=== PATIENT | female | born 1995 | race Caucasian/White ===

== ENCOUNTER 2023-04-16 09:54 | Outpatient (OUT) | payer BC, SELFPAY | END 2023-04-16 09:55 | disposition home or self-care (01) | LOC: VC 09:54 | PROVIDERS: PCP Radiology Diagnostic Radiology; Visit Provider Radiology Diagnostic Radiology | DX: I83.813 Varicose veins of bilateral lower extremities with pain (principal) ==

== ENCOUNTER 2024-01-30 09:45 | Outpatient (OUT) | payer BC, SELFPAY ==
--- NOTE | 2024-01-29 11:11 | VEINCLINIC_ITS ---
Vital Signs 01/30/24 09:56 Height 5 ft 1 in Weight 63.503 kg BMI 26.5 BP 110/62 BP Location Right Brachial BP Position Sitting BP Cuff Size Adult BP Source Manual Cuff Respiration 16 Pulse 64 Pulse Source Monitor Pulse Oximetry (%) 99 Oxygen Delivery Method Room Air Varicose Veins Patient is a 28 year old female in this day with c/o bulging, dilated veins along with pain, achiness and edema right leg greater than left. Symptoms include achi, burning, heaviness, itching, dull pain rated at a 6 on a scale of 1-10. Onset is gradual over 5 years and worsening with standing. Symptoms are decreased by rest and elevation, exercise, and compression stockings. Patient has worn bilateral leg knee high compression stockings for 2 years. Patient has family history of varicose vein disease including maternal grandmother. Patient has no history of DVT nor trama to lower legs. Nixon Greenwood MD personally performed the services described in this documentation, as scribed by Justo Stallworth RN in my presence and it is both accurate and complete. Justo Greenwood RN, am scribing for, and in the presence of, Dr. Nixon Lazo and in the presence of the patient. . thigh: bilateral (symptoms right > left), knee: bilateral, calf: bilateral, ankle: bilateral and estrada: bilateral aching, cramping, dull and tender 6 5 years Worsened in recent months: Yes standing elevating extremities, compression stockings and exercise Reports muscle spasms of leg, heaviness, limb pain, edema and leg edema History of lower extremity trauma: No Superficial thrombophlebitis: No Family history of varicose veins: yes Has patient had previous lower extremity venous surgery: No Patient has previously received the following treatment(s) for lower extremity varicose veins: Reports none Does patient have a history of : yes Does patient intend to have future pregnancies: yes Has patient had lower extremity venous scan with relux testing: No Support hose used: Yes Problems walking or doing physical activity: No How does it affect you: often has to stop and rest and elevate legs Do you walk much: Yes Do you stand much: Yes Review of Systems ROS Narrative Nixon Greenwood MD personally performed the services described in this d ocumentation, as scribed by Justo Stallworth RN in my presence and it is both accurate and complete. I, Justo Basim RN, am scribing for, and in the presence of, Dr. Nixon Lazo and in the presence of the patient. Status of ROS 10 or more systems reviewed and unremark able except as noted in history and below Cardiovascular Reports: edema Integumentary/Breast Reports: itching, skin swelling and changes in skin color [facility] Medical History (Updated 01/30/24 @ 11:47 by Justo Stallworth) Superficial thrombophlebitis ?I80.9 - Phlebitis and thrombophlebitis of unspecified site (ICD-10) delivery delivered ?O82 - Encounter for delivery without indication (ICD-10) Varicose veins of bilateral lower extremities with pain ?I83.813 - Varicose veins of bilateral lower extremities with pain (ICD-10) Pain due to varicose veins of both lower extremities ?I83.813 - Varicose veins of bilateral lower extremities with pain (ICD-10) Surgical History (Updated 01/30/24 @ 10:08 by Justo Stallworth) H/O breast augmentation ?Z98.82 - Breast implant status (ICD-10) History of appendectomy ?Z90.49 - Acquired absence of other specified parts of digestive tract (ICD- 10) H/O hemorrhoidectomy ?Z98.890 - Other specified postprocedural states (ICD-10) Family History (Updated 01/29/24 @ 11:16 by Justo Stallworth) Other Family history of diabetes mellitus Heart disease Varicose veins of bilateral lower extremities with pain Social History (Updated 01/29/24 @ 11:17 by Justo Stallworth) Within the past year, how often did you have a drink containing alcohol: 2-4 times a month Smoking status: Never smoker Non-prescribed substance use: denies use Meds Home Medications and Allergies Home Medications ?Medication ?Instructions ?Recorded ?Confirmed ?Type drospirenone-ethinyl estradiol .ROUTE 01/29/24 History spironolactone .ROUTE 01/29/24 History magnesium 200 mg tablet 200 mg PO DAILY 01/30/24 01/30/24 History Allergies Allergy/AdvReac Type Severity Reaction Status Date / Time No Known Drug Allergies Allergy Verified 01/29/24 11:14 Exam Narrative Exam Narrative: INixon MD personally performed the services described in this documentation, as scribed by Justo Stallworth RN in my presence and it is both accurate and complete. Justo Greenwood RN, am scribing for, and in the presence of, Dr. Nixon Lazo and in the presence of the patient. Constitutional Documenting provider has reviewed patient's vital signs: yes Common normals: oriented x3 Cardio Peripheral pulses: dorsalis pedis pulses present Extremity Common normals: normal capillary refill General: edema Right lower extremity: lower leg Right lower leg: inspection and palpation Left lower extremity: lower leg Left lower leg: inspection and palpation Neuro Common normals: oriented x3 Results Additional Findings Additional findings: Bilateral leg reflux u/s reveals moderate to severe right and moderate left great saphenous venous insuffiicency with associated dilatation, moderate venous insufficiency left anterior accessory saphenous vein, and bilateral leg branch saphenous truncal tributary veins. Nixon Greenwood MD personally performed the services described in this documentation, as scribed by Justo Stallworth RN in my presence and it is both accurate and complete. Justo Greenwood RN, am scribing for, and in the presence of, Dr. Nixon Lazo and in the presence of the patient. Assessment and Plan Assessment and Plan (1) Pain due to varicose veins of both lower extremities: Plan Plan is for patient to continue use of bilateral leg knee high compression stockings, rest, and elevation. Patient to return for patient to return for EVLT of right GSV and left AASV followed by microfoam chemical ablation bilateral leg branch saphenous tributary veins Patient referred to hematology Dr. Kingston at [facility] for clotting issue secondary to chronic thrombus noted in multiple superficial vessels Nixon Greenwood MD personally performed the services described in this documentation, as scribed by Justo Stallworth RN in my presence and it is both accurate and complete. Justo Greenwood RN, am scribing for, and in the presence of, Dr. Nixon Lazo and in the presence of the patient. Procedures Procedure Instructions Procedures Dr. Lazo examines patient and reviews results of bilateral leg reflux u/s. Patient and Dr. Lazo create plan of care. Nixon Greenwood MD personally performed the services described in this documentat ion, as scribed by Justo Stallworth RN in my presence and it is both accurate and complete. Justo Greenwood RN, am scribing for, and in the presence of, Dr. Nixon Lazo and in the presence of the patient.
--- NOTE | 2024-01-29 11:18 | P.DS_ITS ---
Discharge Plan Discharge Disposition: Home, Self-Care Outpatient Diagnostics: VC Endovenous Ablation 1VeinRT (Routine) Timeframe: 2 Months Facility: [facility] [place] - Location: [facility] Ordered By: Nixon Lazo Follow Up Appointments: patient to return once insurance preapproval obtained Plan of Treatment: Patient to return for EVLT of right GSV left AASV and micorofoam chemical ablation bilateral leg branch saphenous tributary varicosities Patient Instructions: Endovenous Ablation (GEN) Print Language: Romanian Discharge Date/Time: 01/30/24 11:49
--- NOTE | 2024-01-30 09:48 | VEIN_ITS ---
Patient Name: JAY TORRES MR#: [id number] : 1995 Exam Date: 01/30/2024 Ordering Doctor: DR NIXON LAZO M.D. RADIOLOGY REPORT PROCEDURE: [facility] - OFFICE VISIT INITIAL COMPARISON: None. PROGRESS NOTES: 28-year-old female who presents with a 5 year history of lower extremity pain swelling and varicose veins. The patient describes the pain as aching burning and heaviness rating the pain as a 6 on a scale of 1-10. The patient's symptoms are progressed by prolonged sitting and standing and are partially relieved by rest, leg elevation, exercise which she does daily and compression stockings which she has worn for approximately 2 years. The patient denies any signs and symptoms to suggest arterial ischemia. The patient describes a family history is significant for varicose veins, diabetes and heart disease. Surgical history of breast augmentation appendectomy and hemorrhoidectomy. The patient drinks 2-4 times per month. The patient has never smoked. No illicit drug use. No history of deep venous thrombus or pulmonary embolus. See separate history and physical for medication list. No prior treatment for varicose or spider veins. Nursing notes were reviewed. After history and physical exam I discussed at length the pathophysiology of venous hypertension and possible treatments, therapies and strategies available. We discussed at length the importance of elevating the lower extremities above the level of the heart, increased physical activity and compression stocking use. We discussed conservative therapy with compression stocking use. We discussed surgical interventions including and stripping and phlebectomy. We discussed intravenous laser ablation, foam ablation injection sclerotherapy length. The risks benefits alternatives were discussed. The patient's questions were answered. Ultrasound venous reflux study performed the same day was discussed at length with the patient. The report demonstrates moderate to severe right and moderate left great saphenous vein venous insufficiency with dilatation and saphenofemoral junction reflux. Moderate left anterior accessory saphenous vein venous insufficiency. Bilateral incompetent varicose veins. Bilateral chronic small saphenous vein thrombus. PHYSICAL EXAM: The right leg demonstrates moderate scattered varicose and reticular veins. No spider veins. No subcutaneous edema active ulceration or skin discoloration The left leg demonstrates moderate scattered varicose and reticular veins. No spider veins. No subcutaneous edema active ulceration or skin discoloration Both thighs, legs and feet were symmetrically warm to the touch. Good posterior tibial and dorsalis pedis pulses were present bilaterally. VEIN/VC Facility EST Comprehensive IMPRESSION: 1. Bilateral great saphenous and left anterior accessory saphenous vein venous insufficiency with dilatation and saphenofemoral junction reflux 2. Bilateral incompetent lower extremity varicose veins 3. No definite lower extremity subcutaneous edema 4. 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 CEAP: C2, Ep, As, Pr PLAN: 1. Endovenous laser ablation right great saphenous vein followed by left anterior accessory saphenous vein with possible treatment of the left great saphenous vein 2. Micro foam chemical ablation bilateral incompetent varicose veins 3. Referral to hematology for unprovoked bilateral occlusive small saphenous vein superficial thrombus 4. Long-term use of bilateral 20-30 mm compression stockings for moderate deep vein reflux 5. Leg elevation and continued physical activity for symptomatic relief Nurse notes, history and physical were reviewed and confirmed, see attached forms. The nurse was present throughout the physical exam and consultation Dictated by: Nixon Lazo MD on 01/30/2024 at 13:20 Approved by: Nixon Lazo MD on 01/30/2024 at 13:25
--- NOTE | 2024-01-30 09:48 | VEIN_ITS ---
Patient Name: JAY TORRES MR#: [id number] : 1995 Exam Date: 01/30/2024 Ordering Doctor: DR NIXON LAZO M.D. RADIOLOGY REPORT PROCEDURE: VC EXT VENOUS REFLUX OLEG LMTD COMPARISON: None. INDICATIONS: I83.813 Bilateral painful varicose veins TECHNIQUE: Duplex imaging of the lower extremity to assess the deep and superficial venous system for the presence of deep or superficial venous incompetence and to document the location and severity of disease. The study includes evaluation of the great saphenous vein (GSV), anterior accessory saphenous vein (AASV) and small saphenous vein (SSV). Patient scanned in reverse Trendelenburg and standing. FINDINGS: RIGHT LOWER EXTREMITY: Saphenofemoral Junction Reflux: Yes 6.8mm 3.4 sec GSV: Diam (mm) Reflux/ Time (sec) Proximal Thigh 6.4 Yes 5.0 Mid Thigh 7.6 Yes 3.9 Distal Thigh 4.2 Yes 4.8 Prox Calf 5.3 Yes 4.2 Mid Calf 1.4 Yes 0.5 Saphenopopliteal Junction Reflux: 6.5mm Yes 0.9 SSV: Proximal Calf 2.0 Occluded Mid Calf 2.0 Occluded AASV: Not present Thrombi: Chronic thrombus noted in SSV 2.2 cm from SPJ and distal GSV. Compressibility: Non-compressible SSV and distal GSV. Flow: Moderate deep venous reflux. Preforator: Proximal lateral lower leg connects to varicose vein measures 1.1 mm with 0.7s reflux. Tech Note: Incompetent varicose vein proximal medial lower leg off of GSV measures 4.9 mm with 4.4s reflux. LEFT LOWER EXTREMITY: Saphenofemoral Junction Reflux: Yes 7.8 mm 4.5 sec GSV: Diam (mm) Reflux/Time (sec) Proximal Thigh 4.2 Yes 3.3 Mid Thigh 2.6 Yes 0.9 Distal Thigh 2.6 No Prox Calf 1.9 N/A Mid Calf 2.0 N/A Saphenopopliteal Junction Relux: 5.6 mm Yes 0.5 SSV: Proximal Calf 2.0 Occluded Mid Calf 2.5 Occluded AASV: Proximal Thigh 5.8 Yes 4.2 Mid Thigh 6.0 Yes 2.8 Distal Thigh Thrombi: Chronic thrombus noted in SSV and GSV from knee to distal lower leg. Compressibility: Non-compressible lower leg GSV and SSV. Flow: Mild-moderate deep venous reflux. Customer Facilities Supervisor: Proximal posterior calf measures 2.7 mm with 0.9s reflux. Tech Note: Hyperechoic area lateral popliteal fossa measures 6.5 x 5.2 x 4.1 mm. Incompetent varicose vein mid medial thigh off of AASV measures 4.0 mm with 0.6s reflux. CONCLUSION: 1. Moderate to severe right and moderate left great saphenous vein venous insufficiency with dilatation and saphenofemoral junction reflux 2. Moderate venous insufficiency left anterior accessory saphenous vein with dilatation 3. Bilateral incompetent varicose veins Dictated by: Nixon Lazo MD on 01/30/2024 at 10:57 Approved by: Nixon Lazo MD on 01/30/2024 at 11:01
[2024-01-30 09:56] VITALS: BP 110/62; PULSE 64; O2SAT 99; BMI 26.5
--- OUTSIDE RECORDS SUMMARY | 2024-01-30 10:01 | XMS_ITS | CCD ---
Author Organization [facility] Care Team Providers Care Story Reader Name Role Phone Bao Rosado Unavailable Unavailable Bao Rosado Unavailable Unavailable America Ely Unavailable America Ely Primary Care Provider America Ely Primary Care Provider [phone] America Ely CNP Primary Care Provider Tan SHAIKH, Desiree Arredondo Primary Care Provider Tan SHAIKH, Desiree Arredondo Primary Care Provider Yohan Reyna MD Unavailable DESIREE MADDOX Primary Care Unavailab le YOHAN REYNA Referring Unavailable SUBIT, YOHAN LAKE Admitting Unavailable Yohan Reyna MD Unavailable Carlos Narayan MD, Gay Arzola Primary Care Pro vider Yohan Reyna MD Unavailable Carlos Narayan MD, Gay Arzola Primary Care Pro vider Daiana VENDING TECHNICIAN, Francisco Trinh Primary Care Provider Daiana VENDING TECHNICIAN, Francisco Trinh Primary Care Provider [phone] Daiana SRAVANTHI, Francisco Trinh Unavailable RAUDEL JORDAN Consulting Unavailable RAUDEL JORDAN Attending Unavailable ELLA CANTU Referring Unavailable FRANCISCO AHMADI Primary Care Unavailable RAUDEL JORDAN Admitting Unavailable FRANCISCO AHMADI Primary Care Unavailable ELLA CANTU Attending Unavailable RAUDEL JORDAN Attending Unavailable FRANCISCO AHMADI Primary Care Unavailable DAIANAFRANCISCO Lubin Primary Care Unavailable DAIANAFRANCISCO Lubin Attending GAY Uribe Primary Care GAY Cruz Attending Antoinette mckinney Allergies Allergy Classification Reported Allergen(s) Allergy Type Date of Onset Reaction(s) Facility (17 sources) Other; Translations: [OTHER] Propensity to adverse reactions 9 Other (See Comments) [facility] Medications Current Medications Medication Drug Class(es) Dates Sig (Normalized) Sig (Original) acetaminophen 325 mg oral tablet (4 sources) Start: 08-21-2023 End: 08-31-2023 take 2 tablets by mouth every four hours as needed acetaminophen (TYLENOL) 325 MG tablet Take 2 (two) tablets (650 mg total) by mouth every 4 (four) hours as needed . 30 tablet 0 08/21/2023 08/31/2023 Active Start: 08-20-2023 End: 08-21-2023 take 1 tablet by mouth every four hours as needed for pain and headache acetaminophen (TYLENOL) tablet 650 mg Start: 06-29-2021 End: 07-01-2021 take 1 tablet by mouth every four hours as needed for pain 650 mg, Oral, Every 4 hours PRN, mild pain, Starting on Sun06/29/21 at 1335, acetaminophen 325 mg / HYDROcodone bitartrate 5 mg oral tablet (3 sources) Opioid Agonist Start: 06-30-2021 End: 07-04-2021 HYDROcodone-acetaminophen (NORCO) 5-325 mg per tablet Indications: Post-operative pain Take 1 (one) tablet by mouth every 6 (six) hours as needed for pain (Days supply per fill: 3) . 12 tablet 0 06/30/2021 07/04/2021 Active Start: 06-29-2021 End: 07-01-2021 take 1-2 tablets by mouth every four hours as needed 1-2 tablet, Oral, Every 4 hours PRN, moderate to severe pain, Starting on Sun06/29/21 at 1335, [] Initiate with 1 tablet oral every 4 hours prn moderate to severe pain. [] For unrelieved pain, may repeat one tablet oral dose within 60 minutes of initial dose. [] If pain is RELIEVED after repeat dose, change to two tablets of 5/325 mg oral every 4 hours prn moderate to severe pain. [] If pain is UNrelieved after repeat dose, or patient requires dose reduction, call physician. amitriptyline hydrochloride 50 mg oral tablet (1 source) Tricyclic Antidepressant Start: 05-24-2018 take 1 tablet by mouth at bedtime amitriptyline 50 MG Tab Take 1 tablet by mouth at bedtime. 30 tablet 2 05/24/2018 Active Start: 05-24-2018 take 1 tablet by kadie th at bedtime amitriptyline 50 MG Tab Take 1 tablet by mouth at bedtime. 30 tablet 2 05/24/2018 Active cephalexin 500 mg oral capsule (1 source) Cephalosporin Antibacterial Start: 05-17-2018 End: 05-24-2018 take 1 capsule by mouth every twelve hours cephALEXin 500 MG Cap capsule Indications: Urinary tract infection with hematuria, site unspecified Take 1 capsule by mouth every 12 hours for 7 days. 14 capsule 0 05/17/2018 05/24/2018 Active CRANBERRY CONCENTRATE PO (4 sources) take 4 capsules by mouth once daily CRANBERRY CONCENTRATE PO Take 4 capsules by mouth daily. Active docusate sodium 50 mg / sennosides, intermediate 8.6 mg oral tablet (4 sources) Start: 06-29-2021 End: 07-31-2021 take 1 tablet by mouth once daily senna-docusate (SENNA-S) 8.6-50 mg Take 1 (one) tablet by mouth daily . 30 tablet 0 06/30/2021 07/31/2021 Active Start: 06-29-2021 End: 07-01-2021 senna-docusate (SENNA-S) 8.6 -50 mg per tablet 1 tablet drospirenone / Ethinyl Estradiol (1 source) Progestin, Estrogen Start: 03-06-2023 take 1 tablet by mouth once daily, then take 3 tablets by mouth once drospirenone-ethinyl estradioL (WILMAN) 3-0.02 mg per tablet Take 1 (one) tablet by mouth daily . 0 03/06/2023 Active ibuprofen 600 mg oral tablet (5 sources) Nonsteroidal Anti-inflammatory Drug Start: 08-21-2023 End: 08-26-2023 take 1 tablet by mouth every eight hours as needed for pain ibuprofen (ADVIL,MOTRIN) 600 MG tablet Take 1 (one) tablet (600 mg total) by mouth every 8 (eight) hours as needed for pain . 15 tablet 0 08/21/2023 08/26/2023 Active Start: 06-30-2021 End: 11-21-2021 take 1 tablet by mouth every eight hours as needed for pain ibuprofen (ADVIL,MOTRIN) 800 MG tablet Take 1 (one) tablet (800 mg total) by mouth every 8 (eight) hours as needed for pain . 30 tablet 0 06/30/2021 11/21/2021 Discontinued (Patient's Request) Lactobacillus acidophilus (8 sources) Lactobacillus ac idophilus (PROBIOTIC ORAL) Take by mouth . 0 Active Lactobacillus ac idophilus (PROBIOTIC ORAL) Take by mouth . 0 End: 11-22-2020 Lactobacillus acidophilus (P ROBIOTIC ORAL) Take by mouth daily . 0 11/22/2020 Discontinued (Therapy completed) Lactobacillus ac idophilus (PROBIOTIC ORAL) Take by mouth daily . 0 Active linaclotide 0.145 mg oral capsule (4 sources) Guanylate Cyclase-C Agonist Start: 04-26-2018 take 1 capsule by mouth once daily Linaclotide (LINZESS) 145 MCG Cap capsule Indications: Constipation, unspecified constipation type Take 1 capsule by mouth daily. 30 capsule 0 04/26/2018 Active omega-3 acid ethyl esters (intermediate) 1000 mg oral capsule (4 sources) take 1 capsule by mouth once daily Aurora-3 Fatty Acids (FISH OIL) 1000 MG Cap Take 1,000 mg by mouth daily. Active ondansetron 4 mg disintegrating oral tablet (1 source) Serotonin-3 Receptor Antagonist Start: 09-24-2021 End: 11-21-2021 take 1 tablet by mouth every four hours as needed for nausea ondansetron (ZOFRAN-ODT) 4 MG disintegrating tablet Dissolve 1 (one) tablet (4 mg total) on top of tongue every 4 to 6 hours as needed for nausea . 10 tablet 0 09/24/2021 11/21/2021 Discontinued (Patient's Request) 25/iron fum/folic/dha (-1 ORAL) (7 sources) End: 11-21-2021 take 1 tablet by mouth once daily 25/iron fum/folic/dha (-1 ORAL) Take 1 tablet by mouth daily . 0 11/21/2021 Discontinued (Patient's Request) take 1 tablet by mouth once valerie y 25/iron fum/folic/dha (-1 ORAL) Take 1 tablet by mouth daily . 0 take 1 tablet by mouth once valerie y 25/iron fum/folic/dha (-1 ORAL) Take 1 tablet by mouth daily . 0 Active spironolactone 50 mg oral tablet (3 sources) Aldosterone Antagonist take 2 tablets by mouth once daily spironolactone (ALDACTONE) 50 MG tablet Take 2 (two) tablets (100 mg total) by mouth daily . 0 Active take 1 tablet by mouth once valerie y spironolactone (ALDACTONE) 50 MG tablet Take 50 mg by mouth daily . 0 Active Thera Po Tabs (3 sources) take 1 tablet by kadie th once daily Multiple Vitamin (MULTIVITAMIN) Tab Take 1 tablet by mouth daily. Active Completed/Discontinued Medications Medication Drug Class(es) Dates Sig (Normalized) Sig (Original) aluminum hydroxide 40 mg/ml / magnesium hydroxide 40 mg/ml / simethicone 4 mg/ml oral suspension (1 source) Start: 06-29-2021 End: 07-01-2021 take 30 mL by mouth every four hours as needed 30 mL, Oral, Every 4 hours PRN, indigestion, Starting on Sun06/29/21 at 1335, bisacodyl 10 mg rectal suppository (1 source) Stimulant Laxative Start: 06-29-2021 End: 07-01-2021 10 mg, Rectal, Daily PRN, constipation, Starting on Sun06/29/21 at 1335, Use oral medication first for constipation. Use rectal suppository, if ordered, for constipation if oral route not tolerated. calcium chloride 0.0014 meq/ml / potassium chloride 0.004 meq/ml / sodium chloride 0.103 meq/ml / sodium lactate 0.028 meq/ml injectable solution (3 sources) Start: 08-20-2023 End: 08-21-2023 take 100 mL intravenously every hour 100 mL/hr, Intravenous, Continuous, Starting on Sun08/20/23 at 2045, PACU (only) Start: 06-29-2021 End: 07-01-2021 take 125 mL intravenously every hour 125 mL/hr, Intravenous, Continuous, Starting on Sun06/29/21 at 1430, L&D Post-Delivery Start when oxyTOCIN (PITOCIN) drip is discontinued. Discontinue after 24 hours if patient is afebrile and tolerating orals. Start: 06-29-2021 End: 06-29-2021 take 2000 mL intravenously every twenty-four hours as needed lactated ringers bolus 2,000 mL diphenhydrAMINE (BENADRYL) oral solid 25 mg (1 source) Start: 06-29-2021 End: 07-01-2021 take 25 mg by mouth every six hours as needed diphenhydrAMINE (BENADRYL) oral solid 25 mg docosahexanoic acid/epa (FISH OIL ORAL) (5 sources) End: 11-22-2020 take 1000 mg by mouth once daily docosahexanoic acid/epa (FISH OIL ORAL) Take 1,000 mg by mouth daily . 0 11/22/2020 Discontinued (Therapy completed) take 1000 mg by mouth once daily docosahexanoic acid/epa (FISH OIL ORAL) Take 1,000 mg by mouth daily . 0 Active docusate sodium 100 mg oral capsule (1 source) Start: 06-29-2021 End: 07-01-2021 100 mg, Oral, 2 times daily PRN, constipation, Starting on Sun06/29/21 at 1335, Use oral medication first for constipation. Use rectal suppository, if ordered, for constipation if oral route not tolerated. DO NOT CRUSH OR CHEW. doxycycline hyclate 100 mg oral tablet (5 sources) Tetracycline- class Drug End: 11-22-2020 take 100 mg by mouth twice daily DOXYCYCLINE HYCLATE ORAL Take 100 mg by mouth 2 (two) times a day . 0 11/22/2020 Discontinued (Therapy completed) escitalopram 10 mg oral tablet (1 source) Serotonin Reuptake Inhibitor Start: 01-08-2023 End: 03-12-2023 take 1 tablet by mouth once daily escitalopram oxalate (LEXAPRO) 10 MG tablet Take 1 (one) tablet (10 mg total) by mouth daily . 0 01/08/2023 03/12/2023 Discontinued (Prescriber Discontinued) ferrous sulfate 325 mg oral tablet (1 source) Start: 06-30-2021 End: 07-01-2021 take 325 mg by mouth once daily at breakfast 325 mg, Oral, Daily with breakfast, First dose on [place] 06/30/21 at 0800, flu vacc [id number] 6mos up(PF) (FLUZONE QUAD/FLULAVAL QUAD/FLUARIX QUAD) syringe 0.5 mL (1 source) Start: 06-30-2021 End: 07-01-2021 inject 0.5 mL by intramuscular injection every twenty-four hours as needed flu vacc [id number] 6mos up(PF) (FLUZONE QUAD/FLULAVAL QUAD/FLUARIX QUAD) syringe 0.5 mL fluconazole 100 mg oral tablet (2 sources) Azole Antifungal Start: 06-29-2021 End: 07-01-2021 fluconazole (DIFLUCAN) table t 150 mg Start: 05-17-2018 fluconazole (D IFLUCAN) 150 MG Tab tablet Indications: Yeast infection Take one tablet by mouth then repeat in 72 hours. 2 tablet 0 05/17/2018 Active fluticasone propionate 0.05 mg/actuat metered dose nasal spray (5 sources) Corticosteroid Start: 10-29-2015 End: 03-12-2023 take 2 spray(s) nasal route once daily fluticasone propionate (FLONASE) 50 mcg/actuation nasal spray Instill 2 (two) sprays into each nostril daily . 0 10/29/2015 03/12/2023 Discontinued (Prescriber Discontinued) fluticasone 50 M CG/ACT Suspension 2 sprays by Nasal route daily.. Active 0.5 ml HYDROmorphone hydrochloride 1 mg/ml prefilled syringe (1 source) Opioid Agonist Start: 08-20-2023 End: 08-21-2023 take 0.5 mg intravenously every three hours as needed HYDROmorphone (DILAUDID) injection 0.5 mg multivitamin (THERAGRAN) per tablet (5 sources) End: 11-22-2020 take 1 tablet by mouth once daily multivitamin (THERAGRAN) per tablet Take 1 tablet by mouth daily . 0 11/22/2020 Discontinued (Therapy completed) take 1 tablet by mouth once valerie y multivitamin (THERAGRAN) per tablet Take 1 tablet by mouth daily . 0 Active naloxone (NARCAN) injection 0.1 mg (2 sources) Start: 08-20-2023 End: 08-21-2023 naloxone (NARCAN) injection 0.1 mg Start: 06-29-2021 End: 07-01-2021 naloxone (NARCAN) injection 0.1 mg naproxen sodium 550 mg oral tablet (2 sources) Nonsteroidal Anti-inflammatory Drug Start: 03-06-2022 End: 03-12-2023 take 1 tablet by mouth twice daily as needed for pain naproxen sodium (ANAPROX) 550 MG tablet Take 1 (one) tablet (550 mg total) by mouth 2 (two) times a day as needed (pain) . 14 tablet 0 03/06/2022 03/12/2023 Discontinued (Prescriber Discontinued) ondansetron (ZOFRAN-ODT) disintegrating tablet 4 mg (2 sources) Start: 08-20-2023 End: 08-21-2023 take 1 tablet by mouth every four hours as needed for nausea and vomiting ondansetron (ZOFRAN-ODT) disintegrating tablet 4 mg Start: 06-29-2021 End: 07-01-2021 take 1 tablet by mouth every six hours as needed for nausea and vomiting ondansetron (ZOFRAN-ODT) disintegrating tablet 4 mg oxytocin (PITOCIN) bolus from bag 10,000 guillermo-units (1 source) Start: 06-29-2021 End: 06-29-2021 oxytocin (PITOCIN) bolus from bag 10,000 guillermo-units oxytocin in lactated ringers (PITOCIN) 20 unit/1,000 mL infusion (1 source) Start: 06-29-2021 End: 06-29-2021 oxytocin in lactated ringers (PITOCIN) 20 unit/1,000 mL infusion rho(d) immune globulin (RHOPHYLAC) injection 300 mcg (1 source) Start: 06-29-2021 End: 07-01-2021 inject 300 ug by intramuscular injection every twenty-four hours as needed rho(d) immune globulin (RHOPHYLAC) injection 300 mcg simethicone 80 mg chewable tablet (1 source) Start: 06-29-2021 End: 07-01-2021 take 80 mg by mouth after mealtime as needed 80 mg, Oral, After meals as needed, flatulence, Starting on Sun06/29/21 at 1335, Problems Active Problems Problem Classification Problem Date Documented Da te Episodic/Chronic Abdominal pain (1 source) Suprapubic pain Episodic Administrative/social admission (1 source) Patient encounter status; Translations: [Persons encountering health services in other specified circumstances] 03-12-2023 Episodic Allergic reactions (4 sources) Allergic disposition; Translations: [History of seasonal allergies] 12-15-2016 Episodic Appendicitis and other appendiceal conditions (8 sources) Acute appendicitis; Translations: [Unspecified acute appendicitis] Onset: 08-20-2023 08-20-2023 Episodic Cardiac dysrhythmias (3 sources) Palpitations; Translations: [Palpitations] Episodic Genitourinary symptoms and ill-defined conditions (4 sources) Dysuria; Translations: [Blood in urine] Episodic Other aftercare (1 source) Surgical follow-up; Translations: [Encounter for follow-up examination after completed treatment for conditions other than malignant neoplasm] 09-07-2023 Episodic Other gastrointestinal disorders (4 sources) Constipation; Translations: [Constipation] Onset: 04-26-2018 04-26-2018 Episodic Other nervous system disorders (1 source) Postoperative pain ; Translations: [Other acute postprocedural pain] Episodic Other upper respiratory disease (13 sources) Seasonal allergy; Translations: [Other seasonal allergic rhinitis] Chronic Other upper respiratory disease (2 sources) Other seasonal allergic rhinitis; Translations: [Other seasonal allergic rhinitis] Onset: 11-22-2020 Chronic Residual codes; unclassified (3 sources) FH: Cardiomyopathy; Translations: [Family history of ischemic heart disease and other diseases of the circulatory system] Episodic Unclassified (4 sources) H/O: Disorder; Translations: [History of hemorrhoids] 12-15-2016 Episodic Unclassified (2 sources) Post-op Onset: 09-07-2023 Urinary tract infections (1 source) Chronic interstitial cystitis Chronic Urinary tract infections (5 sources) Acute cystitis; Translations: [Recurrent urinary tract infection] Onset: 10-26-2017 10-26-2017 Episodic Varicose veins of lower extremity (4 sources) Pain co-occurrent and due to varicose veins of left leg; Translations: [Varicose veins of left lower extremity with pain] Onset: 01-20-2019 01-20-2019 Past or Other Problems Problem Classification Problem Date Documented Da te Episodic/Chronic Other upper respiratory infections (5 sources) Acute upper respiratory infection; Translations: [Acute upper respiratory infection, unspecified] Onset: 09-24-2021 Resolved: 11-21-2021 11-21-2021 Episodic Residual codes; unclassified (7 sources) Gestation period, 39 weeks; Translations: [39 weeks gestation of ] Onset: 06-29-2021 Resolved: 11-21-2021 Episodic Varicose veins of lower extremity (14 sources) Pain co-occurrent and due to varicose veins of left leg; Translations: [Varicose veins of left lower extremity with pain] Onset: 01-20-2019 01-20-2019 Episodic Results Test Name Value Interpretation Reference Range Facility Basic metabolic 2000 panelon 08-21-2023 Anion gap [Moles/Vol] 9 mmol/L Low 10 - 2 0 mmol/L [facility] Calcium [Mass/Vol] 8.8 mg/dL 8.4 - 10. 2 mg/dL [facility] Chloride [Moles/Vol] 110 mmol/L High 98 - 10 8 mmol/L [facility] Creatinine [Mass/Vol] 0.53 mg/dL 0.40 - 1.10 mg/dL [facility] GFR/1.73 sq M.predicted CKD-EPI (S/P/Bld) [Vol rate/Area] 128 - PINF [facility] Comment on above: Estimated GFR was ca lculated using the 2020 CKD-EPI creatinine equation. Glucose [Mass/Vol] 110 mg/dL High 65 - 99 mg/dL [facility] HCO3 [Moles/Vol] 24 mmol/L 21 - 32 mmol/L [facility] Interpretation and review of laboratory results Abnormal [facility] Potassium [Moles/Vol] 4.3 mmol/L 3.5 - 5.1 mmol/L [facility] Sodium [Moles/Vol] 139 mmol/L 135 - 145 mmol/L [facility] Urea nitrogen [Mass/Vol] 11 mg/dL 8 - 25 mg/dL [facility] Urea nitrogen/Creatinine [Mass ratio] 20.8 mg/mg High 10.0 - 20.0 [facility] has implemented the eGFR calculation approach that does not have a coefficient for race that conforms to the NKF-ASN Task Force Recommendations. [facility] CBC panel Auto (Bld)on 08-20 Erythrocyte distribution width (RBC) [Entitic vol] 13.5 % 11.6 - 14.8 % [facility] Hematocrit (Bld) [Volume fraction] 36.6 % 36.0 - 46.0 % [facility] Hemoglobin (Bld) [Mass/Vol] 12.0 g/dL 12.0 - 16.0 g/dL [facility] Interpretation and review of laboratory results Abnormal [facility] MCH (RBC) [Entitic mass] 29.9 pg 26.0 - 34.0 pg [facility] MCHC (RBC) [Mass/Vol] 32.8 g/dL 31.0 - 37.0 g/dL [facility] MCV (RBC) [Entitic vol] 91.3 fL 80.0 - 100.0 fL [facility] Nucleated RBC (Bld) [#/Vol] 0.00 10*3/uL [facility] Nucleated RBC/100 WBC (Bld) [Ratio] 0.0 % [facility] Platelet mean volume (Bld) [Entitic vol] 9.8 fL 9.4 - 12.4 fL [facility] Platelets (Bld) [#/Vol] 208 10*3/uL [facility] RBC (Bld) [#/Vol] 4.01 10*6/uL [facility] WBC (Bld) [#/Vol] 11.08 10*3/uL [facility] CT ABDOMEN PELVIS WITH IV CO NTRAST ONLYon 08-20-2023 CT ABDOMEN PELVIS WITH IV CONTRAST ONLY EXAMINATION: CT ABDOMEN PELVIS WITH IV CONTRAST ONLY HISTORY: ORDERING SYSTEM PROVIDED HISTORY: RLQ abdominal pain, TECHNOLOGIST PROVIDED HISTORY: Illness/Other Reason for exam: Pt reports symptoms began around 1900 last night. C/o mid abdominal pain and nausea. Pt reports today her pain is better but her abdomen still feels tender and she still is nauseous. Encounter Type: Initial Additional signs and symptoms: n ORDERING SYSTEM PROVIDED DIAGNOSIS CODES: COMPARISON: None TECHNIQUE: CT examination of the abdomen and pelvis following the administration of intravenous contrast. Coronal and sagittal reformations were performed. Dose reduction techniques were achieved by using automated exposure control and/or adjustment of mA and/or kV according to patient size and/or use of iterative reconstruction technique. CONTRAST: IOPAMIDOL 370 MG IODINE/ML (76 %) INTRAVENOUS SOLUTION - 75 mL, FINDINGS: LOWER CHEST: Lung bases are clear. Partial visualization of bilateral breast implants. ABDOMEN: Liver: Normal. Bile ducts: Normal caliber. Gallbladder: No calcified gallstones. Normal caliber wall. Pancreas: Normal. Spleen: Normal. Adrenals: Normal. Kidneys: Symmetric enhancement without hydronephrosis. PELVIS: Reproductive organs: Partially collapsed, peripherally enhancing low-density lesion of the right ovary measures 1.7 x 1.4 cm. Suggestive of involuting follicle. Ureters: Normal. Bladder: Normal. OTHER ABDOMEN AND PELVIS: Bowel: No bowel obstruction. Mildly prominent retrocecal appendix with mild thickening and enhancement measures up to 8 mm. Peritoneum: Small amount of low-density free fluid in the pelvis. Vessels: Normal. Lymph nodes: No enlarged lymph nodes. Abdominal wall: Normal. Osseous structures: No destructive lesions. IMPRESSION: Mildly prominent retrocecal appendix with mild thickening enhancement. Measures up to 8 mm in caliber (series 2, images [id number]; series 601, image 44). Findings are suspicious for early acute appendicitis. No pneumoperitoneum. No organized fluid collection. Recommend surgical consultation. Probable involuting right ovarian follicle measuring up to 1.7 cm. Small amount of free fluid in the pelvis. No pneumoperitoneum. Critical results were called by Dr. Quan Xiong to Dr. Ella Cantu on 08/20/2023 at 1416 hours. /[employer] Workstation ID: [id number] Dictated by: QUAN XIONG on SunAug 20, 2023 2:17:38 PM EST Transcribed by: HANS CALDERON on SunAug 20, 2023 2:21:16 PM EST Finalized by: QUAN XIONG on SunAug 20, 2023 6:07:32 PM EST Normal [facility] Comment on above: Order Comment: Injur y/Trauma or Illness?:Illness/Other How long have you had these symptoms (acute/chronic)?:Acute Reason for exam?:Pt reports symptoms began around 1900 last night. C/o mid abdominal pain and nausea. Pt reports today her pain is better but her abdomen still feels tender and she still is nauseous. Type of Exam?:Initial Additional signs and symptoms?:n CBC panel Auto (Bld)on 06-30 Erythrocyte distribution width (RBC) [Entitic vol] 13.6 % 11.6 - 14.8 % [facility] Hematocrit (Bld) [Volume fraction] 32.9 % Low 36.0 - 46.0 % [facility] Hemoglobin (Bld) [Mass/Vol] 11.0 g/dL Low 12.0 - 16.0 g/dL [facility] Interpretation and review of laboratory results Abnormal [facility] MCH (RBC) [Entitic mass] 30.1 pg 26.0 - 34.0 pg [facility] MCHC (RBC) [Mass/Vol] 33.4 g/dL 31.0 - 37.0 g/dL [facility] MCV (RBC) [Entitic vol] 90.1 fL 80.0 - 100.0 fL [facility] Nucleated RBC (Bld) [#/Vol] 0.00 10*3/uL [facility] Nucleated RBC/100 WBC (Bld) [Ratio] 0.0 % [facility] Platelet mean volume (Bld) [Entitic vol] 11.4 fL 9.4 - 12.4 fL [facility] Platelets (Bld) [#/Vol] 162 10*3/uL [facility] RBC (Bld) [#/Vol] 3.65 10*6/uL Low [facility] ealt WBC (Bld) [#/Vol] 18.84 10*3/uL [facility] ABORH Verificationon 022 ABO and Rh group Nom (Bld) Blood group O Rh(D) positive [facility] ABO and Rh group Nom (Bld) ABO/Rh Verification [facility] Comment on above: Patient's ABO/Rh is verified. [facility] Blood type and Indirect anti body screen panel (Bld)on 06-29-2021 ABO and Rh group Nom (Bld) Blood group O Rh(D) positive [facility] Blood group antibody screen Ql Negative [facility] Specimen Expires 07/02/2021 23:59 EST [facility] CBC panel Auto (Bld)on 06-29 Erythrocyte distribution width (RBC) [Entitic vol] 13.7 % 11.6 - 14.8 % [facility] Hematocrit (Bld) [Volume fraction] 37.8 % 36.0 - 46.0 % [facility] Hemoglobin (Bld) [Mass/Vol] 12.8 g/dL 12.0 - 16.0 g/dL [facility] Interpretation and review of laboratory results Abnormal [facility] MCH (RBC) [Entitic mass] 30.0 pg 26.0 - 34.0 pg [facility] MCHC (RBC) [Mass/Vol] 33.9 g/dL 31.0 - 37.0 g/dL [facility] MCV (RBC) [Entitic vol] 88.5 fL 80.0 - 100.0 fL [facility] Nucleated RBC (Bld) [#/Vol] 0.00 10*3/uL [facility] Nucleated RBC/100 WBC (Bld) [Ratio] 0.0 % [facility] Platelet mean volume (Bld) [Entitic vol] 11.4 fL 9.4 - 12.4 fL [facility] Platelets (Bld) [#/Vol] 170 10*3/uL [facility] RBC (Bld) [#/Vol] 4.27 10*6/uL [facility] WBC (Bld) [#/Vol] 12.72 10*3/uL [facility] SCAN OTHER ORDERSon 06-29-19 Ordered by an unspecified provider. [facility] COVID-19, MOLECULARon 2021 SARS-CoV-2 (COVID-19) RNA ADRIANA+probe Ql (Unsp spec) Not detected Normal Not Detected [facility] Comment on above: Result Comment: This test was performed under the FDA's Emergency Use Authorization (EUA). Testing was performed using the Georgina SARS-CoV-2 RT-PCR assay on the [employer] Georgina 6800 System. This test has not been approved for use in asymptomatic patients and its performance in this patient population has not been evaluated. Negative results do not rule out the presence of SARS-CoV-2/COVID-19. Fact sheets for this EUA can be found at the following links: For Healthcare Providers: https://www.fda.gov/media/104448/download For Patients: https://www.fda.gov/media/165727/download Performed By: #### L [id number] #### [facility] [address] [place] [address] Anderson Cano M.D. [id number] Chlamydia/Gonorrhoeae Amplif ied RNAon 06-14-2021 C. trachomatis rRNA ADRIANA+probe Ql (Unsp spec) Negative Negative [facility] N. gonorrhoeae rRNA ADRIANA+probe Ql (Unsp spec) Negative Negative [facility] No Panel Informationon 06-14 [facility] RPRon 06-14-2021 Reagin Ab RPR Ql (S) Non-Reactive Non-Reactive [facility] S. agalactiae DNA ADRIANA+probe Ql (Unsp spec)on 06-14-2021 S. agalactiae Ag Ql (Unsp spec) Negative Negative [facility] NOVEL CORONAVIRUSon 01-29-20 21 PERFORMED BY [facility] Normal [facility] Comment on above: Performed By: #### C COVID #### [place] [address] SARS-CoV-2 (COVID-19) RNA ADRIANA+probe Ql (Unsp spec) Detected Abnormal NOT DETECTED [facility] Comment on above: Result Comment: CALL ED TO AND READ BACK BY Sarah AMATO @1245 BY KLE ENHANCED CONTACT, AND DROPLET ISOLATION IS REQUIRED FOR INPATIENTS WITH SARS-CoV-2. Performed By: #### C COVID #### [place] [address] NARRATIVE This test was performed using isothermal ADRIANA and has been approved as Emergency Use Authorization (EUA) for the qualitative detection isOWNS-SfX-7 nucleic acid. [facility] Comment on above: Performed By: #### C COVID #### [place] [address] Gestational Diabetes Screen (50G)on 01-17-2021 Glucose 1 Hr post 50 g glucose PO [Mass/Vol] 79 mg/dL 65 - 135 mg/dL [facility] Glucose 1 Hr post 50 g gluco se PO [Mass/Vol]on 01-17-2021 [facility] ECHOCARDIOGRAM COMPLETEOrder ed By: Desiree Maddox on 12-29-2020 Aortic valve area 2.84393 cm [facility] AV mean gradient 2.35553 mmHg [facility] AV peak gradient 4.68977 mmHg [facility] EF 65.2664 % [facility] Patient Info Name: JAY ANTONIO Age: 25 years : 1995 Gender: Female Ht: 160 cm Wt: 64 kg BSA: 1.70 m2 HR: 75 bpm BP: 106 / 69 mmHg Heart Rhythm: Sinus Rhythm Technical Quality: Good Exam Date: 12/29/2020 9:19 AM Patient Status: [facility] Consultant: Addie Luna, KATHLEEN, RVT Exam Type: ECHOCARDIOGRAM COMPLETE Study Info Indications R00.2 - Palpitations Referring Physician: DESIREE MADDOX ; [id number] BMI: 25.15 kg/m2 Summary 1. Normal transthoracic echocardiogram. 2. Left ventricular systolic function is normal with an ejection fraction by Biplane Method of Discs of 65 %. 3. The left ventricular diastolic function is normal. History/Risk Factors Tobacco Use: Never History/Risk Factors palpitations, family H/O HOCM, 13 weeks . Procedure(s): Complete two-dimensional, color flow and Doppler transthoracic echocardiogram is performed. Left Ventricle Left ventricular chamber dimension is normal. Left ventricular systolic function is normal with an ejection fraction by Biplane Method of Discs of 65 %. Normal left ventricular mass. Left ventricular segmental wall motion is normal. The left ventricular diastolic function is normal. Right Ventricle Right ventricular chamber dimension is normal. Right ventricular systolic function is normal. Left Atria Left atrial chamber is normal with a left atrial volume index of 19 ml/m2 by BP MOD. Right Atria Right atrial chamber dimension is normal. Aortic Valve The aortic valve is trileaflet. There is no aortic valve sclerosis. There is no aortic valve stenosis with a peak velocity of 1.1 m/s, mean gradient of 3 mmHg, and aortic valve area of 2.8 cm2. There is no aortic valve regurgitation. Pulmonic Valve The pulmonic valve is normal. There is no pulmonic valve stenosis. There is trace pulmonic regurgitation. Mitral Valve The mitral valve has normal leaflets. There is no mitral valve stenosis. There is no mitral valve regurgitation. Tricuspid Valve The tricuspid valve leaflets are normal. There is no significant tricuspid valve stenosis. There is trace tricuspid valve regurgitation. There is no pulmonary hypertension, estimated right ventricle systolic pressure is 18 mmHg. Pericardium/Pleural The pericardium appears normal. There is no pericardial effusion. Inferior Vena Cava Normal inferior vena cava with >50% collapse upon inspiration consistent with normal right atrial pressure. Aorta The aortic measurements are indexed to age and body surface area. The aortic root is normal measuring 2.8 cm with an index of 1.7 cm/m2. The proximal ascending aorta is normal measuring 2.9 cm with an index of 1.7 cm/m2. Left Ventricular Outflow Tract Name Value Normal LVOT 2D LVOT Diameter 2.1 cm LVOT Doppler LVOT Peak Velocity 1.0 m/s LVOT Peak Gradient 4 mmHg LVOT Mean Gradient 2 mmHg LVOT VTI 22 cm LVOT VTI/AV VTI Ratio 0.8 LVOT Stroke Volume 72 ml LVOT Stroke Index 42.28 ml/m2 Pulmonic Valve Name Value Normal PV Doppler PV Peak Velocity 0.88 m/s PV Peak Gradient 3 mmHg PV Mean Gradient 2 mmHg PV VTI 20 cm Mitral Valve Name Value Normal MV Doppler MV Peak Velocity 1.14 m/s MV Peak Gradient 5 mmHg MV Mean Gradient 1 mmHg MV VTI 27 cm MV Decel Gibson 838 cm/s2 MV PHT 33 ms MV Area (PHT) 6.7 cm2 4.0-5.0 MV Area (Cont Eq VTI) 2.7 cm2 MV Area Index (Cont Eq VTI) 1.57 cm2/m2 MV Diastolic Function - (more content not included)... [facility] Interface, Rad [facility] - 12/29/2020 10:35 AM EDT Patient Info Name: JAY ANTONIO Age: 25 years : 1995 Gender: Female Ht: 160 cm Wt: 64 kg BSA: 1.70 m2 HR: 75 bpm BP: 106 / 69 mmHg Heart Rhythm: Sinus Rhythm Technical Quality: Good Exam Date: 12/29/2020 9:19 AM Patient Status: [facility] Consultant: Addei Luna, KATHLEEN, RVT Exam Type: ECHOCARDIOGRAM COMPLETE Study Info Indications R00.2 - Palpitations Referring Physician: DESIREE MADDOX ; [id number] BMI: 25.15 kg/m2 Summary 1. Normal transthoracic echocardiogram. 2. Left ventricular systolic function is normal with an ejection fraction by Biplane Method of Discs of 65 %. 3. The left ventricular diastolic function is normal. History/Risk Factors Tobacco Use: Never History/Risk Factors palpitations, family H/O HOCM, 13 weeks . Procedure(s): Complete two-dimensional, color flow and Doppler transthoracic echocardiogram is performed. Left Ventricle Left ventricular chamber dimension is normal. Left ventricular systolic function is normal with an ejection fraction by Biplane Method of Discs of 65 %. Normal left ventricular mass. Left ventricular segmental wall motion is normal. The left ventricular diastolic function is normal. Right Ventricle Right ventricular chamber dimension is normal. Right ventricular systolic function is normal. Left Atria Left atrial chamber is normal with a left atrial volume index of 19 ml/m2 by BP MOD. Right Atria Right atrial chamber dimension is normal. Aortic Valve The aortic valve is trileaflet. There is no aortic valve sclerosis. There is no aortic valve stenosis with a peak velocity of 1.1 m/s, mean gradient of 3 mmHg, and aortic valve area of 2.8 cm2. There is no aortic valve regurgitation. Pulmonic Valve The pulmonic valve is normal. There is no pulmonic valve stenosis. There is trace pulmonic regurgitation. Mitral Valve The mitral valve has normal leaflets. There is no mitral valve stenosis. There is no mitral valve regurgitation. Tricuspid Valve The tricuspid valve leaflets are normal. There is no significant tricuspid valve stenosis. There is trace tricuspid valve regurgitation. There is no pulmonary hypertension, estimated right ventricle systolic pressure is 18 mmHg. Pericardium/Pleural The pericardium appears normal. There is no pericardial effusion. Inferior Vena Cava Normal inferior vena cava with >50% collapse upon inspiration consistent with normal right atrial pressure. Aorta The aortic measurements are indexed to age and body surface area. The aortic root is normal measuring 2.8 cm with an index of 1.7 cm/m2. The proximal ascending aorta is normal measuring 2.9 cm with an index of 1.7 cm/m2. Left Ventricular Outflow Tract Name Value Normal LVOT 2D LVOT Diameter 2.1 cm LVOT Doppler LVOT Peak Velocity 1.0 m/s LVOT Peak Gradient 4 mmHg LVOT Mean Gradient 2 mmHg LVOT VTI 22 cm LVOT VTI/AV VTI Ratio 0.8 LVOT Stroke Volume 72 ml LVOT Stroke Index 42.28 ml/m2 Pulmonic Valve Name Value Normal PV Doppler PV Peak Velocity 0.88 m/s PV Peak Gradient 3 mmHg PV Mean Gradient 2 mmHg PV VTI 20 cm Mitral Valve Name Value Normal MV Doppler MV Peak Velocity 1.14 m/s MV Peak Gradient 5 mmHg MV Mean Gradient 1 mmHg MV VTI 27 cm MV Decel Gibson 838 cm/s2 MV PHT 33 ms MV Area (PHT) 6.7 cm2 4.0-5.0 MV Area (Cont Eq VTI) 2.7 cm2 MV Area Index (Cont Eq VTI) 1.57 cm2/m2 MV Diastolic Function MV E Peak Velocity 1 m/s MV A Peak Velocity 1 m/s MV E/A 1.6 MV Decel Time 113 ms MV Annular TDI MV Septal e' Velocity 14.8 cm/s >=8.0 MV E/e' (Septal) 6.4 <=8.0 MV Lateral e' Velocity 20.0 cm/s >=10.0 MV E/e' (Lateral) 4.7 <=8.0 MV e' Average 17.39 MV E/e' (Average) 5.6 Tricuspid Valve Name Va (more content not included)... [facility] ABO/RH(D)on 12-15-2020 ABO/RH(D) ABO/RH(D) O POSITIVE Testing performed at [address] Comment on above: Performed By: #### A BRH #### [place] [address] ANTIBODY SCREENon 12-15-2020 Antibody screen ANTIBODY SCREEN NEGATIVE WORKUP EXPIRES 12/18/2020,2359 Testing performed at [address] Comment on above: Performed By: #### R ESCRN #### [place] [address] Blood type and Indirect anti body screen panel (Bld)Ordered By: Katlin Prieto on 12-15-2020 ABO and Rh group Nom (Bld) O [facility] Rh Type + [facility] FAX REQUESTon 12-15-2020 FAX TO [phone] AND [phone] Normal [facility] Comment on above: Result Comment: Test ing performed at [place] [address] Performed By: #### F X #### [place] [address] FAX TO [phone] AND [phone] Normal [facility] Comment on above: Result Comment: Test ing performed at [place] [address] Performed By: #### F X #### [place] [address] HIV 1/2 Screen (4th Generati on)on 12-15-2020 HIV 1+2 Ab+HIV1 p24 Ag IA Ql Negative Negative [facility] Hepatitis B Surface Antigeno n 12-15-2020 HBV surface Ag Ql (S) Negative Negative [facility] Hepatitis C Antibodyon 12-15 HCV Ab Ql (S) Negative Negative [facility] No Panel InformationOrdered By: Katlin Prieto on 12-15-2020 [facility] Rubella Antibody, IgGon 11-18 Rubella virus IgG Ql (S) Immune [facility] T. pallidum IgG Ql (S)on T. pallidum Ab Ql (S) Negative Negative [facility] ECG 12-LEADOrdered By: Desiree Maddox on 11-22-2020 Atrial Rate [facility] P [place] [facility] P-R Interval [facility] Q-T Interval [facility] Q-T Interval (corrected) [facility] QRS Duration [facility] QTC Calculation (Bezet) [facility] R [place] [facility] T [place] [facility] Ventricular Rate [facility] SARS-COV-2,NAAon 07-23-2020 SARS-CoV-2 (COVID-19) RNA ADRIANA+probe Ql (Unsp spec) Not detected Normal [facility] Comment on above: Result Comment: Refe rence range: Not Detected (NOTE) This nucleic acid amplification test was developed and its performance characteristics determined by [employer]. Nucleic acid amplification tests include RT-PCR and TMA. This test has not been FDA cleared or approved. This test has been authorized by FDA under an Emergency Use Authorization (EUA). This test is only authorized for the duration of time the declaration that circumstances exist justifying the authorization of the emergency use of in vitro diagnostic tests for detection of SARS-CoV-2 virus and/or diagnosis of COVID-19 infection under section 564(b)(1) of the Act, 21 U.S.C. 360bbb-3(b) (1), unless the authorization is terminated or revoked sooner. When diagnostic testing is negative, the possibility of a false negative result should be considered in the context of a patient's recent exposures and the presence of clinical signs and symptoms consistent with COVID-19. An individual without symptoms of COVID- 19 and who is not shedding SARS-CoV-2 virus would expect to have a negative (not detected) result in this assay. Ultrasound venous insufficie ncy left legon 02-11-2019 Non-Invasive Vascular Patient: [facility] Rec#: [id number] (Age): 1995(23y) Study Date: 02/11/2019 Room#: Type: Sex: F Reading: JOSE Reading: Hannah Sandoval DO, RPVI Referring: ATUL NEVES Design [facility] Consultant: Caryn Winkler Procedure Info: [id number] Study Quality: Lower Venous Reflux: Adequate Diagnosis: I83.812 Varicose veins of left lower extremities with pain Lower Venous Duplex Lower Venous Reflux Conclusions No evidence of deep or superficial venous thrombosis or obstruction noted in left lower extremity. No evidence of deep or superficial venous reflux noted in left lower extremity. Anterior accessory vein noted measuring 2.3mm proximal, 1.7mm mid, and 3.2mm distal. Anterior Accessory vein extends from zone 3.5 out of fascia extending to lateral side of the knee with no reflux found. Exam was done in steep reverse Trendelenburg. The procedure was explained to the patient. The patient voiced understanding. Finding Grids Left Duplex Exam Spont Phasic External Iliac _ _ Common Femoral Y Y Proximal Femoral Y Y Mid Femoral Y Y Distal Femoral Y Y Popliteal Y Y Great Saphenous Y Y Small Saphenous Y Y Augment Color Filling Compressibility External Iliac _ _ Y Common Femoral Y Y Y Proximal Femoral Y Y Y Mid Femoral Y Y Y Distal Femoral Y Y Y Popliteal Y Y Y Great Saphenous Y Y Y Small Saphenous Y Y Y Cueva --------- Y = Yes Measurements Left Vein Diameters Name Value Units GSV at SFJ 6.2 mm GSV Thigh - prox 1.6 mm GSV Thigh - mid 3.6 mm GSV Thigh - dist 3.8 mm GSV at Knee 3.9 mm GSV Calf - prox 2.2 mm GSV Calf - mid 1.7 mm SSV Calf - prox 2.3 mm SSV Calf - mid 2.3 mm Left Vein Reflux Times Name Value Units GSV at SFJ -Time 0 sec GSV Thigh - prox - Time 0 sec GSV Thigh - mid -Time 0 sec GSV Thigh - dist - Time 0 sec GSV at Knee - Time 0 sec GSV Calf - prox - Time 0 sec GSV Calf - mid - Time 0 sec SSV Calf - prox - Time 0 sec SSV Calf - mid - Time 0 sec History Varicose Veins. Electronically signed at 02/11/2019 16:38:58 by: Hannah Sandoval DO, RPVI [facility] In [facility] - 02/11/2019 5:21 PM EDT Non-Invasive Vascular Patient: PACO THOMPSON [facility] Rec#: [id number] (Age): 1995(23y) Study Date: 02/11/2019 Room#: Type: Sex: F Reading: JOSE Reading: Hannah Sandoval DO, RPVI Referring: ATUL NEVES Design Center Consultant: Caryn Winkler Procedure Info: [id number] Study Quality: Lower Venous Reflux: Adequate Diagnosis: I83.812 Varicose veins of left lower extremities with pain Lower Venous Duplex Lower Venous Reflux Conclusions No evidence of deep or superficial venous thrombosis or obstruction noted in left lower extremity. No evidence of deep or superficial venous reflux noted in left lower extremity. Anterior accessory vein noted measuring 2.3mm proximal, 1.7mm mid, and 3.2mm distal. Anterior Accessory vein extends from zone 3.5 out of fascia extending to lateral side of the knee with no reflux found. Exam was done in steep reverse Trendelenburg. The procedure was explained to the patient. The patient voiced understanding. Finding Grids Left Duplex Exam Spont Phasic External Iliac _ _ Common Femoral Y Y Proximal Femoral Y Y Mid Femoral Y Y Distal Femoral Y Y Popliteal Y Y Great Saphenous Y Y Small Saphenous Y Y Augment Color Filling Compressibility External Iliac _ _ Y Common Femoral Y Y Y Proximal Femoral Y Y Y Mid Femoral Y Y Y Distal Femoral Y Y Y Popliteal Y Y Y Great Saphenous Y Y Y Small Saphenous Y Y Y Cueva --------- Y = Yes Measurements Left Vein Diameters Name Value Units GSV at SFJ 6.2 mm GSV Thigh - prox 1.6 mm GSV Thigh - mid 3.6 mm GSV Thigh - dist 3.8 mm GSV at Knee 3.9 mm GSV Calf - prox 2.2 mm GSV Calf - mid 1.7 mm SSV Calf - prox 2.3 mm SSV Calf - mid 2.3 mm Left Vein Reflux Times Name Value Units GSV at SFJ -Time 0 sec GSV Thigh - prox - Time 0 sec GSV Thigh - mid -Time 0 sec GSV Thigh - dist - Time 0 sec GSV at Knee - Time 0 sec GSV Calf - prox - Time 0 sec GSV Calf - mid - Time 0 sec SSV Calf - prox - Time 0 sec SSV Calf - mid - Time 0 sec History Varicose Veins. Electronically signed at 02/11/2019 16:38:58 by: Hannah Sandoval, DO, RPVI [facility] POCT URINALYSIS DIPSTICK NON AUTOMATEDon 05-24-2018 Amorphous sediment LM Ql (Urine sed) Invalid Interpretation Code [facility] Work Phone: Appearance Nom (Body fld) clear Invalid Interpretation Code [facility] Work Phone: Bacteria LM Ql (Urine sed) Invalid Interpretation Code [facility] Work Phone: Bilirubin Ql (U) Negative Invalid Interpretation Code [facility] Work Phone: Casts LM.LPF #/area (Urine sed) Invalid Interpretation Code [facility] Work Phone: Color Nom (U) yellow Invalid Interpretation Code [facility] Work Phone: Crystals LM Nom (Urine sed) Invalid Interpretation Code [facility] Work Phone: Epithelial cells.squamous LM.HPF #/area (Urine sed) Invalid Interpretation Code [facility] Work Phone: Flow cytometry specialist review Interp Alfonzo (Unsp spec) Invalid Interpretation Code [facility] Work Phone: Interpretation and review of laboratory results Abnormal Invalid Interpretation Code [facility] Work Phone: Ketones mass conc Negative Invalid Interpretation Code mg/dL [facility] Work Phone: Leukocyte esterase Qn (U) Invalid Interpretation Code [facility] Work Phone: Leukocyte esterase Test strip Ql (U) Negative Invalid Interpretation Code [facility] Work Phone: Nitrite Ql (U) Negative Invalid Interpretation Code [facility] Work Phone: pH (U) 7.5 Abnormal [facility] Work Phone: POCT GLUCOSE, URINE Negative Invalid Interpretation Code mg/dL [facility] Work Phone: Protein Ql (U) Negative Invalid Interpretation Code mg/dL [facility] Work Phone: RBC LM.HPF #/area (Urine sed) Invalid Interpretation Code [facility] Work Phone: RBC Ql (U) Negative Invalid Interpretation Code [facility] Work Phone: Specific gravity Relative Density (U) 1.010 Invalid Interpretation Code [facility] Work Phone: Transitional cells LM Ql (Urine sed) Invalid Interpretation Code [facility] Work Phone: Urobilinogen mass conc (U) Negative Invalid Interpretation Code [facility] Work Phone: WBC LM.HPF #/area (Urine sed) Invalid Interpretation Code [facility] Work Phone: POCT URINALYSIS DIPSTICK NON AUTOMATEDon 05-10-2018 Amorphous sediment LM Ql (Urine sed) Invalid Interpretation Code [facility] Work Phone: Appearance Nom (Body fld) clear Invalid Interpretation Code [facility] Work Phone: Bacteria LM Ql (Urine sed) Invalid Interpretation Code [facility] Work Phone: Bilirubin Ql (U) Negative Invalid Interpretation Code [facility] Work Phone: Casts LM.LPF #/area (Urine sed) Invalid Interpretation Code [facility] Work Phone: Color Nom (U) yellow Invalid Interpretation Code [facility] Work Phone: Crystals LM Nom (Urine sed) Invalid Interpretation Code [facility] Work Phone: Epithelial cells.squamous LM.HPF #/area (Urine sed) Invalid Interpretation Code [facility] Work Phone: Flow cytometry specialist review Interp Alfonzo (Unsp spec) Invalid Interpretation Code [facility] Work Phone: Ketones mass conc Negative Invalid Interpretation Code mg/dL [facility] Work Phone: Leukocyte esterase Qn (U) Invalid Interpretation Code [facility] Work Phone: Leukocyte esterase Test strip Ql (U) Negative Invalid Interpretation Code [facility] Work Phone: Nitrite Ql (U) Negative Invalid Interpretation Code [facility] Work Phone: pH (U) 6.5 Invalid Interpretation Code [facility] Work Phone: POCT GLUCOSE, URINE Negative Invalid Interpretation Code mg/dL [facility] Work Phone: Protein Ql (U) Negative Invalid Interpretation Code mg/dL [facility] Work Phone: RBC LM.HPF #/area (Urine sed) Invalid Interpretation Code [facility] Work Phone: RBC Ql (U) trace Invalid Interpretation Code [facility] Work Phone: Specific gravity Relative Density (U) 1.010 Invalid Interpretation Code [facility] Work Phone: Transitional cells LM Ql (Urine sed) Invalid Interpretation Code [facility] Work Phone: Urobilinogen mass conc (U) 0.2 Invalid Interpretation Code [facility] Work Phone: WBC LM.HPF #/area (Urine sed) Invalid Interpretation Code [facility] Work Phone: Vital Signs Date Time Vital Sign Value Performing Clinician Facility 09-07-2023 09:10-0400 Body height 157.5 cm Raudel Jordan MD Work Phone: [facility] 09-07-2023 09:10-0400 Body mass index (BMI) [Ratio] 24.75 kg/m2 Raudel Jordan MD Work Phone: [facility] 09-07-2023 09:10-0400 Body weight 61.37 kg Raudel Jordan MD Work Phone: [facility] 09-07-2023 09:10-0400 Diastolic blood pressure 83 mm[Hg] Raudel Jordan MD Work Phone: [facility] 09-07-2023 09:10-0400 Heart rate 65 /min Raudel Jordan MD Work Phone: [facility] 09-07-2023 09:10-0400 SaO2% (BldA) [Mass fraction] 99 % Raudel Jordan MD Work Phone: [facility] 09-07-2023 09:10-0400 Systolic blood pressure 116 mm[Hg] Raudel Jordan MD Work Phone: [facility] 08-21-2023 08:05-0500 Respiratory rate 16 /min Raudel Jordan MD Work Phone: [facility] 08-21-2023 08:04-0500 Body temperature 97.3 [degF] Raudel Jordan MD Work Phone: [facility] 08-21-2023 08:04-0500 Diastolic blood pressure 67 mm[Hg] Raudel Jordan MD Work [facility]: [facility] [facility] 08-21-2023 08:04-0500 Heart rate 55 /min Raudel Jordan MD Work Phone: [facility] 08-21-2023 08:04-0500 SaO2% (BldA) [Mass fraction] 100 % Raudel Jordan MD Work Phone: [facility] 08-21-2023 08:04-0500 Systolic blood pressure 92 mm[Hg] Raudel Jordan MD Work Phone: [facility] 08-20-2023 21:25-0500 Body height 157.5 cm Raudel Jordan MD Work Phone: [facility] 08-20-2023 21:25-0500 Body mass index (BMI) [Ratio] 25.61 kg/m2 Raudel Jordan MD Work Phone: [facility] 08-20-2023 21:25-0500 Body weight 63.5 kg Raudel Jordan MD Work Phone: [facility] 03-12-2023 08:48-0400 Body height 157.5 cm Michelle Daiana VENDING TECHNICIAN Work Phone: [facility] 03-12-2023 08:48-0400 Body mass index (BMI) [Ratio] 25.04 kg/m2 Michelle Daiana VENDING TECHNICIAN Work Phone: [facility] 03-12-2023 08:48-0400 Body weight 62.1 kg Michelle Daiana VENDING TECHNICIAN Work Phone: [facility] 03-12-2023 08:48-0400 Diastolic blood pressure 80 mm[Hg] Michelle Daiana VENDING TECHNICIAN Work Phone: [facility] 03-12-2023 08:48-0400 Systolic blood pressure 115 mm[Hg] Michelle Daiana VENDING TECHNICIAN Work Phone: [facility] 11-22-2022 15:26-0400 Body height 157.5 cm Gay Narayan MD Work Phone: [facility] 11-22-2022 15:26-0400 Body mass index (BMI) [Ratio] 25.61 kg/m2 Gay Narayan MD Work Phone: [facility] 11-22-2022 15:26-0400 Body temperature 99.7 [degF] Gay Narayan MD Work Phone: [facility] 11-22-2022 15:26-0400 Body weight 63.5 kg Gay Narayan MD Work Phone: [facility] 11-22-2022 15:26-0400 Diastolic blood pressure 70 mm[Hg] Gay Narayan MD Work Phone: [facility] 11-22-2022 15:26-0400 Heart rate 72 /min Gay Narayan MD Work Phone: [facility] 11-22-2022 15:26-0400 SaO2% (BldA) [Mass fraction] 97 % Gay Narayan MD Work Phone: [facility] 11-22-2022 15:26-0400 Systolic blood pressure 111 mm[Hg] Gay Narayan MD Work Phone: [facility] 11-21-2021 08:40-0400 Body height 157.5 cm Gay Narayan MD Work Phone: [facility] 11-21-2021 08:40-0400 Body mass index (BMI) [Ratio] 26.7 kg/m2 Gay Narayan MD Work Phone: [facility] 11-21-2021 08:40-0400 Body temperature 98.2 [degF] Gay Narayan MD Work Phone: [facility] 11-21-2021 08:40-0400 Body weight 66.22 kg Gay Narayan MD Work Phone: [facility] 11-21-2021 08:40-0400 Diastolic blood pressure 72 mm[Hg] Gay Narayan MD Work Phone: [facility] 11-21-2021 08:40-0400 Heart rate 72 /min Gay Narayan MD Work Phone: [facility] 11-21-2021 08:40-0400 Respiratory rate 16 /min Gay Narayan MD Work Phone: [facility] 11-21-2021 08:40-0400 SaO2% (BldA) [Mass fraction] 98 % Gay Narayan MD Work Phone: [facility] 11-21-2021 08:40-0400 Systolic blood pressure 106 mm[Hg] Gay Narayan MD Work Phone: [facility] 07-01-2021 07:50-0500 Body temperature 98.2 [degF] Yohan Reyna MD Work Phone: [facility] 07-01-2021 07:50-0500 Diastolic blood pressure 68 mm[Hg] Yohan Reyna MD Work Phone: [facility] 07-01-2021 07:50-0500 Heart rate 70 /min Yohan Reyna MD Work Phone: [facility] 07-01-2021 07:50-0500 Respiratory rate 14 /min Yohan Reyna MD Work Phone: [facility] 07-01-2021 07:50-0500 SaO2% (BldA) [Mass fraction] 98 % Yohan Reyna MD Work Phone: [facility] 07-01-2021 07:50-0500 Systolic blood pressure 101 mm[Hg] Yohan Reyna MD Work Phone: [facility] 06-29-2021 07:31-0500 Body height 157.5 cm Yohan Reyna MD Work Phone: [facility] 06-29-2021 07:31-0500 Body mass index (BMI) [Ratio] 30.18 kg/m2 Yohan Reyna MD Work Phone: [facility] 06-29-2021 07:31-0500 Body weight 74.84 kg Yohan Reyna MD Work Phone: [facility] 11-22-2020 13:04-0400 Body height 160 cm Desiree Maddox MD Work Phone: [facility] 11-22-2020 13:04-0400 Body mass index (BMI) [Ratio] 25.28 kg/m2 Desiree Maddox MD Work Phone: [facility] 11-22-2020 13:04-0400 Body temperature 98.8 [degF] Desiree Maddox MD Work Phone: [facility] 11-22-2020 13:04-0400 Body weight 64.73 kg Desiree Maddox MD Work Phone: [facility] 11-22-2020 13:04-0400 Diastolic blood pressure 69 mm[Hg] Desiree Maddox MD Work Phone: [facility] 11-22-2020 13:04-0400 Heart rate 93 /min Desiree Maddox MD Work Phone: [facility] 11-22-2020 13:04-0400 Respiratory rate 16 /min Desiree Maddox MD Work Phone: [facility] 11-22-2020 13:04-0400 SaO2% (BldA) [Mass fraction] 99 % Desiree Maddox MD Work Phone: [facility] 11-22-2020 13:04-0400 Systolic blood pressure 106 mm[Hg] Desiree Maddox MD Work Phone: [facility] 01-20-2019 14:39-0400 BP Diastolic 74 mm[Hg] [facility] 01-20-2019 14:39-0400 BP Systolic 109 mm[Hg] [facility] 01-20-2019 14:38-0400 BMI (Body Mass Index) 24.37 kg/m2 [facility] 01-20-2019 14:38-0400 Body weight 58.51 kg [facility] 01-20-2019 14:38-0400 Height 154.9 cm [facility] 01-20-2019 14:38-0400 Pulse (Heart Rate) 67 /min [facility] 05-24-2018 10:27-0500 BMI (Body Mass Index) 24.83 kg/m2 [facility] Work Phone: 05-24-2018 10:27-0500 BP Diastolic 64 mm[Hg] [facility] Work Phone: 05-24-2018 10:27-0500 BP Systolic 110 mm[Hg] [facility] Work Phone: 05-24-2018 10:27-0500 Height 154.9 cm [facility] Work Phone: 05-24-2018 10:27-0500 Pulse (Heart Rate) 62 /min [facility] Work Phone: 05-24-2018 10:27-0500 Pulse Oximetry 99 % [facility] Work Phone: 05-24-2018 10:27-0500 Weight 59.6 kg [facility] Work Phone: 05-10-2018 09:33-0500 BMI (Body Mass Index) 25.51 kg/m2 [facility] Work Phone: 05-10-2018 09:33-0500 BP Diastolic 82 mm[Hg] [facility] Work Phone: 05-10-2018 09:33-0500 BP Systolic 123 mm[Hg] [facility] Work Phone: 05-10-2018 09:33-0500 Height 154.9 cm [facility] Work Phone: 05-10-2018 09:33-0500 Pulse (Heart Rate) 61 /min [facility] Work Phone: 05-10-2018 09:33-0500 Weight 61.24 kg [facility] Work Phone: Encounters Encounter Date Encounter Type Care Provider Facility Start: 09-07-2023 End: 09-07-2023 ambulatory RAUDEL JORDAN [facility] Start: 09-07-2023 End: 09-07-2023 Postop follow up visit related to original px Raudel Jordan MD Work Phone: [facility] Comment on above: Postoperative follow -up (Primary Dx) Start: 08-20-2023 End: 08-21-2023 ambulatory RAUDEL JORDAN [facility] Start: 08-20-2023 End: 08-21-2023 Emergency department patient visit Raudel Jordan MD Work Phone: [facility] Start: 08-20-2023 End: 08-20-2023 Emergency department patient visit FRANCISCO AHMADI [facility] Start: 03-12-2023 End: 03-12-2023 ambulatory FRANCISCO BROWN DAIANA [facility] Start: 03-12-2023 End: 03-12-2023 Office outpatient visit 25 minutes 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 [facility] Work Phone: [facility] Comment on above: Encounter to [facility] (Primary Dx); Varicose veins of left lower extremity with pain; Seasonal allergies Start: 11-22-2022 End: 11-22-2022 ambulatory GAY FELDERJAS [facility] Start: 11-22-2022 End: 11-22-2022 Encounter for general adult medical examination without abnormal findings GAY NARAYAN [facility] Start: 11-22-2022 End: 11-22-2022 Initial preventive medicine new pt age 18-39yrs Gay Narayan MD Work Phone: [facility] Comment on above: Annual physical exam (Primary Dx) Start: 11-22-2022 End: 11-22-2022 Patient encounter procedure Gay Narayan MD Work Phone: [facility] Work Phone: Start: 11-21-2021 Encounter for genera l adult medical examination without abnormal findings GAY NARAYAN [facility] Start: 11-21-2021 End: 11-21-2021 Initial preventive medicine new pt age 18-39yrs Gay Narayan MD Work Phone: [facility] Physician [facility] Comment on above: Annual physical exam Start: 11-21-2021 End: 11-21-2021 Patient encounter procedure Gay Narayan MD Work Phone: [facility] Start: 06-29-2021 End: 07-01-2021 Evaluation and management of inpatient Yohan Reyna MD Work Phone: [facility] Ob[facility]etric[facility] Start: 06-25-2021 End: 06-25-2021 ambulatory DESIREE MADDOX [facility] Start: 05-18-2021 Patient encounter status Edward lubin LPN [facility] Start: 05-18-2021 Transcribe Orders Edward Becerril LPN [facility] Clinical Contact Center Comment on above: Encounter for prepro cedure screening laboratory testing for COVID-19 (Primary Dx) Start: 12-29-2020 End: 12-29-2020 Subsequent hospital visit by physician Desiree Maddox MD Work Phone: [facility] Comment on above: Arrived Start: 11-22-2020 End: 11-22-2020 Initial preventive medicine new pt age 18-39yrs Desiree Maddox MD Work Phone: [facility] Phys[facility] Comment on above: Annual physical exam (Primary Dx); Seasonal allergies; Family history of hypertrophic cardiomyopathy; Heart palpitations Start: 11-22-2020 End: 11-22-2020 Patient encounter procedure Desiree Maddox MD Work Phone: [facility] Start: 11-19-2020 End: 11-19-2020 Chart abstracting Veena Weber MA [facility] Start: 02-11-2019 End: 02-11-2019 Subsequent hospital visit by physician Hannah Sandoval Work Phone: [facility] Comment on above: Varicose veins of le ft lower extremity with pain Start: 01-20-2019 End: 01-20-2019 Office outpatient new 30 minutes America Ely Work Phone: [facility] Comment on above: Varicose veins of le ft lower extremity with pain Start: 05-24-2018 End: 05-24-2018 Office outpatient new 30 minutes Marcela Borja Work Phone: [facility] Urology Comment on above: Recurrent UTI (Prima ry Dx); Urinary frequency; Suprapubic pain; Interstitial cystitis Start: 05-13-2018 End: 05-13-2018 Patient encounter procedure Lisha Duenas Work Phone: [facility] RETAIL AREA MANAGER Comment on above: Appointment Start: 05-10-2018 End: 05-10-2018 Office outpatient visit 15 minutes Lisha Duenas Work Phone: [facility] RETAIL AREA MANAGER Comment on above: Dysuria (Primary Dx) ; Hematuria, unspecified type; Frequency of micturition Start: 05-03-2018 End: 05-03-2018 Patient encounter America Ely Work Phone: [facility] Medicine Comment on above: Results Start: 02-18-2017 End: 02-18-2017 Emergency department patient visit Bao Noblemaylin Facility:[facility] Procedures Date Procedure Procedure Detail Performing Clinician Start: 08-21-2023 Basic metabolic pane l calcium total Jim Yohan Malone CNP Work Phone: Start: 08-20-2023 End: 08-20-2023 APPENDECTOMY LAPAROSCOPIC [place] Ray Edyta solorio MD Work Phone: Start: 11-22-2022 Adult depression scr eening assessment Gay Narayan MD Work Phone: Start: 11-21-2021 Adult depression scr eening assessment Gay Narayan MD Work Phone: Start: 06-30-2021 Blood count complete automated Yohan Reyna MD Work Phone: Start: 06-29-2021 End: 06-29-2021 section Yohan Reyna MD Work Phone: Start: 06-29-2021 SCAN OTHER ORDERS Provi yon Not In System Start: 06-29-2021 Blood group typing Aiden ael Peter Reyna MD Work Phone: Start: 06-29-2021 Blood count complete automated Yohan Reyna MD Work Phone: Start: 06-29-2021 Blood typing serologic abo Yohan Reyna MD Work Phone: Start: 06-14-2021 Iadna streptococcus group b amplified probe tq Historical Provider Start: 06-14-2021 Syphilis test non-treponemal antibody qual Historical Provider Start: 01-17-2021 Glucose post glucose dose Historical Provider Start: 12-29-2020 Echo tthrc r-t 2d w/wom-mode compl spec&colr d Desiree Maddox MD Work Phone: Start: 12-15-2020 Blood typing serologic abo Historical Provider Start: 12-15-2020 Iaad ia hepatitis b surface antigen Historical Provider Start: 11-22-2020 Ecg routine ecg w/le ast 12 lds w/i&r Desiree Maddox MD Work Phone: Start: 11-22-2020 Adult depression scr eening assessment Desiree Maddox MD Work Phone: Start: 02-11-2019 Dup-scan xtr veins unilateral/limited study WTico Sandoval Work Phone: Start: 05-24-2018 End: 05-24-2018 Urnls dip stick/tablet rgnt non-auto w/o micrscp Marcela Bojra Work Phone: Start: 05-10-2018 End: 05-10-2018 Urnls dip stick/tablet rgnt non-auto w/o micrscp Lisha Duenas Work Phone: Start: 05-10-2018 End: 05-10-2018 Culture bacterial quanttative colony count urine Lisha Duenas Work Phone: Start: 06-21-2017 Microscopic observat ion [Identifier] in Cervix by Cyto stain Desiree Maddox MD Work Phone: Plan of Treatment Date Care Activity Detail Author Start: 04-14-2031 Tetanus vaccination Tetanus: Every 10yrs [facility] Start: 01-09-2024 History and physical examination, annual for health maintenance Wellness Visit [facility] Start: 11-26-2023 End: 11-26-2023 Patient encounter procedure 11/26/2023 9:00 AM EDT Office Visit [facility] [address] [place] [address] 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, VENDING TECHNICIAN [address] [place] [address] [facility] Start: 11-23-2023 Depression screening using PHQ-9 (Patient Health Questionnaire 9) score Depression Screening (PHQ-2/9) [facility] Start: 11-23-2023 History and physical examination, annual for health maintenance Wellness Visit [facility] Start: 02-16-2023 COVID-19 Vaccine () COVID-19 Vaccine () [facility] Start: 02-16-2023 Influenza vaccination [facility] Start: 2023 Screening for malignant neoplasm of cervix [facility] Start: 11-22-2022 End: 11-22-2022 Patient encounter procedure 11/22/2022 Office Visit Primary Care Gay Davies MD [facility] [address] [place] [id number] [facility] Start: 11-21-2022 Depression screening using PHQ-9 (Patient Health Questionnaire 9) score Depression Screening (PHQ-2/9) [facility] Start: 11-21-2022 History and physical examination, annual for health maintenance Wellness Visit [facility] Start: 03-19-2022 COVID-19 Vaccine (3 - Booster for Moderna series) COVID-19 Vaccine (3 - Booster for Moderna series) [facility] Start: 02-16-2022 Influenza vaccination Sequential Influenza Vaccine (Season Ended) [facility] Start: 12-12-2021 COVID-19 Vaccine (3 - Booster for Moderna series) COVID-19 Vaccine (3 - Booster for Moderna series) [facility] Start: 12-12-2021 COVID-19 Vaccine (3 - Moderna series) COVID-19 Vaccine (3 - Moderna series) [facility] Start: 11-22-2021 Depression screening using PHQ-9 (Patient Health Questionnaire 9) score [facility] Start: 11-22-2021 History and physical examination, annual for health maintenance Wellness Visit [facility] Start: 02-16-2021 Influenza vaccination [facility] Start: 11-22-2020 End: 11-22-2021 Complete blood count with white cell differential, manual CBC and Differential Lab Routine Heart palpitations Expected: 11/22/2020, Expires: 11/22/2021 [facility] Comment on above: Expected: 11/22/2020, Expires: Start: 11-22-2020 End: 11-22-2021 Thyrotropin [Units/volume] in Serum or Plasma TSH with Reflex Free T4 Lab Routine Heart palpitations Expected: 11/22/2020 (Approximate), Expires: 11/22/2021 [facility] Comment on above: Expected: 11/22/2020 (Approximate), Expi res: 11/22/2021 Start: 11-22-2020 End: 11-22-2020 Patient encounter procedure 11/22/2020 Office Visit Primary Care Desiree Maddox MD [address] [place] [address] [phone] [facility] Start: 06-21-2020 Screening for malignant neoplasm of cervix Pap Smear [facility] Start: 04-24-2019 End: 04-24-2019 Office Visit 04/24/2019 Office Visit Cardiology Hannah Sandoval III, DO [address] [place] [address] [phone] [facility] Start: 02-16-2019 Influenza vaccination given SEQUENTIAL INFLUENZA VACCINE (#1) [facility] Start: 02-11-2019 End: 02-11-2019 Appointment 02/11/2019 Appointment Cardiology Hannah Sandoval III, DO [address] [place] [address] [phone] [facility] Start: 08-22-2018 End: 08-22-2018 Ambulatory 08/22/2018 Office Visit Urology Marcela Borja Andrés, VENDING TECHNICIAN [address] [place] [address] [phone] [facility] Start: 06-06-2018 End: 06-06-2018 Ambulatory 06/06/2018 Office Visit RETAIL AREA MANAGER Lisha Duenas, DO [address] [place] [address] [phone] [facility] RETAIL AREA MANAGER Start: 06-03-2018 End: 06-03-2018 Ambulatory 06/03/2018 Office Visit Gastroenterology Rain Denney MD [address] [facility] [address] [place] [address] Division of Gastroenterology and Hepatology [place] Start: 05-24-2018 End: 05-24-2019 Diagnostic radiography of abdomen XR ABDOMEN 1 VIEW Routine Suprapubic pain Expected: 05/24/2018, Expires: 05/24/2019 [facility] Work Phone: Comment on above: Expected: 05/24/2018, Expires: 9 Start: 05-24-2018 End: 05-24-[address] [facility] RETAIL AREA MANAGER Comment on above: Arrived Start: 05-13-2018 End: 05-13-2018 Ambulatory 05/13/2018 Office Visit RETAIL AREA MANAGER Lisha Duenas, DO [address] [place] [address] [phone] [facility] RETAIL AREA MANAGER Start: 02-16-2018 Influenza vaccination INFLUENZA VACCINE (#1) [facility] Work Phone: Start: 2014 Screening for malignant neoplasm of cervix PAP SMEAR DISCUSSION [facility] Work Phone: Start: 02-15-2012 Third diphtheria, tetanus and acellular pertussis (DTaP) vaccination TDAP (ADULT) [facility] Work Phone: Start: 2011 GONORRHEA SCREEN GONORRHEA SCREEN [facility] Work Phone: Start: 2011 Hepatitis C screening Hepatitis C Screening [facility] Start: 2011 Tetanus vaccination TETANUS [facility] Work Phone: Start: 2009 Screening for Chlamydia trachomatis CHLAMYDIA SCREEN [facility] Work Phone: Start: 02-15-2008 HIV screening HIV Screening [facility] Start: 02-15-2008 Vaccination for human papillomavirus HPV VACCINES (1 - Female 3-dose series) [facility] Start: 2006 HIV screening HIV SCREENING DISCUSSION [facility] Work Phone: Start: 2005 COVID-19 Vaccine (1) COVID-19 Vaccine (1) [facility] Start: 2005 Depression screening using PHQ-9 (Patient Health Questionnaire 9) score Depression Screening (PHQ9) [facility] Start: 02-15-2004 Vaccination for human papillomavirus HPV VACCINE ADOL (1 - Female 3-dose series) [facility] Work Phone: Start: 1998 COVID-19 Vaccine (1) COVID-19 Vaccine (1) [facility] Start: 02-15-1996 History and physical examination, annual for health maintenance Wellness Visit [facility] Start: 1993 Screening for malignant neoplasm of cervix PAP SMEAR [facility] Start: 1993 Tetanus vaccination [facility] Bacteria identified Cx Nom (U) URINE CULTURE Routine Hematuria, unspecified type 05/10/2018 10:12 AM EST [facility] Work Phone: Complete blood count with white cell differential, manual CBC and Differential Lab Routine Heart palpitations 11/22/2020 2:43 PM EDT [facility] End: 11-23-2023 Complete blood count with white cell differential, manual CBC and Differential Lab Routine Annual physical exam 1 Occurrences starting 11/22/2022 until 11/23/2023 [facility] Work Phone: Comment on above: 1 Occurrences starting 11/22/2022 until 11/23/2023 End: 11-22-2021 Comprehensive metabolic 2000 panel - Serum or Plasma Comprehensive Metabolic Panel Lab Routine Heart palpitations 1 Occurrences starting 11/22/2020 until 11/22/2021 [facility] Comment on above: 1 Occurrences starting 11/22/2020 until 11/22/2021 Comprehensive metabo lic 2000 panel - Serum or Plasma Comprehensive Metabolic Panel Lab Routine Heart palpitations 11/22/2020 2:43 PM EDT [facility] End: 11-23-2023 Comprehensive metabolic 2000 panel - Serum or Plasma Comprehensive Metabolic Panel Lab Routine Annual physical exam 1 Occurrences starting 11/22/2022 until 11/23/2023 [facility] Comment on above: 1 Occurrences starting 11/22/2022 until 11/23/2023 Diagnostic radiograp hy of abdomen XR ABDOMEN 1 VIEW Routine Suprapubic pain 05/24/2018 11:27 AM EST [facility] Work Phone: End: 01-22-2022 Echocardiography Echocardiogram complete Echocardiography Routine Family history of hypertrophic cardiomyopathy Heart palpitations 1 Occurrences starting 11/22/2020 until 01/22/2022 [facility] Comment on above: 1 Occurrences starting 11/22/2020 until 01/22/2022 End: 11-23-2023 Hemoglobin A1c/Hemoglobin.total in Blood Hemoglobin A1c Lab Routine Annual physical exam 1 Occurrences starting 11/22/2022 until 11/23/2023 [facility] Comment on above: 1 Occurrences starting 11/22/2022 until 11/23/2023 End: 11-23-2023 Lipid 1996 panel - Serum or Plasma Lipid Panel Lab Routine Annual physical exam 1 Occurrences starting 11/22/2022 until 11/23/2023 [facility] Comment on above: 1 Occurrences starting 11/22/2022 until 11/23/2023 Procedure on tissue specimen [facility] Work Phone: Comment on above: Release Upon Ordering for 1 Occurrences starting 08/20/2023, 1 completed End: 05-18-2022 SARS-CoV-2 (COVID-19) RdRp gene [Presence] in Respiratory specimen by ADRIANA with probe detection COVID-19, Molecular Microbiology Routine Encounter for preprocedure screening laboratory testing for COVID-19 1 Occurrences starting 05/18/2021 until 05/18/2022 [facility] Work Phone: Comment on above: 1 Occurrences starting 05/18/2021 until 05/18/2022 Thyrotropin [Units/volume] in Serum or Plasma TSH with Reflex Free T4 Lab Routine Heart palpitations 11/22/2020 2:43 PM EDT [facility] End: 03-22-2020 Ultrasound venous insufficiency left leg Ultrasound venous insufficiency left leg Vascular Ultrasound Routine Varicose veins of left lower extremity with pain 1 Occurrences starting 01/20/2019 until 03/22/2020 [facility] Comment on above: 1 Occurrences starting 01/20/2019 until 03/22/2020 Immunizations Immunization Date Immunization Notes Care Provider Fa cility 10-17-2021 Moderna SARS-CoV-2 Vaccination Gay Narayan MD Work Phone: [facility] 08-24-2021 Moderna SARS-CoV-2 Vaccination Gay Narayan MD Work Phone: [facility] 07-27-2021 influenza, injectabl e, quadrivalent, preservative free Gay Narayan MD Work Phone: [facility] 06-29-2021 varicella zoster imm une globulin Yohan Reyna MD Work Phone: [facility] 06-29-2021 diphtheria, tetanus toxoids and acellular pertussis vaccine, unspecified formulation Yohan Reyna MD Work Phone: [facility] 06-29-2021 measles, mumps and r ubella virus vaccine Yohan Reyna MD Work Phone: [facility] 04-14-2021 tetanus toxoid, redu anni diphtheria toxoid, and acellular pertussis vaccine, adsorbed Gay Narayan MD Work Phone: [facility] 02-01-2006 tetanus toxoid, redu anni diphtheria toxoid, and acellular pertussis vaccine, adsorbed Gay Narayan MD Work Phone: [facility] 02-01-2006 varicella virus vaccine Josee Narayan MD Work Phone: [facility] 12-17-1997 diphtheria, tetanus toxoids and acellular pertussis vaccine, unspecified formulation Gay Narayan MD Work Phone: [facility] 12-17-1997 measles, mumps and r ubella virus vaccine Gay Narayan MD Work Phone: [facility] 12-17-1997 trivalent poliovirus vaccine, live, oral Gay Narayan MD Work Phone: [facility] 05-09-1994 diphtheria, tetanus toxoids and acellular pertussis vaccine, unspecified formulation Gay Narayan MD Work Phone: [facility] 05-09-1994 haemophilus influenz ae type b vaccine, conjugate unspecified formulation Gay Narayan MD Work Phone: [facility] 05-09-1994 measles, mumps and r ubella virus vaccine Gay Narayan MD Work Phone: [facility] 1993 diphtheria, tetanus toxoids and pertussis vaccine Gay Narayan MD Work Phone: [facility] 1993 haemophilus influenz ae type b vaccine, conjugate unspecified formulation Gay Narayan MD Work Phone: [facility] 1993 hepatitis B vaccine, pediatric or pediatric/adolescent dosage Gay Narayan MD Work Phone: [facility] 1993 trivalent poliovirus vaccine, live, oral Gay Narayan MD Work Phone: [facility] 1993 diphtheria, tetanus toxoids and pertussis vaccine Gay Narayan MD Work Phone: [facility] 1993 haemophilus influenz ae type b vaccine, conjugate unspecified formulation Gay Narayan MD Work Phone: [facility] 1993 trivalent poliovirus vaccine, live, oral Gay Narayan MD Work Phone: [facility] 1993 diphtheria, tetanus toxoids and pertussis vaccine Gay Narayan MD Work Phone: [facility] 1993 haemophilus influenz ae type b vaccine, conjugate unspecified formulation Gay Narayan MD Work Phone: [facility] 1993 hepatitis B vaccine, pediatric or pediatric/adolescent dosage Gay Narayan MD Work Phone: [facility] 1993 trivalent poliovirus vaccine, live, oral Gay Narayan MD Work Phone: [facility] 1993 hepatitis B vaccine, pediatric or pediatric/adolescent dosage Gay Narayan MD Work Phone: [facility] Payers Date Payer Category Payer Unknown [id number] 2020 Private Health Insurance [id number] 2020 Private Health Insurance [employer] Parag MAJANO [employer] [id number] 2020-Present [address] [place] [address] [id number] 2020 Unknown [id number] 2020 Unknown [id number] 2017 Unknown [employer] [facility] xxxxxxxxx 2017-Present xxxxxxxxx [id number] 1993 Unknown [id number] 1993 Unknown [id number] 1993 Unknown [id number] 1993 Unknown [id number] 1993 Unknown [id number] 1993 Unknown [id number] Social History Date Type Detail Facility Start: 04-26-2018 End: 11-21-2021 Tobacco smoking status NHIS Never smoker [facility] Work Phone: Start: 1995 Sex Assigned At Not on file [facility] Work Phone: Start: 01-20-2019 Alcohol Comment occ [facility] Start: 01-20-2019 End: 11-19-2020 Alcohol intake Current drinker of alcohol (finding) [facility] Start: 11-19-2020 End: 11-21-2021 Tobacco use and exposure Never used [facility] Start: 11-22-2020 End: 09-07-2023 Alcohol intake Ex-drinker (finding) [facility] Start: 11-22-2020 Alcohol Comment [facility] Start: 11-11-2021 End: 11-21-2021 Exposure to SARS-CoV-2 (event) Not sure [facility] Start: 10-11-2020 [facility] Start: 11-21-2021 End: 08-20-2023 Cigarette pack-years [facility] Start: 11-21-2021 History SDOH Social Connections Get Together 3 [facility] Start: 11-21-2021 History SDOH [facility] Start: 11-21-2021 History SDOH Food Worry 1 [facility] Start: 11-21-2021 History SDOH Transport Med 2 [facility] Start: 03-06-2022 End: 08-20-2023 Humiliation, Afraid, Rape, and Kick questionnaire [HARK] [facility] Within the last year , have you been afraid of your partner or ex-partner? No [facility] Are you now , , , , never or living with a partner? [facility] How often to you hav e a drink containing alcohol? 2-4 times a month [facility] How many standard dr inks containing alcohol do you have on a typical day? 3 or 4 [facility] How often do you hav e 6 or more drinks on 1 occasion? Never [facility] How hard is it for y ou to pay for the very basics like food, housing, medical care, and heating Not very hard [facility] Adult Depression Screening Assessment 0 [facility] Do you feel stress - tense, restless, nervous, or anxious, or unable to sleep at night because your mind is troubled all the time - these days [OSQ] Not at all [facility] (I/We) worried wheth er (my/our) food would run out before (I/we) got money to buy more. Never true [facility] Start: 11-19-2020 Gender identity Identifies as female gender (finding) [facility] Start: 11-19-2020 Sexual orientation Heterosexual (finding) [facility] Clinical Notes 11-22-2020 to 09-07-2023 Raudel Jordan MD - 09/07/2023 9:41 AM EDTQucharbel Note - Maribell Muniz RN - 08/21/2023 9:40 AM ESTQuenitn Note - Maribell Muniz RN - 08/21/2023 9:40 AM ESTDischarge Instructions Note Date & Type Note Facility 09-07-2023 History of Present illness Narrative [facility] PATIENT: Jay Antonio DATE / TIME: 09/07/23 9:41 AM POS: Office AGE: 28 y.o. : 1995 RACE: [1] SEX: female PCP: 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, VENDING TECHNICIAN REFERRAL: No ref. provider found TOS: SUBJECTIVE: The patient returns for follow-up after undergoing a laparoscopic appendectomy. Overall she is doing very well. She is tolerating her diet. Her bowel function is returned to normal. Her energy level is also returned to normal. Her incisions are healing with no signs of infection. Pathology was reviewed with the patient. OBJECTIVE: BP 116/83 Pulse 65 Ht 5' 2 Wt 61.4 kg (135 lb 4.8 oz) LMP 07/23/2023 (Approximate) SpO2 99% BMI 24.75 kg/m Abdomen: Soft, nondistended, nontender Incisions healing ASSESSMENT: Postop follow-up PLAN: 1. Diet and activity as tolerated 2. Follow-up as needed documented in this encounter [facility] 08-21-2023 Note Formatting of this n ote might be different from the original. Seen by [facility] to home. present. Reviewed discharge medications and follow up appointments as well as lifting restrictions. Patient received community resources. Transported to vehicle via wheelchair for discharge to home. [facility] 08-21-2023 Miscellaneous Notes Seen by Goessel to home. present. Reviewed discharge medications and follow up appointments as well as lifting restrictions. Patient received community resources. Transported to vehicle via wheelchair for discharge to home. Problem: Actual or potential alteration in health Goal: Absence of healthcare acquired conditions Outcome: Partially Met Goal: Knowledge of Interdisciplinary Plan of Care Outcome: Partially Met Goal: Knowledge of Enviroment Outcome: Partially Met Problem: Pain Goal: Manage acute pain Outcome: Partially Met Goal: Manage chronic pain Outcome: Partially Met Goal: Reduced pain sensation Outcome: Partially Met Goal: Achievement of comfort function goal Outcome: Partially Met Problem: Actual or potential alteration in health Goal: Knowledge of Interdisciplinary Plan of Care Outcome: Partially Met Plan of care to be reviewed with pt by R.N. on a daily basis. Problem: Pain Goal: Manage acute pain Outcome: Partially Met Pt has prn pain medication. Pt arrived to the floor accompanied by PACU staff. Pt was oriented to room and call light. Post op vital signs started. Pre-operative Diagnosis: * Acute appendicitis with localized peritonitis Post-operative Diagnosis: * Acute appendicitis with localized peritonitis Surgeon: Raudel Jordan MD Cook Soup: Noemi Voss who was present for the entire case and provided critical assistance with the technical aspects of the operation. Procedure and Anesthesia: Procedure(s) and Anesthesia Type: * APPENDECTOMY LAPAROSCOPIC - General CPT Code: 36570 EBL 2 ml Complications:None Drains: None Dispo: PACU Indication: This is a 28-year-old female with the above-stated preoperative diagnoses. A full preoperative diagnostic evaluation was performed. The patient would like to proceed with surgical treatment. Risks, benefits, and alternatives were discussed with the patient in detail prior to obtaining consent. Procedure: The patient was brought to the operating room and placed in the supine position. Appropriate time out was performed. General anesthesia was administered and endotracheal intubation accomplished without difficulty. The abdomen was prepped and draped in the usual sterile fashion. A second timeout was performed and was physician lead. Half-percent Marcaine was injected to above the umbilicus. An 8 mm incision was made and a 8 mm trocar was placed using Cartwright technique. The abdomen was then insufflated to 15 mmHg using CO2. Two 8 mm ports were then placed under direct visualization. The first port was placed in the left lower lateral abdomen. And the second port was placed in the suprapubic region. The patient was placed in steep Trendelenburg with the left side down. The right lower quadrant was explored. The cecum was identified. The tenia of the cecum were followed to the base of the appendix. The appendix and cecum were mobilized using blunt dissection and the [place] LigaSure. The mesoappendix was divided using the [place] LigaSure. The base of the appendix was then divided using a 45 mm linear stapler. The appendix was then placed in an Endobag and removed through the supraumbilical port. The abdomen and pelvis were then irrigated with warm sterile water. The staple line was then inspected. There was excellent hemostasis and no evidence of leak. All solid organs and hollow viscus were inspected. No injuries were seen. Again, there was excellent hemostasis. All ports were then removed and the abdomen was desufflated. The supra umbilical fascial defect was closed with 0 Vicryl suture. The skin incisions were closed with 4-0 Monocryl and glue. Dressings were applied. The needle, sponge, and instrument count were all correct. The patient tolerated the procedure and was returned to the recovery room in stable condition. ED Attestation ED Attestation: I have reviewed the Advanced Practice Provider's (WEST's) documentation. In addition, I have personally introduced myself to the patient (face to face), and have taken her history and performed an examination. I agree with the physical findings, management, clinical impression and disposition. I did perform the substantive portion of this patient's encounter, including all aspects of the MDM. documented in this encounter [facility] 08-21-2023 Hospital course Narrative DISCHARGE SUMMARY Patient: Jay Antonio Date of : 1995 Site: [facility] Family Provider: 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 CNP Admit Date: 08/20/2023 Discharge Date/Time: 08/21/23 Disposition: Home Clinical Summary Hospital Course: Jay Antonio is a 28 y.o. female patient of 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 CNP with no significant past medical history who presented to the ED on 08/20/2023 with abdominal pain and found to have an acute appendicitis. She underwent at laparoscopic appendectomy on 08/20/2023. Her pain was controlled, tolerating diet and is stable for discharge home today. Discharge Diagnoses: Acute Appendicitis: Tolerating diet. Pain controlled. Dc home today. F/u with Dr. Jordan in the office. Surgeries: 08/20/23 APPENDECTOMY LAPAROSCOPIC Consults: Procedures Consult Surgery Allergies: Other Discharge Diet: Resume home diet Condition: Good Discharge Medications: Discharge Medications New Medications Details acetaminophen 325 MG tablet Commonly known as: TYLENOL Take 2 (two) tablets (650 mg total) by mouth every 4 (four) hours as needed . Quantity: 30 tablet ibuprofen 600 MG tablet Commonly known as: ADVIL,MOTRIN Take 1 (one) tablet (600 mg total) by mouth every 8 (eight) hours as needed for pain . Quantity: 15 tablet Medications To Continue Details PROBIOTIC ORAL Take by mouth . Physician(s) Family Provider: 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 CNP, Address: [facility] [address] [facility] [address] Follow Up: 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 CNP [facility] [id number] Raudel Jordan MD [address] [facility] [place] [id number] Follow up in 1 week(s) Additional Information: GENERAL: Appears age appropriate. NEUROLOGICAL: Alert and oriented X 3. Follows commands with extremities x4 CARDIOVASCULAR: Regular rate and rhythm. No peripheral edema noted. 2+ pulses radial/DP/PT bilaterally. RESPIRATORY: Lungs, clear to auscultation bilaterally. No rhonchi, wheezes or crackles. Respiratory effort unlabored without use of accessory muscles. ABDOMINAL: Soft, flat, minimally TTP. Lap sites well approximated with dermabond. GENITOURINARY: Normal genitalia for age without lesion or trauma. MUSCULOSKELETAL: Extremities atraumatic without gross deformity x4. SKIN: Skin warm and dry. Patient instructions, including activity, were given to the patient/family at discharge. Please see the After Visit Summary in the electronic medical record for details. Time spent on discharge: < 30 minutes Completed by: Lauren Duong CNP on 08/21/23, 8:12 AM documented in this encounter [facility] 08-21-2023 Hospital Discharge instructions Lauren Duong CNP - 08/21/2023 8:12 AM EST ABDOMINAL SURGERY You have had surgery to your abdomen. To heal properly: Do not do any rough or demanding activity until follow up with the Outpatient Trauma office. We suggest you: Do not lift anything over 5 pounds (the weight of a gallon of milk) Do not participate in any sports Protect yourself from getting hit in the abdomen Do not drive or return to work At your Outpatient Trauma office appointment, you will get specific instructions on when you may resume these activities. Dressing: Your incisions have been closed with arti or sutures as determined by your surgeon. Keep your dressing/incision clean and dry for 48 hours after surgery. The arti or sutures will be removed at your Outpatient Trauma office follow up appointment. You may shower. If you have steri-strips (thin strips of white tape), leave them in place until your appointment with the Outpatient Trauma/Surgery office. If you have a Topical Skin Adhesive (or glue), this would naturally come off your skin in 5-10 days. Do not rub, scratch, or pick at the glue. Do not apply any medications on any products to wound while the glue is in place. You may shower only, after 24 hrs. No bathing, immersion or swimming for at least 10 days. Call the Outpatient Trauma/[facility] office [phone] for advice (Sunday-Sunday, 8am to 4pm) or proceed to the nearest Emergency Department if: You feel weak, lightheaded, or dizzy when you sit up or stand. Develop fever, chills, nausea, or vomiting You have increased abdominal or chest pain Your skin is pale, cool and/or clammy You have a rapid increase in your heart rate while resting. documented in this encounter [facility] 08-21-2023 Note Formatting of this n ote might be different from the original. Problem: Actual or potential alteration in health Goal: Absence of healthcare acquired conditions Outcome: Partially Met Goal: Knowledge of Interdisciplinary Plan of Care Outcome: Partially Met Goal: Knowledge of Enviroment Outcome: Partially Met Problem: Pain Goal: Manage acute pain Outcome: Partially Met Goal: Manage chronic pain Outcome: Partially Met Goal: Reduced pain sensation Outcome: Partially Met Goal: Achievement of comfort function goal Outcome: Partially Met [facility] 08-20-2023 Note Formatting of this n ote might be different from the original. Problem: Actual or potential alteration in health Goal: Knowledge of Interdisciplinary Plan of Care Outcome: Partially Met Plan of care to be reviewed with pt by R.N. on a daily basis. Problem: Pain Goal: Manage acute pain Outcome: Partially Met Pt has prn pain medication. [facility] 08-20-2023 Note Formatting of this n ote might be different from the original. Pt arrived to the floor accompanied by PACU staff. Pt was oriented to room and call light. Post op vital signs started. [facility] 08-20-2023 Note Formatting of this n ote might be different from the original. Pre-operative Diagnosis: * Acute appendicitis with localized peritonitis Post-operative Diagnosis: * Acute appendicitis with localized peritonitis Surgeon: Raudel Jordan MD Cook Soup: Noemi Voss who was present for the entire case and provided critical assistance with the technical aspects of the operation. Procedure and Anesthesia: Procedure(s) and Anesthesia Type: * APPENDECTOMY LAPAROSCOPIC - General CPT Code: 39317 EBL 2 ml Complications:None Drains: None Dispo: PACU Indication: This is a 28-year-old female with the above-stated preoperative diagnoses. A full preoperative diagnostic evaluation was performed. The patient would like to proceed with surgical treatment. Risks, benefits, and alternatives were discussed with the patient in detail prior to obtaining consent. Procedure: The patient was brought to the operating room and placed in the supine position. Appropriate time out was performed. General anesthesia was administered and endotracheal intubation accomplished without difficulty. The abdomen was prepped and draped in the usual sterile fashion. A second timeout was performed and was physician lead. Half-percent Marcaine was injected to above the umbilicus. An 8 mm incision was made and a 8 mm trocar was placed using Cartwright technique. The abdomen was then insufflated to 15 mmHg using CO2. Two 8 mm ports were then placed under direct visualization. The first port was placed in the left lower lateral abdomen. And the second port was placed in the suprapubic region. The patient was placed in steep Trendelenburg with the left side down. The right lower quadrant was explored. The cecum was identified. The tenia of the cecum were followed to the base of the appendix. The appendix and cecum were mobilized using blunt dissection and the [place] LigaSure. The mesoappendix was divided using the [place] LigaSure. The base of the appendix was then divided using a 45 mm linear stapler. The appendix was then placed in an Endobag and removed through the supraumbilical port. The abdomen and pelvis were then irrigated with warm sterile water. The staple line was then inspected. There was excellent hemostasis and no evidence of leak. All solid organs and hollow viscus were inspected. No injuries were seen. Again, there was excellent hemostasis. All ports were then removed and the abdomen was desufflated. The supra umbilical fascial defect was closed with 0 Vicryl suture. The skin incisions were closed with 4-0 Monocryl and glue. Dressings were applied. The needle, sponge, and instrument count were all correct. The patient tolerated the procedure and was returned to the recovery room in stable condition. [employer] Work Phone: 08-20-2023 Note Formatting of this n ote might be different from the original. ED Attestation ED Attestation: I have reviewed the Advanced Practice Provider's (WEST's) documentation. In addition, I have personally introduced myself to the patient (face to face), and have taken her history and performed an examination. I agree with the physical findings, management, clinical impression and disposition. I did perform the substantive portion of this patient's encounter, including all aspects of the MDM. [employer] Work Phone: 08-20-2023 Physician Emergency department Note [facility] EM[facility] NOTE: NAME: Jay Antonio CSN: [id number] 28 y.o. PCP: 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 CNP History: Chief Complaint: Abdominal Pain HPI: The history was obtained from the patient. Jay is a 28 y.o. female who presents with a chief complaint of Abdominal Pain. Patient comes emergency room referred from [facility] for evaluation of appendicitis. She was told that her CT scan demonstrates that her appendix was slightly enlarged. Patient denies any nausea vomiting or diarrhea. She describes umbilical discomfort that radiates to the lower abdomen bilaterally. Symptoms started last night. PMHx: Past Medical History: Diagnosis Date Acne on back Anorectal disorder Arthralgia left hip Heart murmur Palpitations occasionally Heart palpitations Seasonal allergies Varicose veins of both lower extremities Varicose veins of left lower extremity with pain PMSx: Past Surgical History: Procedure Laterality Date BREAST SURGERY SECTION N/A 06/29/2021 Procedure: SECTION; Surgeon: Yohan Reyna MD; Location: OB OR; Service: OBGYN SECTION, CLASSIC 06/29/21 COLONOSCOPY HEMORRHOIDECTOMY 10/02/2017 Dr Katelin Strong HEMORRHOIDECTOMY REFRACTIVE SURGERY WISDOM TOOTH EXTRACTION FAM. Hx: Family History Problem Relation Age of Onset Allergic rhinitis Mother Ulcerative colitis Mother Atrial fibrillation Mother Hypertrophic cardiomyopathy Mother Cardiomyopathy Mother Allergic rhinitis Father Asthma Father Allergic rhinitis Sister Hypertension Maternal Uncle Peripheral vascular disease Maternal Grandmother Diabetes Maternal Grandfather Heart attack Maternal Grandfather Diabetes Paternal Grandfather SOC. 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[employer] Tobacco Use Smoking status: Never Smokeless tobacco: Never Vaping Use Vaping Use: Never used Substance and Sexual Activity Alcohol use: Not Currently Drug use: Never Sexual activity: Yes Partners: Male control/protection: Condom Social Determinants of Health Financial Resource Strain: Low Risk (03/06/2022) Overall Financial Resource Strain (CARDIA) Difficulty of Paying Living Expenses: Not very hard Food Insecurity: No Food Insecurity (03/06/2022) Hunger Vital Sign Worried About Running Out of Food in the Last Year: Never true Ran Out of Food in the Last Year: Never true Transportation Needs: No Transportation Needs (03/06/2022) PRAPARE - Transportation Lack of Transportation (Medical): No Lack of Transportation (Non-Medical): No Physical Activity: Unknown (03/06/2022) Exercise Vital Sign Days of Exercise per Week: 3 days Stress: No Stress Concern Present (03/06/2022) [employer] [employer] - Occupational Stress Questionnaire Feeling of Stress : Not at all Social Connections: Moderately Integrated (03/06/2022) Social Connection and Isolation Panel [NHANES] Frequency of Communication with Friends and Family: Three times a week Frequency of Social Gatherings with Friends and Family: Twice a week Attends Jehovah'S Witness Services: 1 to 4 times per year Active Member of Clubs or Organizations: No Attends Club or Organization Meetings: Never Marital Status: Housing Stability: Low Risk (03/06/2022) Housing Stability Vital Sign Unable to Pay for Housing in the Last Year: No Number of Places Lived in the Last Year: 2 Unstable Housing in the Last Year: No MEDs: Previous Medications Medication Sig Lactobacillus acidophilus (PROBIOTIC ORAL) Take by mouth . [DISCONTINUED] drospirenone-ethinyl estradioL (WILMAN) 3-0.02 mg per tablet Take 1 (one) tablet by mouth daily . [DISCONTINUED] spironolactone (ALDACTONE) 50 MG tablet Take 2 (two) tablets (100 mg total) by mouth daily . ALL: Allergies Allergen Reactions Other Other (See Comments) Seasonal allergies ROS: Review of Systems Constitutional: Negative. HENT: Negative. Respiratory: Negative. Negative for shortness of breath and stridor. Cardiovascular: Negative. Negative for chest pain. Gastrointestinal: Positive for abdominal pain. Negative for constipation, nausea and vomiting. Musculoskeletal: Negative. Skin: Negative. Neurological: Negative. All other systems reviewed and are negative. Positives and pertinent negatives as per HPI. All other systems were reviewed and are negative. Physical Exam: Patient Vitals for the past 24 hrs: BP Temp Pulse Resp SpO2 08/20/23 1806 102/71 98.3 F (36.8 C) 80 16 98 % Physical Exam Vitals and nursing note reviewed. Constitutional: General: She is not in acute distress. Appearance: She is well-developed. She is not ill-appearing or toxic-appearing. HENT: Head: Normocephalic and atraumatic. Eyes: Extraocular Movements: Extraocular movements intact. Pupils: Pupils are equal, round, and reactive to light. Cardiovascular: Rate and Rhythm: Normal rate and regular rhythm. Heart sounds: Normal heart sounds. Pulmonary: Effort: Pulmonary effort is normal. No respiratory distress. Breath sounds: Normal breath sounds. No wheezing. Abdominal: General: Bowel sounds are normal. Palpations: Abdomen is soft. Tenderness: There is abdominal tenderness in the right lower quadrant, periumbilical area, suprapubic area and left lower quadrant. There is guarding and rebound. There is no right CVA tenderness or left CVA tenderness. Positive signs include Rovsing's sign and McBurney's sign. Neurological: Mental Status: She is alert. Laboratory & Radiological Imaging (if done): Labs Reviewed - No data to display No orders to display ED Course / Medical Decision Making: I did personally review Jay's past medical history, surgical history, social history, as well as family history (when relevant). In this case, I also oversaw the her drug management by reviewing her medication list, allergy list, as well as the medications that I prescribed during the ED course and/or recommended as an out-patient (including possible OTC medications such as acetaminophen, NSAIDs , etc). Her past medical problem list included: Active Ambulatory Problems Diagnosis Date Noted Varicose veins of left lower extremity with pain 01/20/2019 Seasonal allergies Annual physical exam 11/21/2021 Resolved Ambulatory Problems Diagnosis Date Noted 39 weeks gestation of 06/29/2021 Acute URI 09/24/2021 Past Medical History: Diagnosis Date Acne Anorectal disorder Arthralgia Heart murmur Heart palpitations Varicose veins of both lower extremities ED MEDICATIONS GIVEN: Medications lactated Ringers infusion (has no administration in time range) acetaminophen (TYLENOL) tablet 650 mg (has no administration in time range) ondansetron (ZOFRAN-ODT) disintegrating tablet 4 mg (has no administration in time range) Or ondansetron (ZOFRAN) injection 4 mg (has no administration in time range) HYDROmorphone (DILAUDID) injection 0.5 mg (has no administration in time range) naloxone (NARCAN) injection 0.1 mg (has no administration in time range) And naloxone (NARCAN) injection 0.4 mg (has no administration in time range) After reviewing the items above, I did look at previous medical documentation, such as recent hospitalizations, office visits, and/or recent consultations with PCP/specialist. SDOH: Another factor that I considered in Jay's care was her Social Determinants of Health (SDOH). During this ED encounter, she did NOT appear to have any significant issues identified. LAB TESTING: Ancillary lab testing: RADIOLOGY: I did consider radiological studies for Jay's care today: ED COURSE: Patient comes emergency room for evaluation of abdominal pain and concerning changes on CAT scan consistent with appendicitis. Surgical team was notified and the patient is to be admitted under the care of of Dr. Jordan. . Clinical Impression: 1. Acute appendicitis, unspecified acute appendicitis type Disposition: ED Disposition ED Disposition Hospitalize Condition -- Comment Attending Provider or Group: RAUDEL JORDAN [[id number]] Phone call required?: Yes Ke Stockton Jr., PA-C, PA-C ED Advanced Practice Provider [facility] Ke Stockton Jr., PA-C 08/20/23 1826 [facility] 08-20-2023 Emergency department Note [facility] WEST NOTE: NAME: Jay Antonio CSN: [id number] 28 y.o. PCP: 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 CNP History: Chief Complaint: Abdominal Pain HPI: The history was obtained from the patient. Jay is a 28 y.o. female who presents with a chief complaint of Abdominal Pain. Patient comes emergency room referred from [facility] ER for evaluation of appendicitis. She was told that her CT scan demonstrates that her appendix was slightly enlarged. Patient denies any nausea vomiting or diarrhea. She describes umbilical discomfort that radiates to the lower abdomen bilaterally. Symptoms started last night. PMHx: Past Medical History: Diagnosis Date Acne on back Anorectal disorder Arthralgia left hip Heart murmur Palpitations occasionally Heart palpitations Seasonal allergies Varicose veins of both lower extremities Varicose veins of left lower extremity with pain PMSx: Past Surgical History: Procedure Laterality Date BREAST SURGERY SECTION N/A 06/29/2021 Procedure: SECTION; Surgeon: Yohan Reyna MD; Location: [facility] OR; Service: OBGYN SECTION, CLASSIC 06/29/21 COLONOSCOPY HEMORRHOIDECTOMY 10/02/2017 Dr Katelin Strong HEMORRHOIDECTOMY REFRACTIVE SURGERY WISDOM TOOTH EXTRACTION FAM. Hx: Family History Problem Relation Age of Onset Allergic rhinitis Mother Ulcerative colitis Mother Atrial fibrillation Mother Hypertrophic cardiomyopathy Mother Cardiomyopathy Mother Allergic rhinitis Father Asthma Father Allergic rhinitis Sister Hypertension Maternal Uncle Peripheral vascular disease Maternal Grandmother Diabetes Maternal Grandfather Heart attack Maternal Grandfather Diabetes Paternal Grandfather SOC. 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[employer] Tobacco Use Smoking status: Never Smokeless tobacco: Never Vaping Use Vaping Use: Never used Substance and Sexual Activity Alcohol use: Not Currently Drug use: Never Sexual activity: Yes Partners: Male control/protection: Condom Social Determinants of Health Financial Resource Strain: Low Risk (03/06/2022) Overall Financial Resource Strain (CARDIA) Difficulty of Paying Living Expenses: Not very hard Food Insecurity: No Food Insecurity (03/06/2022) Hunger Vital Sign Worried About Running Out of Food in the Last Year: Never true Ran Out of Food in the Last Year: Never true Transportation Needs: No Transportation Needs (03/06/2022) PRAPARE - Transportation Lack of Transportation (Medical): No Lack of Transportation (Non-Medical): No Physical Activity: Unknown (03/06/2022) Exercise Vital Sign Days of Exercise per Week: 3 days Stress: No Stress Concern Present (03/06/2022) [place] [employer] - Occupational Stress Questionnaire Feeling of Stress : Not at all Social Connections: Moderately Integrated (03/06/2022) Social Connection and Isolation Panel [NHANES] Frequency of Communication with Friends and Family: Three times a week Frequency of Social Gatherings with Friends and Family: Twice a week Attends Jehovah'S Witness Services: 1 to 4 times per year Active Member of Clubs or Organizations: No Attends Club or Organization Meetings: Never Marital Status: Housing Stability: Low Risk (03/06/2022) Housing Stability Vital Sign Unable to Pay for Housing in the Last Year: No Number of Places Lived in the Last Year: 2 Unstable Housing in the Last Year: No MEDs: Previous Medications Medication Sig Lactobacillus acidophilus (PROBIOTIC ORAL) Take by mouth . [DISCONTINUED] drospirenone-ethinyl estradioL (WILMAN) 3-0.02 mg per tablet Take 1 (one) tablet by mouth daily . [DISCONTINUED] spironolactone (ALDACTONE) 50 MG tablet Take 2 (two) tablets (100 mg total) by mouth daily . ALL: Allergies Allergen Reactions Other Other (See Comments) Seasonal allergies ROS: Review of Systems Constitutional: Negative. HENT: Negative. Respiratory: Negative. Negative for shortness of breath and stridor. Cardiovascular: Negative. Negative for chest pain. Gastrointestinal: Positive for abdominal pain. Negative for constipation, nausea and vomiting. Musculoskeletal: Negative. Skin: Negative. Neurological: Negative. All other systems reviewed and are negative. Positives and pertinent negatives as per HPI. All other systems were reviewed and are negative. Physical Exam: Patient Vitals for the past 24 hrs: BP Temp Pulse Resp SpO2 08/20/23 1806 102/71 98.3 F (36.8 C) 80 16 98 % Physical Exam Vitals and nursing note reviewed. Constitutional: General: She is not in acute distress. Appearance: She is well-developed. She is not ill-appearing or toxic-appearing. HENT: Head: Normocephalic and atraumatic. Eyes: Extraocular Movements: Extraocular movements intact. Pupils: Pupils are equal, round, and reactive to light. Cardiovascular: Rate and Rhythm: Normal rate and regular rhythm. Heart sounds: Normal heart sounds. Pulmonary: Effort: Pulmonary effort is normal. No respiratory distress. Breath sounds: Normal breath sounds. No wheezing. Abdominal: General: Bowel sounds are normal. Palpations: Abdomen is soft. Tenderness: There is abdominal tenderness in the right lower quadrant, periumbilical area, suprapubic area and left lower quadrant. There is guarding and rebound. There is no right CVA tenderness or left CVA tenderness. Positive signs include Rovsing's sign and McBurney's sign. Neurological: Mental Status: She is alert. Laboratory & Radiological Imaging (if done): Labs Reviewed - No data to display No orders to display ED Course / Medical Decision Making: I did personally review Jay's past medical history, surgical history, social history, as well as family history (when relevant). In this case, I also oversaw the her drug management by reviewing her medication list, allergy list, as well as the medications that I prescribed during the ED course and/or recommended as an out-patient (including possible OTC medications such as acetaminophen, NSAIDs , etc). Her past medical problem list included: Active Ambulatory Problems Diagnosis Date Noted Varicose veins of left lower extremity with pain 01/20/2019 Seasonal allergies Annual physical exam 11/21/2021 Resolved Ambulatory Problems Diagnosis Date Noted 39 weeks gestation of 06/29/2021 Acute URI 09/24/2021 Past Medical History: Diagnosis Date Acne Anorectal disorder Arthralgia Heart murmur Heart palpitations Varicose veins of both lower extremities ED MEDICATIONS GIVEN: Medications lactated Ringers infusion (has no administration in time range) acetaminophen (TYLENOL) tablet 650 mg (has no administration in time range) ondansetron (ZOFRAN-ODT) disintegrating tablet 4 mg (has no administration in time range) Or ondansetron (ZOFRAN) injection 4 mg (has no administration in time range) HYDROmorphone (DILAUDID) injection 0.5 mg (has no administration in time range) naloxone (NARCAN) injection 0.1 mg (has no administration in time range) And naloxone (NARCAN) injection 0.4 mg (has no administration in time range) After reviewing the items above, I did look at previous medical documentation, such as recent hospitalizations, office visits, and/or recent consultations with PCP/specialist. SDOH: Another factor that I considered in Jay's care was her Social Determinants of Health (SDOH). During this ED encounter, she did NOT appear to have any significant issues identified. LAB TESTING: Ancillary lab testing: RADIOLOGY: I did consider radiological studies for Jay's care today: ED COURSE: Patient comes emergency room for evaluation of abdominal pain and concerning changes on CAT scan consistent with appendicitis. Surgical team was notified and the patient is to be admitted under the care of of Dr. Jordan. . Clinical Impression: 1. Acute appendicitis, unspecified acute appendicitis type Disposition: ED Disposition ED Disposition Hospitalize Condition -- Comment Attending Provider or Group: RAUDEL JORDAN [[id number]] Phone call required?: Yes Ke Stockton Jr., PA-C, PA-C ED Advanced Practice Provider [facility] Ke Stockton Jr., PA-C 08/20/23 3646 Report called. Bed: 46 Expected date: Expected time: Means of arrival: Comments: TR 1 Patient a transfer from [facility] needing to be evaluated for possible appendicitis. documented in this encounter [facility] 08-20-2023 Emergency department Note Report called. [facility] 08-20-2023 Emergency department Note Bed: 46 Expected date: Expected time: Means of arrival: Comments: TR 1 [facility] 08-20-2023 Emergency department Triage note Patient a transfer from [facility] needing to be evaluated for possible appendicitis. [facility] 03-12-2023 History of Present illness Narrative Subjective Patient ID: Jay Antonio is a 28 y.o. female. HPI patient is here to establish care she is concerned about her varicose veins as they are getting worse and she has tried compression stocking but she states that she felt like it made the veins worse she is wanting to go and see a specialist in cosmetic surgery about that. The following portions of the patient's history were reviewed and updated as appropriate: She has a past medical history of Acne, Anorectal disorder, Arthralgia, Heart murmur, Heart palpitations, Seasonal allergies, Varicose veins of both lower extremities, and Varicose veins of left lower extremity with pain. She does not have any pertinent problems on file. She has a past surgical history that includes Hemorrhoidectomy (10/02/2017); Refractive surgery; [place] tooth extraction; Hemorrhoidectomy; Colonoscopy; Section (N/A, 06/29/2021); and section, classic (06/29/21). Her family history includes Allergic rhinitis in her father, mother, and sister; Asthma in her father; Atrial fibrillation in her mother; Cardiomyopathy in her mother; Diabetes in her maternal grandfather and paternal grandfather; Heart attack in her maternal grandfather; Hypertension in her maternal uncle; Hypertrophic cardiomyopathy in her mother; Peripheral vascular disease in her maternal grandmother; Ulcerative colitis in her mother. She reports that she has never smoked. She has never used smokeless tobacco. She reports that she does not currently use alcohol. She reports that she does not use drugs. Current Outpatient Medications Medication Sig Dispense Refill drospirenone-ethinyl estradioL (WILMAN) 3-0.02 mg per tablet Take 1 (one) tablet by mouth daily . spironolactone (ALDACTONE) 50 MG tablet Take 2 (two) tablets (100 mg total) by mouth daily . No current facility-administered medications for this visit. . Review of Systems Constitutional: Negative for chills, fatigue and fever. HENT: Negative for congestion, sinus pressure and sinus pain. Eyes: Negative. Respiratory: Negative for cough, chest tightness and shortness of breath. Cardiovascular: Negative for chest pain and palpitations. Gastrointestinal: Negative for abdominal pain and nausea. Endocrine: Negative. Genitourinary: Negative for frequency and urgency. Musculoskeletal: Negative for arthralgias and myalgias. Skin: Negative. Neurological: Negative for dizziness, light-headedness and headaches. Hematological: Negative. Psychiatric/Behavioral: The patient is not nervous/anxious. Objective Physical Exam Constitutional: Appearance: Normal appearance. HENT: Head: Normocephalic. Right Ear: Tympanic membrane normal. Left Ear: Tympanic membrane normal. Nose: Nose normal. Eyes: Pupils: Pupils are equal, round, and reactive to light. Cardiovascular: Rate and Rhythm: Normal rate and regular rhythm. Heart sounds: Normal heart sounds. No murmur heard. Pulmonary: Effort: Pulmonary effort is normal. Breath sounds: Normal breath sounds. Abdominal: General: Bowel sounds are normal. Tenderness: There is no abdominal tenderness. Musculoskeletal: General: Normal range of motion. Cervical back: Normal range of motion. Skin: General: Skin is warm and dry. Neurological: Mental Status: She is alert and oriented to person, place, and time. Psychiatric: Behavior: Behavior normal. Assessment/Plan: Diagnoses and all orders for this visit: Encounter to establish care This is a pleasant 28 yo female who is a non smoker with a history of varicose veins, anorectal disorder, seasonal allergies, and heart palpitations. She has a family history of allergic rhinitis, asthma, afib, cardiomyopathy, diabetes , heart disease and PVD. She had her wellness exam in November with previous provider and all labs were normal. Medications were reviewed at this time. She is to follow up as needed or in one year for her wellness exam. Varicose veins of left lower extremity with pain Patient has varicose veins bilaterally. The right varicose vein is in the lower leg and runs from the knee around the calf and downward, the left varicose vein runs down her thigh to her knee and is very prominent. She has tried compression stockings in the past and she states it made them worse and cause a large amount of discomfort. She is wanting to go and be seen at a varicose vein clinic in [place] so she can be evaluated for newer treatment. Seasonal allergies Well controlled with OTC medication Follow up in one year or as needed documented in this encounter [facility] 11-22-2022 Evaluation + Plan note Associated Problem(s): Annual physical exam Healthcare Maintenance: Vaccines: -Influenza vaccine: Season ended -COVID-19 vaccine: Fully vaccinated 10/2020, pending Moderna bivalent booster at local pharmacy, not available in office today -Tdap: Up-to-date 03/2021 -Shingrix: Not yet indicated Hepatitis C: neg 11/2020 HIV: neg 11/2020 Pap smear: Self-reported up-to-date (normal) around 2 year ago, will obtain records from [facility] Mammogram: Not yet indicated Colonoscopy: Not yet indicated Lung cancer screening: Never smoker, not yet indicated DEXA: Not yet indicated Routine labs ordered [facility] 11-22-2022 Miscellaneous Notes Associated Problem(s): Annual physical exam Healthcare Maintenance: Vaccines: -Influenza vaccine: Season ended -COVID-19 vaccine: Fully vaccinated 10/2020, pending Moderna bivalent booster at local pharmacy, not available in office today -Tdap: Up-to-date 03/2021 -Shingrix: Not yet indicated Hepatitis C: neg 11/2020 HIV: neg 11/2020 Pap smear: Self-reported up-to-date (normal) around 2 year ago, will obtain records from [facility] Mammogram: Not yet indicated Colonoscopy: Not yet indicated Lung cancer screening: Never smoker, not yet indicated DEXA: Not yet indicated Routine labs ordered documented in this encounter [facility] 11-22-2022 History of Present illness Narrative [facility] [address] [facility] [address] [id number] HPI: Jay Antonio is a 27 y.o. year old female seen in the office today for her annual physical. Denies any complaints today. Sees Dr. Reyna at [facility] for her female wellness. Reports last Pap smear less than 2 years ago (normal) will obtain records. The following portions of the patient's history were reviewed and updated as appropriate: allergies, current medications, past family history, past medical history, past social history, past surgical history, and problem list. Patient Active Problem List Diagnosis Date Noted Annual physical exam 11/21/2021 Seasonal allergies Varicose veins of left lower extremity with pain 01/20/2019 Past Medical History: Diagnosis Date Acne on back Anorectal disorder Arthralgia left hip Heart murmur Palpitations occasionally Heart palpitations Seasonal allergies Varicose veins of left lower extremity with pain Past Surgical History: Procedure Laterality Date SECTION N/A 06/29/2021 Procedure: SECTION; Surgeon: Yohan Reyna MD; Location: [facility] OR; Service: OBGYN SECTION, CLASSIC 06/29/21 COLONOSCOPY HEMORRHOIDECTOMY 10/02/2017 Dr Katelin Strong HEMORRHOIDECTOMY REFRACTIVE SURGERY WISDOM TOOTH EXTRACTION Allergies Allergen Reactions Other Seasonal allergies Patient's Medications New Prescriptions No medications on file Previous Medications NAPROXEN SODIUM (ANAPROX) 550 MG TABLET Take 1 (one) tablet (550 mg total) by mouth 2 (two) times a day as needed (pain) . SPIRONOLACTONE (ALDACTONE) 50 MG TABLET Take 2 (two) tablets (100 mg total) by mouth daily . Modified Medications No medications on file Discontinued Medications No medications on file Depression Screening 11/22/2020 11/21/2021 11/22/2022 11/22/2022 Little interest or pleasure in doing things 0 0 0 0 Feeling down, depressed, or hopeless 0 0 0 0 PHQ-2 Total Score 0 0 0 0 Trouble falling or staying asleep, or sleeping too much 0 - - - Feeling tired or having little energy 1 - - - Poor appetite or overeating 0 - - - Feeling bad about yourself - or that you are a failure or have let yourself or your family down 0 - - - Trouble concentrating on things, such as reading the newspaper or watching television 0 - - - Moving or speaking so slowly that other people could have noticed. Or the opposite - being so fidgety or restless that you have been moving around a lot more than usual 0 - - - Thoughts that you would be better off , or of hurting yourself in some way 0 - - - PHQ-9 Total Score 1 - - - If you checked off any problems, how difficult have these problems made it for you to do your work, take care of things at home, or get along with other people? Not difficult at all - - - Review of Systems All other systems reviewed and are negative. Objective Physical Exam Vitals and nursing note reviewed. Constitutional: Appearance: Normal appearance. HENT: Head: Normocephalic and atraumatic. Cardiovascular: Rate and Rhythm: Normal rate. Pulmonary: Effort: Pulmonary effort is normal. Breath sounds: Normal breath sounds. Musculoskeletal: General: Normal range of motion. Skin: General: Skin is warm and dry. Neurological: General: No focal deficit present. Mental Status: She is alert and oriented to person, place, and time. Assessment/Plan: Problem List Items Addressed This Visit Other Annual physical exam - Primary Healthcare Maintenance: Vaccines: -Influenza vaccine: Season ended -COVID-19 vaccine: Fully vaccinated 10/2020, pending Moderna bivalent booster at local pharmacy, not available in office today -Tdap: Up-to-date 03/2021 -Shingrix: Not yet indicated Hepatitis C: neg 11/2020 HIV: neg 11/2020 Pap smear: Self-reported up-to-date (normal) around 2 year ago, will obtain records from [facility] Mammogram: Not yet indicated Colonoscopy: Not yet indicated Lung cancer screening: Never smoker, not yet indicated DEXA: Not yet indicated Routine labs ordered Relevant Orders CBC and Differential Comprehensive Metabolic Panel Hemoglobin A1c Lipid Panel For any new medications prescribed today, patient was educated about indications for the medication, how to take the medication and potential side effects of the medications. If an acute complaint was discussed today, patient was instructed to seek immediate care if current symptoms worsen or fail to improve. All red flags were discussed with patient today. Remember to schedule you annual physical exam/medicare wellness visit to adddress your healthcare maintance if you have not done so within 1 year. If any referrals/test orders were placed at the time of your visit please allow 2 weeks for processing. If you haven't heard from anyone within 2 weeks please contact my office so we can look into the status of your referral. If the referral/order was urgent you will be called within 1 business day for scheduling the sooner available appointment, please contact the office within 1 business day if you note a delay on this. If you were given any labs today please ensure they are completed according to the directions given. Results will be available through [facility] as soon as they are reported. Please allow 48-72 hours for practitioner to review, and let you know what steps, if any, are needed next. If you haven't heard from us after that please call to inquire. If labs were ordered to be done PRIOR to your next visit we will discuss the results at the time of your office visit. If any procedures or imaging studies were ordered that must be prior authorized please give us 2 weeks to get them approved. Once approved someone should call you to schedule them or give you a date and time that they were scheduled for. If you haven't heard anything within 2 weeks of the office visit please call the office so we can look into their status. Customer Service/Billing Questions: [phone] [facility] Assistance: [phone] or [phone] Financial Assistance: [phone] or [phone] Follow Up Ordered: Return in about 1 year (around 11/23/2023) for Annual physical. Gay Narayan MD documented in this encounter [facility] 11-21-2021 Evaluation + Plan note Associated Problem(s): Annual physical exam Healthcare Maintenance: Vaccines: -Influenza vaccine: Season ended -COVID-19 vaccine: Fully vaccinated 10/2020, pending Moderna booster at local pharmacy, not available in office -Tdap: Self-reported up-to-date around 6 months ago, will fax records from [facility] -Shingrix: Not yet indicated Hepatitis C: neg 11/2020 HIV: neg 11/2020 Pap smear: Self-reported up-to-date (normal) around 1 year ago, will fax records from [facility] Mammogram: Not yet indicated Colonoscopy: Not yet indicated Lung cancer screening: Never smoker, not yet indicated DEXA: Not yet indicated [facility] 11-21-2021 Miscellaneous Notes Associated Problem(s): Annual physical exam Healthcare Maintenance: Vaccines: -Influenza vaccine: Season ended -COVID-19 vaccine: Fully vaccinated 10/2020, pending Moderna booster at local pharmacy, not available in office -Tdap: Self-reported up-to-date around 6 months ago, will fax records from [facility] -Shingrix: Not yet indicated Hepatitis C: neg 11/2020 HIV: neg 11/2020 Pap smear: Self-reported up-to-date (normal) around 1 year ago, will fax records from [facility] Mammogram: Not yet indicated Colonoscopy: Not yet indicated Lung cancer screening: Never smoker, not yet indicated DEXA: Not yet indicated documented in this encounter [facility] 11-21-2021 History of Present illness Narrative [facility] [address] [facility] [address] [place] [address] HPI: Jay Antonio is a 26 y.o. year old female seen in the office today for her annual physical. Medical problems includes varicose veins. Also noted history of palpitations with pending Holter although she reports symptoms resolved and never got Holter scheduled last year. Most recent ECHO 12/29/2020 was normal. Recently delivered 5 months ago, not breast-feeding currently. Denies chest pain, shortness of breath, palpitations, abdominal pain, difficulty swallowing, diarrhea or constipation, urinary complaints. No acute symptoms today. The following portions of the patient's history were reviewed and updated as appropriate: allergies, current medications, past family history, past medical history, past social history, past surgical history, and problem list. Patient Active Problem List Diagnosis Date Noted Annual physical exam 11/21/2021 Seasonal allergies Varicose veins of left lower extremity with pain 01/20/2019 Past Medical History: Diagnosis Date Acne on back Anorectal disorder Arthralgia left hip Heart murmur Palpitations occasionally Heart palpitations Seasonal allergies Varicose veins of left lower extremity with pain Past Surgical History: Procedure Laterality Date SECTION N/A 06/29/2021 Procedure: SECTION; Surgeon: Yohan Reyna MD; Location: OB OR; Service: OBGYN SECTION, CLASSIC 06/29/21 COLONOSCOPY HEMORRHOIDECTOMY 10/02/2017 Dr Katelin Strong HEMORRHOIDECTOMY REFRACTIVE SURGERY WISDOM TOOTH EXTRACTION Allergies Allergen Reactions Other Seasonal allergies Patient's Medications New Prescriptions No medications on file Previous Medications SPIRONOLACTONE (ALDACTONE) 50 MG TABLET Take 50 mg by mouth daily . Modified Medications No medications on file Discontinued Medications IBUPROFEN (ADVIL,MOTRIN) 800 MG TABLET Take 1 (one) tablet (800 mg total) by mouth every 8 (eight) hours as needed for pain . ONDANSETRON (ZOFRAN-ODT) 4 MG DISINTEGRATING TABLET Dissolve 1 (one) tablet (4 mg total) on top of tongue every 4 to 6 hours as needed for nausea . 25/IRON FUM/FOLIC/DHA (-1 ORAL) Take 1 tablet by mouth daily . Review of Systems All other systems reviewed and are negative. Objective Physical Exam Vitals and nursing note reviewed. Constitutional: Appearance: Normal appearance. HENT: Head: Normocephalic and atraumatic. Cardiovascular: Rate and Rhythm: Normal rate. Pulmonary: Effort: Pulmonary effort is normal. Breath sounds: Normal breath sounds. Musculoskeletal: General: Normal range of motion. Skin: General: Skin is warm and dry. Neurological: General: No focal deficit present. Mental Status: She is alert and oriented to person, place, and time. Assessment/Plan: Problem List Items Addressed This Visit Other Annual physical exam Healthcare Maintenance: Vaccines: -Influenza vaccine: Season ended -COVID-19 vaccine: Fully vaccinated 10/2020, pending Moderna booster at local pharmacy, not available in office -Tdap: Self-reported up-to-date around 6 months ago, will fax records from [facility] -Shingrix: Not yet indicated Hepatitis C: neg 11/2020 HIV: neg 11/2020 Pap smear: Self-reported up-to-date (normal) around 1 year ago, will fax records from [facility] Mammogram: Not yet indicated Colonoscopy: Not yet indicated Lung cancer screening: Never smoker, not yet indicated DEXA: Not yet indicated For any new medications prescribed today, patient was educated about indications for the medication, how to take the medication and potential side effects of the medications. If an acute complaint was discussed today, patient was instructed to seek immediate care if current symptoms worsen or fail to improve. All red flags were discussed with patient today. Remember to schedule you annual physical exam/medicare wellness visit to adddress your healthcare maintance if you have not done so within 1 year. If any referrals/test orders were placed at the time of your visit please allow 2 weeks for processing. If you haven't heard from anyone within 2 weeks please contact my office so we can look into the status of your referral. If the referral/order was urgent you will be called within 1 business day for scheduling the sooner available appointment, please contact the office within 1 business day if you note a delay on this. If you were given any labs today please ensure they are completed according to the directions given. Results will be available through [facility] as soon as they are reported. Please allow 48-72 hours for practitioner to review, and let you know what steps, if any, are needed next. If you haven't heard from us after that please call to inquire. If labs were ordered to be done PRIOR to your next visit we will discuss the results at the time of your office visit. If any procedures or imaging studies were ordered that must be prior authorized please give us 2 weeks to get them approved. Once approved someone should call you to schedule them or give you a date and time that they were scheduled for. If you haven't heard anything within 2 weeks of the office visit please call the office so we can look into their status. Customer Service/Billing Questions: [phone] MyChart Assistance: [phone] or [phone] Financial Assistance: [phone] or [phone] Follow Up Ordered: Return in about 1 year (around 11/21/2022). Gay Narayan MD documented in this encounter [facility] 07-01-2021 Miscellaneous Notes Discharge home ambulatory with significant other and infant, in stable condition. Discharge instructions reviewed with pt, follow up, reasons to call physician and scripts. Pt verbalizes understanding. This note was copied from a baby's chart. Spoke with mothers primary RN. Mother is pumping and feeding expressed breastmilk and happy with feeding plan. Mother able to pump 10-15 ml breastmilk. Mother feels more confident and relaxed with pumping and feeding. No questions at this time. Education on pumping and storage guidelines reviewed and in written education material. Plan is for discharge home today with . Weight loss 8.6%. Voiding and stooling. Encourage follow up weight check with pumper gauger in 1-2 days. Appointment was made by mother. Review and continue POC. . Pt made decision to pump and give. And supplement with formula. For personal reasons. , and self teaching ongoing. PO motrin and vicodin effective for pain. No signs or symptoms of abd incisional infection, afebrile. Progressing well toward discharge home. Will continue to educate until d/c Removed pt iv cannula, intact, bandaid applied. completed shower, tolerated well, linens changed for comfort. Denies pain, other needs at this time. Low transverse incision well approximated, steri strips intact. Pt sitting up in chair in room. Infant in nursery for procedure. This note was copied from a baby's chart. Follow up visit. Mother tired but states that is going well. Reviewed positioning to boost maternal confidence. Mother did use shield for last 2 feeds. Discussed proper use and that if used routinely it is recommended that she pump to help stimulate supply. Mother has made appointment with [facility] pumper gauger for follow up. Plan is to follow feeding cues and continue on demand breastfeeds. To attempt direct latch first and use shield only as needed. currently content, swaddled in open crib. Mother to call if any concerns or questions arise. POC reviewed. Education ongoing. This note was copied from a baby's chart. Effective latch and feed at breast observed. Long coordinated suckles with audible swallows. No nipple pain reported by mother. Benefits of skin to skin, watching feeding cues, on demand feeds and establishing a supply reviewed with mother and family. Educational topics reinforced and mothers questions answered. Plan is continue on demand breastfeeds and mother to call if any questions or concerns arise. to breast at least 8 times in 24 hours Mother aware of feeding cues and responds Tips for optimal positioning and latch to breast reviewed Mother reports minimal or no pain with latch resource guide reviewed Mother aware of hand expression and confident with establishing a milk supply Mother to call if any questions or concerns arise. Mother aware that weight check in 1-2 days after discharge is recommended. Problem: Actual or potential alteration in health Goal: Absence of healthcare acquired conditions Outcome: Partially Met Goal: Knowledge of Interdisciplinary Plan of Care Outcome: Partially Met Goal: Knowledge of Enviroment Outcome: Partially Met Problem: Fluid Volume Imbalance, Risk of Goal: Absence of imbalanced fluid volume signs and symptoms Outcome: Partially Met Goal: Balanced intake and output Outcome: Partially Met Problem: Infection - Risk of, Surgical Site Infection Goal: Absence of infection signs and symptoms Outcome: Partially Met Problem: Pain Goal: Manage acute pain Outcome: Partially Met Goal: Manage chronic pain Outcome: Partially Met Goal: Reduced pain sensation Outcome: Partially Met Goal: Achievement of comfort function goal Outcome: Partially Met Problem: Venous Thromboembolism, Risk of Goal: Absence of venous thromboembolism Outcome: Partially Met Problem: Plan for Discharge Goal: Knowledge of discharge plan and instructions Outcome: Partially Met Section Delivery Note Diagnosis: Principal Problem: 39 weeks gestation of Mother's Information Delivery Blood Loss 06/29/21 1022 - 06/29/21 1109 Quantitative Blood Loss - Delivery (mL) Hospital Encounter 361 mL Total 361 mL Jihan Antonio [[id number]] Delivery Anesthesia Method: Spinal Operative Delivery Forceps attempted?: No Vacuum extractor attempted?: No [facility] Presentation Presentation: Vertex Position: Middle _: Transverse Information date/time: 06/29/21 1032 Gender: Male Delivery type: , Low Transverse Delivery location: OB Unit Provider Present: Routine Initial disposition: Routine NB Care Details: Trial of labor?: No categorization: Primary priority: Scheduled Indications for : Other (Add Comments) Skin incision type: Pfannenstiel Delivery Providers Delivering clinician: Yohan Reyna MD Other personnel: Provider Role Covering Attending Resident System Developer Associate Manager Mariely Banerjee RN Delivery Nurse Cristin Vargas RN Registered Nurse Caryn Jean Baptiste RN Delivery Assist Nurse Practitioner Carmen Collins RN Registered Nurse Joe Rivera MD Electronic Prepress System Operator Cord Vessels: 3 vessels Complications: None Delayed cord clamping?: Yes Cord clamped date/time: 06/29/2021 1033 Cord blood obtained?: Yes Cord segment obtained?: No Gases sent?: No Stem cell collection (by Provider)?: No Placenta Date/time: 06/29/2021 1034 Removal: Manual removal Appearance: Intact Disposition: Refrigerator [facility] Apgars No data filed Measurements Weight: 7 lb 6.9 oz (3370 g) Length: 19 Head Circumference: 13.189 Lacerations No data filed Other Procedures Procedures: None Brief Post Operative Note Patient Name: Jay Antonio : 1995 (26 y.o.) Date of Service: 06/29/2021 CSN: [id number] Procedure(s): SECTION Pre-Operative Diagnoses: * Anorectal disorder [K62.9] Post-Operative Diagnoses: * Anorectal disorder [K62.9] Surgeon(s) and Role: * Yohan Reyna MD - Primary UTILIZATION MANAGEMENT RN: Morgan Gomez CRNA Masonry Supervisor: Mariely Banerjee RN Scrub Person: ST Dillan Scrub Person Preceptor: Bhumika Whittington RN Scrub Person Assist: Ana Maria Collins RN Electronic Prepress System Operator: Joe Rivera MD Nursery Nurse: Caryn Jean Baptiste RN Operative findings: Normal appearing uterus, tubes, and ovaries Intra and immediate post-operative complications: none Type of anesthesia used: Spinal Quantitative blood loss: 361 mL from 06/29/2021 10:02 AM to 06/29/2021 11:07 AM Estimated urine output: Refer to surgical log Specimen(s): * No specimens in log * Implant(s): * No implants in log * Drain(s): Urethral Catheter Non-latex 16 Fr. (Active) Wound(s): * No LDAs found * Yohan Reyna MD 06/29/2021 11:08 AM Operative Note DATE: 06/29/2021 TIME: 11:08 AM PREOPERATIVE DIAGNOSIS: Anorectal disorder [K62.9] POSTOPERATIVE DIAGNOSIS: Post-Op Diagnosis Codes: * Anorectal disorder [K62.9] PROCEDURE(S) PERFORMED: Procedure(s): SECTION INDICATIONS: Jay Antonio is a 26 y.o. female who presents for surgical evaluation and treatment of Anorectal disorder [K62.9] that has been unresponsive to medical management. Risks of surgery reviewed in great detail, risks of bleeding, infection, injury to surrounding organs, bowel, bladder, ureters, risks of anesthesia and blood clots discussed. All questions were answered and consent was obtained. FINDINGS: Normal appearing uterus, tubes, and ovaries SURGEON: Yohan Reyna MD OR STAFF: Masonry Supervisor: Mariely Banerjee RN Scrub Person: ST Dillan Scrub Person Preceptor: Bhumika Whittington RN Scrub Person Assist: Ana Maria Collins RN Electronic Prepress System Operator: Joe Rivera MD Nursery Nurse: Caryn Jean Baptiste RN ANESTHESIA STAFF: UTILIZATION MANAGEMENT RN: Morgan Gomez CRNA SPECIMEN(S): * No specimens in log * IMPLANTS: * No implants in log * ESTIMATED BLOOD LOSS: Refer to anesthesia record UOP: TYPE OF ANESTHESIA USED: Spinal INTRA AND IMMEDIATE POST-OP COMPLICATIONS: None PROCEDURE: The patient was taken to the operating room and spinal anesthesia was placed. She was placed in the dorsolithotomy position and underwent sterile prep and drape. After sterile prep and drape a Pfannenstiel skin incision was made with the knife and extended down to the fascia using sharp dissection. The fascia was incised with the knife and the fascial incision was extended laterally using the Hutchinson scissors. Rectus muscle was in the midline and the peritoneum was entered. The bladder flap was developed and the third blade was placed and the bladder flap. A low transverse uterine incision was then made with the knife and extended laterally using finger fraction. The was then delivered in cephalic presentation. After one minute of delayed cord clamping the cord was then clamped and cut. The infant was then handed off to the awaiting nursery team. The placenta was then manually extracted from the uterine cavity. The cavity was cleared of clot and debris. The hysterotomy incision was then closed with a running interlocking layer of #1 chromic gut suture. The hysterotomy incision was then inspected for hemostasis. The tubes and ovaries were visualized and noted to be normal. The uterus was then returned to the abdomen. The gutters were cleared of all clots and debris. The fascia was then closed with a running layer of 0 Vicryl. The skin was then closed with 4-0 Vicryl. Steri-Strips were then applied, followed by a sterile dressing. The vagina was then cleared of clot and debris. The patient was then transferred to the recovery room in stable condition. All sponge, lap, needle, and instrument counts were correct times three. documented in this encounter [facility] 07-01-2021 History of Present illness Narrative Section Progress Note Assessment/Plan: Status post section: Doing well postoperatively. Discharge home with standard precautions and return to office in 4-6 weeks. Subjective: Day 2: Delivery The patient feels well. The patient denies emotional concerns. Pain is well controlled with current medications. Urinary output is adequate. The patient is ambulating well. The patient is tolerating a normal diet. Patient reports flatus yes. The baby is well Baby is feeding via Information for the patient's : Paco Baby Boy Jay [[id number]] Feeding Type: Breast milk,Formula Objective: Vital signs in last 24 hours: Temp: [97.4 F (36.3 C)-98.2 F (36.8 C)] 98.2 F (36.8 C) Heart Rate: [64-80] 70 Resp: [14] 14 BP: (90-105)/(58-68) 101/68 General: alert, appears stated age, cooperative, and no distress Cardiac Eval: regular rate and rhythm and S1, S2 normal Lung Eval: lungs clear to auscultation Bowel Sounds: active Lochia: appropriate Uterine Fundus: firm Incision: healing well, no significant drainage, no dehiscence, no significant erythema DVT Evaluation: No evidence of DVT seen on physical exam. Negative Nicola's sign. Section Progress Note Assessment/Plan: Status post section: Doing well postoperatively. Continue current care. Subjective: Day 1: Delivery The patient feels well. The patient denies emotional concerns. Pain is well controlled with current medications. Urinary output is adequate. The patient is ambulating well. The patient is tolerating a normal diet. Patient reports flatus yes. The baby is well Baby is feeding via Information for the patient's : Paco, Baby Boy Jay [[id number]] Feeding Type: Breast milk Objective: Vital signs in last 24 hours: Temp: [97.5 F (36.4 C)-98.9 F (37.2 C)] 97.8 F (36.6 C) Heart Rate: [67-86] 67 Resp: [12-17] 12 BP: (95-115)/(59-72) 103/71 General: alert, appears stated age, cooperative, and no distress Cardiac Eval: regular rate and rhythm and S1, S2 normal Lung Eval: lungs clear to auscultation Bowel Sounds: active Lochia: appropriate Uterine Fundus: firm Incision: healing well, no significant drainage, no dehiscence, no significant erythema DVT Evaluation: No evidence of DVT seen on physical exam. Negative Nicola's sign. documented in this encounter [facility] 07-01-2021 Hospital Discharge instructions Angeline Ball RN - 07/01/2021 9:46 AM EST Images from the original note were not included. Post Discharge Information Now that you have had you baby, we hope these instructions will help you return to full activity as soon as possible. If you have any problems, please contact our office. If you had a Vaginal Delivery: 1. You may drive a care, go up and down steps, take tub-baths or showers and in general, do things that you feel comfortable doing. Being careful not to become overtired is important - you will want to rest when your baby sleeps. 2. You may use any laxative you want for constipation. 3. You may begin the exercises for your abdominal muscles as soon as your heavy bleeding stops, or even sooner, if you are able to do so comfortable. 4. Sitz-baths in a warm tub will help with stitch or hemorrhoid discomfort. 5. It is probably best to avoid sexual intercourse and heavy lifting for about 4 weeks. 6. You will need some extra iron. Take one vitamin with iron daily until we see you in 6 weeks. This can be your vitamins or any multivitamin with iron you can purchase without a prescription. 7. Please ask about contraception. If you are not nursing and want to use control pulls, we will give you a prescription when you leave the hospital so that you can start taking them when the baby is two weeks old. 8. If you had a tubal operation, there are no special or different instructions. It is OK to get the incision wet during a bath or shower. If the bandage is still on you should take it off. 9. Do not force yourself if you are tired. If you have a fever, unusual pain or heavy bleeding, call the office. 10. Please call the office ([phone]) for your six weeks' checkup appointment time. Because we book far ahead for appointments, you should call the office within the next ten days. If you had a Delivery: Almost everything about applies to you also. There are two main differences: 1. You should not drive a car until your baby is 3 weeks old. (It is OK to ride in a car, however) 2. You should wait about 3 weeks before starting the abdominal muscle exercises. Remember, if you have any questions or problems, call the office. [phone] or [phone]. Please Note: Unless there are medical complications, maternity leave will be authorized for 6 weeks. documented in this encounter [facility] 06-30-2021 Hospital course Narrative DISCHARGE SUMMARY Patient: Jay Antonio Date of : 1995 Site: [facility] Family Provider: Desiree Maddox MD Admit Date: 06/29/2021 Discharge Date/Time: 06/30/21 Afternoon Disposition: Home Clinical Summary Hospital Course: Jay Antonio is a 26 y.o. female patient of Desiree Maddox MD with a history of anorectal neurologic dysfunction and presented for a primary section. She underwent a routine without complication and her postop course has been uneventful. She is tolerating pain with oral medications, ambulating well, passing flatus, voiding. She desires to go home today. Discharge Diagnoses: delivery Surgeries: 06/29/21 SECTION Consults: No orders of the defined types were placed in this encounter. Allergies: Other Discharge Diet: Regular Condition: Stable Discharge Medications: Discharge Medications New Medications Details HYDROcodone-acetaminophen 5-325 mg per tablet Commonly known as: NORCO Take 1 (one) tablet by mouth every 6 (six) hours as needed for pain (Days supply per fill: 3) . Quantity: 12 tablet ibuprofen 800 MG tablet Commonly known as: ADVIL,MOTRIN Take 1 (one) tablet (800 mg total) by mouth every 8 (eight) hours as needed for pain . Quantity: 30 tablet senna-docusate 8.6-50 mg Commonly known as: SENNA-S Take 1 (one) tablet by mouth daily . Quantity: 30 tablet Medications To Continue Details -1 ORAL Take 1 tablet by mouth daily . Physician(s) Family Provider: Desiree Maddox MD, Address: [address] [facility] / [place] [id number] Follow Up: Yohan Reyna MD [address] [place] [id number] Schedule an appointment as soon as possible for a visit in 6 week(s) Additional Information: Patient instructions, including activity, were given to the patient/family at discharge. Please see the After Visit Summary in the electronic medical record for details. Time spent on discharge: < 30 minutes Completed by: Yohan Reyna MD on 06/30/21, 8:46 AM documented in this encounter [facility] 06-29-2021 History and physical note HISTORY AND PHYSICAL Assessment/Plan: Principal Problem: 39 weeks gestation of Risks, benefits, alternatives and possible complications have been discussed in detail with the patient. Pre-admission, admission, and post admission procedures and expectations were discussed in detail. All questions answered, all appropriate consents will be signed at the Hospital. Admission is for Continue present management.. Subjective: Chief Complaint Patient presents with Scheduled Primary C Section Jay Antonio is a 26 y.o. female with Estimated Date of Delivery: 07/04/21 at 39w2d gestation who is being admitted for . Her current obstetrical history is significant for no obstetrical problems. Patient reports no complaints. Movement: normal. History: Past Medical History: Diagnosis Date Acne on back Anorectal disorder Arthralgia left hip Heart palpitations Left leg swelling varicose veins Leg pain, left Seasonal allergies Varicose veins of left lower extremity with pain Past Surgical History: Procedure Laterality Date COLONOSCOPY HEMORRHOIDECTOMY 10/02/2017 Dr Katelin Strong HEMORRHOIDECTOMY REFRACTIVE SURGERY WISDOM TOOTH EXTRACTION Family History Problem Relation Age of Onset Allergic rhinitis Mother Ulcerative colitis Mother Atrial fibrillation Mother Hypertrophic cardiomyopathy Mother Allergic rhinitis Father Asthma Father Peripheral vascular disease Maternal Grandmother Diabetes Maternal Grandfather Heart attack Maternal Grandfather Diabetes Paternal Grandfather Allergic rhinitis Sister Hypertension Maternal Uncle Social History Socioeconomic History Marital status: Occupational History 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 Other Home Medications: Outpatient Medications as of 06/29/2021 Medication Sig 25/iron fum/folic/dha (-1 ORAL) Take 1 tablet by mouth daily . Review of Systems - History obtained from the patient General ROS: negative; Objective: Vital signs in last 24 hours: Temp: [98.4 F (36.9 C)] 98.4 F (36.9 C) Heart Rate: [72-80] 72 Resp: [16] 16 BP: (110)/(71) 110/71 General Appearance: Alert, cooperative, no distress, appears stated age Head: Normocephalic, without obvious abnormality, atraumatic Eyes: PERRL, conjunctiva/corneas clear, EOM's intact, fundi benign, both eyes Neck: Supple, symmetrical, trachea midline, no adenopathy; thyroid: not enlarged, symmetric, no tenderness/mass/nodules; no carotid bruit or JVD Back: Symmetric, no curvature, ROM normal, no CVA tenderness Lungs: Clear to auscultation bilaterally, respirations unlabored Heart: Regular rate and rhythm, S1 and S2 normal, no murmur, rub, or gallop Abdomen: Gravid, nontender, normal active bowel sounds Pelvic: Deferred Extremities: Extremities normal, atraumatic, no cyanosis or edema Pulses: 2+ and symmetric Skin: Skin color, texture, turgor normal, no rashes or lesions Neurologic: Normal Pelvis: Exam deferred. FHT: 140 BPM Uterine Size: size equals dates Consistency: firm Laboratory and Additional Data Reviewed: Laboratory 06/29/21 9:04 AM Medications 06/29/21 9:04 AM documented in this encounter [facility] 11-22-2020 History of Present illness Narrative Chief Complaint Patient presents for: Physical History of Present Illness: Jay is a 25 y.o. female who comes in for a physical and with the following complaint(s): Occ heart palpitation- since middle school off and on. Last few seconds and gone . Denies CP/SOB. Swimming, cheering dance in HS. At one point she wore a heart monitor but no diagnosis made. Palpitations once per week. Denies caffeine use, no OTC meds except PNV. No other cardiac testing done in the past. Patient is 8 weeks and OB is not aware that she is having heart palpitations. Health Maintenance See Assessment/Plan summary below Active Problem List She has Patient Active Problem List Diagnosis Date Noted Varicose veins of left lower extremity with pain 01/20/2019 Past Medical History: Diagnosis Date Acne on back Anorectal disorder Arthralgia left thigh Heart palpitations Left leg swelling Leg pain, left Varicose veins of left lower extremity with pain Past Surgical History: Procedure Laterality Date COLONOSCOPY HEMORRHOIDECTOMY 10/02/2017 Dr Katelin Strong HEMORRHOIDECTOMY REFRACTIVE SURGERY WISDOM TOOTH EXTRACTION Current Outpatient Medications on File Prior to Visit Medication Sig Dispense Refill 25/iron fum/folic/dha (-1 ORAL) Take 1 tablet by mouth daily . docosahexanoic acid/epa (FISH OIL ORAL) Take 1,000 mg by mouth daily . DOXYCYCLINE HYCLATE ORAL Take 100 mg by mouth 2 (two) times a day . Lactobacillus acidophilus (PROBIOTIC ORAL) Take by mouth daily . multivitamin (THERAGRAN) per tablet Take 1 tablet by mouth daily . No current facility-administered medications on file prior to visit. Allergies Allergen Reactions Other Seasonal allergies Family History Problem Relation Age of Onset Allergic rhinitis Mother Ulcerative colitis Mother Atrial fibrillation Mother Hypertrophic cardiomyopathy Mother Allergic rhinitis Father Allergic rhinitis Sister Diabetes Maternal Grandfather Heart attack Maternal Grandfather Hypertension Maternal Uncle Peripheral vascular disease Maternal Grandmother Social History Socioeconomic History Marital status: Spouse name: Not on file Number of children: Not on file Years of education: Not on file Highest education level: Not on file Occupational History Not on file Tobacco Use Smoking status: Never Smoker Smokeless tobacco: Never Used Vaping Use Vaping Use: Never used Substance and Sexual Activity Alcohol use: Yes Comment: occ Drug use: Never Sexual activity: Not on file Other Topics Concern Not on file Social History Narrative Not on file Social Determinants of Health Financial Resource Strain: Difficulty of Paying Living Expenses: Food Insecurity: Worried About Running Out of Food in the Last Year: Ran Out of Food in the Last Year: Transportation Needs: Lack of Transportation (Medical): Lack of Transportation (Non-Medical): Physical Activity: Days of Exercise per Week: Minutes of Exercise per Session: Stress: Feeling of Stress : Social Connections: Frequency of Communication with Friends and Family: Frequency of Social Gatherings with Friends and Family: Attends [employer] Services: Active Member of Clubs or Organizations: Attends Club or Organization Meetings: Marital Status: There is no immunization history on file for this patient. Review of Systems Constitutional: Negative for activity change, appetite change, chills, diaphoresis, fatigue, fever and unexpected weight change. Respiratory: Negative for cough, chest tightness and shortness of breath. Cardiovascular: Positive for palpitations. Negative for chest pain and leg swelling. Neurological: Negative for dizziness, syncope, weakness and light-headedness. Hematological: Does not bruise/bleed easily. Psychiatric/Behavioral: Negative for confusion, decreased concentration and sleep disturbance. The patient is not nervous/anxious. Vitals: 11/22/20 1304 BP: 106/69 BP Location: Left arm Patient Position: Sitting BP Cuff Size: Adult Pulse: 93 Resp: 16 Temp: 98.8 F (37.1 C) TempSrc: Temporal SpO2: 99% Weight: 64.7 kg (142 lb 11.2 oz) Height: 5' 3 Physical Exam Vitals and nursing note reviewed. HENT: Head: Normocephalic and atraumatic. Right Ear: External ear normal. Left Ear: External ear normal. Eyes: Conjunctiva/sclera: Conjunctivae normal. Pupils: Pupils are equal, round, and reactive to light. Neck: Thyroid: No thyromegaly. Cardiovascular: Rate and Rhythm: Normal rate and regular rhythm. Heart sounds: Normal heart sounds. No murmur heard. No friction rub. No gallop. Pulmonary: Effort: Pulmonary effort is normal. No respiratory distress. Breath sounds: Normal breath sounds. No wheezing or rales. Musculoskeletal: General: Normal range of motion. Cervical back: Normal range of motion and neck supple. Lymphadenopathy: Cervical: No cervical adenopathy. Skin: General: Skin is warm and dry. Neurological: Mental Status: She is alert and oriented to person, place, and time. Gait: Gait is intact. Psychiatric: Mood and Affect: Mood and affect normal. Cognition and Memory: Memory normal. Judgment: Judgment normal. 1) Health Maintenance Current BMI: Body mass index is 25.28 kg/m . Last BP: BP: 106/69 Last Pap Smear and Breast Exam: per [facility]TER UP Dr Reyna Annual flu shot recommended. 2. Seasonal allergies 3. Family history of hypertrophic cardiomyopathy Patient's mother was diagnosed with hypertrophic cardiomyopathy. Her mother's physician recommended that she also be screened. Patient is 8 weeks currently. - Echocardiogram complete; Future 4. Heart palpitations Patient complains of heart palpitations since middle school age. She has worn a heart monitor in the past but states no diagnosis was ever determined. EKG: normal EKG, normal sinus rhythm, there are no previous tracings available for comparison. - ECG 12 Lead - Comprehensive Metabolic Panel; Future - TSH with Reflex Free T4; Future - CBC and Differential; Future - Echocardiogram complete; Future Depression Screening 11/22/2020 Little interest or pleasure in doing things 0 Feeling down, depressed, or hopeless 0 PHQ-2 Total Score 0 Trouble falling or staying asleep, or sleeping too much 0 Feeling tired or having little energy 1 Poor appetite or overeating 0 Feeling bad about yourself - or that you are a failure or have let yourself or your family down 0 Trouble concentrating on things, such as reading the newspaper or watching television 0 Moving or speaking so slowly that other people could have noticed. Or the opposite - being so fidgety or restless that you have been moving around a lot more than usual 0 Thoughts that you would be better off , or of hurting yourself in some way 0 PHQ-9 Total Score 1 If you checked off any problems, how difficult have these problems made it for you to do your work, take care of things at home, or get along with other people? Not difficult at all Pt here to establish care and discuss HOCOM. Pt's mother just diagnosed with HOCOM and it can be genetic, pt would like to have ECHO and MRI, but she 8 weeks . Mother is still getting genetic testing done. Pt has first ob appointment at [facility] with on Sunday. documented in this encounter [facility] Evaluation note Diagnosis Annual physical exam- Primary Routine general medical examination at a health care facility Seasonal allergies Allergic rhinitis, cause unspecified Family history of hypertrophic cardiomyopathy Heart palpitations Palpitations [facility] Diagnosis Family history of hypertrophic cardiomyopathy Heart palpitations Palpitations [facility] Diagnosis Encounter for preprocedure screening laboratory testing for COVID-19- Primary [facility] Diagnosis 39 weeks gestation of - Primary Post-operative pain Other acute postoperative pain [facility] Diagnosis Annual physical exam Routine general medical examination at a health care facility [facility] Diagnosis Annual physical exam- Primary Routine general medical examination at a health care facility [facility] Diagnosis Encounter to establish care- Primary Varicose veins of left lower extremity with pain Seasonal allergies Allergic rhinitis, cause unspecified [facility] Diagnosis Acute appendicitis- Primary Acute appendicitis without mention of peritonitis Acute appendicitis, unspecified acute appendicitis type [facility] Diagnosis Postoperative follow-up- Primary Follow-up examination, following unspecified surgery documented in this encounter [facility] Summary Purpose Family History No Family History Records FoundNo Family History Records FoundNo Family History Records FoundNo Family History Records FoundNo Family History Records FoundNo Family History Records FoundNo Family History Records Found Advance Directives No Advanced Directives Records FoundDocuments on File Type Date Recorded 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 Advance Directives and Livin g Will 01/20/2019 2:17 PM Documents on File Type Date Recorded 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 Advance Directives and Livin g Will 02/11/2019 2:49 PM Documents on File Type Date Recorded 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 Advance Directives and Livin g Will 02/11/2019 2:49 PM Documents on File Type Date Recorded 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 Advance Directives and Livin g Will Advance Directives and Livin g Will 12/29/2020 9:12 AM Documents on File Type Date Recorded 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 Advance Directives and Livin g Will Advance Directives and Livin g Will 04/09/2021 10:13 AM Latest Code Status on File Code Status Date Activated Date Inactivated Comments Full Code 04/09/2021 10:16 AM 04/09/2021 4:01 PM Documents on File Type Date Recorded 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 Advance Directives and Livin g Will Advance Directives and Livin g Will 06/29/2021 7:42 AM Latest Code Status on File Code Status Date Activated Date Inactivated Comments Full Code 06/29/2021 1:35 PM 07/01/2021 1:54 PM Full Code 06/29/2021 7:40 AM 06/29/2021 1:12 PM Full Code 06/22/2021 9:14 AM 06/22/2021 12:04 PM Full Code 04/09/2021 10:16 AM 04/09/2021 4:01 PM Latest Code Status on File Code Status Date Activated Date Inactivated Comments Full Code 06/29/2021 1:35 PM 07/01/2021 1:54 PM Code Status History Code Status Date Activated Date Inactivated Comments Full Code 06/29/2021 7:40 AM 06/29/2021 1:12 PM Full Code 06/22/2021 9:14 AM 06/22/2021 12:04 PM Full Code 04/09/2021 10:16 AM 04/09/2021 4:01 PM Latest Code Status on File Code Status Date Activated Date Inactivated Comments Full Code 08/20/2023 5:25 PM 08/21/2023 11:45 AM Code Status History Code Status Date Activated Date Inactivated Comments Full Code 06/29/2021 1:35 PM 07/01/2021 1:54 PM Full Code 06/29/2021 7:40 AM 06/29/2021 1:12 PM Full Code 06/22/2021 9:14 AM 06/22/2021 12:04 PM Full Code 04/09/2021 10:16 AM 04/09/2021 4:01 PM Date Activated Date Inactivated Comments 08/20/2023 5:25 PM 08/21/2023 11:45 AM Date Activated Date Inactivated Comments 06/29/2021 1:35 PM 07/01/2021 1:54 PM Date Activated Date Inactivated Comments 06/29/2021 7:40 AM 06/29/2021 1:12 PM Date Activated Date Inactivated Comments 06/22/2021 9:14 AM 06/22/2021 12:04 PM Date Activated Date Inactivated Comments 04/09/2021 10:16 AM 04/09/2021 4:01 PM Reason for Referral Status Reason Specialty Diagnoses / Procedures Referred By Contact Referred To Contact New Request Urology Diagnoses Dysuria Lisha Duenas, DO [address] [place] [id number] [facility] [address] [place] [address] Status Reason Specialty Diagnoses / Procedures Referred By Contact Referred To Contact Pending Review Cardiology Diagnoses Varicose veins of left lower extremity with pain Procedures Ultrasound venous insufficiency left leg Hannah Sandoval III, DO [address] [place] [address] Status Reason Specialty Diagnoses / Procedures Referred By Contact Referred To Contact New Request Cardiology Diagnoses Family history of hypertrophic cardiomyopathy Heart palpitations Procedures Echocardiogram complete Desiree Maddox MD [address] [place] [address] Status Reason Specialty Diagnoses / Procedures Referre d By Contact Referred To Contact Closed Cardiology Diagnoses Family history of hypertrophic cardiomyopathy Heart palpitations Procedures Echocardiogram complete Desiree Maddox MD [address] [place] [id number] [address] [place] [address] History of Present Illness * Lisha Duenas, - 05/10/2018 9:30 AM EST Formatting of this note may be different from the original. History of Present Illness 23yo female presents with complaints of more frequent urinary symptoms. She states that she has sharp stabbing pain in her midline above her pubic bone at least twice a month that makes her stop whatever she is doing because it hurts so much. She also reports urinary frequency and discomfort after voiding. She is not having any new discharge and denies changes in a sexual partner. UA today was negative for UTI, but she states she is having symptoms. She is not currently having any menstrual issues, but was having breakthrough bleeding in the past on her ocps. She is currently seeing GI for some bowel symptoms, but so far everything has been negative for a gluten allergy and other inflammatory disorders. She is frustrated and does not know what else could be causing her pain. Review of Systems Constitutional: Negative for appetite change, fever and unexpected weight change. Respiratory: Negative for wheezing. Cardiovascular: Negative for palpitations. Gastrointestinal: Positive for constipation. Negative for abdominal pain, diarrhea, nausea and vomiting. Endocrine: Negative. Genitourinary: Positive for dysuria, frequency, pelvic pain and urgency. Negative for difficulty urinating, flank pain, genital sores and vaginal discharge. Vitals: Blood pressure 123/82, pulse 61, height 5' 1 (1.549 m), weight 135 lb (61.2 kg), last menstrual period 04/12/2018, not currently . Physical Exam Constitutional: She is oriented to person, place, and time. She appears well- developed and well-nourished. No distress. HENT: Head: Normocephalic and atraumatic. Eyes: EOM are normal. Neck: Normal range of motion. Cardiovascular: Normal rate, regular rhythm and normal heart sounds. No murmur heard. Pulmonary/Chest: Effort normal and breath sounds normal. Abdominal: Soft. She exhibits no distension. There is no tenderness. There is no rebound and no guarding. Neurological: She is alert and oriented to person, place, and time. Psychiatric: She has a normal mood and affect. Judgment normal. Nursing note and vitals reviewed. Neurologic Exam Mental Status Oriented to person, place, and time. Cranial Nerves CN III, IV, Extraocular motions are normal. Assessment and Plan ICD-10-CM 1. Dysuria R30.0 POCT URINALYSIS DIPSTICK NON AUTOMATED AMB REFERRAL TO UROLOGY 2. Hematuria, unspecified type R31.9 URINE CULTURE URINE CULTURE 3. Frequency of micturition R35.0 1. The patient has been having recurrent symptoms and pelvic pain. We discussed the possibility of interstitial cystitis and endometriosis as potential sources of urinary symptoms and pelvic pain. Will refer to urology for a possible cystoscopy. She did not have an obvious UTI on UA today. We reviewed changing her diet to see if this helps. She has follow up with GI next month to assess whether or not this could be contributing to her pain. We also discussed getting an ultrasound to rule out REF[employer]OR DRILLER AND DEBURRER sources of pain like a cyst although this is not as high on the differential given her symptoms. in this encounter* Marcela Borja, SRAVANTHI - 05/24/2018 10:30 AM EST Formatting of this note may be different from the original. Chief Complaint Patient presents with New Patient Dysuria HPI: Patient comes to us today as new patient referred by Lisha Duenas DO for recurrent UTI. Pt reports 4 UTIs in the past 2 months. Symptoms include urgency, frequency, dysuria, abdominal bloating/cramping, and pain with intercourse. Symptoms began 6 months ago. She changed to vegetarian diet at that time due to stomach issues and constipation. She drinks ~ 72oz of water daily; no coffee, tea, orsoda. No prior history of frequent/recurrent UTIs prior to this. No previous history of kidney stones. Denies family history of kidney or bladder cancer. She is a never smoker. Review of Systems Constitutional: Positive for weight loss (dietary changes). Negative for chills, fever and malaise/fatigue. Respiratory: Negative for cough, shortness of breath and wheezing. Cardiovascular: Negative for palpitations and leg swelling. Gastrointestinal: Positive for abdominal pain, constipation and nausea. Negative for diarrhea, heartburn and vomiting. Genitourinary: Positive for dysuria, frequency and urgency. Negative for flank pain and hematuria. Musculoskeletal: Negative for back pain, joint pain and myalgias. Skin: Negative for rash. Neurological: Positive for dizziness. Endo/Heme/Allergies: Does not bruise/bleed easily. Psychiatric/Behavioral: Negative for depression and suicidal ideas. The patient is not nervous/anxious. Patient comes to us today as a new patient with recurrent UTI. She is taking an antibiotic now which she has 2 more days to take. For the last 2 months she has had 4 UTI's. She states she has constant pressure and bloating. Results for orders placed or performed in visit on 05/24/18 POCT URINALYSIS DIPSTICK NON AUTOMATED Result Value Ref Range POCT APPEARANCE, URINE clear POCT COLOR, URINE yellow POCT GLUCOSE, URINE neg mg/dL POCT BILIRUBIN, URINE neg POCT KETONES, URINE neg mg/dL POCT SPECIFIC GRAVITY, URINE 1.010 1.001 - 1.035 POCT BLOOD, URINE neg POCT PH, URINE 7.5 (A) 5 - 7 POCT PROTEIN, URINE neg mg/dL POCT UROBILINOGEN, URINE neg 0 - 2 E.U./dL POCT NITRITE, URINE neg POCT LEUKOCYTE, URINE neg POCT ESTERASE, URINE POCT BACTERIA, URINE POCT WBC, URINE POCT RBC, URINE POCT AMORPHOUS, URINE POCT CASTS, QUANTITATIVE, URINE POCT SQUAMOUS EPIS, URINE POCT RENAL EPIS, URINE POCT CRYSTALS, URINE POCT URINE COMMENTS, URINE Patient comes to us today as a new patient with recurrent UTI. She is taking an antibiotic now which she has 2 more days to take. For the last 2 months she has had 4 UTI's. She states she has constant pressure and bloating. History No Known Allergies has History of hemorrhoids; History of seasonal allergies; Acute cystitis without hematuria; and Constipation on her problem list. Current Outpatient Prescriptions Medication Sig Dispense Refill cephALEXin 500 MG Cap capsule Take 1 capsule by mouth every 12 hours for 7 days. 14 capsule 0 CRANBERRY CONCENTRATE PO Take 4 capsules by mouth daily. Multiple Vitamin (MULTIVITAMIN) Tab Take 1 tablet by mouth daily. Aurora-3 Fatty Acids (FISH OIL) 1000 MG Cap Take 1,000 mg by mouth daily. amitriptyline 50 MG Tab Take 1 tablet by mouth at bedtime. 30 tablet 2 fluconazole (DIFLUCAN) 150 MG Tab tablet Take one tablet by mouth then repeat in 72 hours. (Patientnot taking: Reported on 05/24/2018 ) 2 tablet 0 fluticasone 50 MCG/ACT Suspension 2 sprays by Nasal route daily.. Linaclotide (LINZESS) 145 MCG Cap capsule Take 1 capsule by mouth daily. (Patient not taking: Reported on 05/10/2018 ) 30 capsule 0 No current facility-administered medications for this visit. family history includes Allergic Rhinitis in her father, mother, and sister. Past Medical History: Diagnosis Date Exercise tolerance finding mets > 4 History of hemorrhoids History of seasonal allergies No advance directives Past Surgical History: Procedure Laterality Date HEMORRHOIDECTOMY OPEN 10/02/2017 Surgeon: Nixon Thomason DO; Location: [facility] OR HEMORRHOIDECTOMY REFRACTIVE SURGERY WISDOM TEETH EXTRACTION Social History Social History Marital status: Spouse name: N/A Number of children: N/A Years of education: N/A Occupational History Not on file. Social History Main Topics Smoking status: Never Smoker Smokeless tobacco: Never Used Alcohol use Yes Comment: occasionally Drug use: No Sexual activity: Yes Partners: Male Other Topics Concern Domestic Violence No Social History Narrative No narrative on file Physical Exam: Blood pressure 110/64, pulse 62, height 1.549 m (5' 1 ), weight 59.6 kg (131 lb 6.4 oz), SpO2 99 %,not currently . Body mass index is 24.83 kg/m . Constitutional: Appears well, no acute distress. Cardiovascular: Regular rate and rhythm. No lower extremity edema. Pulmonary: Respirations even and unlabored. Lungs clear to auscultation. Abdomen: Soft, non-tender. Bowel sounds active x 4. No CVA/suprapubic tenderness noted. Musculoskeletal: Normal range of motion of all major joints. Skin: Warm, dry and intact. Neuro: No sensory or motor deficits. Assessment/Plan: 1. Recurrent UTI 2. Urinary frequency 3. Suprapubic pain 4. Interstitial cystitis UA negative; she is currently on antibiotic though most recent urine culture only demonstrated 40,000 C/C/ML of E. Coli. She has had 1 positive urine culture; all others have been negative despite symptoms. When combining this with the onset of symptoms at the time of her dietary changes it sounds like interstitial cystitis. Recommended she avoid food/beverages known to irritate the bladder. I will also start her on amitriptyline; cannot do anticholinergic due to constipation. Referred her to [email or web address] for more information on interstitial cystitis. She fill follow-up in 3 months or sooner for new or worsening symptoms. Consider hydrodistention if no response to dietary changes and medication. - POCT URINALYSIS DIPSTICK NON AUTOMATED - XR ABDOMEN 1 VIEW; Future Patient was advised to call with any questions or concerns. If symptoms worsen patient was advised to follow up in our office or the Emergency Dept. Benefits, Risks, Contraindications, and Complications of recommended treatments were explained the patient understands and agrees to proceed with plan. * Patito Martínez - 05/24/2018 10:30 AM EST Formatting of this note may be different from the original. Patient comes to us today as a new patient with recurrent UTI. She is taking an antibiotic now which she has 2 more days to take. For the last 2 months she has had 4 UTI's. She states she has constant pressure and bloating. Results for orders placed or performed in visit on 05/24/18 POCT URINALYSIS DIPSTICK NON AUTOMATED Result Value Ref Range POCT APPEARANCE, URINE clear POCT COLOR, URINE yellow POCT GLUCOSE, URINE neg mg/dL POCT BILIRUBIN, URINE neg POCT KETONES, URINE neg mg/dL POCT SPECIFIC GRAVITY, URINE 1.010 1.001 - 1.035 POCT BLOOD, URINE neg POCT PH, URINE 7.5 (A) 5 - 7 POCT PROTEIN, URINE neg mg/dL POCT UROBILINOGEN, URINE neg 0 - 2 E.U./dL POCT NITRITE, URINE neg POCT LEUKOCYTE, URINE neg POCT ESTERASE, URINE POCT BACTERIA, URINE POCT WBC, URINE POCT RBC, URINE POCT AMORPHOUS, URINE POCT CASTS, QUANTITATIVE, URINE POCT SQUAMOUS EPIS, URINE POCT RENAL EPIS, URINE POCT CRYSTALS, URINE POCT URINE COMMENTS, URINE Patient comes to us today as a new patient with recurrent UTI. She is taking an antibiotic now which she has 2 more days to take. For the last 2 months she has had 4 UTI's. She states she has constant pressure and bloating. in this encounter* Hannah Sandoval III, - 01/20/2019 2:26 PM EDT Assessment & Plan: SNOMED CT(R) 1. Varicose veins of left lower extremity with pain PAIN CO-OCCURRENT AND DUE TO VARICOSE VEINS OF LEFT LEG Ambulatory referral to Cardiology Ultrasound venous insufficiency left leg Plan: At the present time, Mrs. Antonio does appear to have reticular varicose veins.. But because of the heaviness of her discomfort that she feels around the knee and the thigh, we will obtain a venous duplex scan with insufficiency testing. I recommend that she get support stockings (thigh-high) to be worn on a daily basis. We will see her back in the office in approximate 3 months to help meet insurance criteria as well as give her a good trial of conservative therapy before obtaining the ultrasound. We will keep you informed after next visit. We appreciate the opportunity to consult and participate in her care. Follow Up Ordered: Return in about 3 months (around 04/22/2019) for Recheck with testing. Subjective: Jay Antonio is a 23 y.o. female seen in the office today for consultation regarding reticular varicose vein left thigh. Mrs. Antonio (birthday 1995) was seen in the office today on January 20, 2019. She states that she has noticed a prominent reticular varicose vein left anterior thigh from the groin to the level ofthe knee. 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 Is more prominent more she is on her feet. She denies any DVTs, significant pain. She occasionally gets some heaviness in sensation at the knee and lower leg. Her grandmother had significant venous disease with venous surgical interventions in the past. She denies any claudication symptoms or limitations of her activities. She has not undergone any significant testingin the past. Histories: Past Medical History: Diagnosis Date Acne on back Arthralgia left thigh Left leg swelling Leg pain, left Varicose veins of left lower extremity with pain Past Surgical History: Procedure Laterality Date HEMORRHOIDECTOMY 10/02/2017 Dr Katelin Strong REFRACTIVE SURGERY WISDOM TOOTH EXTRACTION Family History Problem Relation Age of Onset Allergic rhinitis Mother Ulcerative colitis Mother Atrial fibrillation Mother Allergic rhinitis Father Allergic rhinitis Sister Diabetes Maternal Grandfather Heart attack Maternal Grandfather Hypertension Maternal Uncle Peripheral vascular disease Maternal Grandmother Social History Tobacco Use Smoking status: Never Smoker Smokeless tobacco: Never Used Substance Use Topics Alcohol use: Yes Comment: occ Drug use: Never Current Outpatient Medications Medication Sig Dispense Refill docosahexanoic acid/epa (FISH OIL ORAL) Take 1,000 mg by mouth daily . DOXYCYCLINE HYCLATE ORAL Take 100 mg by mouth 2 (two) times a day . Lactobacillus acidophilus (PROBIOTIC ORAL) Take by mouth daily . multivitamin (THERAGRAN) per tablet Take 1 tablet by mouth daily . No current facility-administered medications for this visit. Allergies Allergen Reactions Other Seasonal allergies Review of Systems Constitution: Negative for chills, decreased appetite, fever, night sweats, weight gain and weight loss. HENT: Negative. Negative for hoarse voice and sore throat. Eyes: Negative for vision loss in left eye, vision loss in right eye and visual disturbance. Cardiovascular: Negative for chest pain, claudication, cyanosis, dyspnea on exertion, irregular heartbeat, leg swelling, palpitations and paroxysmal nocturnal dyspnea. Varicose vein left anterior thigh Respiratory: Negative for cough, hemoptysis, shortness of breath, sleep disturbances due to breathing and wheezing. Endocrine: Negative. Negative for cold intolerance. Hematologic/Lymphatic: Negative for bleeding problem. Does not bruise/bleed easily. Skin: Negative. Negative for color change, dry skin, nail changes and poor wound healing. Musculoskeletal: Positive for myalgias. Negative for arthritis, back pain, falls, gout, joint pain and muscle weakness. Gastrointestinal: Negative for abdominal pain, constipation, diarrhea, heartburn, jaundice, melena,nausea and vomiting. Genitourinary: Negative for dysuria, flank pain, frequency, hematuria and nocturia. Neurological: Negative for brief paralysis, dizziness, focal weakness, headaches, light-headedness,loss of balance, numbness and paresthesias. Psychiatric/Behavioral: Negative for altered mental status, depression, memory loss and substance abuse. The patient is not nervous/anxious. Allergic/Immunologic: Negative. Negative for hives and persistent infections. Objective: Vitals: Vitals: 01/20/19 1438 01/20/19 1439 BP: 114/74 109/74 BP Location: Right arm Patient Position: Sitting Pulse: 67 Weight: 58.5 kg (129 lb) Height: 5' 1 Physical Exam Constitutional: She is oriented to person, place, and time. Vital signs are normal. She appears well-developed and well-nourished. She is active and cooperative. HENT: Head: Normocephalic and atraumatic. Eyes: Conjunctivae, EOM and lids are normal. Neck: Trachea normal, normal range of motion and full passive range of motion without pain. Neck supple. Normal carotid pulses and no JVD present. Carotid bruit is not present. No thyromegaly present. Cardiovascular: Normal rate, regular rhythm, normal heart sounds and intact distal pulses. Exam reveals no decreased pulses. No murmur heard. Pulses: Carotid pulses are 2+ on the right side, and 2+ on the left side. Radial pulses are 2+ on the right side, and 2+ on the left side. Popliteal pulses are 2+ on the right side, and 2+ on the left side. Dorsalis pedis pulses are 2+ on the right side, and 2+ on the left side. Posterior tibial pulses are 2+ on the right side, and 2+ on the left side. Reticular varicose vein left anterior thigh from the inguinal crease to the distal thigh measuring 2 to 4 mm in maximum diameter. No clots, cords, ropes is noted. Pulmonary/Chest: Effort normal and breath sounds normal. She has no decreased breath sounds. She has no wheezes. She has no rhonchi. She has no rales. Abdominal: Soft. Normal appearance and bowel sounds are normal. She exhibits no abdominal bruit. There is no hepatosplenomegaly. There is no tenderness. There is no rigidity, no rebound and no guarding. Musculoskeletal: Normal range of motion. Neurological: She is alert and oriented to person, place, and time. She has normal strength. She isnot disoriented. No cranial nerve deficit or sensory deficit. She displays a negative Romberg sign. Skin: Skin is warm, dry and intact. No cyanosis. Nails show no clubbing. Psychiatric: She has a normal mood and affect. Her speech is normal and behavior is normal. Judgment and thought content normal. Cognition and memory are normal. documented in this encounter Assessments Diagnosis Dysuria - Primary Hematuria, unspecified type Frequency of micturition Urinary frequency Diagnosis Recurrent UTI - Primary Urinary tract infection, site not specified Urinary frequency Suprapubic pain Abdominal pain, other specified site Interstitial cystitis Chronic interstitial cystitis Diagnosis Varicose veins of left lower extremity with pain Diagnosis Varicose veins of left lower extremity with pain Instructions * Patient Instructions* Ginny Stallworth RN - 01/20/2019 2:33 PM EDT How to contact your Care Team: Provider: Hannah Sandoval III, DO Nurse: Marci Stallworth RN In case of an emergency please call 911. When in need of refills please call the phone number listed above. Please include medication name, pharmacy name and specify 30 or 90 day supply Please check with your pharmacy within 24 hours of your request for refill. You must follow up as directed to continue current refills. Thank you! documented in this encounter Additional Source Comments INFORMATION SOURCE (unrecogn ized section and content) DATE CREATED AUTHOR 12/12/2017 [facility] DATE CREATED AUTHOR AUTHOR'S ORGANIZ ATION 12/17/2020 [facility] DATE CREATED AUTHOR AUTHOR'S ORGANIZ ATION 01/30/2021 [facility] DATE CREATED AUTHOR AUTHOR'S ORGANIZ ATION 06/26/2021 [facility] DATE CREATED AUTHOR AUTHOR'S ORGANIZ ATION 08/21/2023 [facility] DATE CREATED AUTHOR AUTHOR'S ORGANIZ ATION 08/26/2023 [facility] DATE CREATED AUTHOR AUTHOR'S ORGANIZ ATION 09/08/2023 [facility] Reason for Visit (unrecogniz ed section and content) Reason Comments Results Reason Comments Urinary Pain Patient states she h as been having the pain 2 times a month. 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 [address] [place] [address] Hannah Sandoval III, DO [address] [place] [address] Status Reason Specialty Diagnoses / Procedures Referred By Contact Referred To Contact Pending Review Cardiology Diagnoses Varicose veins of left lower extremity with pain Procedures Ultrasound venous insufficiency left leg Hannah Sandoval III, DO [address] [place] [address] Reason Comments Establish Care would like order for ECHO and MRI Status Reason Specialty Diagnoses / Procedures Referre d By Contact Referred To Contact Closed Cardiology Diagnoses Family history of hypertrophic cardiomyopathy Heart palpitations Procedures Echocardiogram complete Desiree Maddox MD [address] [place] [address] [facility] [address] [facility] [place] [address] Reason Comments Scheduled Primary C Section Specialty Diagnoses / Procedures Referred By Contac t Referred To Contact Diagnoses 39 weeks gestation of Referral ID Status Reason Start Date Expiration Date Visits Re quested Visits Authorized [id number] 1 1 Reason Comments Establish Care [id number] Reason Comments Establish Care Reason Comments Abdominal Pain Specialty Diagnoses / Procedures Referred By Contac t Referred To Contact Diagnoses Acute appendicitis Acute appendicitis, unspecified acute appendicitis type Acute appendicitis Referral ID Status Reason Start Date Expiration Date Visits Re quested Visits Authorized [id number] 1 1 Reason Comments Post-op Care Teams (unrecognized sec tion and content) Story Reader Relationship Specialty Start Date End Date Desiree Maddox MD [address] [place] [address] PCP - General Family Medicine 11/22/20 Subit, Yohan Lake MD [address] [place] [address] Consulting Physician Obstetrics/Gynecology 05/18/21 Story Reader Relationship Specialty Start Date End Date Desiree Maddox MD [address] [place] [address] PCP - General Family Medicine 11/22/20 Subit, Yohan Lake MD [address] [place] [address] Consulting Physician Obstetrics/Gynecology 05/18/21 Story Reader Relationship Specialty Start Date End Date Gay Davies MD [address] [place] [id number] PCP - General Internal Medicine 11/21/21 Subit, Yohan Lake MD [address] [place] [address] Consulting Physician Obstetrics/Gynecology 05/18/21 Story Reader Relationship Specialty Start Date End Date Gay Davies MD [address] [place] [id number] PCP - General Internal Medicine 11/21/21 Subit, Yohan Lake MD [address] [place] [address] Consulting Physician Obstetrics/Gynecology 05/18/21 Story Reader Relationship Specialty Start Date End Date 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 CNP [address] [place] [address] (Fax) PCP - General Nurse Practitioner 03/12/23 JonelleitYohan MD [address] [place] [address] Consulting Physician Obstetrics/Gynecology 05/18/21 Story Reader Relationship Specialty Start Date End Date 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 CNP [address] [place] [address] PCP - General Nurse Practitioner 03/12/23 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 CNP [address] [place] [address] PCP - STONE Attributed Provider - [employer] 01/16/23 06/17/50 Yohan Reyna MD [address] [place] [address] Consulting Physician Obstetrics/Gynecology 05/18/21 Story Reader Relationship Specialty Start Date End Date 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 CNP [address] [place] [address] PCP - General Nurse Practitioner 03/12/23 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 CNP [address] [place] [address] PCP - STONE Attributed Provider - [employer] 01/16/23 06/17/50 Yohan Reyna MD [address] [place] [address] Consulting Physician Obstetrics/Gynecology 05/18/21 Scheduled Active and Recently Administ ered Medications (unrecognized section and content) Medication Order 06/29/2021 06/30/2021 07/01/2021 ceFAZolin (ANCEF) IVPB 2 g (premix) (COMPLETED) 2,000 mg, Intravenous, at 100 mL/hr, Once, On Sun06/29/21 at 0830, For 1 dose, Labor & Delivery, Administer within 1 hour prior to incision., Indication (PRE PROCEDURE): OTHER, Indication (PRE PROCEDURE): section 1002 (Given - Provider: Morgan Gomez CRNA)1007 (Stopped - Provider: Morgan Gomez CRNA) ferrous sulfate tablet 325 mg 325 mg, Oral, Daily with breakfast, First dose on Concha 06/30/21 at 0800, 0842 (Given - Provider: Marisel Copeland RN) 0800 (Due) fluconazole (DIFLUCAN) tablet 150 mg 150 mg, Oral, Daily, First dose on Sun06/29/21 at 1300, CATEGORY D HAZARDOUS DRUG use safe handling precautions. Use reference link to view PPE guidelines. Minimize crushing/splitting only to situations where clinically necessary., Indication: Prophylaxis (Immunocompromised Patients) 1222 (Given - Provider: Mariely Banerjee RN) 0839 (Given - Provider: Marisel Copeland RN) 0809 (Given - Provider: Angeline Ball RN) ibuprofen (ADVIL,MOTRIN) tablet 800 mg 800 mg, Oral, Every 6 hours, First dose on Sun06/29/21 at 1630, For 48 hours, , Administer Ketorolac if patient is NPO or not tolerating oral intake Do Not Crush or Chew if administering orally due to bitter taste. May be crushed if given via tube. 1640 (See Alternative - Provider: Angeline Ball RN)2253 (See Alternative - Provider: Steffi Chambers RN) 0842 (See Alternative - Provider: Marisel Copeland RN)1030 (See Alternative - Provider: Marisel Copeland RN)1509 (Given - Provider: Marisel Copeland RN)1630 (Due - Provider: Sahara Luna [facility],PharmD)2313 (Given - Provider: Abbey Catherine RN) 0808 (Given - Provider: Angeline Ball RN)1030 (Due - Provider: Sahara Luna RP,PharmD) ketorolac (TORADOL) injection 30 mg 30 mg, Intravenous, Every 6 hours, First dose on Sun06/29/21 at 1630, For 48 hours, , Administer Ketorolac if patient is NPO or not tolerating oral intake. Ketorolac (TORADOL) has an automatic stop date of 48 hours. 1640 (Given - Provider: Angeline Ball RN)2253 (Given - Provider: Steffi Chambers RN) 0842 (Given - Provider: Marisel Copeland RN)1030 (Not Given - Provider: Marisel Copeland RN - Reason: Other - Comment: previous med delayed)1509 (See Alternative - Provider: Mairsel Copeland RN)1630 (Due - Provider: Sahara Luna RPh,PharmD)2313 (See Alternative - Provider: Abbey Catherine RN) 0808 (See Alternative - Provider: Angeline Ball, RN)1030 (Due - Provider: Sahara Luna [facility],PharmD) oxytocin (PITOCIN) bolus from bag 10,000 guillermo-units (COMPLETED) 10,000 guillermo-units, Intravenous, Once, On Sun06/29/21 at 1115, For 1 dose, Labor & Delivery, After delivery of placenta, initiate an oxytocin bolus of 10,000 guillermo-units infused over 30 minutes (330 guillermo-units/min), from the oxytocin 20 units in 1,000 mL Lactated Ringers IV bag. May repeat X 1 for bleeding, then reduce rate to 41.6 guillermo-units/min. . CATEGORY B HAZARDOUS DRUG use safe handling precautions. Use reference link to view PPE guidelines. Safe handling precautions only required when in the third trimester. EMERGENCY Haz Drug use professional judgement when deviating from standard handling precautions. 1034 (Bolus from Bag - Provider: Mariely Banerjee RN) senna-docusate (SENNA-S) 8.6-50 mg per tablet 1 tablet 1 tablet, Oral, 2 times daily, First dose on Sun06/29/21 at 1300, Hold for loose stools Do Not Crush or Chew if administering orally due to bitter taste. May be crushed if given via tube. 1222 (Given - Provider: Mariely Banerjee RN)2100 (Not Given - Provider: Abbey Catherine RN - Reason: Contraindicated) 1244 (Given - Provider: Marisel Copeland RN)2313 (Given - Provider: Abbey Catherine RN) 0808 (Given - Provider: Angeline Ball, RN) senna-docusate (SENNA-S) 8.6-50 mg per tablet 2 tablet 2 tablet, Oral, Nightly, First dose on Sun06/29/21 at 2100, , Hold for loose stools Do Not Crush or Chew if administering orally due to bitter taste. May be crushed if given via tube. 2253 (Given - Provider: Steffi Chambers RN) 2100 (Due) Continuous Medication Order 06/29/2021 06/30/2021 07/01/2021 lactated Ringers infusion (CANCELED) 125 mL/hr, Intravenous, Continuous, Starting on Sun06/29/21 at 0830, Labor & Delivery 1001 (New Bag - Provider: Morgan Gomez CRNA) lactated Ringers infusion 125 mL/hr, Intravenous, Continuous, Starting on Sun06/29/21 at 1430, L&D Post-Delivery, Start when oxyTOCIN (PITOCIN) drip is discontinued. Discontinue after 24 hours if patient is afebrile and tolerating orals. 1505 (New Bag - Provider: Angeline Ball RN) oxytocin in lactated ringers (PITOCIN) 20 unit/1,000 mL infusion (CANCELED) Intravenous, Continuous, Starting on Sun06/29/21 at 1115, For 24 hours, Labor & Delivery, Discontinue infusion after 3.5 Hours AND when bleeding scant and fundus firm CATEGORY B HAZARDOUS DRUG use safe handling precautions. Use reference link to view PPE guidelines. Safe handling precautions only required when in the third trimester. EMERGENCY Haz Drug use professional judgement when deviating from standard handling precautions., Initial Rate (guillermo-units/min): 41.6 guillermo-units/min 1110 (Rate/Dose Change - Provider: Mariely Banerjee RN)1504 (Stopped - Provider: Angeline Ball RN) PRN Medication Order 06/29/2021 06/30/2021 07/01/2021 acetaminophen (TYLENOL) tablet 650 mg 650 mg, Oral, Every 4 hours PRN, mild pain, Starting on Sun06/29/21 at 1335, 1438 (Given - Provider: Angeline Ball RN) 1302 (Given - Provider: Marisel Copeland RN)1843 (Given - Provider: Nieves Best RN) 0802 (Due) aluminum-magnesium hydroxide-simethicone (MAALOX PLUS) 200-200-20 mg/5 mL suspension 30 mL 30 mL, Oral, Every 4 hours PRN, indigestion, Starting on Sun06/29/21 at 1335, bisacodyL (DULCOLAX) suppository 10 mg 10 mg, Rectal, Daily PRN, constipation, Starting on Sun06/29/21 at 1335, , Use oral medication first for constipation. Use rectal suppository, if ordered, for constipation if oral route not tolerated. diphenhydrAMINE (BENADRYL) injection 25 mg(Linked Group 1) 25 mg, Intravenous, Every 6 hours PRN, itching, Starting on Sun06/29/21 at 1335, , Use oral route first, if tolerated. For IV administration, give at a rate less than or equal to 25 mg/min diphenhydrAMINE (BENADRYL) oral solid 25 mg(Linked Group 1) 25 mg, Oral, Every 6 hours PRN, itching, Starting on Sun06/29/21 at 1335, , Use oral route first, if tolerated. diptheria, tetanus toxoid, acellular pertussis (ADACEL/Tdap) injection 0.5 mL 0.5 mL, Intramuscular, Prior To Discharge, Based on vaccine assessment, Starting on Sun06/29/21 at 1335, For 1 dose, , If not previously vaccinated for pertussis. Complete Vaccine Assessments. If indicated, administer prior to discharge. Provide CDC vaccine information sheet(s) (VIS) for patient for vaccines administered. docusate sodium (COLACE) capsule 100 mg 100 mg, Oral, 2 times daily PRN, constipation, Starting on Sun06/29/21 at 1335, , Use oral medication first for constipation. Use rectal suppository, if ordered, for constipation if oral route not tolerated. DO NOT CRUSH OR CHEW. 184 (Given - Provider: Nieves Best RN) flu vacc [id number] 6mos up(PF) (FLUZONE QUAD/FLULAVAL QUAD/FLUARIX QUAD) syringe 0.5 mL 0.5 mL, Intramuscular, Prior To Discharge, administer vaccine prior to discharge, ., Starting on Sun06/30/21 at 0800, For 1 dose HYDROcodone-acetaminophen (NORCO) 5-325 mg per tablet 1-2 tablet 1-2 tablet, Oral, Every 4 hours PRN, moderate to severe pain, Starting on Sun06/29/21 at 1335, , [] Initiate with 1 tablet oral every 4 hours prn moderate to severe pain. [] For unrelieved pain, may repeat one tablet oral dose within 60 minutes of initial dose. [] If pain is RELIEVED after repeat dose, change to two tablets of 5/325 mg oral every 4 hours prn moderate to severe pain. [] If pain is UNrelieved after repeat dose, or patient requires dose reduction, call physician. 2314 (Given - Provider: Abbey Catherine, MAN) 0809 (Given - Provider: Angeline Ball, MAN) lactated ringers bolus 2,000 mL (COMPLETED) 2,000 mL, Intravenous, Administer over 61 Minutes, Once as needed, IF patient is a candidate for Spinal anesthesia, Starting on Sun06/29/21 at 0739, For 1 dose, Labor & Delivery, Infuse prior to initiation of Spinal anesthesia. 0800 (Given - Provider: Shalini Laguna RN) measles, mumps and rubella vaccine (MMR) 1,000-12,500 TCID50/0.5 mL injection 0.5 mL 0.5 mL, Subcutaneous, Prior To Discharge, administer vaccine prior to discharge, Based on vaccine assessment, Starting on Sun06/29/21 at 1335, For 1 dose, , If indicated and not previously vaccinated. Complete Vaccine Assessments. If indicated, administer prior to discharge. Provide [facility] vaccine information sheet(s) (VIS) for patient for vaccines administered. naloxone (NARCAN) injection 0.1 mg(Linked Group 2) 0.1 mg, Intravenous, As needed, opioid reversal, For respiratory rate less than or equal to 8 per minute., Starting on Sun06/29/21 at 1335, , Mix nalOXone (NARCAN) 0.4 mg (1ml) with 9 mL of Normal Saline to total 10 mL. Administer 0.1 mg (2.5ml) IV Push every 2 minutes until respiratory rate is 10 or greater. naloxone (NARCAN) injection 0.4 mg(Linked Group 2) 0.4 mg, Intravenous, As needed, opioid reversal, patient is pulseless, breathless, and unresponsive, Starting on Sun06/29/21 at 1335, , Call a code first, then administer naloxone dose undiluted IV Push over 30 seconds. ondansetron (ZOFRAN) injection 4 mg(Linked Group 3) 4 mg, Intravenous, Every 6 hours PRN, nausea, vomiting, Starting on Sun06/29/21 at 1335, , Use oral route first, if tolerated. ondansetron (ZOFRAN-ODT) disintegrating tablet 4 mg(Linked Group 3) 4 mg, Oral, Every 6 hours PRN, nausea, vomiting, Starting on Sun06/29/21 at 1335, , Use oral route first, if tolerated. Formulation requires tablet remain in sealed package until immediately prior to dose being administered. rho(d) immune globulin (RHOPHYLAC) injection 300 mcg(Linked Group 4) 300 mcg, Intramuscular, Once as needed, IF patient is Rh Negative - administer if indicated (per lab), Starting on Sun06/29/21 at 1335, For 1 dose, , Use IV route, if available. rho(d) immune globulin (RHOPHYLAC) injection 300 mcg(Linked Group 4) 300 mcg, Intravenous, Once as needed, IF patient is Rh Negative - administer if indicated (per lab), Starting on Sun06/29/21 at 1335, For 1 dose, , Use IV route, if available. Do not give with other IV medications. simethicone (MYLICON) chewable tablet 80 mg 80 mg, Oral, After meals as needed, flatulence, Starting on Sun06/29/21 at 1335, 2253 (Given - Provider: Steffi Chambers RN) varicella virus vacc live (PF) (VARIVAX) injection 0.5 mL 0.5 mL, Subcutaneous, Prior To Discharge, administer vaccine prior to discharge, Based on vaccine assessment, Starting on Sun06/29/21 at 1335, For 1 dose, , If not previously vaccinated. Complete Vaccine Assessments. If indicated, administer prior to discharge. Provide CDC vaccine information sheet(s) (VIS) for patient for vaccines administered. Linked Groups Order Group 1: diphenhydrAMINE (BENADRYL) oral solid 25 mgJump to med 25 mg, Oral, Every 6 hours PRN, itching, Starting on Sun06/29/21 at 1335,
Use oral route first, if tolerated.
Or diphenhydrAMINE (BENADRYL) injection 25 mgJump to med 25 mg, Intravenous, Every 6 hours PRN, itching, Starting on Sun06/29/21 at 1335,
Use oral route first, if tolerated. For IV administration, give at a rate less than or equal to 25 mg/min
Group 2: naloxone (NARCAN) injection 0.1 mgJump to med 0.1 mg, Intravenous, As needed, opioid reversal, For respiratory rate less than or equal to 8 per minute., Starting on Sun06/29/21 at 1335,
Mix nalOXone (NARCAN) 0.4 mg (1ml) with 9 mL of Normal Saline to total 10 mL. Administer 0.1 mg (2.5ml) IV Push every 2 minutes until respiratory rate is 10 or greater.
And Notify physician (CANCELED) STAT, Until discontinued, Starting on Sun06/29/21 at 1336, Until Specified
Respiratory rate less than: 8
For respiratory rate less than or equal to 8, notify physician and/or appropriate staff for additional orders., And naloxone (NARCAN) injection 0.4 mgJump to med 0.4 mg, Intravenous, As needed, opioid reversal, patient is pulseless, breathless, and unresponsive, Starting on Sun06/29/21 at 1335,
Call a code first, then administer naloxone dose undiluted IV Push over 30 seconds.
Group 3: ondansetron (ZOFRAN-ODT) disintegrating tablet 4 mgJump to med 4 mg, Oral, Every 6 hours PRN, nausea, vomiting, Starting on Sun06/29/21 at 1335,
Use oral route first, if tolerated. Formulation requires tablet remain in sealed package until immediately prior to dose being administered.
Or ondansetron (ZOFRAN) injection 4 mgJump to med 4 mg, Intravenous, Every 6 hours PRN, nausea, vomiting, Starting on Sun06/29/21 at 1335,
Use oral route first, if tolerated.
Group 4: rho(d) immune globulin (RHOPHYLAC) injection 300 mcgJump to med 300 mcg, Intramuscular, Once as needed, IF patient is Rh Negative - administer if indicated (per lab), Starting on Sun06/29/21 at 1335, For 1 dose,
Use IV route, if available.
Or rho(d) immune globulin (RHOPHYLAC) injection 300 mcgJump to med 300 mcg, Intravenous, Once as needed, IF patient is Rh Negative - administer if indicated (per lab), Starting on Sun06/29/21 at 1335, For 1 dose,
Use IV route, if available. Do not give with other IV medications.
Continuous Medication Order 08/19/2023 08/20/2023 08/21/2023 lactated Ringers infusion (CANCELED) 100 mL/hr, Intravenous, Continuous, Starting on Sun08/20/23 at 2045, PACU (only) 2140 (New Bag - Provider: Zehra Grady RN)2315 (Paused - Provider: Zehra Grady RN)231 (Restarted - Provider: Zehra Grady, RN) 022 (Paused - Provider: Zehra Grady RN)022 (Restarted - Provider: Zehra Grady RN)0316 (Rate/Dose Verify - Provider: Zehra Grady RN)0617 (Stopped - Provider: Zehra Grady RN) PRN Medication Order 08/19/2023 08/20/2023 08/21/2023 acetaminophen (TYLENOL) tablet 650 mg 650 mg, Oral, Every 4 hours PRN, mild pain, headaches, Starting on Sun08/20/23 at 1724, Do not exceed max of 4000 mg acetaminophen in 24 hours. 190 (AUG Hold - Provider: Transfer Provider, Automatic - Reason: Patient not available)2057 (AUG Unhold - Provider: Transfer Provider, Automatic) BUPivacaine (PF) (MARCAINE) 0.5 % (5 mg/mL) injection (CANCELED) As needed, Starting on Sun08/20/23 at 1926, Intra-Procedure 1926 (Given - Provider: Raudel Jordan MD) HYDROmorphone (DILAUDID) injection 0.5 mg 0.5 mg, Intravenous, Every 3 hours PRN, moderate to severe pain, Starting on Sun08/20/23 at 1724 1905 (AUG Hold - Provider: Transfer Provider, Automatic - Reason: Patient not available)2057 (AUG Unhold - Provider: Transfer Provider, Automatic)2124 (Given - Provider: Zehra Grady RN) 218 (Given - Provider: Zehra Grady RN)06 (Given - Provider: Zehra Grady RN) naloxone (NARCAN) injection 0.1 mg(Linked Group 1) 0.1 mg, Intravenous, As needed, opioid reversal, For respiratory rate less than or equal to 8 per minute., Starting on Sun08/20/23 at 1724, Mix nalOXone (NARCAN) 0.4 mg (1mL) with 9 mL of Normal Saline to total 10 mL. Administer 0.1 mg (2.5mL) IV Push every 2 minutes until respiratory rate is 10 or greater. 1904 (AUG Hold - Provider: Transfer Provider, Automatic - Reason: Patient not available)2057 (AUG Unhold - Provider: Transfer Provider, Automatic) naloxone (NARCAN) injection 0.4 mg(Linked Group 1) 0.4 mg, Intravenous, As needed, opioid reversal, patient is pulseless, breathless, and unresponsive, Starting on Sun08/20/23 at 1724, Call a code first, then administer naloxone dose undiluted IV Push over 30 seconds. 1904 (AUG Hold - Provider: Transfer Provider, Automatic - Reason: Patient not available)2057 (AUG Unhold - Provider: Transfer Provider, Automatic) ondansetron (ZOFRAN) injection 4 mg(Linked Group 2) 4 mg, Intravenous, Every 4 hours PRN, nausea, vomiting, Starting on Sun08/20/23 at 2301, [] Oral or IV - use oral route if tolerated. 2313 (Given - Provider: Zehra Grady RN) 0413 (Given - Provider: Zehra Grady RN)0836 (Given - Provider: Satya Mg, MAN) ondansetron (ZOFRAN-ODT) disintegrating tablet 4 mg(Linked Group 2) 4 mg, Oral, Every 4 hours PRN, nausea, vomiting, Starting on Sun08/20/23 at 2301, [] Oral or IV - use oral route if tolerated. Formulation requires tablet remain in sealed package until immediately prior to dose being administered. 2313 (See Alternative - Provider: Zehra Grady RN) 0413 (See Alternative - Provider: Zehra Grady RN)0836 (See Alternative - Provider: Satya Mg, MAN) Linked Groups Order Group 1: naloxone (NARCAN) injection 0.1 mgJump to med 0.1 mg, Intravenous, As needed, opioid reversal, For respiratory rate less than or equal to 8 per minute., Starting on Sun08/20/23 at 1724, Mix nalOXone (NARCAN) 0.4 mg (1mL) with 9 mL of Normal Saline to total 10 mL. Administer 0.1 mg (2.5mL) IV Push every 2 minutes until respiratory rate is 10 or greater. And Notify physician (CANCELED) STAT, Until discontinued, Starting on Sun08/20/23 at 1725, Until Specified, Respiratory rate less than: 8, For respiratory rate less than or equal to 8, notify physician and/or appropriate staff for additional orders. And naloxone (NARCAN) injection 0.4 mgJump to med 0.4 mg, Intravenous, As needed, opioid reversal, patient is pulseless, breathless, and unresponsive, Starting on Sun08/20/23 at 1724, Call a code first, then administer naloxone dose undiluted IV Push over 30 seconds. Group 2: ondansetron (ZOFRAN-ODT) disintegrating tablet 4 mgJump to med 4 mg, Oral, Every 4 hours PRN, nausea, vomiting, Starting on Sun08/20/23 at 2301, [] Oral or IV - use oral route if tolerated. Formulation requires tablet remain in sealed package until immediately prior to dose being administered. Or ondansetron (ZOFRAN) injection 4 mgJump to med 4 mg, Intravenous, Every 4 hours PRN, nausea, vomiting, Starting on Sun08/20/23 at 2301, [] Oral or IV - use oral route if tolerated. FOR RECORDS PERTAINING TO PATIENTS WHO ARE OR HAVE BEEN ENROLLED IN A CHEMICAL DEPENDENCY/SUBSTANCEABUSE PROGRAM, SOME INFORMATION MAY BE OMITTED. This clinical summary was aggregated from multiple sources. Caution should be exercised in using it in the provision of clinical care. This summary normalizes information from multiple sources, and as a consequence, information in this document may materially change the coding, format and clinical context of patient data. In addition, data may be omitted in some cases. CLINICAL DECISIONS SHOULD BE BASED ON THE PRIMARY CLINICAL RECORDS. [facility]. provides no warranty or guarantee of the accuracy or completeness of information in this document.
--- NOTE | 2024-01-30 11:48 | P.DS_ITS ---
Discharge Plan Discharge Disposition: Home, Self-Care Outpatient Diagnostics: VC Endovenous Ablation 1VeinRT (Routine) Timeframe: 2 Months Facility: [facility] [place] - Location: [facility] Center Ordered By: Nixon Lazo Follow Up Appointments: patient to return once insurance preapproval obtained Plan of Treatment: Patient to return for EVLT of right GSV left AASV and micorofoam chemical ablation bilateral leg branch saphenous tributary varicosities Patient Instructions: Endovenous Ablation (GEN) Print Language: Georgian Discharge Date/Time: 01/30/24 11:49
== END 2024-01-30 11:49 | disposition home or self-care (01) ==
LOC: VC 09:45
PROVIDERS: PCP Radiology Diagnostic Radiology; Visit Provider Radiology Diagnostic Radiology
DX: I83.813 Varicose veins of bilateral lower extremities with pain (principal)
CPT/HCPCS: 93970; G0463

== ENCOUNTER 2024-02-28 09:22 | Outpatient (OUT) | payer BC, SELFPAY ==
--- NOTE | 2024-02-28 07:47 | V.VEINS.HP ---
Vital Signs 02/28/24 07:52 02/28/24 09:48 Height 5 ft 2 in Weight 65.771 kg BP 110/78 BP Location Left Brachial BP Position Supine BP Cuff Size Adult BP Source Manual Cuff Respiration 16 Pulse 85 Pulse Source Monitor Pulse Oximetry (%) 99 Oxygen Delivery Method Room Air Varicose Veins Patient in this day for EVLT of right GSV. Nixon Greenwood MD personally performed the services described in this documentation, as scribed by Nelda Avila RN in my presence and it is both accurate and complete. Nelda Greenwood RN, am scribing for, and in the presence of, Dr. Nixon Lazo and in the presence of the patient. thigh: bilateral (symptoms right > left), knee: bilateral, calf: bilateral, ankle: bilateral and estrada: bilateral aching, cramping, dull and tender 6 5 years Worsened in recent months: Yes standing elevating extremities, compression stockings and exercise Reports muscle spasms of leg, heaviness, limb pain, edema and leg edema History of lower extremity trauma: No Superficial thrombophlebitis: No Family history of varicose veins: yes Has patient had previous lower extremity venous surgery: No Patient has previously received the following treatment(s) for lower extremity varicose veins: Reports none Does patient have a history of : yes Does patient intend to have future pregnancies: yes Has patient had lower extremity venous scan with relux testing: No Support hose used: Yes Problems walking or doing physical activity: No How does it affect you: often has to stop and rest and elevate legs Do you walk much: Yes Do you stand much: Yes Review of Systems ROS Narrative LMP: 02/05/24 Nixon Greenwood MD personally performed the services described in this documentation, as scribed by Nelda Avila RN in my presence and it is both accurate and complete. Nelda Greenwood RN, am scribing for, and in the presence of, Dr. Nixon Lazo and in the presence of the patient. Status of ROS 10 or more systems reviewed and unremarkable except as noted in history and below Cardiovascular Reports: edema Integumentary/Breast Reports: itching, skin swelling and changes in skin color [facility] Medical History (Updated 02/28/24 @ 07:49 by Nelda Avila RN) Phlebitis and thrombophlebitis of superficial vessels of right lower extremity ?I80.01 - Phlebitis and thrombophlebitis of superficial vessels of right lower extremity (ICD-10) Superficial thrombophlebitis ?I80.9 - Phlebitis and thrombophlebitis of unspecified site (ICD-10) delivery delivered ?O82 - Encounter for delivery without indication (ICD-10) Varicose veins of bilateral lower extremities with pain ?I83.813 - Varicose veins of bilateral lower extremities with pain (ICD-10) Pain due to varicose veins of both lower extremities ?I83.813 - Varicose veins of bilateral lower extremities with pain (ICD-10) Surgical History (Updated 01/30/24 @ 10:08 by Justo Stallworth) H/O breast augmentation ?Z98.82 - Breast implant status (ICD-10) History of appendectomy ?Z90.49 - Acquired absence of other specified parts of digestive tract (ICD-10) H/O hemorrhoidectomy ?Z98.890 - Other specified postprocedural states (ICD-10) Family History (Updated 01/29/24 @ 11:16 by Justo Stallworth) Other Family history of diabetes mellitus Heart disease Varicose veins of bilateral lower extremities with pain Social History (Updated 01/29/24 @ 11:17 by Justo Stallworth) Within the past year, how often did you have a drink containing alcohol: 2-4 times a month Smoking status: Never smoker Non-prescribed substance use: denies use Meds Home Medications and Allergies Home Medications ?Medication ?Instructions ?Recorded ?Confirmed ?Type drospirenone-ethinyl estradiol .ROUTE 01/29/24 History spironolactone .ROUTE 01/29/24 History magnesium 200 mg tablet 200 mg PO DAILY 01/30/24 01/30/24 History Allergies Allergy/AdvReac Type Severity Reaction Status Date / Time No Known Drug Allergies Allergy Verified 01/29/24 11:14 Exam Narrative Exam Narrative: INixon MD personally performed the services described in this documentation, as scribed by Nelda Avila RN in my presence and it is both accurate and complete. INelda RN, am scribing for, and in the presence of, Dr. Nixon Lazo and in the presence of the patient. Constitutional Documenting provider has reviewed patient's vital signs: yes Common normals: oriented x3 Cardio Peripheral pulses: dorsalis pedis pulses present Extremity Common normals: normal capillary refill General: edema Right lower extremity: lower leg Right lower leg: inspection and palpation Left lower extremity: lower leg Left lower leg: inspection and palpation Neuro Common normals: oriented x3 Assessment and Plan Assessment and Plan (1) Pain due to varicose veins of both lower extremities: Plan Plan of care: Risks and benefits of the procedure were discussed at length and informed written consent was obtained.? Time-out completed for verification of correct patient, procedure and site.? Staff present during time-out: Nelda Avila RN,? Nixon Lazo MD, Judith Mcmullen RDMS,RVT. Time Out Time___0958____ Patient prepped and procedure performed in usual sterile fashion. Risk of injury related to use of Diode laser and/or laser devices? __AG___ ? Serial number of laser used :? [id number] Control panel self test performed, electrical cords in good condition, floor is dry, basin of water available, fire extinguisher in close proximity_AG__ Polycarbonate goggles available and Laser warning signs outside of doors___AG___ Eye protection provided to patient and staff in room_AG___ Use of laser retardant drapes and dull blackened instruments as directed__AG___ Use of nonflammable prep solutions and use of saline soaked sponges to protect tissues as indicated _AG___ Length ___15 cm Laser operated by ___Dr. Lazo Physician verbal confirmation laser locked in place__AG__ Laser start time (date and time) _02/28/24@1018 Laser stop time(date and time) __02/28/24@1020 [place] _8.0___ Average laser use ___651____Joules Average laser use___81 seconds Pulse continuous ___AG_? Pulse intermittent ___ Amount of Tumescent used __75____ Evaluated patient for signs and symptoms of electrical injury __AG___ ? Skin clear at insertion site __AG___ Patient tolerated procedure well.? Right leg Coban dressing applied to access site.? Applied Right thigh high leg compression stocking. Will return on 03/06/24 for Right leg limited venous ultrasound and exam. INixon MD personally performed the services described in this documentation, as scribed by Nelda Avila RN in my presence and it is both accurate and complete. I, Nelda Avila RN, am scribing for, and in the presence of, Dr. Nixon Lazo and in the presence of the patient.
--- NOTE | 2024-02-28 07:51 | W.VEIN ---
Discharge Plan Discharge Disposition: Home, Self-Care Outpatient Diagnostics: VC Facility EST LMTD (Routine) Timeframe: 2 Weeks Facility: [facility] [place] - Location: Vein Center Ordered By: Nixon Lazo VC EXT Venous RT LMTD (Routine) Timeframe: 2 Weeks Facility: [facility] [place] - Location: Vein Center Ordered By: Nixon Lazo Follow Up Appointments: 03/06/[address] [facility] [address]. Arvind Peña on 03/10/24 Patient Instructions: Endovenous Ablation (DC) Print Language: Korean Discharge Date/Time: 02/28/24 10:30
--- NOTE | 2024-02-28 09:22 | VEIN_ITS ---
[address] [address] Patient Name: JAY TORRES MRN: [id number] date: 1995 Sex: F Assigned Patient Location: Current Patient Location: Accession/Order Number: [id number] Exam Date: 02/28/2024 09:22 Report Date: 02/28/2024 10:35 At the request of: ZAFAR BAUM Procedure: VC Endovenous Ablation 1VeinRT EXAMINATION: VC Endovenous Ablation 1VeinRT HISTORY: I83.813 - Varicose veins of bilateral lower extremities w... COMPARISON: No relevant comparison available. TECHNIQUE: The risks and benefits of the procedure had been previously discussed, and were rediscussed at length. Informed written consent was obtained. Reba Mcmullen and Nelda Rodriguez assisted. Time out procedure was performed. The right lower extremity was prepared and draped in the usual sterile fashion to allow knee flexion in the sterile field. Duplex ultrasound probe was draped in a sterile cover, sterile transmission gel was used. Venous mapping was performed with the areas of dilation and large tributaries marked. The total length was 15 cm from the entry mid thigh to 3 cm below the saphenofemoral junction. The diameter of the greater saphenous vein ranged from 5-8 mm. A 30 gauge needle and 1% buffered lidocaine was used to anesthetize the entry site. A 4 mm incision was made with a scalpel and the saphenous vein was entered percutaneously under direct ultrasound guidance with a micropuncture set, 3 sticks were required to gain access. The wire could not successfully be advanced in the 2 initial access points. A micro-guide wire was inserted and the needle removed. A micro-set including a dilator was inserted over the microwire and the needle and dilator were removed. A 0.018 guide wire was inserted through the micro-set and threaded through the saphenous vein to the saphenofemoral junction. The dilator was removed and an introducer sheath was inserted over the wire until the end of the sheath entered the saphenofemoral junction. The dilator and wire were removed and the 600 micron fiber was introduced and placed and positioned so that it extended beyond the sheath and was 3 cm peripheral to the saphenofemoral femoral junction. Final position of the fiber was determined by ultrasound guidance and duplex imaging. Tumescent anesthetic was delivered by ultrasound guidance. 75 cc of fluid was delivered along the entire course of the saphenous vein. The solution consisted of 1000 cc of normal saline with 40 mL of 1% lidocaine and 20 mL of sodium bicarbonate. A final positioning check was made. The energy source was turned on by means of the foot pedal and the fiber and sheath were withdrawn. The total number of Joules delivered was 651. The laser was active for 81 seconds under continuous pulse, average laser use of 8 J. Laser start time 10:18 AM 02/28/2024 . Laser stop time 10:20 AM 02/28/2024 . A duplex ultrasound revealed compressibility and flow at the saphenofemoral junction immediately after the procedure. Hemostasis at the access site was achieved. The skin incision of the saphenous vein was closed with a 4 x 4. A compression stocking was applied. Postop instructions were given. A follow up appointment was recommended and scheduled. The patient tolerated the procedure well and was discharged in good condition . VEIN/VC Endovenous Ablation 1VeinRT IMPRESSION: Technically successful endovenous laser ablation of the right great saphenous vein Electronically authenticated by: ZAFAR BAUM Date: 02/28/2024 10:35
--- OUTSIDE RECORDS SUMMARY | 2024-02-28 09:27 | XMS_ITS | CCD ---
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 Name Role Phone NobleArturo carlisleana Unavailable Unavailable Ashlee Bao Unavailable Unavailable America Ely Unavailable America Ely Primary Care Provider America Ely Primary Care Provider [phone] America Ely CNP Primary Care Provider Desiree Maddox MD Primary Care Provider Desiree Maddox MD Primary Care Provider Yohan Reyna MD Unavailable DESIREE MADDOX Primary Care Unavailab le YOHAN REYNA Referring Unavailable JAVIERITYOHAN Admitting Unavailable Javierit Yohan SHAIKH Unavailable Carlos Narayan MD, Gay Arzola Primary Care Pro vider Yohan Reyna MD Unavailable Carlos Narayan MD, Gay Arzola Primary Care Pro vider Daiana Francisco FISHMAN Primary Care Provider Daiana SRAVANTHI, Francisco Trinh Primary Care Provider 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 CNP Unavailable RAUDEL JORDAN Consulting Unavailable RAUDEL JORDAN Attending Unavailable ELLA CANTU Referring Unavailable FRANCISCO AHMADI Primary Care Unavailable RAUDEL JORDAN Admitting Unavailable FRANCISCO AHMADI Primary Care Unavailable ELLA CANTU Attending Unavailable RAUDEL JORDAN Attending Unavailable .FRANCISCO GUTIÉRREZ Primary Care Unavailable .FRANCISCO GUTIÉRREZ Attending Unavailable .FRANCISCO GUTIÉRREZ Primary Care Unavailable .FRANCISCO GUTIÉRREZ Attending Unavailable .FRANCISCO GUTIÉRREZ Primary Care Unavailable Allergies Allergy Classification Reported Allergen(s) Allergy Type Date of Onset Reaction(s) Facility (18 sources) Other; Translations: [OTHER] Propensity to adverse reactions 9 Other (See Comments) [facility] Medications Current Medications Medication Drug Class(es) Dates [...] Active docusate sodium 50 mg / sennosides, half-way 8.6 mg oral tablet (4 sources) Start: [...] 06/30/2021 11/21/2021 Discontinued (Patient's Request) Lactobacillus acidophilus (9 sources) Lactobacillus ac idophilus (PROBIOTIC ORAL) Take by mouth . Active Lactobacillus ac idophilus (PROBIOTIC ORAL) Take [...] 0 04/26/2018 Active omega-3 acid ethyl esters (half-way) 1000 mg oral capsule (4 sources) take 1 capsule by mouth once daily Mathias-3 Fatty Acids (FISH OIL) 1000 MG Cap [...] Active take 1 tablet by mouth once vlaerie y spironolactone (ALDACTONE) 50 MG tablet Take [...] on Concha 06/30/21 at 0800, flu vacc [id number] 6mos up(PF) (FLUZONE QUAD/FLULAVAL QUAD/FLUARIX QUAD) syringe 0.5 mL (1 source) Start: 06-30-2021 End: 07-01-2021 inject 0.5 mL by intramuscular injection every twenty-four hours as needed flu vacc [id number] 6mos up(PF) (FLUZONE QUAD/FLULAVAL QUAD/FLUARIX QUAD) syringe [...] Translations: [History of seasonal allergies] 12-15-2016 Episodic Cardiac dysrhythmias (3 sources) Palpitations; Translations: [...] postprocedural pain] Episodic Other upper respiratory disease (14 sources) Seasonal allergy; Translations: [Other seasonal allergic rhinitis] Chronic Other upper respiratory disease (2 sources) Other seasonal allergic rhinitis; Translations: [Other seasonal allergic rhinitis] Onset: 11-22-2020 Chronic Phlebitis; thrombophlebitis and thromboembolism (1 source) Deep venous thrombosis of lower extremity; Translations: [Acute embolism and thrombosis of other specified deep vein of unspecified lower extremity] 02-04-2024 Episodic Residual codes; unclassified (3 sources) FH: Cardiomyopathy; [...] Classification Problem Date Documented Da te Episodic/Chronic Appendicitis and other appendiceal conditions (9 sources) Acute appendicitis; Translations: [Unspecified acute appendicitis] Onset: 08-20-2023 08-20-2023 Episodic Other upper respiratory infections (6 sources) Acute upper respiratory infection; Translations: [Acute upper respiratory infection, unspecified] Onset: 09-24-2021 Resolved: 11-21-2021 11-21-2021 Episodic Residual codes; unclassified (8 sources) Gestation period, 39 weeks; Translations: [39 weeks gestation of ] Onset: 06-29-2021 Resolved: 11-21-2021 Episodic Varicose veins of lower extremity (15 sources) Pain co-occurrent and due to varicose veins of left leg; Translations: [Varicose veins of left lower extremity with pain] Onset: 01-20-2019 01-20-2019 Episodic Results Test Name Value Interpretation Reference Range Facility Basic metabolic 2000 panelon 08-21-2023 Anion gap [Moles/Vol] 9 mmol/L Low 10 - 2 0 mmol/L [facility] Calcium [Mass/Vol] 8.8 mg/dL 8.4 - 10. 2 mg/dL [facility] Chloride [Moles/Vol] 110 mmol/L High 98 - 10 8 mmol/L [facility] Creatinine [Mass/Vol] 0.53 mg/dL 0.40 - 1.10 mg/dL [facility] GFR/1.73 sq M.predicted CKD-EPI (S/P/Bld) [Vol rate/Area] 128 - PINF [facility] Comment on above: Estimated GFR was ca lculated using the 2020 CKD-EPI creatinine equation. Glucose [Mass/Vol] 110 mg/dL High 65 - 99 mg/dL [facility] HCO3 [Moles/Vol] 24 mmol/L 21 - 32 mmol/L [facility] Interpretation and review of laboratory results Abnormal [facility] Potassium [Moles/Vol] 4.3 mmol/L 3.5 - 5.1 mmol/L [facility] Sodium [Moles/Vol] 139 mmol/L 135 - 145 mmol/L [facility] Urea nitrogen [Mass/Vol] 11 mg/dL 8 - 25 mg/dL [facility] Urea nitrogen/Creatinine [Mass ratio] 20.8 mg/mg High 10.0 - 20.0 [facility] has implemented the eGFR calculation approach that does not have a coefficient for race that conforms to the NKF-ASN Task Force Recommendations. [facility] CBC panel Auto (Bld)on 08-20 Erythrocyte distribution width (RBC) [Entitic vol] 13.5 % 11.6 - 14.8 % [facility] Hematocrit (Bld) [Volume fraction] 36.6 % 36.0 - 46.0 % [facility] Hemoglobin (Bld) [Mass/Vol] 12.0 g/dL 12.0 - 16.0 g/dL [facility] Interpretation and review of laboratory results Abnormal [facility] MCH (RBC) [Entitic mass] 29.9 pg 26.0 - 34.0 pg [facility] MCHC (RBC) [Mass/Vol] 32.8 g/dL 31.0 - 37.0 g/dL [facility] MCV (RBC) [Entitic vol] 91.3 fL 80.0 - 100.0 fL [facility] Nucleated RBC (Bld) [#/Vol] 0.00 10*3/uL [facility] Nucleated RBC/100 WBC (Bld) [Ratio] 0.0 % [facility] Platelet mean volume (Bld) [Entitic vol] 9.8 fL 9.4 - 12.4 fL [facility] Platelets (Bld) [#/Vol] 208 10*3/uL [facility] RBC (Bld) [#/Vol] 4.01 10*6/uL [facility] ealth WBC (Bld) [#/Vol] 11.08 10*3/uL [facility] CT ABDOMEN PELVIS WITH IV CO NTRAST [...] Ella Cantu on 08/20/2023 at 1416 hours. / Workstation ID: [id number] Dictated by: QUAN XIONG on SunAug 20, 2023 2:17:38 PM EST Transcribed by: HANS CALDERON on SunAug 20, 2023 2:21:16 PM EST Finalized by: QUAN XIONG on SunAug 20, 2023 6:07:32 PM EST Normal [facility] Comment on above: Order Comment: Injur y/Trauma [...] vol] 13.6 % 11.6 - 14.8 % [facility] Hematocrit (Bld) [Volume fraction] 32.9 % Low 36.0 - 46.0 % [facility] Hemoglobin (Bld) [Mass/Vol] 11.0 g/dL Low 12.0 - 16.0 g/dL [facility] Interpretation and review of laboratory results Abnormal [facility] MCH (RBC) [Entitic mass] 30.1 pg 26.0 - 34.0 pg [facility] MCHC (RBC) [Mass/Vol] 33.4 g/dL 31.0 - 37.0 g/dL [facility] MCV (RBC) [Entitic vol] 90.1 fL 80.0 - 100.0 fL [facility] Nucleated RBC (Bld) [#/Vol] 0.00 10*3/uL [facility] Nucleated RBC/100 WBC (Bld) [Ratio] 0.0 % [facility] Platelet mean volume (Bld) [Entitic vol] 11.4 fL 9.4 - 12.4 fL [facility] Platelets (Bld) [#/Vol] 162 10*3/uL [facility] RBC (Bld) [#/Vol] 3.65 10*6/uL Low [facility] ealt WBC (Bld) [#/Vol] 18.84 10*3/uL [facility] ABORH Verificationon 022 ABO and Rh group Nom (Bld) Blood group O Rh(D) positive [facility] ABO and Rh group Nom (Bld) ABO/Rh Verification [facility] Comment on above: Patient's ABO/Rh is verified. [facility] Blood type and Indirect anti body screen panel (Bld)on 06-29-2021 ABO and Rh group Nom (Bld) Blood group O Rh(D) positive [facility] Blood group antibody screen Ql Negative [facility] Specimen Expires 07/02/2021 23:59 EST [facility] CBC panel Auto (Bld)on 06-29 Erythrocyte distribution width (RBC) [Entitic vol] 13.7 % 11.6 - 14.8 % [facility] Hematocrit (Bld) [Volume fraction] 37.8 % 36.0 - 46.0 % [facility] Hemoglobin (Bld) [Mass/Vol] 12.8 g/dL 12.0 - 16.0 g/dL [facility] Interpretation and review of laboratory results Abnormal [facility] MCH (RBC) [Entitic mass] 30.0 pg 26.0 - 34.0 pg [facility] MCHC (RBC) [Mass/Vol] 33.9 g/dL 31.0 - 37.0 g/dL [facility] MCV (RBC) [Entitic vol] 88.5 fL 80.0 - 100.0 fL [facility] Nucleated RBC (Bld) [#/Vol] 0.00 10*3/uL [facility] Nucleated RBC/100 WBC (Bld) [Ratio] 0.0 % [facility] Platelet mean volume (Bld) [Entitic vol] 11.4 fL 9.4 - 12.4 fL [facility] Platelets (Bld) [#/Vol] 170 10*3/uL [facility] RBC (Bld) [#/Vol] 4.27 10*6/uL [facility] ealth WBC (Bld) [#/Vol] 12.72 10*3/uL [facility] SCAN OTHER ORDERSon 06-29-19 Ordered by an unspecified provider. [facility] COVID-19, MOLECULARon 2021 SARS-CoV-2 (COVID-19) RNA ADRIANA+probe Ql (Unsp spec) Not detected Normal Not Detected [facility] Comment on above: Result Comment: This [...] at the following links: For Healthcare Providers: https://www.fda.gov/media/656379/download For Patients: https://www.fda.gov/media/848240/download Performed By: #### L [id number] #### [facility] [address] [place] [address] Anderson Cano M.D. [id number] Chlamydia/Gonorrhoeae Amplif ied RNAon 06-14-2021 C. trachomatis rRNA ADRIANA+probe Ql (Unsp spec) Negative Negative [facility] N. gonorrhoeae rRNA ADRIANA+probe Ql (Unsp spec) Negative Negative [facility] No Panel Informationon 06-14 [facility] RPRon 06-14-2021 Reagin Ab RPR Ql (S) Non-Reactive Non-Reactive [facility] S. agalactiae DNA ADRIANA+probe Ql (Unsp spec)on 06-14-2021 S. agalactiae Ag Ql (Unsp spec) Negative Negative [facility] NOVEL CORONAVIRUSon 01-29-20 21 PERFORMED BY [facility] Normal [facility] Comment on above: Performed By: #### C COVID #### [place] [address] SARS-CoV-2 (COVID-19) RNA ADRIANA+probe Ql (Unsp spec) Detected Abnormal NOT DETECTED [facility] Comment on above: Result Comment: CALL ED TO AND READ BACK BY Sarah AMATO @[facility]5 BY KLE ENHANCED CONTACT, AND DROPLET ISOLATION IS REQUIRED FOR INPATIENTS WITH SARS-CoV-2. Performed By: #### C COVID #### [place] [address] NARRATIVE This test was performed using isothermal ADRIANA and has been approved as Emergency Use Authorization (EUA) for the qualitative detection bwCCIL-CiL-4 nucleic acid. [facility] Comment on above: Performed By: #### C COVID #### [place] [address] Gestational Diabetes Screen (50G)on 01-17-2021 Glucose 1 Hr post 50 g glucose PO [Mass/Vol] 79 mg/dL 65 - 135 mg/dL [facility] Glucose 1 Hr post 50 g gluco se PO [Mass/Vol]on 01-17-2021 [facility] ECHOCARDIOGRAM COMPLETEOrder ed By: Desiree Maddox on 12-29-2020 Aortic valve area 2.56057 cm [facility] [place] AV mean gradient 2.14508 mmHg [facility] th AV peak gradient 4.37472 mmHg [facility] th EF 65.2664 % [facility] Patient Info Name: JAY ANTONIO Age: 25 years : 1995 Gender: Female Ht: 160 cm Wt: 64 kg BSA: 1.70 m2 HR: 75 bpm BP: 106 / 69 mmHg Heart Rhythm: Sinus Rhythm Technical Quality: Good Exam Date: 12/29/2020 9:19 AM Patient Status: Outpatient Artificial Breeding Distributor: Addie Luna, KATHLEEN, RVT Exam Type: ECHOCARDIOGRAM COMPLETE Study Info Indications R00.2 - Palpitations Referring Physician: DESIREE MADDOX ; [id number] BMI: 25.15 kg/m2 Summary 1. Normal transthoracic [...] mmHg MV VTI 27 cm MV Decel [place] 838 cm/s2 MV PHT 33 ms MV Area (PHT) 6.7 cm2 4.0-5.0 MV Area (Cont Eq VTI) 2.7 cm2 MV Area Index (Cont Eq VTI) 1.57 cm2/m2 MV Diastolic Function - (more content not included)... [facility] Interface, Rad In [facility] - 12/29/2020 10:35 AM EDT Patient Info Name: JAY ANTONIO Age: 25 years : 1995 Gender: Female Ht: 160 cm Wt: 64 kg BSA: 1.70 m2 HR: 75 bpm BP: 106 / 69 mmHg Heart Rhythm: Sinus Rhythm Technical Quality: Good Exam Date: 12/29/2020 9:19 AM Patient Status: Outpatient Artificial Breeding Distributor: Addie Luna, KATHLEEN, RVT Exam Type: ECHOCARDIOGRAM COMPLETE Study Info Indications R00.2 - Palpitations Referring Physician: DESIREE MADDOX ; [id number] BMI: 25.15 kg/m2 Summary 1. Normal transthoracic [...] mmHg MV VTI 27 cm MV [place] 838 cm/s2 MV PHT 33 ms MV [...] Valve Name Va (more content not included)... [facility] ABO/RH(D)on 12-15-2020 ABO/RH(D) ABO/RH(D) O POSITIVE Testing performed at [address] Comment on above: Performed By: #### A [facility] #### [place] [address] ANTIBODY SCREENon 12-15-2020 Antibody screen ANTIBODY SCREEN NEGATIVE WORKUP EXPIRES 12/18/2020,0239 Testing performed at [address] Comment on above: Performed By: #### R ESCRN #### [place] [address] Blood type and Indirect anti body screen panel (Bld)Ordered By: Katlin Prieto on 12-15-2020 ABO and Rh group Nom (Bld) O [facility] Type + [facility] REQUESTon 12-15-2020 FAX TO [phone] [facility] Comment on above: Result Comment: Test ing performed at [place] [address] Performed By: #### F X #### [place] [address] FAX TO [phone] [facility] Comment on above: Result Comment: Test ing performed at [place] [address] Performed By: #### F X #### [place] [address] HIV 1/2 Screen (4th Generati on)on 12-15-2020 HIV 1+2 Ab+HIV1 p24 Ag IA Ql Negative Negative [facility] Hepatitis B Surface Antigeno n 12-15-2020 HBV surface Ag Ql (S) Negative Negative [facility] Hepatitis C Antibodyon 12-15 HCV Ab Ql (S) Negative Negative [facility] No Panel InformationOrdered By: Katlin Prieto on 12-15-2020 [facility] Rubella Antibody, IgGon 11-18 Rubella virus IgG Ql (S) Immune [facility] T. pallidum IgG Ql (S)on T. pallidum Ab Ql (S) Negative Negative [facility] ECG 12-LEADOrdered By: Desiree Maddox on 11-22-2020 Atrial Rate [facility] [place] [facility] P-R Interval [facility] Q-T Interval [facility] Q-T Interval (corrected) [facility] QRS Duration [facility] QTC Calculation (Bezet) [facility] [place] [facility] [place] [facility] Ventricular Rate [facility] SARS-COV-2,NAAon 07-23-2020 SARS-CoV-2 (COVID-19) RNA ADRIANA+probe Ql (Unsp spec) Not detected Normal [facility] Comment on above: Result Comment: Refjosh aviles range: Not Detected (NOTE) This nucleic acid amplification test was developed and its performance characteristics determined by [employer]. Nucleic acid amplification tests include RT-PCR and [...] ncy left legon 02-11-2019 Non-Invasive Vascular Patient: BRIAN THOMPSON R [facility] Rec#: [id number] (Age): 1995(23y) Study Date: 02/11/2019 Room#: Type: Sex: F Reading: JOSE Reading: Hannah Sandoval DO, RPVI Referring: ATUL NEVES Artificial Breeding Distributor: Caryn Winkler Procedure Info: [id number] Study Quality: Lower Venous Reflux: Adequate Diagnosis: [...] Y Y Small Saphenous Y Y Y Uceva --------- Y = Yes Measurements Left Vein [...] 02/11/2019 16:38:58 by: Hannah Sandoval DO, RPVI [facility], [facility] In [facility] - 02/11/2019 5:21 PM EDT Non-Invasive Vascular Patient: BRIAN THOMPSON [facility] Rec#: [id number] (Age): 1995(23y) Study Date: 02/11/2019 Room#: Type: Sex: F Reading: JOSE Reading: Hannah Sandoval DO, RPVI Referring: ATUL NEVES Artificial Breeding Distributor: Caryn Winkler Procedure Info: [id number] Study Quality: Lower Venous Reflux: Adequate Diagnosis: [...] at 02/11/2019 16:38:58 by: Hannah Sandoval DO, RPLESLIE [facility] POCT URINALYSIS DIPSTICK NON AUTOMATEDon 05-24-2018 Amorphous sediment LM Ql (Urine sed) Invalid Interpretation Code [facility] Work Phone: Appearance Nom (Body fld) clear Invalid Interpretation Code [facility] Work Phone: Bacteria LM Ql (Urine sed) Invalid Interpretation Code [facility] Work Phone: Bilirubin Ql (U) Negative Invalid Interpretation Code [facility] Work Phone: Casts LM.LPF #/area (Urine sed) Invalid Interpretation Code [facility] Work Phone: Color Nom (U) yellow Invalid Interpretation Code [facility] Work Phone: Crystals LM Nom (Urine sed) Invalid Interpretation Code [facility] Work Phone: Epithelial cells.squamous LM.HPF #/area (Urine sed) Invalid Interpretation Code [facility] Work Phone: Flow cytometry specialist review Interp Alfonzo (Unsp spec) Invalid Interpretation Code [facility] Work Phone: Interpretation and review of laboratory results Abnormal Invalid Interpretation Code [facility] Work Phone: Ketones mass conc Negative Invalid Interpretation Code mg/dL [facility] Work Phone: Leukocyte esterase Qn (U) Invalid Interpretation Code [facility] Work Phone: Leukocyte esterase Test strip Ql (U) Negative Invalid Interpretation Code [facility] Work Phone: Nitrite Ql (U) Negative Invalid Interpretation Code [facility] Work Phone: pH (U) 7.5 Abnormal [facility] Work Phone: POCT GLUCOSE, URINE Negative Invalid Interpretation Code mg/dL [facility] Work Phone: Protein Ql (U) Negative Invalid Interpretation Code mg/dL [facility] Work Phone: RBC LM.HPF #/area (Urine sed) Invalid Interpretation Code [facility] Work Phone: RBC Ql (U) Negative Invalid Interpretation Code [facility] Work Phone: Specific gravity Relative Density (U) 1.010 Invalid Interpretation Code [facility] Work Phone: Transitional cells LM Ql (Urine sed) Invalid Interpretation Code [facility] Work Phone: Urobilinogen mass conc (U) Negative Invalid Interpretation Code [facility] Work Phone: WBC LM.HPF #/area (Urine sed) Invalid Interpretation Code [facility] Work Phone: POCT URINALYSIS DIPSTICK NON AUTOMATEDon 05-10-2018 Amorphous sediment LM Ql (Urine sed) Invalid Interpretation Code [facility] Work Phone: Appearance Nom (Body fld) clear Invalid Interpretation Code [facility] Work Phone: Bacteria LM Ql (Urine sed) Invalid Interpretation Code [facility] Work Phone: Bilirubin Ql (U) Negative Invalid Interpretation Code [facility] Work Phone: Casts LM.LPF #/area (Urine sed) Invalid Interpretation Code [facility] Work Phone: Color Nom (U) yellow Invalid Interpretation Code [facility] Work Phone: Crystals LM Nom (Urine sed) Invalid Interpretation Code [facility] Work Phone: Epithelial cells.squamous LM.HPF #/area (Urine sed) Invalid Interpretation Code [facility] Work Phone: Flow cytometry specialist review Interp Alfonzo (Unsp spec) Invalid Interpretation Code [facility] Work Phone: Ketones mass conc Negative Invalid Interpretation Code mg/dL [facility] Work Phone: Leukocyte esterase Qn (U) Invalid Interpretation Code [facility] Work Phone: Leukocyte esterase Test strip Ql (U) Negative Invalid Interpretation Code [facility] Work Phone: Nitrite Ql (U) Negative Invalid Interpretation Code [facility] Work Phone: pH (U) 6.5 Invalid Interpretation Code [facility] Work Phone: POCT GLUCOSE, URINE Negative Invalid Interpretation Code mg/dL [facility] Work Phone: Protein Ql (U) Negative Invalid Interpretation Code mg/dL [facility] Work Phone: RBC LM.HPF #/area (Urine sed) Invalid Interpretation Code [facility] Work Phone: RBC Ql (U) trace Invalid Interpretation Code [facility] Work Phone: Specific gravity Relative Density (U) 1.010 Invalid Interpretation Code [facility] Work Phone: Transitional cells LM Ql (Urine sed) Invalid Interpretation Code [facility] Work Phone: Urobilinogen mass conc (U) 0.2 Invalid Interpretation Code [facility] Work Phone: WBC LM.HPF #/area (Urine sed) Invalid Interpretation Code [facility] Work Phone: Vital Signs Date Time Vital Sign Value Performing Clinician Facility 09-07-2023 09:10-0400 Body height 157.5 cm Raudel Jordan MD Work Phone: [facility] 09-07-2023 09:10-0400 Body mass index (BMI) [Ratio] 24.75 kg/m2 Raudel Jordan MD Work Phone: [facility] 09-07-2023 09:10-0400 Body weight 61.37 kg Raudel Jordan MD Work Phone: [facility] 09-07-2023 09:10-0400 Diastolic blood pressure 83 mm[Hg] Raudel Jordan MD Work Phone: [facility] 09-07-2023 09:10-0400 Heart rate 65 /min Raudel Jordan MD Work Phone: [facility] 09-07-2023 09:10-0400 SaO2% (BldA) [Mass fraction] 99 % Raudel Jordan MD Work Phone: [facility] 09-07-2023 09:10-0400 Systolic blood pressure 116 mm[Hg] Raudel Jordan MD Work Phone: [facility] 08-21-2023 08:05-0500 Respiratory rate 16 /min Raudel Jodran MD Work Phone: [facility] 08-21-2023 08:04-0500 Body temperature 97.3 [degF] Raudel Jordan MD Work Phone: [facility] 08-21-2023 08:04-0500 Diastolic blood pressure 67 mm[Hg] Raudel Jordan MD Work Phone: [facility] 08-21-2023 08:04-0500 Heart rate 55 /min Raudel Jordan MD Work Phone: [facility] 08-21-2023 08:04-0500 SaO2% (BldA) [Mass fraction] 100 % Raudel Jordan MD Work Phone: [facility] 08-21-2023 08:04-0500 Systolic blood pressure 92 mm[Hg] Raudel Jordan MD Work Phone: [facility] 08-20-2023 21:25-0500 Body height 157.5 cm Raudel Jordan MD Work Phone: [facility] 08-20-2023 21:25-0500 Body mass index (BMI) [Ratio] 25.61 kg/m2 Raudel Jordan MD Work Phone: [facility] 08-20-2023 21:25-0500 Body weight 63.5 kg Raudel Jordan MD Work Phone: [facility] 03-12-2023 08:48-0400 Body height 157.5 cm Francisco Trinh Daiana KAIAWHINA KOHANGA REO Work Phone: [facility] 03-12-2023 08:48-0400 Body mass index (BMI) [Ratio] 25.04 kg/m2 Michelle Daiana KAIAWHINA KOHANGA REO Work Phone: [facility] 03-12-2023 08:48-0400 Body weight 62.1 kg Michelle Daiana KAIAWHINA KOHANGA REO Work Phone: [facility] 03-12-2023 08:48-0400 Diastolic blood pressure 80 mm[Hg] Michelle Daiana KAIAWHINA KOHANGA REO Work Phone: [facility] 03-12-2023 08:48-0400 Systolic blood pressure 115 mm[Hg] Francisco Trinh Daiana KAIAWHINA KOHANGA REO Work Phone: [facility] 11-22-2022 15:26-0400 Body height 157.5 cm Gay Narayan MD Work Phone: [facility] 11-22-2022 15:26-0400 Body mass index (BMI) [Ratio] 25.61 kg/m2 Gay Narayan MD Work Phone: [facility] 11-22-2022 15:26-0400 Body temperature 99.7 [degF] Gay Narayan MD Work Phone: [facility] 11-22-2022 15:26-0400 Body weight 63.5 kg Gay Narayan MD Work Phone: [facility] 11-22-2022 15:26-0400 Diastolic blood pressure 70 mm[Hg] Gay Narayan MD Work Phone: [facility] 11-22-2022 15:26-0400 Heart rate 72 /min Gay Narayan MD Work Phone: [facility] 11-22-2022 15:26-0400 SaO2% (BldA) [Mass fraction] 97 % Gay Narayan MD Work Phone: [facility] 11-22-2022 15:26-0400 Systolic blood pressure 111 mm[Hg] Gay Narayan MD Work Phone: [facility] 11-21-2021 08:40-0400 Body height 157.5 cm Gay Narayan MD Work Phone: [facility] 11-21-2021 08:40-0400 Body mass index (BMI) [Ratio] 26.7 kg/m2 Gay Narayan MD Work Phone: [facility] 11-21-2021 08:40-0400 Body temperature 98.2 [degF] Gay Narayan MD Work Phone: [facility] 11-21-2021 08:40-0400 Body weight 66.22 kg Gay Narayan MD Work Phone: [facility] 11-21-2021 08:40-0400 Diastolic blood pressure 72 mm[Hg] Gay Narayan MD Work Phone: [facility] 11-21-2021 08:40-0400 Heart rate 72 /min Gay Narayan MD Work Phone: [facility] 11-21-2021 08:40-0400 Respiratory rate 16 /min Gay Narayan MD Work Phone: [facility] 11-21-2021 08:40-0400 SaO2% (BldA) [Mass fraction] 98 % Gay Narayan MD Work Phone: [facility] 11-21-2021 08:40-0400 Systolic blood pressure 106 mm[Hg] Gay Narayan MD Work Phone: [facility] 07-01-2021 07:50-0500 Body temperature 98.2 [degF] Yohan Reyna MD Work Phone: [facility] 07-01-2021 07:50-0500 Diastolic blood pressure 68 mm[Hg] Yohan Reyna MD Work Phone: [facility] 07-01-2021 07:50-0500 Heart rate 70 /min Yohan Reyna MD Work Phone: [facility] 07-01-2021 07:50-0500 Respiratory rate 14 /min Yohan Reyna MD Work Phone: [facility] 07-01-2021 07:50-0500 SaO2% (BldA) [Mass fraction] 98 % Yohan Reyna MD Work Phone: [facility] 07-01-2021 07:50-0500 Systolic blood pressure 101 mm[Hg] Yohan Reyna MD Work Phone: [facility] 06-29-2021 07:31-0500 Body height 157.5 cm Yohan Reyna MD Work Phone: [facility] 06-29-2021 07:31-0500 Body mass index (BMI) [Ratio] 30.18 kg/m2 Yohan Reyna MD Work Phone: [facility] 06-29-2021 07:31-0500 Body weight 74.84 kg Yohan Reyna MD Work Phone: [facility] 11-22-2020 13:04-0400 Body height 160 cm Desiree Maddox MD Work Phone: [facility] 11-22-2020 13:04-0400 Body mass index (BMI) [Ratio] 25.28 kg/m2 Desiree Maddox MD Work Phone: [facility] 11-22-2020 13:04-0400 Body temperature 98.8 [degF] Desiree Maddox MD Work Phone: [facility] 11-22-2020 13:04-0400 Body weight 64.73 kg Desiree Maddox MD Work Phone: [facility] 11-22-2020 13:04-0400 Diastolic blood pressure 69 mm[Hg] Desiree Maddox MD Work Phone: [facility] 11-22-2020 13:04-0400 Heart rate 93 /min Desiree Maddox MD Work Phone: [facility] 11-22-2020 13:04-0400 Respiratory rate 16 /min Desiree Maddox MD Work Phone: [facility] 11-22-2020 13:04-0400 SaO2% (BldA) [Mass fraction] 99 % Desiree Maddox MD Work Phone: [facility] 11-22-2020 13:04-0400 Systolic blood pressure 106 mm[Hg] Desiree Maddox MD Work Phone: [facility] 01-20-2019 14:39-0400 BP Diastolic 74 mm[Hg] [facility] 01-20-2019 14:39-0400 BP Systolic 109 mm[Hg] [facility] 01-20-2019 14:38-0400 BMI (Body Mass Index) 24.37 kg/m2 [facility] 01-20-2019 14:38-0400 Body weight 58.51 kg [facility] 01-20-2019 14:38-0400 Height 154.9 cm [facility] 01-20-2019 14:38-0400 Pulse (Heart Rate) 67 /min [facility] 05-24-2018 10:27-0500 BMI (Body Mass Index) 24.83 kg/m2 [facility] Work Phone: 05-24-2018 10:27-0500 BP Diastolic 64 mm[Hg] [facility] Work Phone: 05-24-2018 10:27-0500 BP Systolic 110 mm[Hg] [facility] Work Phone: 05-24-2018 10:27-0500 Height 154.9 cm [facility] Work Phone: 05-24-2018 10:27-0500 Pulse (Heart Rate) 62 /min [facility] Work Phone: 05-24-2018 10:27-0500 Pulse Oximetry 99 % [facility] Work Phone: 05-24-2018 10:27-0500 Weight 59.6 kg [facility] Work Phone: 05-10-2018 09:33-0500 BMI (Body Mass Index) 25.51 kg/m2 [facility] Work Phone: 05-10-2018 09:33-0500 BP Diastolic 82 mm[Hg] [facility] Work Phone: 05-10-2018 09:33-0500 BP Systolic 123 mm[Hg] [facility] Work Phone: 05-10-2018 09:33-0500 Height 154.9 cm [facility] Work Phone: 05-10-2018 09:33-0500 Pulse (Heart Rate) 61 /min [facility] Work Phone: 05-10-2018 09:33-0500 Weight 61.24 kg Lisha Duenas [facility] Work Phone: Encounters Encounter Date Encounter Type Care Provider Facility Start: 02-04-2024 End: 02-04-2024 Transcribe Orders Elly Brady MA [facility] Comment on above: Deep vein thrombosis (DVT) of other vein of lower extremity, unspecified chronicity, unspecified laterality (HCC) (Primary Dx) Start: 02-01-2024 ambulatory FRANCISCO BROWN .Khris [facility] Amb[facility] Start: 09-07-2023 End: 09-07-2023 Postop follow up visit related to original px Raudel Jordan MD Work Phone: [facility] Comment on above: Postoperative follow -up (Primary Dx) Start: 09-07-2023 End: 09-07-[address] [facility] Start: 08-20-2023 End: 08-21-2023 ambulatory [facility] Start: 08-20-2023 End: 08-21-2023 Emergency department patient visit Raudel Jordan MD Work Phone: [facility] Start: 08-20-2023 End: 08-20-2023 Emergency department patient visit FRANCISCO AHMADI [facility] Start: 03-12-2023 End: 03-12-2023 Office outpatient visit 25 minutes 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 [facility] Work Phone: [facility] Comment on above: Encounter to [facility] (Primary Dx); Varicose veins of left lower extremity with pain; Seasonal allergies Start: 03-12-2023 End: 03-12-2023 ambulatory FRANCISCO DoshiKhris [facility] Ambulatory Start: 11-22-2022 End: 11-22-2022 Initial preventive medicine new pt age 18-39yrs Gay Narayan MD Work Phone: [facility] Comment on above: Annual physical exam (Primary Dx) Start: 11-22-2022 End: 11-22-2022 Patient encounter procedure Gay Narayan MD Work Phone: [facility] Work Phone: Start: 11-21-2021 End: 11-21-2021 Initial preventive medicine new pt age 18-39yrs Gay Narayan MD Work Phone: [facility] Phys[facility] Comment on above: Annual physical exam Start: 11-21-2021 End: 11-21-2021 Patient encounter procedure Gay Narayan MD Work Phone: [facility] Start: 06-29-2021 End: 07-01-2021 Evaluation and management of inpatient Yohan Reyna MD Work Phone: [facility] Start: 06-25-2021 End: 06-25-2021 ambulatory DESIREE MADDOX [facility] Start: 05-18-2021 Patient encounter status Edward lubin LPN [facility] Clinical Contact Center Start: 05-18-2021 Transcribe Orders Edward Becerril LPN [facility] Clinical Contact [facility] Comment on above: Encounter for prepro cedure screening laboratory testing for COVID-19 (Primary Dx) Start: 12-29-2020 End: 12-29-2020 Subsequent hospital visit by physician Desiree Maddox MD Work Phone: [facility] Comment on above: Arrived Start: 11-22-2020 End: 11-22-2020 Initial preventive medicine new pt age 18-39yrs Desiree Maddox MD Work Phone: [facility] Comment on above: Annual physical exam (Primary Dx); Seasonal allergies; Family history of hypertrophic cardiomyopathy; Heart palpitations Start: 11-22-2020 End: 11-22-2020 Patient encounter procedure Desiree Maddox MD Work Phone: [facility] Start: 11-19-2020 End: 11-19-2020 Chart abstracting Veena Weber MA [facility] Start: 02-11-2019 End: 02-11-2019 Subsequent hospital visit by physician Hannah Sandoval Work Phone: [facility] Comment on above: Varicose veins of le ft lower extremity with pain Start: 01-20-2019 End: 01-20-2019 Office outpatient new 30 minutes America Ely Work Phone: [facility] Comment on above: Varicose veins of le ft lower extremity with pain Start: 05-24-2018 End: 05-24-2018 Office outpatient new 30 minutes Marcela Borja Work Phone: [facility] Comment on above: Recurrent UTI (Prima ry Dx); Urinary frequency; Suprapubic pain; Interstitial cystitis Start: 05-13-2018 End: 05-13-2018 Patient encounter procedure Lisha Duenas Work Phone: [facility] CLINICAL REVIEW NURSE Comment on above: Appointment Start: 05-10-2018 End: 05-10-2018 Office outpatient visit 15 minutes Lisha Duenas Work Phone: [facility] CLINICAL REVIEW NURSE Comment on above: Dysuria (Primary Dx) ; Hematuria, unspecified type; Frequency of micturition Start: 05-03-2018 End: 05-03-2018 Patient encounter America Ely Work Phone: [facility] Comment on above: Results Start: 02-18-2017 End: 02-18-2017 Emergency department patient visit Bao Noblemaylin Facility:[facility] Date Procedure Procedure Detail Performing Clinician Start: 08-21-2023 Basic metabolic pane l calcium total Jim Malone CNP Work Phone: Start: 08-20-2023 End: 08-20-2023 APPENDECTOMY LAPAROSCOPIC Dinosaur Joshua solorio MD Work Phone: Start: 11-22-2022 Adult [...] dip stick/tablet rgnt non-auto w/o micrscp Marcela Borja Work Phone: Start: 05-10-2018 End: 05-10-2018 Urnls dip stick/tablet rgnt non-auto w/o micrscp Lisha Duenas Work Phone: Start: 05-10-2018 End: 05-10-2018 Culture bacterial quanttative colony count urine Lisha Duenas Work Phone: Start: 06-21-2017 Microscopic observat ion [Identifier] in Cervix by Cyto stain Desiree Maddox MD Work Phone: Plan of Treatment Date Care Activity Detail Author Start: 04-14-2031 Tetanus vaccination Tetanus: Every 10yrs [facility] Start: 02-17-2024 Influenza vaccination Influenza Vaccine (#1) [facility] Start: 01-09-2024 History and physical examination, annual for health maintenance Wellness Visit [facility] Start: 11-26-2023 End: 11-26-2023 Patient encounter procedure 11/26/2023 9:00 AM EDT Office Visit [facility] [address] [place] [address] 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, KAIAWHINA KOHANGA REO [address] [place] [address] (Fax) [facility] Start: 11-23-2023 Depression screening using PHQ-9 (Patient Health Questionnaire 9) score [facility] Start: 11-23-2023 History and physical examination, annual for health maintenance Wellness Visit [facility] Start: 02-16-2023 COVID-19 Vaccine ( season) COVID-19 Vaccine ( season) [facility] Start: 02-16-2023 Influenza vaccination [facility] Start: 2023 Screening for malignant neoplasm of cervix [facility] Start: 11-22-2022 End: 11-22-2022 Patient encounter procedure 11/22/2022 Office Visit Primary Care Gay Davies MD [address] [place] [id number] [facility] Start: 11-21-2022 Depression screening using PHQ-9 (Patient Health Questionnaire 9) score Depression Screening (PHQ-2/9) [facility] Start: 11-21-2022 History and physical examination, annual for health maintenance Wellness Visit [facility] Start: 03-19-2022 COVID-19 Vaccine (3 - Booster for Moderna series) COVID-19 Vaccine (3 - Booster for Moderna series) [facility] Start: 02-16-2022 Influenza vaccination Sequential Influenza Vaccine (Season Ended) [facility] Start: 12-12-2021 COVID-19 Vaccine (3 - Booster for Moderna series) COVID-19 Vaccine (3 - Booster for Moderna series) [facility] Start: 12-12-2021 COVID-19 Vaccine (3 - Moderna series) COVID-19 Vaccine (3 - Moderna series) [facility] Start: 11-22-2021 Depression screening using PHQ-9 (Patient Health Questionnaire 9) score [facility] Start: 11-22-2021 History and physical examination, annual for health maintenance Wellness Visit [facility] Start: 02-16-2021 Influenza vaccination [facility] Start: 11-22-2020 End: 11-22-2021 Complete blood count with white cell differential, manual CBC and Differential Lab Routine Heart palpitations Expected: 11/22/2020, Expires: 11/22/2021 [facility] Comment on above: Expected: 11/22/2020, Expires: Start: 11-22-2020 End: 11-22-2021 Thyrotropin [Units/volume] in Serum or Plasma TSH with Reflex Free T4 Lab Routine Heart palpitations Expected: 11/22/2020 (Approximate), Expires: 11/22/2021 [facility] Comment on above: Expected: 11/22/2020 (Approximate), Expi res: 11/22/2021 Start: 11-22-2020 End: 11-22-2020 Patient encounter procedure 11/22/2020 Office Visit Primary Care Desiree Maddox MD [address] [place] [address] [phone] [facility] Start: 06-21-2020 Screening for malignant neoplasm of cervix Pap Smear [facility] Start: 04-24-2019 End: 04-24-2019 Office Visit 04/24/2019 Office Visit Cardiology Hannah Sandoval III, DO [address] [place] [address] [phone] [facility] Start: 02-16-2019 Influenza vaccination given SEQUENTIAL INFLUENZA VACCINE (#1) [facility] Start: 02-11-2019 End: 02-11-2019 Appointment 02/11/2019 Appointment Cardiology Hannah Sandoval III, DO [address] [place] [address] [phone] [facility] Start: 08-22-2018 End: 08-22-2018 Ambulatory 08/22/2018 Office Visit Urology Marcela Borja, KAIAWHINA KOHANGA REO [address] [place] [address] [phone] [facility] Start: 06-06-2018 End: 06-06-2018 Ambulatory 06/06/2018 Office Visit CLINICAL REVIEW NURSE Lisha Duenas DO [address] [place] [address] [phone] [facility] CLINICAL REVIEW NURSE Start: 06-03-2018 End: 06-03-2018 Ambulatory 06/03/2018 Office Visit Gastroenterology Rain Denney MD [address] [facility] [address] [place] [address] Division of Gastroenterology and Hepatology [place] Start: 05-24-2018 End: 05-24-2019 Diagnostic radiography of abdomen XR ABDOMEN 1 VIEW Routine Suprapubic pain Expected: 05/24/2018, Expires: 05/24/2019 [facility] Work Phone: Comment on above: Expected: 05/24/2018, Expires: 9 Start: 05-24-2018 End: 05-24-2018 Ambulatory [facility] CLINICAL REVIEW NURSE Comment on above: Arrived Start: 05-13-2018 End: 05-13-2018 Ambulatory 05/13/2018 Office Visit CLINICAL REVIEW NURSE Lisha Duenas DO [address] [place] [address] [phone] [facility] CLINICAL REVIEW NURSE Start: 02-16-2018 Influenza vaccination INFLUENZA VACCINE (#1) [facility] Work Phone: Start: 2014 Screening for malignant neoplasm of cervix PAP SMEAR DISCUSSION [facility] Work Phone: Start: 02-15-2012 Third diphtheria, tetanus and acellular pertussis (DTaP) vaccination TDAP (ADULT) [facility] Work Phone: Start: 2011 GONORRHEA SCREEN GONORRHEA SCREEN [facility] Work Phone: Start: 2011 Hepatitis C screening [facility] Start: 2011 Tetanus vaccination TETANUS [facility] Work Phone: Start: 2009 Screening for Chlamydia trachomatis CHLAMYDIA SCREEN [facility] Work Phone: Start: 02-15-2008 HIV screening [facility] Start: 02-15-2008 Vaccination for human papillomavirus HPV VACCINES (1 - Female 3-dose series) [facility] Start: 2006 HIV screening HIV SCREENING DISCUSSION [facility] Work Phone: Start: 2005 COVID-19 Vaccine (1) COVID-19 Vaccine (1) [facility] Start: 2005 Depression screening using PHQ-9 (Patient Health Questionnaire 9) score Depression Screening (PHQ9) [facility] Start: 02-15-2004 Vaccination for human papillomavirus HPV VACCINE ADOL (1 - Female 3-dose series) [facility] Work Phone: Start: 1998 COVID-19 Vaccine (1) COVID-19 Vaccine (1) [facility] Start: 02-15-1996 History and physical examination, annual for health maintenance Wellness Visit [facility] Start: 1993 Screening for malignant neoplasm of cervix PAP SMEAR [facility] Start: 1993 Tetanus vaccination [facility] Bacteria identified Cx Nom (U) URINE CULTURE Routine Hematuria, unspecified type 05/10/2018 10:12 AM EST [facility] Work Phone: Complete blood count with white cell differential, manual CBC and Differential Lab Routine Heart palpitations 11/22/2020 2:43 PM EDT [facility] End: 11-23-2023 Complete blood count with white cell differential, manual CBC and Differential Lab Routine Annual physical exam 1 Occurrences starting 11/22/2022 until 11/23/2023 [facility] Work Phone: Comment on above: 1 Occurrences starting 11/22/2022 until 11/23/2023 End: 11-22-2021 Comprehensive metabolic 2000 panel - Serum or Plasma Comprehensive Metabolic Panel Lab Routine Heart palpitations 1 Occurrences starting 11/22/2020 until 11/22/2021 [facility] Comment on above: 1 Occurrences starting 11/22/2020 until 11/22/2021 Comprehensive metabo lic 2000 panel - Serum or Plasma Comprehensive Metabolic Panel Lab Routine Heart palpitations 11/22/2020 2:43 PM EDT [facility] End: 11-23-2023 Comprehensive metabolic 2000 panel - Serum or Plasma Comprehensive Metabolic Panel Lab Routine Annual physical exam 1 Occurrences starting 11/22/2022 until 11/23/2023 [facility] Comment on above: 1 Occurrences starting 11/22/2022 until 11/23/2023 Diagnostic radiograp hy of abdomen XR ABDOMEN 1 VIEW Routine Suprapubic pain 05/24/2018 11:27 AM EST [facility] Work Phone: End: 01-22-2022 Echocardiography Echocardiogram complete Echocardiography Routine Family history of hypertrophic cardiomyopathy Heart palpitations 1 Occurrences starting 11/22/2020 until 01/22/2022 [facility] Comment on above: 1 Occurrences starting 11/22/2020 until 01/22/2022 End: 11-23-2023 Hemoglobin A1c/Hemoglobin.total in Blood Hemoglobin A1c Lab Routine Annual physical exam 1 Occurrences starting 11/22/2022 until 11/23/2023 [facility] Comment on above: 1 Occurrences starting 11/22/2022 until 11/23/2023 End: 11-23-2023 Lipid 1996 panel - Serum or Plasma Lipid Panel Lab Routine Annual physical exam 1 Occurrences starting 11/22/2022 until 11/23/2023 [facility] Comment on above: 1 Occurrences starting 11/22/2022 until 11/23/2023 Procedure on tissue specimen [facility] Work Phone: Comment on above: Release Upon Ordering for 1 Occurrences starting 08/20/2023, 1 completed End: 05-18-2022 SARS-CoV-2 (COVID-19) RdRp gene [Presence] in Respiratory specimen by ADRIANA with probe detection COVID-19, Molecular Microbiology Routine Encounter for preprocedure screening laboratory testing for COVID-19 1 Occurrences starting 05/18/2021 until 05/18/2022 [facility] Work Phone: Comment on above: 1 Occurrences starting 05/18/2021 until 05/18/2022 Thyrotropin [Units/volume] in Serum or Plasma TSH with Reflex Free T4 Lab Routine Heart palpitations 11/22/2020 2:43 PM EDT [facility] End: 03-22-2020 Ultrasound venous insufficiency left leg Ultrasound venous insufficiency left leg Vascular Ultrasound Routine Varicose veins of left lower extremity with pain 1 Occurrences starting 01/20/2019 until 03/22/2020 [facility] Comment on above: 1 Occurrences starting 01/20/2019 until 03/22/2020 Immunizations Immunization Date Immunization Notes Care Provider Fa carrier clinicty 10-17-2021 Moderna SARS-CoV-2 Vaccination Gay Narayan MD Work Phone: [facility] 08-24-2021 Moderna SARS-CoV-2 Vaccination Gay Narayan MD Work Phone: [facility] 07-27-2021 influenza, injectabl e, quadrivalent, preservative free Gay Narayan MD Work Phone: [facility] 07-27-2021 influenza virus vacc ine, unspecified formulation Elly Brady MA [facility] 06-29-2021 varicella zoster imm une globulin Yohan Reyna MD Work Phone: [facility] 06-29-2021 diphtheria, tetanus toxoids and acellular pertussis vaccine, unspecified formulation Yohan Reyna MD Work Phone: [facility] 06-29-2021 measles, mumps and r ubella virus vaccine Yohan Reyna MD Work Phone: [facility] 04-14-2021 tetanus toxoid, redu anni diphtheria toxoid, and acellular pertussis vaccine, adsorbed Gay Narayan MD Work Phone: [facility] 02-01-2006 tetanus toxoid, redu anni diphtheria toxoid, and acellular pertussis vaccine, adsorbed Gay Narayan MD Work Phone: [facility] 02-01-2006 varicella virus vaccine Josee Narayan MD Work Phone: [facility] 12-17-1997 diphtheria, tetanus toxoids and acellular pertussis vaccine, unspecified formulation Gay Narayan MD Work Phone: [facility] 12-17-1997 measles, mumps and r ubella virus vaccine Gay Narayan MD Work Phone: [facility] 12-17-1997 trivalent poliovirus vaccine, live, oral Gay Narayan MD Work Phone: [facility] 05-09-1994 diphtheria, tetanus toxoids and acellular pertussis vaccine, unspecified formulation Gay Narayan MD Work Phone: [facility] 05-09-1994 haemophilus influenz ae type b vaccine, conjugate unspecified formulation Gay Narayan MD Work Phone: [facility] 05-09-1994 measles, mumps and r ubella virus vaccine Gay Narayan MD Work Phone: [facility] 1993 diphtheria, tetanus toxoids and pertussis vaccine Gay Narayan MD Work Phone: [facility] 1993 haemophilus influenz ae type b vaccine, conjugate unspecified formulation Gay Narayan MD Work Phone: [facility] 1993 hepatitis B vaccine, pediatric or pediatric/adolescent dosage Gay Narayan MD Work Phone: [facility] 1993 trivalent poliovirus vaccine, live, oral Gay Narayan MD Work Phone: [facility] 1993 diphtheria, tetanus toxoids and pertussis vaccine Gay Narayan MD Work Phone: [facility] 1993 haemophilus influenz ae type b vaccine, conjugate unspecified formulation Gay Narayan MD Work Phone: [facility] 1993 trivalent poliovirus vaccine, live, oral Gay Narayan MD Work Phone: [facility] 1993 diphtheria, tetanus toxoids and pertussis vaccine Gay Narayan MD Work Phone: [facility] 1993 haemophilus influenz ae type b vaccine, conjugate unspecified formulation Gay Narayan MD Work Phone: [facility] 1993 hepatitis B vaccine, pediatric or pediatric/adolescent dosage Gay Narayan MD Work Phone: [facility] 1993 trivalent poliovirus vaccine, live, oral Gay Narayan MD Work Phone: [facility] 1993 hepatitis B vaccine, pediatric or pediatric/adolescent dosage Gay Narayan MD Work Phone: [facility] Payers Date Payer Category Payer Unknown [id number] 2022 Private Health Insurance [id number] 2020 Private Health Insurance [id number] 2020 Private Health Insurance AETMAYLIN MAJANO AETNA [id number] 2020-Present [address] [place] [address] [id number] 2020 Unknown [id number] 2020 Unknown [id number] 2020 Unknown [id number] 2017 Unknown [facility] xxxxxxxxx 2017-Present xxxxxxxxx [id number] 2017 Unknown [id number] 1993 Unknown [id number] 1993 Unknown [id number] [id number] 1993 Unknown [id number] [id number] 1993 Unknown [id number] [id number] 1993 Unknown [id number] [id number] 1993 Unknown [id number] Private Health Insurance [id number] Social History Date Type Detail Facility Start: 04-26-2018 End: 11-21-2021 Tobacco smoking status NHIS Never smoker [facility] Work Phone: Start: 1995 Sex Assigned At Not on file [facility] Work Phone: Start: 01-20-2019 Alcohol Comment occ [facility] Start: 01-20-2019 End: 11-19-2020 Alcohol intake Current drinker of alcohol (finding) [facility] Start: 11-19-2020 End: 11-21-2021 Tobacco use and exposure Never used [facility] Start: 11-22-2020 End: 09-07-2023 Alcohol intake Ex-drinker (finding) [facility] Start: 11-22-2020 Alcohol Comment [facility] Start: 11-11-2021 End: 11-21-2021 Exposure to SARS-CoV-2 (event) Not sure [facility] Start: 10-11-2020 [facility] Start: 11-21-2021 End: 08-20-2023 Cigarette pack-years [facility] Start: 11-21-2021 History SDOH Social Connections Get Together 3 [facility] Start: 06-06-2022 History SDOH Financial 5 [facility] Start: 11-21-2021 History SDOH Food Worry 1 [facility] Start: 11-21-2021 History SDOH Transport Med 2 [facility] Start: 03-06-2022 End: 08-20-2023 Humiliation, Afraid, Rape, and Kick questionnaire [HARK] [facility] Within the last year , have you been afraid of your partner or ex-partner? No [facility] Are you now , , , , never or living with a partner? [facility] How often to you hav e a drink containing alcohol? 2-4 times a month [facility] How many standard dr inks containing alcohol do you have on a typical day? 3 or 4 [facility] How often do you hav e 6 or more drinks on 1 occasion? Never [facility] How hard is it for y ou to pay for the very basics like food, housing, medical care, and heating Not very hard [facility] Adult Depression Screening Assessment 0 [facility] Do you feel stress - tense, restless, nervous, or anxious, or unable to sleep at night because your mind is troubled all the time - these days [OSQ] Not at all [facility] (I/We) worried wheth er (my/our) food would run out before (I/we) got money to buy more. Never true [facility] Start: 11-19-2020 Gender identity Identifies as female gender (finding) [facility] Start: 11-19-2020 Sexual orientation Heterosexual (finding) [facility] Clinical Notes 11-22-2020 to 09-07-2023 Raudel Jordan MD - 09/07/2023 9:41 AM EDTQuick Note - Maribell Muniz RN - 08/21/2023 9:40 AM Gita Note - Maribell Muniz RN - 08/21/2023 9:40 AM ESTDischaaj Instructions Note Date & Type Note Facility 09-07-2023 History of Present illness Narrative [facility] PATIENT: Jay Antonio DATE / TIME: 09/07/23 9:41 AM POS: Office AGE: 28 y.o. : 1995 RACE: [1] SEX: female PCP: 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 CNP REFERRAL: No ref. provider found TOS: SUBJECTIVE: [...] Follow-up as needed documented in this encounter [facility] 08-21-2023 Note Formatting of this n ote might be different from the original. Seen by [place] to home. present. Reviewed discharge medications and follow up appointments as well as lifting restrictions. Patient received community resources. Transported to vehicle via wheelchair for discharge to home. [facility] 08-21-2023 Miscellaneous Notes Seen by [place] to home. present. Reviewed discharge medications and [...] with localized peritonitis Surgeon: Raudel Jordan MD [facility] Recovery Operator: Noemi Voss who was present for the entire case and provided critical assistance with the technical aspects of the operation. Procedure and Anesthesia: Procedure(s) and Anesthesia Type: * APPENDECTOMY LAPAROSCOPIC - General CPT Code: 65419 EBL 2 ml Complications:None Drains: None Dispo: [...] of the MDM. documented in this encounter [facility] 08-21-2023 Hospital course Narrative DISCHARGE SUMMARY Patient: Jay Antonio Date of : 1995 Site: [facility] Family Provider: 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 CNP Admit [...] Physician(s) Family Provider: 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 CNP, Address: [facility] [address] / [place] [id number] Follow Up: 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 CNP [facility] [address] [place] [id number] Raudel Jordan MD [address] [place], [place] [address] [id number] Follow up in 1 week(s) Additional Information: [...] 08/21/23, 8:12 AM documented in this encounter [facility] 08-21-2023 Hospital Discharge instructions Lauren Duong CNP [...] at least 10 days. Call the Outpatient Trauma/[facility] office [phone] for advice (Sunday-Sunday, 8am to 4pm) or proceed to the nearest Emergency Department if: You feel weak, lightheaded, or dizzy when you sit up or stand. Develop fever, chills, nausea, or vomiting You have increased abdominal or chest pain Your skin is pale, cool and/or clammy You have a rapid increase in your heart rate while resting. documented in this encounter [facility] 08-21-2023 Note Formatting of this n ote [...] of comfort function goal Outcome: Partially Met [facility] 08-20-2023 Note Formatting of this n ote might be different from the original. Problem: Actual or potential alteration in health Goal: Knowledge of Interdisciplinary Plan of Care Outcome: Partially Met Plan of care to be reviewed with pt by R.N. on a daily basis. Problem: Pain Goal: Manage acute pain Outcome: Partially Met Pt has prn pain medication. [facility] 08-20-2023 Note Formatting of this n ote might be different from the original. Pt arrived to the floor accompanied by PACU staff. Pt was oriented to room and call light. Post op vital signs started. [facility] 08-20-2023 Note Formatting of this n ote might be different from the original. Pre-operative Diagnosis: * Acute appendicitis with localized peritonitis Post-operative Diagnosis: * Acute appendicitis with localized peritonitis Surgeon: Raudel Jordan MD [facility] Recovery Operator: Noemi Voss who was present for the entire case and provided critical assistance with the technical aspects of the operation. Procedure and Anesthesia: Procedure(s) and Anesthesia Type: * APPENDECTOMY LAPAROSCOPIC - General CPT Code: 24571 EBL 2 ml Complications:None Drains: None Dispo: [...] to the recovery room in stable condition. [employer] Work Phone: 08-20-2023 Note Formatting of this [...] encounter, including all aspects of the MDM. [employer] Work Phone: 08-20-2023 Physician Emergency department Note [facility] EM[facility] WEST NOTE: NAME: Jay Antonio CSN: [id number] 28 y.o. PCP: 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 CNP History: Chief Complaint: Abdominal Pain HPI: The history was obtained from the patient. Jay is a 28 y.o. female who presents with a chief complaint of Abdominal Pain. Patient comes emergency room referred from [facility] ER for evaluation of appendicitis. 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[employer] Tobacco Use Smoking status: Never Smokeless tobacco: [...] days Stress: No Stress Concern Present (03/06/2022) [place] [employer] - Occupational Stress Questionnaire Feeling of Stress : Not at all Social Connections: Moderately Integrated (03/06/2022) Social Connection and Isolation Panel [NHANES] Frequency of Communication with Friends and Family: Three times a week Frequency of Social Gatherings with Friends and Family: Twice a week Attends Caodaism Services: 1 to 4 times per year [...] Comment Attending Provider or Group: RAUDEL JORDAN [[id number]] Phone call required?: Yes Ke Stockton Jr., PA-C, PA-C ED Advanced Practice Provider [facility] Ke Stockton Jr., PA-C 08/20/23 1824 [facility] 08-20-2023 Emergency department Note [facility] EM[facility] WE[facility] NOTE: NAME: Jay Antonio CSN: [id number] 28 y.o. PCP: 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 CNP History: Chief Complaint: Abdominal Pain HPI: The history was obtained from the patient. Jay is a 28 y.o. female who presents with a chief complaint of Abdominal Pain. Patient comes emergency room referred from [facility] ER for evaluation of appendicitis. 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 Smoking status: Never Smokeless tobacco: [...] days Stress: No Stress Concern Present (03/06/2022) [place] [employer] - Occupational Stress Questionnaire Feeling of Stress : Not at all Social Connections: Moderately Integrated (03/06/2022) Social Connection and Isolation Panel [NHANES] Frequency of Communication with Friends and Family: Three times a week Frequency of Social Gatherings with Friends and Family: Twice a week Attends Caodaism Services: 1 to 4 times per year [...] Comment Attending Provider or Group: RAUDEL JORDAN [[id number]] Phone call required?: Yes Ke Stockton Jr., PA-C, PA-C ED Advanced Practice Provider [facility] Ke Stockton Jr., PA-C 08/20/236 Report called. Bed: 46 Expected date: Expected time: Means of arrival: Comments: TR 1 Patient a transfer from [facility] needing to be evaluated for possible appendicitis. documented in this encounter [facility] 08-20-2023 Emergency department Note Report called. [facility] 08-20-2023 Emergency department Note Bed: 46 Expected date: Expected time: Means of arrival: Comments: TR 1 [facility] 08-20-2023 Emergency department Triage note Patient a transfer from [facility] needing to be evaluated for possible appendicitis. [facility] 03-12-2023 History of Present illness Narrative Subjective [...] history that includes Hemorrhoidectomy (10/02/2017); Refractive surgery; [place] tooth extraction; Hemorrhoidectomy; Colonoscopy; Section (N/A, 06/29/2021); [...] seen at a varicose vein clinic in [place] so she can be evaluated for newer treatment. Seasonal allergies Well controlled with OTC medication Follow up in one year or as needed documented in this encounter [facility] 11-22-2022 Evaluation + Plan note Associated Problem(s): [...] DEXA: Not yet indicated Routine labs ordered [facility] 11-22-2022 Miscellaneous Notes Associated Problem(s): Annual physical exam Healthcare Maintenance: Vaccines: -Influenza vaccine: Season ended -COVID19 vaccine: Fully vaccinated 10/2020, pending Moderna bivalent [...] Routine labs ordered documented in this encounter [facility] 11-22-2022 History of Present illness Narrative [facility] [address] [place] [address] HPI: Jay Antonio is a 27 y.o. year old female seen in the office today for her annual physical. Denies any complaints today. [facility] for her female wellness. Reports last [...] directions given. Results will be available through [employer] as soon as they are reported. Please [...] look into their status. Customer Service/Billing Questions: [phone] MyChart Assistance: [phone] or [phone] Financial Assistance: [phone] or [phone] Follow Up Ordered: Return in about 1 year (around 11/23/2023) for Annual physical. Gay Narayan MD documented in this encounter [facility] 11-21-2021 Evaluation + Plan note Associated Problem(s): Annual physical exam Healthcare Maintenance: Vaccines: -Influenza vaccine: Season ended -COVID- vaccine: Fully vaccinated 10/2020, pending Moderna booster [...] not yet indicated DEXA: Not yet indicated [facility] 11-21-2021 Miscellaneous Notes Associated Problem(s): Annual physical [...] Not yet indicated documented in this encounter [facility] 11-21-2021 History of Present illness Narrative [facility] [address] [place] [address] HPI: Jay Antonio is a 26 y.o. [...] directions given. Results will be available through [employer] as soon as they are reported. Please [...] look into their status. Customer Service/Billing Questions: [phone] [employer] Assistance: [phone] or [phone] Financial Assistance: [phone] or [phone] Follow Up Ordered: Return in about 1 year (around 11/21/2022). Gay Narayan MD documented in this encounter [facility] 07-01-2021 Miscellaneous Notes Discharge home ambulatory with significant other and , in stable condition. Discharge instructions reviewed with [...] Plan is for discharge home today with infant. Weight loss 8.6%. Voiding and stooling. Encourage follow up weight check with scrub nurse in 1-2 days. Appointment was made by mother. Review and continue POC. . Pt made decision to pump and give. And supplement with formula. For personal reasons. , Infant and self teaching ongoing. PO motrin and [...] Pt sitting up in chair in room. in nursery for procedure. This note was copied from a baby's chart. Follow up visit. Mother tired but states that is going well. Reviewed positioning to boost maternal confidence. Mother did use shield for last 2 feeds. Discussed proper use and that if used routinely it is recommended that she pump to help stimulate supply. Mother has made appointment with [facility] scrub nurse for follow up. Plan is to follow [...] call if any questions or concerns arise. Infant to breast at least 8 times in [...] 361 mL Total 361 mL Jihan Antonio Boy Jay [[id number]] Delivery Anesthesia Method: Spinal Operative Delivery Forceps attempted?: No Vacuum extractor attempted?: No Presentation Presentation: Vertex Position: Middle _: Transverse [place] Information date/time: 06/29/21 1032 Gender: Male Delivery type: , Low Transverse Delivery location: OB Unit Provider Present: Routine Initial disposition: Routine NB Care Details: Trial of labor?: No categorization: Primary priority: Scheduled Indications for : Other (Add Comments) Skin incision type: Pfannenstiel Delivery Providers Delivering clinician: Yohan Reyna MD Other personnel: Provider Role Covering Attending Resident Dry Heat Room Attendant Mariely Banerjee RN Delivery Nurse Cristin Vargas RN Registered Nurse Caryn Jean Baptiste RN Delivery Assist Nurse Practitioner Carmen Collins RN Registered Nurse Joe Rivera MD [employer] Truck Driver Cord Vessels: 3 vessels Complications: None Delayed cord clamping?: Yes Cord clamped date/time: 06/29/2021 1033 Cord blood obtained?: Yes Cord segment obtained?: No Gases sent?: No Stem cell collection (by Provider)?: No Placenta Date/time: 06/29/2021 1034 Removal: Manual removal Appearance: Intact Disposition: Refrigerator [place] Apgars No data filed [place] Measurements Weight: 7 lb 6.9 oz (3370 g) Length: 19 Head Circumference: 13.189 Lacerations No data filed Other Procedures Procedures: None Brief Post Operative Note Patient Name: Jay Antonio : 1995 (26 y.o.) Date of Service: 06/29/2021 CSN: [id number] Procedure(s): SECTION Pre-Operative Diagnoses: * Anorectal disorder [K62.9] Post-Operative Diagnoses: * Anorectal disorder [K62.9] Surgeon(s) and Role: * Yohan Reyna MD - Primary PUBLIC HEALTH REPRESENTATIVE: Morgan Gomez CRNA Poker Room Manager: Mariely Banerjee RN Scrub Person: Clementina Blankenship, ST Scrub Person Preceptor: Bhumika Whittington RN Scrub Person Assist: Ana Maria Collins RN [employer] Truck Driver: Joe Rivera MD Nursery Nurse: Caryn Jean [...] ovaries SURGEON: Yohan Reyna MD OR STAFF: Poker Room Manager: Mariely Banerjee RN Scrub Person: ST Dillan Scrub Person Preceptor: Bhumika Whittington RN Scrub Person Assist: Ana Maria Collins RN [employer] Truck Driver: Joe Rivera MD Nursery Nurse: Caryn Jean Baptiste RN ANESTHESIA STAFF: PUBLIC HEALTH REPRESENTATIVE: Morgan Gomez CRNA SPECIMEN(S): * No specimens [...] correct times three. documented in this encounter [facility] 07-01-2021 History of Present illness Narrative Section [...] feeding via Information for the patient's : Jihan Antonio [[id number]] Feeding Type: Breast milk,Formula Objective: Vital signs [...] feeding via Information for the patient's : Jihan Antonio [[id number]] Feeding Type: Breast milk Objective: Vital signs [...] Negative Nicola's sign. documented in this encounter [facility] 07-01-2021 Hospital Discharge instructions Angeline Ball RN [...] the office. 10. Please call the office ([phone]) for your six weeks' checkup appointment time. [...] any questions or problems, call the office. [phone] or [phone]. Please Note: Unless there are medical complications, maternity leave will be authorized for 6 weeks. documented in this encounter [facility] 06-30-2021 Hospital course Narrative DISCHARGE SUMMARY Patient: Jay Antonio Date of : 1995 Site: [facility] Family Provider: Desiree Maddox MD Admit [...] Physician(s) Family Provider: Desiree Maddox MD, Address: [address] [place] [address] Follow Up: Yohan Reyna MD [address] [place] [address] Schedule an appointment as soon as possible for a visit in 6 week(s) Additional Information: Patient instructions, including activity, were given to the patient/family at discharge. Please see the After Visit Summary in the electronic medical record for details. 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 female who comes in for a physical and with the following complaint(s): Occ heart palpitation- since middle school off and on. Last few seconds and gone . Denies CP/SOB. Swimming, cheering dance in . At one point she wore a heart [...] Social Gatherings with Friends and Family: Attends Caodaism Services: Active Member of Clubs or Organizations: [...] Last Pap Smear and Breast Exam: per SEAL DELIVERY VEHICLE OFFICER Dr Reyna Annual flu shot recommended. 2. [...] done. Pt has first ob appointment at [facility] with on Sunday. documented in this encounter [facility] Evaluation note Diagnosis Annual physical exam- Primary Routine general medical examination at a health care facility Seasonal allergies Allergic rhinitis, cause unspecified Family history of hypertrophic cardiomyopathy Heart palpitations Palpitations [facility] Diagnosis Family history of hypertrophic cardiomyopathy Heart palpitations Palpitations [facility] Diagnosis Encounter for preprocedure screening laboratory testing for COVID-19- Primary [facility] Diagnosis 39 weeks gestation of - Primary Post-operative pain Other acute postoperative pain [facility] Diagnosis Annual physical exam Routine general medical examination at a health care facility [facility] Diagnosis Annual physical exam- Primary Routine general medical examination at a health care facility [facility] Diagnosis Encounter to establish care- Primary Varicose veins of left lower extremity with pain Seasonal allergies Allergic rhinitis, cause unspecified [facility] Diagnosis Acute appendicitis- Primary Acute appendicitis without mention of peritonitis Acute appendicitis, unspecified acute appendicitis type [facility] Diagnosis Postoperative follow-up- Primary Follow-up examination, following unspecified surgery [facility] Diagnosis Deep vein thrombosis (DVT) of other vein of lower extremity, unspecified chronicity, unspecified laterality (HCC)- Primary documented in this encounter [facility] Summary Purpose Family History No Family History Records FoundNo Family History Records FoundNo Family History Records FoundNo Family History Records FoundNo Family History Records FoundNo Family History Records FoundNo Family History Records Found Advance Directives Documents on File Type Date Recorded Patient Finish Opener Expl anation Advance Directives and Livin g Will 01/20/2019 2:17 PM Documents on File Type Date Recorded Patient Finish Opener Expl anation Advance Directives and Livin g Will 02/11/2019 2:49 PM Documents on File Type Date Recorded Patient Finish Opener Expl anation Advance Directives and Livin g Will 02/11/2019 2:49 PM Documents on File Type Date Recorded Patient Finish Opener Expl anation Advance Directives and Livin g Will Advance Directives and Livin g Will 12/29/2020 9:12 AM Documents on File Type Date Recorded Patient Finish Opener Expl anation Advance Directives and Livin g Will Advance Directives and Livin g Will 04/09/2021 10:13 AM Latest Code Status on File Code Status Date Activated Date Inactivated Comments Full Code 04/09/2021 10:16 AM 04/09/2021 4:01 PM Documents on File Type Date Recorded Patient Finish Opener Expl anation Advance Directives and Livin g [...] Urology Diagnoses Dysuria Lisha Duenas, DO [address] [id number] [facility] [address] [id number] Status Reason Specialty Diagnoses / Procedures Referred By Contact Referred To Contact Pending Review Cardiology Diagnoses Varicose veins of left lower extremity with pain Procedures Ultrasound venous insufficiency left leg Hannah Sandoval III, DO [address] [place] [address] Status Reason Specialty Diagnoses / Procedures Referred By Contact Referred To Contact New Request Cardiology Diagnoses Family history of hypertrophic cardiomyopathy Heart palpitations Procedures Echocardiogram complete Desiree Maddox MD [facility] [place] [address] Status Reason Specialty Diagnoses / Procedures Referre d By Contact Referred To Contact Closed Cardiology Diagnoses Family history of hypertrophic cardiomyopathy Heart palpitations Procedures Echocardiogram complete Desiree Maddox MD [address] [id number] [facility] [address] [facility] [place] [address] History of Present Illness * Lisha Duenas, DO - 05/10/2018 9:30 AM EST Formatting of [...] discussed getting an ultrasound to rule out SAXOPHONE ASSEMBLER sources of pain like a cyst although this is not as high on the differential given her symptoms. in this encounter* Macrela Borja CNP - 05/24/2018 10:30 AM EST Formatting of [...] Tab Take 1 tablet by mouth daily. 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 [...] section and content) DATE CREATED AUTHOR 12/12/2017 [facility] DATE CREATED AUTHOR AUTHOR'S ORGANIZ ATION 12/17/2020 [facility] DATE CREATED AUTHOR AUTHOR'S ORGANIZ ATION 01/30/2021 [facility] DATE CREATED AUTHOR AUTHOR'S ORGANIZ ATION 06/26/2021 [facility] DATE CREATED AUTHOR AUTHOR'S ORGANIZ ATION 08/21/2023 [facility] DATE CREATED AUTHOR AUTHOR'S ORGANIZ ATION 08/26/2023 [facility] DATE CREATED AUTHOR AUTHOR'S ORGANIZ ATION 02/03/2024 [facility] Reason for Visit (unrecogniz ed section and content) Reason Comments Results Reason Comments Urinary Pain Patient states she h as been having the pain 2 times a month. Reason Comments Appointment Reason Comments New Patient Dysuria Status Reason Specialty Diagnoses / Procedures Referred By Contact Referred To Contact New Request Urology Diagnoses Dysuria Lisha Duenas, DO [address] [place] [address] Zan Otero MD [address] [place] [address] Reason Comments PT Initial Evaluation VV Status Reason Specialty Diagnoses / Procedures Referred By Contact Referred To Contact Pending Review Cardiology Diagnoses Varicose veins of left lower extremity with pain America Ely, KAIAWHINA KOHANGA REO [address] [place] [address] Hannah Sandoval III, DO [address] [place] [address] Status Reason Specialty Diagnoses / Procedures Referred By Contact Referred To Contact Pending Review Cardiology Diagnoses Varicose veins of left lower extremity with pain Procedures Ultrasound venous insufficiency left leg Hannah Sandoval III, DO [address] [place] [address] Reason Comments Establish Care would like order for ECHO and MRI Status Reason Specialty Diagnoses / Procedures Referre d By Contact Referred To Contact Closed Cardiology Diagnoses Family history of hypertrophic cardiomyopathy Heart palpitations Procedures Echocardiogram complete Desiree Maddox MD [address] [place] [address] [facility] [address] [facility] [place] [address] Reason Comments Scheduled Primary C Section Specialty Diagnoses / Procedures Referred By Contac t Referred To Contact Diagnoses 39 weeks gestation of Referral ID Status Reason Start Date Expiration Date Visits Re quested Visits Authorized [id number] 1 Reason Comments Establish Care [id number] Reason Comments Establish Care Reason Comments Abdominal Pain Specialty Diagnoses / Procedures Referred By Contac t Referred To Contact Diagnoses Acute appendicitis Acute appendicitis, unspecified acute appendicitis type Acute appendicitis Referral ID Status Reason Start Date Expiration Date Visits Re quested Visits Authorized [id number] 1 1 Reason Comments Post-op Care Teams (unrecognized sec tion and content) Oil Pump Station Operator Chief Relationship Specialty Start Date End Date Desiree Maddox MD [address] [place] [address] PCP - General Family Medicine 11/22/20 Subit, Yohan Green MD [address] [place] [address] Consulting Physician Obstetrics/Gynecology 05/18/21 [employer] Operator Chief Relationship Specialty Start Date End Date Desiree Maddox MD [address] [place] [address] PCP - General Family Medicine 11/22/20 Subit, Yohan Green MD [address] [place] [address] Consulting Physician Obstetrics/Gynecology 05/18/21 Oil Pump Station Operator Chief Relationship Specialty Start Date End Date Gay Davies MD [address] [place] [address] PCP - General Internal Medicine 11/21/21 Subit, Yohan Green MD [address] [place] [address] Consulting Physician Obstetrics/Gynecology 05/18/21 Oil Pump Station Operator Chief Relationship Specialty Start Date End Date Gay Davies MD [address] [place] [address] PCP - General Internal Medicine 11/21/21 SubYohan maya MD [address] [place] [address] Consulting Physician Obstetrics/Gynecology 05/18/21 Oil Pump Station Operator Chief Relationship Specialty Start Date End Date 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, KAIAWHINA KOHANGA REO [address] [place] [address] PCP - General Nurse Practitioner 03/12/23 Yohan Reyna MD [address] [place] [address] Consulting Physician Obstetrics/Gynecology 05/18/21 Oil Pump Station Operator Chief Relationship Specialty Start Date End Date 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 CNP [address] [place] [address] PCP - General Nurse Practitioner 03/12/23 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 CNP [address] [place] [address] PCP - STONE Attributed Provider - [employer] 01/16/23 06/17/50 Yohan Reyna MD [address] [place] [address] Consulting Physician Obstetrics/Gynecology 05/18/21 Oil Pump Station Operator Chief Relationship Specialty Start Date End Date 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 CNP [address] [place] [address] PCP - General Nurse Practitioner 03/12/23 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 CNP [address] [place] [address] PCP - STONE Attributed Provider - [employer] 01/16/23 06/17/50 Yohan Reyna MD [address] [place] [address] Consulting Physician Obstetrics/Gynecology 05/18/21 Oil Pump Station Operator Chief Relationship Specialty Start Date End Date 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 CNP [address] [place] [address] PCP - General Nurse Practitioner 03/12/23 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, SRAVANTHI [address] [place] [address] PCP - STONE Attributed Provider - [employer] 01/16/23 06/17/50 Yohan Reyna MD [address] [place] [address] Consulting Physician Obstetrics/Gynecology 05/18/21 Scheduled Active and [...] Banerjee RN) 0839 (Given - Provider: Marisel Copeland, MAN) 0809 (Given - Provider: Angeline Ball RN) [...] RN)1630 (Due - Provider: Sahara Luna RPh,PharmD)2313 (Given - Provider: Abbey Catherine, MAN) 0808 (Given - Provider: Angeline Ball RN)1030 (Due - Provider: Sahara Luna RPh,PharmD) ketorolac (TORADOL) injection 30 mg 30 mg, [...] previous med delayed)1509 (See Alternative - Provider: Marisel Copeland RN)1630 (Due - Provider: Sahara Luna RPh,PharmD)2313 (See Alternative - Provider: Abbey Catherine RN) 0808 (See Alternative - Provider: Angeline Ball RN)1030 (Due - Provider: Sahara Luna RPh,PharmD) oxytocin (PITOCIN) bolus from bag 10,000 guillermo-units [...] 1034 (Bolus from Bag - Provider: Mariely Banerjee, MAN) senna-docusate (SENNA-S) 8.6-50 mg per tablet 1 tablet 1 tablet, Oral, 2 times daily, First dose on Sun06/29/21 at 1300, Hold for loose stools Do Not Crush or Chew if administering orally due to bitter taste. May be crushed if given via tube. 1222 (Given - Provider: Mariely Banerjee RN)2100 (Not Given - Provider: Abbey Catherine, MAN - Reason: Contraindicated) 1244 (Given - Provider: Marisel Copeland RN)2313 (Given - Provider: Abbey Catherine RN) 0808 (Given - Provider: Angeline Ball RN) senna-docusate (SENNA-S) 8.6-50 mg per tablet [...] guillermo-units/min 1110 (Rate/Dose Change - Provider: Mariely Banerjee, MAN)1504 (Stopped - Provider: Angeline Ball, MAN) PRN Medication Order 06/29/2021 06/30/2021 07/01/2021 acetaminophen (TYLENOL) tablet 650 mg 650 mg, Oral, Every 4 hours PRN, mild pain, Starting on Sun06/29/21 at 1335, 1438 (Given - Provider: Angeline Ball, MAN) 1302 (Given - Provider: Marisel Copeland RN)1843 [...] If indicated, administer prior to discharge. Provide [facility] vaccine information sheet(s) (VIS) for patient for vaccines administered. docusate sodium (COLACE) capsule 100 mg 100 mg, Oral, 2 times daily PRN, constipation, Starting on Sun06/29/21 at 1335, , Use oral medication first for constipation. Use rectal suppository, if ordered, for constipation if oral route not tolerated. DO NOT CRUSH OR CHEW. 184 (Given - Provider: Nieves Best RN) flu vacc [id number] 6mos up(PF) (FLUZONE QUAD/FLULAVAL QUAD/FLUARIX QUAD) syringe [...] call physician. 2314 (Given - Provider: Abbey Catherine RN) 0809 (Given - Provider: Angeline Ball RN) lactated ringers bolus 2,000 mL (COMPLETED) 2,000 [...] If indicated, administer prior to discharge. Provide [facility] vaccine information sheet(s) (VIS) for patient for [...] If indicated, administer prior to discharge. Provide [facility] vaccine information sheet(s) (VIS) for patient for [...] Grady RN)2315 (Paused - Provider: Zehra Grady RN)2318 (Restarted - Provider: Zehra Grady RN) 0221 (Paused - Provider: Zehra Grady RN)0223 (Restarted - Provider: Zehra Grady RN)0316 (Rate/Dose Verify - Provider: Zehra Grady RN)0617 (Stopped - Provider: Zehra Grady RN) PRN Medication Order 08/19/2023 08/20/2023 08/21/2023 acetaminophen (TYLENOL) tablet 650 mg 650 mg, Oral, Every 4 hours PRN, mild pain, headaches, Starting on Sun08/20/23 at 1724, Do not exceed max of 4000 mg acetaminophen in 24 hours. 1904 (AUG Hold - Provider: Transfer Provider, Automatic - Reason: Patient not available)2057 (AUG Unhold - Provider: Transfer Provider, Automatic) BUPivacaine (PF) (MARCAINE) 0.5 % (5 mg/mL) injection (CANCELED) As needed, Starting on Sun08/20/23 at 1926, Intra-Procedure 192 (Given - Provider: Raudel Jordan MD) HYDROmorphone (DILAUDID) injection 0.5 mg 0.5 mg, Intravenous, Every 3 hours PRN, moderate to severe pain, Starting on Sun08/20/23 at 1724 190 (AUG Hold - Provider: Transfer Provider, Automatic - Reason: Patient not available)2057 (AUG Unhold - Provider: Transfer Provider, Automatic)2124 (Given - Provider: Zehra Grady RN) 021 (Given - Provider: Zehra Grady RN)0619 (Given - Provider: Zehra Grady RN) naloxone [...] until respiratory rate is 10 or greater. 190 (AUG Hold - Provider: Transfer Provider, [...] BE BASED ON THE PRIMARY CLINICAL RECORDS. [facility]. provides no warranty or guarantee of the accuracy or completeness of information in this document.
[2024-02-28 09:48] VITALS: BP 110/78; PULSE 85; O2SAT 99
[2024-02-28] MEDS: LIDOCAINE HCL 1% 100 MG/10 ML MDV INJ (15:16)
[2024-02-28] MEDS: 0.9 % SODIUM CHLORIDE 500 ML, LIDOCAINE HCL 20 ML, SODIUM BICARBONATE 10 MEQ INJ (15:17)
== END 2024-02-28 10:30 | disposition home or self-care (01) ==
LOC: VC 09:22
PROVIDERS: PCP Radiology Diagnostic Radiology; Visit Provider Radiology Diagnostic Radiology
DX: I83.813 Varicose veins of bilateral lower extremities with pain (principal)
CPT/HCPCS: 36478

== ENCOUNTER 2024-03-06 09:06 | Outpatient (OUT) | payer BC, SELFPAY ==
--- NOTE | 2024-03-06 08:07 | VEINCLINIC_ITS ---
Vital Signs 03/06/24 08:08 Height 5 ft 2 in Weight 65 kg BMI 26.2 Varicose Veins Patient in this day for follow up ultrasound post EVLT of right GSV. Nixon Greenwood MD personally performed the services described in this documentation, as scribed by Judith Mcmullen RVT, RDMS in my presence and it is both accurate and complete. Judith Greenwood RVT, RDMS am scribing for, and in the presence of, Dr. Nixon Lazo and in the presence of the patient. thigh: bilateral (symptoms right > left), knee: bilateral, calf: bilateral, ankle: bilateral and estrada: bilateral aching, cramping, dull and tender 6 5 years Worsened in recent months: Yes standing elevating extremities, compression stockings and exercise Reports muscle spasms of leg, heaviness, limb pain, edema and leg edema History of lower extremity trauma: No Superficial thrombophlebitis: No Family history of varicose veins: yes Has patient had previous lower extremity venous surgery: No Patient has previously received the following treatment(s) for lower extremity varicose veins: Reports none Does patient have a history of : yes Does patient intend to have future pregnancies: yes Has patient had lower extremity venous scan with relux testing: No Support hose used: Yes Problems walking or doing physical activity: No How does it affect you: often has to stop and rest and elevate legs Do you walk much: Yes Do you stand much: Yes Review of Systems ROS Narrative Nixon Greenwood MD personally performed the services described in this documentation, as scribed by Judith Mcmullen RVT, RDMS in my presence and it is both accurate and complete. IJudith RVT, RDMS, am scribing for, and in the presence of, Dr. Nioxn Lazo and in the presence of the patient. Status of ROS 10 or more systems reviewed and unremark able except as noted in history and below Cardiovascular Reports: edema Integumentary/Breast Reports: itching, skin swelling and changes in skin color [facility] Medical History (Updated 02/28/24 @ 07:49 by Nelda Avila RN) Phlebitis and thrombophlebitis of superficial vessels of right lower extremity ?I80.01 - Phlebitis and thrombophlebitis of superficial vessels of right lower extremity (ICD-10) Superficial thrombophlebitis ?I80.9 - Phlebitis and thrombophlebitis of unspecified site (ICD-10) delivery delivered ?O82 - Encounter for delivery without indication (ICD-10) Varicose veins of bilateral lower extremities with pain ?I83.813 - Varicose veins of bilateral lower extremities with pain (ICD-10) Pain due to varicose veins of both lower extremities ?I83.813 - Varicose veins of bilateral lower extremities with pain (ICD-10) Surgical History (Updated 01/30/24 @ 10:08 by Justo Stallworth) H/O breast augmentation ?Z98.82 - Breast implant status (ICD-10) History of appendectomy ?Z90.49 - Acquired absence of other specified parts of digestive tract (ICD- 10) H/O hemorrhoidectomy ?Z98.890 - Other specified postprocedural states (ICD-10) Family History (Updated 01/29/24 @ 11:16 by Justo Stallworth) Other Family history of diabetes mellitus Heart disease Varicose veins of bilateral lower extremities with pain Social History (Updated 01/29/24 @ 11:17 by Justo Stallworth) Within the past year, how often did you have a drink containing alcohol: 2-4 times a month Smoking status: Never smoker Non-prescribed substance use: denies use Meds Home Medications and Allergies Home Medications ?Medication ?Instructions ?Recorded ?Confirmed ?Type drospirenone-ethinyl estradiol .ROUTE 01/29/24 History spironolactone .ROUTE 01/29/24 History magnesium 200 mg tablet 200 mg PO DAILY 01/30/24 01/30/24 History Allergies Allergy/AdvReac Type Severity Reaction Status Date / Time No Known Drug Allergies Allergy Verified 01/29/24 11:14 Exam Narrative Exam Narrative: INixon MD personally performed the services described in this documentation, as scribed by Judith Mcmullen RVT, RDMS in my presence and it is both accurate and complete. IJudith RVT, RDMS, am scribing for, and in the presence of, Dr. Nixon Lazo and in the presence of the patient. Constitutional Documenting provider has reviewed patient's vital signs: yes Common normals: oriented x3 Cardio Peripheral pulses: dorsalis pedis pulses present Extremity Common normals: normal capillary refill General: edema Right lower extremity: lower leg Right lower leg: inspection and palpation Left lower extremity: lower leg Left lower leg: inspection and palpation Neuro Common normals: oriented x3 Results Imaging Venous US: Radiologist's impression: The ultrasound demonstrates Heat induced thrombus visualized 0.8cm from the SFJ. The heat induced thrombus extends from groin to mid calf. Assessment and Plan Assessment and Plan (1) Varicose veins of bilateral lower extremities with pain: Plan Patient in today for follow up ultrasound of lower extremity following treatment of EVLT of right GSV completed on 02/28/24. INixon MD personally performed the services described in this documentation, as scribed by Judith Mcmullen RVT, RDMS in my presence and it is both accurate and complete. Judith Greenwood RVT, RDMS, am scribing for, and in the presence of, Dr. Nixon Lazo and in the presence of the patient.
[2024-03-06 08:08] VITALS: BMI 26.2
--- NOTE | 2024-03-06 08:11 | W.VEIN ---
Discharge Plan Discharge Disposition: Home, Self-Care Outpatient Diagnostics: VC Endovenous Ablation 1VeinLT (Routine) Timeframe: 2 Weeks Facility: [facility] - Location: [facility] Ordered By: Nixon Lazo Follow Up Appointments: 03/13/24 Plan of Treatment: EVLT of left leg AASV Print Language: Croatian Discharge Date/Time: 03/06/24 10:19
--- NOTE | 2024-03-06 09:07 | VEIN_ITS ---
Patient Name: JYA TORRES MR#: [id number] : 1995 Exam Date: 03/06/2024 Ordering Doctor: DR NIXON LAZO M.D. RADIOLOGY REPORT PROCEDURE: VC EXT VENOUS RT LMTD COMPARISON: None. INDICATIONS: I80.01 - Phlebitis and thrombophlebitis of superficial ve... TECHNIQUE: Lower extremity knox scale and Duplex Doppler evaluation of the deep venous system from the inguinal ligament through the calf veins. FINDINGS: REGION: Right lower extremity. THROMBI: Negative for DVT. Heat induced thrombus visualized 8.0 mm from the SFJ. The heat induced thrombus extends from groin to mid thigh . COMPRESSIBILITY: Non-compressible segments corresponding to thrombus FLOW: Areas of no flow corresponding to thrombus CONCLUSION: Post ablation occlusion of the right great saphenous vein with heat induced thrombus 8 mm from the saphenofemoral junction. The epigastric vein is patent. Dictated by: Nixon Lazo MD on 03/06/2024 at 09:51 Approved by: Nixon Lazo MD on 03/06/2024 at 09:53
--- NOTE | 2024-03-06 09:07 | VEIN_ITS ---
Patient Name: JAY TORRES MR#: [id number] : 1995 Exam Date: 03/06/2024 Ordering Doctor: DR NIXON LAZO M.D. RADIOLOGY REPORT PROCEDURE: VC FACILITY EST LMTD VEIN CENTER - OFFICE VISIT FOLLOW UP COMPARISON: None. PROGRESS NOTES: The patient reports marked improvement in her initial presenting symptoms following intravenous laser ablation of the right great saphenous vein. The patient did wear her compression stocking and exercise. The patient did not require oral analgesics Physical exam demonstrates 2 areas of mild bruising right medial thigh likely related to tumescence injection. The incision is healed. No erythema or warmth to suggest cellulitis or thrombophlebitis. No active ulceration. Thrombosed right great saphenous vein can be partially palpated on physical exam Review of the ultrasound performed the same day demonstrates occlusive thrombus extending throughout the treated vein(s), heat induced thrombus 8 mm from the saphenofemoral junction. The epigastric vein is patent. The thrombus appears adherent and not free floating. No deep vein thrombus. The patient expressed a desire to proceed with treatment of incompetent left anterior accessory saphenous vein. VEIN/VC Facility EST LMTD IMPRESSION: 1. Successful ablation of the right great saphenous vein 2. 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 PLAN: Intravenous laser ablation left anterior accessory saphenous vein Nurse notes, history and physical were reviewed and confirmed, see attached forms. The nurse was present throughout the physical exam and consultation Dictated by: Nixon Lazo MD on 03/06/2024 at 10:23 Approved by: Nixon Lazo MD on 03/06/2024 at 10:25
== END 2024-03-06 10:19 | disposition home or self-care (01) ==
LOC: VC 09:06
PROVIDERS: PCP Radiology Diagnostic Radiology; Visit Provider Radiology Diagnostic Radiology
DX: I80.01 Phlebitis and thrombophlebitis of superficial vessels of right lower extremity (principal)
CPT/HCPCS: 93971; G0463

== ENCOUNTER 2024-03-13 07:48 | Outpatient (OUT) | payer BC, SELFPAY ==
--- NOTE | 2024-03-12 11:18 | VEINCLINIC_ITS ---
Vital Signs 03/13/24 07:57 BP 104/72 BP Location Right Brachial BP Position Sitting BP Cuff Size Adult BP Source Automatic Cuff Respiration 16 Pulse 72 Pulse Source Monitor Pulse Oximetry (%) 99 Oxygen Delivery Method Room Air Varicose Veins Patient in this day for EVLT of left AASV Hakeem Greenwood MD personally performed the services described in this documentation, as scribed by Justo Stallworth RN in my presence and it is both accurate and complete. Justo Greenwood RN, am scribing for, and in the presence of, Dr. Hakeem Walters and in the presence of the patient. thigh: bilateral (symptoms right > left), knee: bilateral, calf: bilateral, ankle: bilateral and estrada: bilateral aching, cramping, dull and tender 6 5 years Worsened in recent months: Yes standing elevating extremities, compression stockings and exercise Reports muscle spasms of leg, heaviness, limb pain, edema and leg edema History of lower extremity trauma: No Superficial thrombophlebitis: No Family history of varicose veins: yes Has patient had previous lower extremity venous surgery: No Patient has previously received the following treatment(s) for lower extremity varicose veins: Reports none Does patient have a history of : yes Does patient intend to have future pregnancies: yes Has patient had lower extremity venous scan with relux testing: No Support hose used: Yes Problems walking or doing physical activity: No How does it affect you: often has to stop and rest and elevate legs Do you walk much: Yes Do you stand much: Yes Review of Systems ROS Narrative Hakeem Greenwood MD personally performed the services described in this documentation, as scribed by Justo Stallworth RN in my presence and it is both accurate and complete. Justo Greenwood RN, am scribing for, and in the presence of, Dr. Hakeem Walters and in the presence of the patient. Status of ROS 10 or more systems reviewed and unremark able except as noted in history and below Cardiovascular Reports: edema Integumentary/Breast Reports: itching, skin swelling and changes in skin color [facility] Medical History (Updated 02/28/24 @ 07:49 by Nelda Avila RN) Phlebitis and thrombophlebitis of superficial vessels of right lower extremity ?I80.01 - Phlebitis and thrombophlebitis of superficial vessels of right lower extremity (ICD-10) Superficial thrombophlebitis ?I80.9 - Phlebitis and thrombophlebitis of unspecified site (ICD-10) delivery delivered ?O82 - Encounter for delivery without indication (ICD-10) Varicose veins of bilateral lower extremities with pain ?I83.813 - Varicose veins of bilateral lower extremities with pain (ICD-10) Pain due to varicose veins of both lower extremities ?I83.813 - Varicose veins of bilateral lower extremities with pain (ICD-10) Surgical History (Updated 03/13/24 @ 08:53 by Justo Stallworth) Status post laser ablation of incompetent vein ?Z98.890 - Other specified postprocedural states (ICD-10) Status post laser ablation of incompetent vein ?Z98.890 - Other specified postprocedural states (ICD-10) H/O breast augmentation ?Z98.82 - Breast implant status (ICD-10) History of appendectomy ?Z90.49 - Acquired absence of other specified parts of digestive tract (ICD- 10) H/O hemorrhoidectomy ?Z98.890 - Other specified postprocedural states (ICD-10) Family History (Updated 01/29/24 @ 11:16 by Justo Stallworth) Other Family history of diabetes mellitus Heart disease Varicose veins of bilateral lower extremities with pain Social History (Updated 01/29/24 @ 11:17 by Justo Stallworth) Within the past year, how often did you have a drink containing alcohol: 2-4 times a month Smoking status: Never smoker Non-prescribed substance use: denies use Meds Home Medications and Allergies Home Medications ?Medication ?Instructions ?Recorded ?Confirmed ?Type drospirenone-ethinyl estradiol .ROUTE 01/29/24 History spironolactone .ROUTE 01/29/24 History magnesium 200 mg tablet 200 mg PO DAILY 01/30/24 01/30/24 History Allergies Allergy/AdvReac Type Severity Reaction Status Date / Time No Known Drug Allergies Allergy Verified 01/29/24 11:14 Exam Narrative Exam Narrative: IHakeem MD personally performed the services described in this documentation, as scribed by Justo Stallworth RN in my presence and it is both accurate and complete. IJusto RN, am scribing for, and in the presence of, Dr. Hakeem Walters and in the presence of the patient. Constitutional Documenting provider has reviewed patient's vital signs: yes Common normals: oriented x3 Cardio Peripheral pulses: dorsalis pedis pulses present Extremity Common normals: normal capillary refill General: edema Right lower extremity: lower leg Right lower leg: inspection and palpation Left lower extremity: lower leg Left lower leg: inspection and palpation Neuro Common normals: oriented x3 Assessment and Plan Assessment and Plan (1) Varicose veins of bilateral lower extremities with pain: Plan f/u evaluation with physician along with left leg limited u/s IHakeem MD personally performed the services described in this documentation, as scribed by Justo Stallworth RN in my presence and it is both accurate and complete. IJusto RN, am scribing for, and in the presence of, Dr. Hakeem Walters and in the presence of the patient. Procedures Procedure Instructions Procedures Plan of care: Risks and benefits of the procedure were discussed at length and informed written consent was obtained.? Time-out completed for verification of correct patient, procedure and site.? Staff present during time-out: Justo Stallworth RN,? Nixon Lazo MD, Judith Mcmullen RDMS,RVT. Time Out Time_822 Patient prepped and procedure performed in usual sterile fashion. Risk of injury related to use of Diode laser and/or laser devices? __CR___ ? Serial number of laser used :? [id number] Control panel self test performed, electrical cords in good condition, floor is dry, basin of water available, fire extinguisher in close proximity_CR__ Polycarbonate goggles available and Laser warning signs outside of doors___CR__ Eye protection provided to patient and staff in room_CR___ Use of laser retardant drapes and dull blackened instruments as directed__CR___ Use of nonflammable prep solutions and use of saline soaked sponges to protect tissues as indicated _CR___ Length __7___ cm Laser operated by __Dr. Walters Physician verbal confirmation laser locked in place__CR__ Laser start time (date and time) __03/13/2024@0837 Laser stop time(date and time) __03/13/2024@0838 Sullivan _8.0___ Average laser use __343 Joules Average laser use__43 seconds Pulse continuous ___CR_? Pulse intermittent ___ Amount of Tumescent used _75cc Evaluated patient for signs and symptoms of electrical injury __CR___ ? Skin clear at insertion site __CR___ Patient tolerated procedure well.? Left leg Coban dressing applied to access site.? Applied Left thigh high leg compression stocking. Will return on 03/17/2024 for Left leg limited venous ultrasound and exam. IHakeem MD personally performed the services described in this documentation, as scribed by Justo Stallworth RN in my presence and it is both accurate and complete. I, Justo Stallworth RN, am scribing for, and in the presence of, Dr. Hakeem Walters and in the presence of the patient.
--- NOTE | 2024-03-12 11:26 | W.VEIN ---
Discharge Plan Discharge Disposition: Home, Self-Care Outpatient Diagnostics: [facility] Facility EST LMTD (Routine) Timeframe: 2 Weeks Facility: [facility] - Location[facility] Ordered By: Hakeem Walters [facility] EXT Venous LT Limited (Routine) Timeframe: 2 Weeks Facility: [facility] - Location: [facility] Ordered By: Hakeem Walters Follow Up Appointments: 03/17/2024 Plan of Treatment: f/u evaluation with physician along with left leg limited u/s Patient Instructions: Endovenous Ablation (DC) Print Language: Somali Discharge Date/Time: 03/13/24 08:58
[2024-03-13] MEDS: 0.9 % SODIUM CHLORIDE 500 ML, LIDOCAINE HCL 20 ML, SODIUM BICARBONATE 10 MEQ INJ (07:50)
[2024-03-13] MEDS: LIDOCAINE HCL/PF 5 ML, SODIUM BICARBONATE 0.5 MEQ INJ (07:50)
--- NOTE | 2024-03-13 07:51 | VEIN_ITS ---
[address] [address] Patient Name: JAY TORRES MRN: [id number] date: 1995 Sex: F Assigned Patient Location: Current Patient Location: Accession/Order Number: [id number] Exam Date: 03/13/2024 07:54 Report Date: 03/13/2024 09:55 At the request of: ZAFAR BAUM Procedure: VC Endovenous Ablation 1VeinLT EXAMINATION: VC Endovenous Ablation 1VeinLT HISTORY: I83.813 - Varicose veins of bilateral lower extremities w... The risks and benefits of the procedure had been previously discussed, and were rediscussed at length. Informed written consent was obtained. Justo Stallworth RN and Marilee Serrano RDMS assisted. Time out procedure was performed. The left lower extremity was prepared and draped in the usual sterile fashion to allow knee flexion in the sterile field. Duplex ultrasound probe was draped in a sterile cover, sterile transmission gel was used. Venous mapping was performed with the areas of dilation and large tributaries marked. The total length was 7 cm from the entry upper mid thigh to 3 cm below the Saphenofemoral junction. The diameter of the left anterior accessory saphenous vein ranged from 6.0 mm. A 30 gauge needle and 1% buffered lidocaine was used to anesthetize the entry site. A 4 mm incision was made with a scalpel and the saphenous vein was entered percutaneously under direct ultrasound guidance with a micropuncture set, a single stick was successful in gaining access. A micro-guide wire was inserted and the needle removed. A micro-set including a dilator was inserted over the microwire and the needle and dilator were removed. A guide wire was inserted through the micro-set and guided through the saphenous vein to the saphenofemoral junction. The dilator was removed and an introducer sheath was inserted over the wire until the end of the sheath entered the saphenofemoral junction. The dilator and wire were removed and the 600 micron fiber was introduced and placed and positioned so that it extended beyond the sheath and was 3 cm distal to the saphenofemoral or saphenopopliteal junction. Final position of the fiber was determined by ultrasound guidance and duplex imaging. Tumescent anesthetic was delivered by ultrasound guidance. 75 cc of fluid was delivered along the entire course of the saphenous vein. The solution consisted of 1000 cc of normal saline with 40 mL of 1% lidocaine and 20 mL of sodium bicarbonate. A final positioning check was made. The energy source was turned on by means of the foot pedal and the fiber and sheath were withdrawn. The total number of Joules delivered was 343. The laser was active for 43 seconds under continuous pulse, average laser use of 8 J. Laser start time: 8:37 AM Laser stop time: 8:38 AM Date: 03/13/2024. A duplex ultrasound revealed compressibility and flow at the saphenofemoral junction immediately after the procedure. Hemostasis at the access site was achieved. The skin incision of the saphenous vein was closed with a 4 x 4. A compression stocking was applied. Postop instructions were given. A follow up appointment was recommended and scheduled. The patient tolerated the procedure well. Electronically authenticated by: RICHELLE GALVEZ Date: 03/13/2024 09:55
--- OUTSIDE RECORDS SUMMARY | 2024-03-13 07:51 | XMS_ITS | CCD ---
Author Organization [facility] Care Team Providers Care Internet Researcher Name Role Phone Bao Rosado Unavailable Unavailable Bao Rosado Unavailable Unavailable America Ely Unavailable America Ely Primary Care Provider [phone] America Ely Primary Care Provider America Ely CNP Primary Care Provider Tan SHAIKH, Desiree Arredondo Primary Care Provider Tan SHAIKH, Desiree Arredondo Primary Care Provider Yohan Reyna MD Unavailable DESIREE MADDOX Primary Care Unavailab le YOHAN REYNA Referring Unavailable SUBIT, YOHAN LAEK Admitting Unavailable SubYohan maya MD Unavailable Carlos Narayan MD, Gay Arzola Primary Care Pro vider Yohan Reyna MD Unavailable Carlos Narayan MD, Gay Arzola Primary Care Pro vider Daiana TREND INVESTIGATOR, Francisco Bobo Primary Care Provider [phone] Daiana TREND INVESTIGATOR, Francisco Bobo Primary Care Provider Daiana TREND INVESTIGATOR, Francisco Bobo Unavailable FRANCISCO AHMADI Primary Care Unavailable ELLA CANTU Attending Unavailable DAIANAFRANCISCO Lubin Primary Care Unavailable RAUDEL JORDAN Attending Unavailable FRANCISCO AHMADI Primary Care Unavailable FRANCISCO AHMADI Attending Unavailable FRANCISCO AHMADI Primary Care Unavailable FRANCISCO AHMADI Attending Unavailable DAIANAFRANCISCO Lubin Primary Care Unavailable ELLA PIMENTEL Attending Unavailabl e DAIANA, FRANCISCO BROWN Primary Care Unavailable DAIANA, FRANCISCO BROWN Attending Unavailable PIMENTEL, ELLA RIBERA Attending Unavailabl e DAIANA, FRANCISCO BROWN Primary Care Unavailable PIMENTEL, ELLA RIBERA Referring Unavailabl e PIMENTEL, ELLA RIBERA Referring Unavailabl e PIMENTEL, ELLA RIBERA Admitting Unavailabl e DAIANA, FRANCISCO BROWN Primary Care Unavailable DAIANA, FRANCISCO BROWN Primary Care Unavailable ELLA CANTU Referring Unavailable RAUDEL JORDAN Attending Unavailable JOSE RAFAEL, RAUDEL WONG Consulting Unavailable JOSE RAFAEL, RAUDEL WONG Admitting Unavailable Allergies Allergy Classification Reported Allergen(s) Allergy Type Date of Onset Reaction(s) Facility (19 sources) Other; Translations: [OTHER] Propensity to adverse reactions 9 Other (See Comments) [facility] Medications Current Medications Medication Drug Class(es) Dates [...] Active docusate sodium 50 mg / sennosides, snf 8.6 mg oral tablet (4 sources) Start: [...] 06/30/2021 11/21/2021 Discontinued (Patient's Request) Lactobacillus acidophilus (10 sources) End: 03-10-2024 Lactobacillus acidophilus (P ROBIOTIC ORAL) Take by mouth . 03/10/2024 Discontinued (Patient's Request) Lactobacillus ac idophilus (PROBIOTIC ORAL) Take by [...] 0 04/26/2018 Active omega-3 acid ethyl esters (snf) 1000 mg oral capsule (4 sources) take 1 capsule by mouth once daily Vilonia-3 Fatty Acids (FISH OIL) 1000 MG Cap [...] tablet (5 sources) Tetracycline- class Drug End: 06-07-2021 take 100 mg by mouth twice daily [...] on Concha 06/30/21 at 0800, flu vacc [id number] 6mos up(PF) (FLUZONE QUAD/FLULAVAL QUAD/FLUARIX QUAD) syringe 0.5 mL (1 source) Start: 06-30-2021 End: 07-01-2021 inject 0.5 mL by intramuscular injection every twenty-four hours as needed flu vacc [id number] 6mos up(PF) (FLUZONE QUAD/FLULAVAL QUAD/FLUARIX QUAD) syringe [...] Translations: [History of seasonal allergies] 12-15-2016 Episodic Anxiety disorders (2 sources) Anxiety disorder, unspecified; Translations: [Anxiety disorder, unspecified] Onset: 03-11-2024 Chronic Cardiac dysrhythmias (3 sources) Palpitations; Translations: [Palpitations] Episodic Genitourinary symptoms and ill-defined conditions (4 sources) Dysuria; Translations: [Blood in urine] Episodic Nutritional deficiencies (2 sources) Vitamin D deficiency, unspecified; Translations: [Vitamin D deficiency, unspecified] Onset: 03-11-2024 Chronic Other aftercare (1 source) Surgical follow-up; Translations: [Encounter for follow-up examination after completed treatment for conditions other than malignant neoplasm] 09-07-2023 Episodic Other gastrointestinal disorders (4 sources) Constipation; Translations: [Constipation] Onset: 04-26-2018 04-26-2018 Episodic Other nervous system disorders (1 source) Postoperative pain ; Translations: [Other acute postprocedural pain] Episodic Other upper respiratory disease (15 sources) Seasonal allergy; Translations: [Other seasonal allergic rhinitis] Chronic Other upper respiratory disease (2 sources) Other seasonal allergic rhinitis; Translations: [Other seasonal allergic rhinitis] Onset: 11-22-2020 Chronic Phlebitis; thrombophlebitis and thromboembolism (6 sources) Deep venous thrombosis of lower extremity; Translations: [Acute embolism and thrombosis of other specified deep vein of unspecified lower extremity] Onset: 03-10-2024 02-04-2024 Episodic Residual codes; unclassified (3 sources) [...] te Episodic/Chronic Appendicitis and other appendiceal conditions (10 sources) Acute appendicitis; Translations: [Unspecified acute appendicitis] Onset: 08-20-2023 08-20-2023 Episodic Other upper respiratory infections (7 sources) Acute upper respiratory infection; Translations: [Acute upper respiratory infection, unspecified] Onset: 09-24-2021 Resolved: 11-21-2021 11-21-2021 Episodic Residual codes; unclassified (9 sources) Gestation period, 39 weeks; Translations: [39 weeks gestation of ] Onset: 06-29-2021 Resolved: 11-21-2021 Episodic Varicose veins of lower extremity (16 sources) Pain co-occurrent and due to varicose veins of left leg; Translations: [Varicose veins of left lower extremity with pain] Onset: 01-20-2019 01-20-2019 Episodic Results Test Name Value Interpretation Reference Range Facility CBCon 03-11-2024 AUTO NRBC 0.0 % Normal [facility] Comment on above: Performed By: #### 4 [id number] #### LAB [address] [place], [place] [address] Abhi Blankenship M.D. [id number] AUTO NRBC ABS COUNT 0.00 K/mcL Normal 0.00-0.00 [facility] Comment on above: Performed By: #### 4 [id number] #### LAB [address] [place] [address] Abhi Blankenship M.D. [id number] Erythrocyte distribution width (RBC) [Ratio] 13.8 % Normal 11.6-14.8 [facility] Comment on above: Performed By: #### 4 [id number] #### LAB [address] [place] [address] Abhi Blankenship M.D. [id number] Hematocrit (Bld) [Volume fraction] 43.2 % Normal 36.0-46.0 [facility] Comment on above: Performed By: #### 4 [id number] #### LAB [address] [place] [address] Abhi Blankenship M.D. [id number] Hemoglobin (Bld) [Mass/Vol] 14.0 g/dL Normal 12.0-16.0 [facility] Comment on above: Performed By: #### 4 [id number] #### LAB [address] [place] [address] Abhi Blankenship M.D. [id number] MCH (RBC) [Entitic mass] 29.8 pg Normal 26.0-34.0 [facility] Comment on above: Performed By: #### 4 [id number] #### LAB [address] [place] [address] Abhi Blankenship M.D. [id number] MCV (RBC) [Entitic vol] 91.9 fL Normal 80.0-100.0 [facility] Comment on above: Performed By: #### 4 [id number] #### LAB [address] [place] [address] Abhi Blankenship M.D. [id number] MEAN CORPUSCULAR HEMOGLOBIN CONC 32.4 g/dL Normal 31.0-37.0 [facility] Comment on above: Performed By: #### 4 [id number] #### LAB [address] [place] [address] Abhi Blankenship M.D. [id number] Platelet mean volume (Bld) [Entitic vol] 10.1 fL Normal 9.4-12.4 [facility] Comment on above: Performed By: #### 4 [id number] #### LAB [address] [address] Abhi Blankenship M.D. [id number] Platelets (Bld) [#/Vol] 253 10*3/uL Normal 150-400 [facility] Comment on above: Performed By: #### 4 [id number] #### [facility] LAB [address] [address] Abhi Blankenship M.D. [id number] RBC (Bld) [#/Vol] 4.70 10*6/uL Normal 4.00-5.20 [facility] Comment on above: Performed By: #### 4 [id number] #### [facility] LAB [address] [address] Abhi Blankenship M.D. [id number] WBC (Bld) [#/Vol] 7.63 10*3/uL Normal 4.50-11.00 [facility] Comment on above: Performed By: #### 4 [id number] #### LAB [address] [place] [address] Abhi Blankenship M.D. [id number] COMPREHENSIVE METABOLIC PANE [facility] 03-11-2024 Albumin [Mass/Vol] 4.5 g/dL Normal 3.2-5.2 [facility] Comment on above: Order Comment: [facility] has implemented the eGFR calculation approach that does not have a coefficient for race that conforms to the NKF-ASN Task Force Recommendations. Performed By: #### 4 6126 #### LAB [address] [place] [address] Abhi Blankenship M.D. [id number] ALP [Catalytic activity/Vol] 71 U/L Normal 40-140 [facility] Comment on above: Order Comment: [facility] has implemented the eGFR calculation approach that does not have a coefficient for race that conforms to the NKF-ASN Task Force Recommendations. Performed By: #### 4 6126 #### LAB [address] [place] [address] Abhi Blankenship M.D. [id number] ALT [Catalytic activity/Vol] 12 U/L Normal 0-35 U/L [facility] Comment on above: Order Comment: [facility] has implemented the eGFR calculation approach that does not have a coefficient for race that conforms to the NKF-ASN Task Force Recommendations. Performed By: #### 4 6126 #### LAB [address] [address] Abhi Blankenship M.D. [id number] Anion gap [Moles/Vol] 15 mmol/L Normal 10-20 [facility] Comment on above: Order Comment: [facility] has implemented the eGFR calculation approach that does not have a coefficient for race that conforms to the NKF-ASN Task Force Recommendations. Performed By: #### 4 6126 #### LAB [address] [place] [address] Abhi Blankenship M.D. [id number] AST [Catalytic activity/Vol] 21 U/L Normal 0-35 U/L [facility] Comment on above: Order Comment: [facility] has implemented the eGFR calculation approach that does not have a coefficient for race that conforms to the NKF-ASN Task Force Recommendations. Result Comment: Slig htly Hemolyzed Performed By: #### 4 6126 #### LAB [address] [address] Abhi Blankenship M.D. [id number] Bilirubin [Mass/Vol] 0.5 mg/dL Normal 0.0-1.3 [facility] Comment on above: Order Comment: [facility] has implemented the eGFR calculation approach that does not have a coefficient for race that conforms to the NKF-ASN Task Force Recommendations. Performed By: #### 4 6117 #### LAB [address] [place] [address] Abhi Blankenship M.D. [id number] Calcium [Mass/Vol] 9.3 mg/dL Normal 8.4-10.2 [facility] Comment on above: Order Comment: [facility] has implemented the eGFR calculation approach that does not have a coefficient for race that conforms to the NKF-ASN Task Force Recommendations. Performed By: #### 4 6126 #### LAB [address] [place] [id number] Abhi Blankenship M.D. [id number] Chloride [Moles/Vol] 102 mmol/L Normal 98-108 [facility] Comment on above: Order Comment: [facility] has implemented the eGFR calculation approach that does not have a coefficient for race that conforms to the NKF-ASN Task Force Recommendations. Performed By: #### 4 6126 #### LAB [address] [place] [address] Abhi Blankenship M.D. [id number] Creatinine [Mass/Vol] 0.69 mg/dL Normal 0.40-1.10 [facility] Comment on above: Order Comment: [facility] has implemented the eGFR calculation approach that does not have a coefficient for race that conforms to the NKF-ASN Task Force Recommendations. Performed By: #### 4 6126 #### LAB [address] [place] [address] Abhi Blankenship M.D. [id number] EGFR 119 mL/min/1.73 m2 Normal >=60 [facility] Comment on above: Order Comment: [facility] has implemented the eGFR calculation approach that does not have a coefficient for race that conforms to the NKF-ASN Task Force Recommendations. Result Comment: Idania mated GFR was calculated using the 2020 CKD-EPI creatinine equation. Performed By: #### 4 6126 #### LAB [address] [place] [address] Abhi Blankenship M.D. [id number] Glucose [Mass/Vol] 78 mg/dL Normal 65-99 [facility] Comment on above: Order Comment: [facility] has implemented the eGFR calculation approach that does not have a coefficient for race that conforms to the NKF-ASN Task Force Recommendations. Performed By: #### 4 6126 #### LAB [address] [place] [address] Abhi Blankenship M.D. [id number] HCO3 (Bld) [Moles/Vol] 25 mmol/L Normal 21-32 [facility] Comment on above: Order Comment: [facility] has implemented the eGFR calculation approach that does not have a coefficient for race that conforms to the NKF-ASN Task Force Recommendations. Performed By: #### 4 6126 #### LAB [address] [place] [address] Abhi Blankenship M.D. [id number] Potassium [Moles/Vol] 4.2 mmol/L Normal 3.5-5.1 [facility] Comment on above: Order Comment: [facility] has implemented the eGFR calculation approach that does not have a coefficient for race that conforms to the NKF-ASN Task Force Recommendations. Result Comment: Slig htly Hemolyzed Performed By: #### 4 6126 #### LAB [address] [place] [address] Abhi Blankenship M.D. [id number] Protein [Mass/Vol] 7.1 g/dL Normal 6.0-8.0 [facility] Comment on above: Order Comment: [facility] has implemented the eGFR calculation approach that does not have a coefficient for race that conforms to the NKF-ASN Task Force Recommendations. Performed By: #### 4 6126 #### LAB [address] [place] [address] Abhi Blankenship M.D. [id number] Sodium [Moles/Vol] 138 mmol/L Normal 135-145 [facility] Comment on above: Order Comment: [facility] has implemented the eGFR calculation approach that does not have a coefficient for race that conforms to the NKF-ASN Task Force Recommendations. Performed By: #### 4 6126 #### LAB [address] [place] [address] Abhi Blankenship M.D. [id number] Urea nitrogen [Mass/Vol] 15 mg/dL Normal 8-25 [facility] Comment on above: Order Comment: [facility] has implemented the eGFR calculation approach that does not have a coefficient for race that conforms to the NKF-ASN Task Force Recommendations. Performed By: #### 4 6126 #### [facility] [address] [place] [address] Abhi Blankenship M.D. [id number] Urea nitrogen/Creatinine [Mass ratio] 21.7 mg/mg High 10.0-20.0 [facility] Comment on above: Order Comment: [facility] has implemented the eGFR calculation approach that does not have a coefficient for race that conforms to the NKF-ASN Task Force Recommendations. Performed By: #### 4 6126 #### LAB [address] [place] [address] Abhi Blankenship M.D. [id number] HEMOGLOBIN A1Con 03-11-2024 Glucose [Mass/Vol] 103 mg/dL Normal 74-114 [facility] Comment on above: Performed By: #### 4 8202 #### LAB [address] [place] [address] Abhi Blankenship M.D. [id number] HbA1c (Bld) [Mass fraction] 5.2 % Normal 4.2-5.6 [facility] Comment on above: Performed By: #### 4 8202 #### [facility] [address] [place] [address] Abhi Blankenship M.D. [id number] LIPID PANELon 03-11-2024 Cholesterol [Mass/Vol] 173 mg/dL Normal 100-199 [facility] Comment on above: Result Comment: [place] on[place] Cholesterol Education Program Guidelines: Cholesterol Desirable: <200 mg/dL Borderline High: 200-239 mg/dL High: greater than or equal to 240 mg/dL Performed By: #### 4 6087 #### LAB [address] [place] [address] Abhi Blankenship M.D. [id number] Cholesterol in HDL [Mass/Vol] 67 mg/dL Normal 40-59 [facility] Comment on above: Result Comment: [facility] Cholesterol Education Program Guidelines: HDL Cholesterol Low: <40 mg/dL Near Optimal: 40-59 mg/dL High: greater than or equal to 60 mg/dL Performed By: #### 4 6087 #### LAB [address] [place] [address] Abhi Blankenship M.D. [id number] Cholesterol.total/Chol esterol in HDL [Mass ratio] 2.6 {ratio} Normal [facility] Comment on above: Result Comment: Fema le Cholesterol/HDL Ratio: Average risk: 4.4 1/2 average risk: 3.3 2 x average risk: 7.1 Performed By: #### 4 6087 #### LAB [address] [place] [address] Abhi Blankenship M.D. [id number] LDL CHOLESTEROL CALCULATED 93 mg/dL Normal 10-130 [facility] Comment on above: Result Comment: [facility] Cholesterol Education Program Guidelines: LDL Cholesterol Optimal: <100 mg/dL Near Optimal/above Optimal: 100-129 mg/dL Borderline High: 130-159 mg/dL High: 160-189 mg/dL Very High: greater than or equal to 190 mg/dL Performed By: #### 4 6087 #### LAB [address] [place] [address] Abhi Blankenship M.D. [id number] NON HDL CHOL 106 mg/dL Normal [facility] Comment on above: Result Comment: [facility] Cholesterol Education Program Guidelines: NON HDL Cholesterol Desirable: <130 mg/dL Borderline High: 130-159 mg/dL High: 160-189 mg/dL Very High: > or = 190 mg/dL Performed By: #### 4 6087 #### LAB [address] [place] [address] Abhi Blankenship M.D. [id number] Triglyceride [Mass/Vol] 64 mg/dL Normal 30-150 [facility] Comment on above: Result Comment: [place] Cholesterol Education Program Guidelines: Triglyceride Normal: <150 mg/dL Borderline High: 150-199 mg/dL High: 200-499 mg/dL Very High: greater than or equal to 500 mg/dL Performed By: #### 4 6087 #### LAB [address] [place] [address] Abhi Blankenship M.D. [id number] TSHon 03-11-2024 TSH Qn 1.66 m[IU]/L Normal 0.27-4.20 [facility] Comment on above: Performed By: #### 4 6613 #### LAB [address] [place] [address] Abhi Blankenship M.D. [id number] VITAMIN D, TOTAL, 25-OHon VITAMIN D 25-HYDROXY 29 ng/mL Normal 20-100 [facility] Comment on above: Order Comment: Vitam in D Expected Values Deficiency: 0-10 Insufficiency: 10-20 Sufficient: 20-100 Toxicity: >100 Performed By: #### 4 6678 #### LAB [address] [place] [address] Abhi Blankenship M.D. [id number] ANTITHROMBIN IIIon ANTITHROMBIN III 98 % Normal 85-130 [facility] Comment on above: Performed By: #### 4 5109 #### [facility] [address] [place] [address] Anderson Cano M.D. [id number] APTTon 03-10-2024 aPTT Coag (Bld) [Time] 31 s Normal 23-34 [facility] Comment on above: Order Comment: Thera peutic range for APTT's is 68 - 104 seconds Performed By: #### 4 5113 #### LAB [address] [place] [address] Abhi Blankenship M.D. [id number] FIBRINOGENon 03-10-2024 FIBRINOGEN LEVEL 291 mg/dL Normal 224-483 [facility] Comment on above: Performed By: #### 4 5616 #### LAB [address] [place] [address] Abhi Blankenship M.D. [id number] PT/INRon 03-10-2024 INR Coag (PPP) [Relative time] 1.1 {INR} Normal 0.8-1.1 [facility] Comment on above: Order Comment: Max galo the induction phase of oral anticoagulation, the INR may not reflect the anticoagulation status of the patient. Therapeutic ranges for INR's are: Most clinical situations: INR 2.0-3.0 Mechanical Prosthetic Valve: INR 2.5-3.5 Critical: INR >5.0 Performed By: #### 4 6391 #### LAB [address] [place], [place] [address] Abhi Blankenship M.D. [id number] PT Coag (PPP) [Time] 13.7 s Normal 11.8-14.3 [facility] Comment on above: Order Comment: Max galo the induction phase of oral anticoagulation, the INR may not reflect the anticoagulation status of the patient. Therapeutic ranges for INR's are: Most clinical situations: INR 2.0-3.0 Mechanical Prosthetic Valve: INR 2.5-3.5 Critical: INR >5.0 Performed By: #### 4 6391 #### LAB [address] [place], [place] [address] Abhi Blankenship M.D. [id number] THROMBIN TIMEon 03-10-2024 THROMBIN TIME 17.2 seconds Normal 14.8-18.0 [facility] Comment on above: Performed By: #### 4 6557 #### [facility] [address] [place] [address] Anderson Cano M.D. [id number] US DUPLEX VENOUS LEGS BILATE RALon 03-10-2024 US DUPLEX VENOUS LEGS BILATERAL Patient Info Name: JAY ANTONIO Age: 29 years : 1995 Gender: Female Exam Date: 03/10/2024 11:03 AM Patient Status: Outpatient Record Press Operator: Fransisca Russell RDMS, RVT Referring Physician: ELLA PIMENTEL ; Indications [I82.90 - - 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 Procedure Description 35653 Duplex examination using B-mode, color and spectral Doppler of extremity veins including responses to compression and other maneuvers; complete bilateral study. Conclusions * Bilateral. * No evidence of deep vein thrombosis in the lower extremities bilaterally. * Right. * The right saphenofemoral junction and superficial epigastric vein remain patent. The great saphenous vein is noncompressible from the proximal thigh to the distal thigh consistent with ablation. * Left. * No evidence of superficial vein thrombosis in the left lower extremity. Risk Factors right GSV 2 weeks ago outside clinic. Varicose veins. . Report Signatures Finalized by JOSE ANTONIO Villatoro DO on 03/10/2024 11:44 AM External Iliac: - External Iliac: Normal External Iliac: Normal External Iliac: - External Iliac: Normal External Iliac: Normal Common Femoral: Complete Common Femoral: Normal Common Femoral: Normal Common Femoral: Complete Common Femoral: Normal Common Femoral: Normal Femoral: Complete Femoral: Complete Femoral: Normal Femoral: Normal Femoral: Normal Femoral: Normal Peroneal: Complete Peroneal: Complete Peroneal: - Peroneal: - Peroneal: - Peroneal: - Profunda Femoral: Complete Profunda Femoral: - Profunda Femoral: Complete Profunda Femoral: - Profunda Femoral: - Popliteal: Complete Popliteal: Complete Popliteal: Normal Popliteal: Normal Popliteal: Normal Popliteal: Normal Posterior Tibial: Complete Posterior Tibial: Complete Posterior Tibial: - Posterior Tibial: - Posterior Tibial: - Posterior Tibial: - Gastrocnemius: - Gastrocnemius: - Gastrocnemius: - Gastrocnemius: - Gastrocnemius: - Gastrocnemius: - Soleal: - Soleal: - Soleal: - Soleal: - Soleal: - Soleal: - Great Saphenous: None Great Saphenous: Complete Great Saphenous: Absent Great Saphenous: Normal Great Saphenous: Absent Great Saphenous: Normal Small Saphenous: - Small Saphenous: - Small Saphenous: - Small Saphenous: - Small Saphenous: - Small Saphenous: - - Normal [facility] DUPLEX VENOUS LEGS BILATERAL Patient Info Name: JAY ANTONIO Age: 29 years : 1995 Gender: Female Exam Date: 03/10/2024 11:03 AM Patient Status: Outpatient Record Press Operator: Fransisca Russell RDMS, RVT Referring Physician: ELLA PIMENTEL ; Indications [I82.90 - - 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 Procedure Description 40449 Duplex examination using B-mode, color and spectral Doppler of extremity veins including responses to compression and other maneuvers; complete bilateral study. Conclusions * Bilateral. * No evidence of deep vein thrombosis in the lower extremities bilaterally. * Right. * The right saphenofemoral junction and superficial epigastric vein remain patent. The great saphenous vein is noncompressible from the proximal thigh to the distal thigh consistent with ablation. * Left. * No evidence of superficial vein thrombosis in the left lower extremity. Risk Factors right GSV 2 weeks ago outside clinic. Varicose veins. . Report Signatures Finalized by JOSE ANTONIO Villatoro DO on 03/10/2024 11:44 AM External Iliac: - External Iliac: Normal External Iliac: Normal External Iliac: - External Iliac: Normal External Iliac: Normal Common Femoral: Complete Common Femoral: Normal Common Femoral: Normal Common Femoral: Complete Common Femoral: Normal Common Femoral: Normal Femoral: Complete Femoral: Complete Femoral: Normal Femoral: Normal Femoral: Normal Femoral: Normal Peroneal: Complete Peroneal: Complete Peroneal: - Peroneal: - Peroneal: - Peroneal: - Profunda Femoral: Complete Profunda Femoral: - Profunda Femoral: Complete Profunda Femoral: - Profunda Femoral: - Popliteal: Complete Popliteal: Complete Popliteal: Normal Popliteal: Normal Popliteal: Normal Popliteal: Normal Posterior Tibial: Complete Posterior Tibial: Complete Posterior Tibial: - Posterior Tibial: - Posterior Tibial: - Posterior Tibial: - Gastrocnemius: - Gastrocnemius: - Gastrocnemius: - Gastrocnemius: - Gastrocnemius: - Gastrocnemius: - Soleal: - Soleal: - Soleal: - Soleal: - Soleal: - Soleal: - Great Saphenous: None Great Saphenous: Complete Great Saphenous: Absent Great Saphenous: Normal Great Saphenous: Absent Great Saphenous: Normal Small Saphenous: - Small Saphenous: - Small Saphenous: - Small Saphenous: - Small Saphenous: - Small Saphenous: - - Dictated by: LARISSA POLLARD III on SunMar 10, 2024 11:46:55 AM EDT Transcribed by: LARISSA POLLARD III on SunMar 10, 2024 11:46:55 AM EDT Finalized by: LARISSA POLLARD III on SunMar 10, 2024 11:46:55 AM EDT Normal [facility] Ultrasound duplex venous leg s bilaton 03-10-2024 Patient Info Name: JAY ANTONIO Age: 29 years : 1995 Gender: Female Exam Date: 03/10/2024 11:03 AM Patient Status: Outpatient Record Press Operator: Fransisca Russell RDMS, RVT Referring Physician: ELLA PIMENTEL ; Indications [I82.90 - - 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 Procedure Description 70625 Duplex examination using B-mode, color and spectral Doppler of extremity veins including responses to compression and other maneuvers; complete bilateral study. Conclusions * Bilateral. * No evidence of deep vein thrombosis in the lower extremities bilaterally. * Right. * The right saphenofemoral junction and superficial epigastric vein remain patent. The great saphenous vein is noncompressible from the proximal thigh to the distal thigh consistent with ablation. * Left. * No evidence of superficial vein thrombosis in the left lower extremity. Risk Factors right GSV 2 weeks ago outside clinic. Varicose veins. . Report Signatures Finalized by JOSE ANTONIO Villatoro DO on 03/10/2024 11:44 AM External Iliac: - External Iliac: Normal External Iliac: Normal External Iliac: - External Iliac: Normal External Iliac: Normal Common Femoral: Complete Common Femoral: Normal Common Femoral: Normal Common Femoral: Complete Common Femoral: Normal Common Femoral: Normal Femoral: Complete Femoral: Complete Femoral: Normal Femoral: Normal Femoral: Normal Femoral: Normal Peroneal: Complete Peroneal: Complete Peroneal: - Peroneal: - Peroneal: - Peroneal: - Profunda Femoral: Complete Profunda Femoral: - Profunda Femoral: Complete Profunda Femoral: - Profunda Femoral: - Popliteal: Complete Popliteal: Complete Popliteal: Normal Popliteal: Normal Popliteal: Normal Popliteal: Normal Posterior Tibial: Complete Posterior Tibial: Complete Posterior Tibial: - Posterior Tibial: - Posterior Tibial: - Posterior Tibial: - Gastrocnemius: - Gastrocnemius: - Gastrocnemius: - Gastrocnemius: - Gastrocnemius: - Gastrocnemius: - Soleal: - Soleal: - Soleal: - Soleal: - Soleal: - Soleal: - Great Saphenous: None Great Saphenous: Complete Great Saphenous: Absent Great Saphenous: Normal Great Saphenous: Absent Great Saphenous: Normal Small Saphenous: - Small Saphenous: - Small Saphenous: - Small Saphenous: - Small Saphenous: - Small Saphenous: - - FUJI SYNAPSE CV Hannah Pollard III, DO - 03/10/2024 Patient Info Name: JAY ANTONIO Age: 29 years : 1995 Gender: Female Exam Date: 03/10/2024 11:03 AM Patient Status: Outpatient Record Press Operator: Fransisca Russell, GLORIA, RVT Referring Physician: ELLA PIMENTEL ; Indications [I82.90 - - 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 Conclusions * Bilateral. * No evidence of deep vein thrombosis in the lower extremities bilaterally. * Right. * The right saphenofemoral junction and superficial epigastric vein remain patent. The great saphenous vein is noncompressible from the proximal thigh to the distal thigh consistent with ablation. * Left. * No evidence of superficial vein thrombosis in the left lower extremity. Risk Factors right GSV 2 weeks ago outside clinic. Varicose veins. . Report Signatures Finalized by JOSE ANTONIO Villatoro DO on 03/10/2024 11:44 AM External Iliac: - External Iliac: Normal External Iliac: Normal External Iliac: - External Iliac: Normal External Iliac: Normal Common Femoral: Complete Common Femoral: Normal Common Femoral: Normal Common Femoral: Complete Common Femoral: Normal Common Femoral: Normal Femoral: Complete Femoral: Complete Femoral: Normal Femoral: Normal Femoral: Normal Femoral: Normal Peroneal: Complete Peroneal: Complete Peroneal: - Peroneal: - Peroneal: - Peroneal: - Profunda Femoral: Complete Profunda Femoral: - Profunda Femoral: Complete Profunda Femoral: - Profunda Femoral: - Popliteal: Complete Popliteal: Complete Popliteal: Normal Popliteal: Normal Popliteal: Normal Popliteal: Normal Posterior Tibial: Complete Posterior Tibial: Complete Posterior Tibial: - Posterior Tibial: - Posterior Tibial: - Posterior Tibial: - Gastrocnemius: - Gastrocnemius: - Gastrocnemius: - Gastrocnemius: - Gastrocnemius: - Gastrocnemius: - Soleal: - Soleal: - Soleal: - Soleal: - Soleal: - Soleal: - Great Saphenous: None Great Saphenous: Complete Great Saphenous: Absent Great Saphenous: Normal Great Saphenous: Absent Great Saphenous: Normal Small Saphenous: - Small Saphenous: - Small Saphenous: - Small Saphenous: - Small Saphenous: - Small Saphenous: - - [facility] Radiology Study observation (narrative) [facility] Basic metabolic 2000 panelon 08-21-2023 Anion gap [Moles/Vol] 9 mmol/L Low 10 - 2 0 mmol/L [facility] Calcium [Mass/Vol] 8.8 mg/dL 8.4 - 10. 2 mg/dL [facility] Chloride [Moles/Vol] 110 mmol/L High 98 - 10 8 mmol/L [facility] Creatinine [Mass/Vol] 0.53 mg/dL 0.40 - 1.10 mg/dL [facility] GFR/1.73 sq M.predicted CKD-EPI (S/P/Bld) [Vol rate/Area] 128 - PINF [facility] Comment on above: Estimated GFR was ca lculated using the 2020 CKD-EPI creatinine equation. Glucose [Mass/Vol] 110 mg/dL High 65 - 99 mg/dL [facility] HCO3 [Moles/Vol] 24 mmol/L 21 - 32 mmol/L [facility] Interpretation and review of laboratory results Abnormal [facility] Potassium [Moles/Vol] 4.3 mmol/L 3.5 - 5.1 mmol/L [facility] Sodium [Moles/Vol] 139 mmol/L 135 - 145 mmol/L [facility] Urea nitrogen [Mass/Vol] 11 mg/dL 8 - 25 mg/dL [facility] Urea nitrogen/Creatinine [Mass ratio] 20.8 mg/mg High 10.0 - 20.0 [facility] Laboratory Services has implemented the eGFR calculation approach that does not have a coefficient for race that conforms to the NKF-ASN Task Force Recommendations. [facility] CBC panel Auto (Bld)on 08-20 Erythrocyte distribution width (RBC) [Entitic vol] 13.5 % 11.6 - 14.8 % [facility] Hematocrit (Bld) [Volume fraction] 36.6 % 36.0 - 46.0 % [facility] Hemoglobin (Bld) [Mass/Vol] 12.0 g/dL 12.0 - 16.0 g/dL [facility] Interpretation and review of laboratory results Abnormal [facility] MCH (RBC) [Entitic mass] 29.9 pg 26.0 - 34.0 pg [facility] MCHC (RBC) [Mass/Vol] 32.8 g/dL 31.0 - 37.0 g/dL [facility] MCV (RBC) [Entitic vol] 91.3 fL 80.0 - 100.0 fL [facility] Nucleated RBC (Bld) [#/Vol] 0.00 10*3/uL [facility] Nucleated RBC/100 WBC (Bld) [Ratio] 0.0 % [facility] Platelet mean volume (Bld) [Entitic vol] 9.8 fL 9.4 - 12.4 fL [facility] Platelets (Bld) [#/Vol] 208 10*3/uL [facility] RBC (Bld) [#/Vol] 4.01 10*6/uL [facility] W[facility] (Bld) [#/Vol] 11.08 10*3/uL [facility] CT ABDOMEN PELVIS WITH IV [...] Ella Cantu on 08/20/2023 at 1416 hours. [employer] Workstation ID: [id number] Dictated by: QUAN XIONG on SunAug 20, 2023 2:17:38 PM EST Transcribed by: HANS CALDERON on SunAug 20, 2023 2:21:16 PM EST Finalized by: QUAN XIONG on SunAug 20, 2023 6:07:[address] [facility] Comment on above: Order Comment: Injur y/Trauma [...] vol] 13.6 % 11.6 - 14.8 % [facility] Hematocrit (Bld) [Volume fraction] 32.9 % Low 36.0 - 46.0 % [facility] Hemoglobin (Bld) [Mass/Vol] 11.0 g/dL Low 12.0 - 16.0 g/dL [facility] Interpretation and review of laboratory results Abnormal [facility] MCH (RBC) [Entitic mass] 30.1 pg 26.0 - 34.0 pg [facility] MCHC (RBC) [Mass/Vol] 33.4 g/dL 31.0 - 37.0 g/dL [facility] MCV (RBC) [Entitic vol] 90.1 fL 80.0 - 100.0 fL [facility] Nucleated RBC (Bld) [#/Vol] 0.00 10*3/uL [facility] Nucleated RBC/100 WBC (Bld) [Ratio] 0.0 % [facility] Platelet mean volume (Bld) [Entitic vol] 11.4 fL 9.4 - 12.4 fL [facility] Platelets (Bld) [#/Vol] 162 10*3/uL [facility] RBC (Bld) [#/Vol] 3.65 10*6/uL Low [facility] ealt WBC (Bld) [#/Vol] 18.84 10*3/uL High [facility] ABORH Verificationon 022 ABO and Rh group Nom (Bld) Blood group O Rh(D) positive [facility] ABO and Rh group Nom (Bld) ABO/Rh Verification [facility] Comment on above: Patient's ABO/Rh is verified. [facility] Blood type and Indirect anti body screen panel (Bld)on 06-29-2021 ABO and Rh group Nom (Bld) Blood group O Rh(D) positive [facility] Blood group antibody screen Ql Negative [facility] Specimen Expires 07/02/2021 23:59 EST [facility] CBC panel Auto (Bld)on 06-29 Erythrocyte distribution width (RBC) [Entitic vol] 13.7 % 11.6 - 14.8 % [facility] Hematocrit (Bld) [Volume fraction] 37.8 % 36.0 - 46.0 % [facility] Hemoglobin (Bld) [Mass/Vol] 12.8 g/dL 12.0 - 16.0 g/dL [facility] Interpretation and review of laboratory results Abnormal [facility] MCH (RBC) [Entitic mass] 30.0 pg 26.0 - 34.0 pg [facility] MCHC (RBC) [Mass/Vol] 33.9 g/dL 31.0 - 37.0 g/dL [facility] MCV (RBC) [Entitic vol] 88.5 fL 80.0 - 100.0 fL [facility] Nucleated RBC (Bld) [#/Vol] 0.00 10*3/uL [facility] Nucleated RBC/100 WBC (Bld) [Ratio] 0.0 % [facility] Platelet mean volume (Bld) [Entitic vol] 11.4 fL 9.4 - 12.4 fL [facility] Platelets (Bld) [#/Vol] 170 10*3/uL [facility] RBC (Bld) [#/Vol] 4.27 10*6/uL [facility] ealth WBC (Bld) [#/Vol] 12.72 10*3/uL High [facility] SCAN OTHER ORDERSon 06-29-19 Ordered by an unspecified provider. [facility] COVID-19, MOLECULARon 2021 SARS-CoV-2 (COVID-19) RNA ADRIANA+probe Ql (Unsp spec) Not detected Normal Not Detected [facility] Comment on above: Result Comment: This test [...] at the following links: For Healthcare Providers: https://www.fda.gov/media/842210/download For Patients: https://www.fda.gov/media/739713/download Performed By: #### L [id number] #### [facility] [address] [place] [address] Anderson Cano M.D. [id number] Chlamydia/Gonorrhoeae Amplif ied RNAon 06-14-2021 C. trachomatis rRNA ADRIANA+probe Ql (Unsp spec) Negative Negative [facility] N. gonorrhoeae rRNA ADRIANA+probe Ql (Unsp spec) Negative Negative [facility] No Panel Informationon 06-14 [facility] RPRon 06-14-2021 Reagin Ab RPR Ql (S) Non-Reactive Non-Reactive [facility] S. agalactiae DNA ADRIANA+probe Ql (Unsp spec)on 06-14-2021 S. agalactiae Ag Ql (Unsp spec) Negative Negative [facility] NOVEL CORONAVIRUSon 01-29-20 21 PERFORMED BY [facility] Normal [facility] Comment on above: Performed By: #### C COVID #### [place] [address] SARS-CoV-2 (COVID-19) RNA ADRIANA+probe Ql (Unsp spec) Detected Abnormal NOT DETECTED [facility] Comment on above: Result Comment: CALL ED TO AND READ BACK BY Sarah AMATO @1245 BY KLE ENHANCED CONTACT, AND DROPLET ISOLATION IS REQUIRED FOR INPATIENTS WITH SARS-CoV-2. Performed By: #### C COVID #### [place] [address] NARRATIVE This test was performed using isothermal ADRIANA and has been approved as Emergency Use Authorization (EUA) for the qualitative detection [id number] nucleic acid. [facility] Comment on above: Performed By: #### C COVID #### [place] [address] Gestational Diabetes Screen (50G)on 01-17-2021 Glucose 1 Hr post 50 g glucose PO [Mass/Vol] 79 mg/dL 65 - 135 mg/dL [facility] Glucose 1 Hr post 50 g gluco se PO [Mass/Vol]on 01-17-2021 [facility] ECHOCARDIOGRAM COMPLETEOrder ed By: Desiree Maddox on 12-29-2020 Aortic valve area 2.43165 cm [facility] AV mean gradient 2.74747 mmHg [facility] AV peak gradient 4.65648 mmHg [facility] EF 65.2664 % [facility] Patient Info Name: JAY ANTONIO Age: 25 years : 1995 Gender: Female Ht: 160 cm Wt: 64 kg BSA: 1.70 m2 HR: 75 bpm BP: 106 / 69 mmHg Heart Rhythm: Sinus Rhythm Technical Quality: Good Exam Date: 12/29/2020 9:19 AM Patient Status: Outpatient Superintendent Pipelines: Addie Luna, KATHLEEN, RVT Exam Type: ECHOCARDIOGRAM COMPLETE Study Info Indications R00.2 - Palpitations Referring Physician: DESIREE MADDOX ; [id number] BMI: 25.15 kg/m2 Summary 1. Normal transthoracic [...] mmHg MV VTI 27 cm MV Decel [place]ck[place] 838 cm/s2 MV PHT 33 ms MV Area (PHT) 6.7 cm2 4.0-5.0 MV Area (Cont Eq VTI) 2.7 cm2 MV Area Index (Cont Eq VTI) 1.57 cm2/m2 MV Diastolic Function - (more content not included)... [facility], Rad In [email or web address] - 12/29/2020 10:35 AM EDT Patient Info Name: JAY ANTONIO Age: 25 years : 1995 Gender: Female Ht: 160 cm Wt: 64 kg BSA: 1.70 m2 HR: 75 bpm BP: 106 / 69 mmHg Heart Rhythm: Sinus Rhythm Technical Quality: Good Exam Date: 12/29/2020 9:19 AM Patient Status: Outpatient Superintendent Pipelines: Addie Luna, KATHLEEN, RVT Exam Type: ECHOCARDIOGRAM COMPLETE Study Info Indications R00.2 - Palpitations Referring Physician: DESIREE MADDOX ; [id number] BMI: 25.15 kg/m2 Summary 1. Normal transthoracic [...] mmHg MV VTI 27 cm MV Decel [place]ck[place] 838 cm/s2 MV PHT 33 ms MV [...] Valve Name Va (more content not included)... [facility] ABO/RH(D)on 12-15-2020 ABO/RH(D) ABO/RH(D) O POSITIVE Testing performed at [address] Comment on above: Performed By: #### A [facility] #### [place] [address] ANTIBODY SCREENon 12-15-2020 Antibody screen ANTIBODY SCREEN NEGATIVE WORKUP EXPIRES 12/18/2020,2359 Testing performed at [address] Comment on above: Performed By: #### R ESCRN #### [place] [address] Blood type and Indirect anti body screen panel (Bld)Ordered By: Katlin Prieto on 12-15-2020 ABO and Rh group Nom (Bld) O [facility] Rh Type + [facility] FAX REQUESTon 12-15-2020 FAX TO [phone] AND [phone] Normal [facility] Comment on above: Result Comment: Test ing performed at [place] [address] Performed By: #### F X #### [place] [address] FAX TO [phone] AND [phone] Normal [facility] Comment on above: Result Comment: Test ing performed at [place] [address] Performed By: #### F X #### [place] [address] HIV 1/2 Screen (4th Generati on)on 12-15-2020 HIV 1+2 Ab+HIV1 p24 Ag IA Ql Negative Negative [facility] Hepatitis B Surface Antigeno n 12-15-2020 HBV surface Ag Ql (S) Negative Negative [facility] Hepatitis C Antibodyon 12-15 HCV Ab Ql (S) Negative Negative [facility] No Panel InformationOrdered By: Katlin Prieto on 12-15-2020 [facility] Rubella Antibody, IgGon 11-18 Rubella virus IgG Ql (S) Immune [facility] T. pallidum IgG Ql (S)on T. pallidum Ab Ql (S) Negative Negative [facility] ECG 12-LEADOrdered By: Desiree Maddox on 11-22-2020 Atrial Rate [facility] P [place] [facility] P-R Interval [facility] Q-T Interval [facility] Q-T Interval (corrected) [facility] QRS Duration [facility] QTC Calculation (Bezet) [facility] R [place] [facility] T [place] [facility] Ventricular Rate [facility] SARS-COV-2,NAAon 07-23-2020 SARS-CoV-2 (COVID-19) RNA ADRIANA+probe Ql (Unsp spec) Not detected Normal [facility] Comment on above: Result Comment: Refe rence range: Not Detected (NOTE) This nucleic acid amplification test was developed and its performance characteristics determined by [employer]. Nucleic acid amplification tests include RT-PCR and [...] left legon 02-11-2019 Non-Invasive Vascular Patient: PACO THOMPSON [facility] Rec#: [id number] (Age): 1995(23y) Study Date: 02/11/2019 Room#: Type: Sex: F Reading: VESO Reading: Hannah Pollard DO, RPVI Referring: ATUL NEVES Superintendent Pipelines: Caryn Winkler Procedure Info: [id number] Study Quality: Lower Venous Reflux: Adequate Diagnosis: [...] Electronically signed at 02/11/2019 16:38:58 by: Hannah Pollard DO, RPVI [facility], [facility] In [facility] [employer] [employer] - 02/11/2019 5:21 PM EDT Non-Invasive Vascular Patient: PACO THOMPSON R [facility] Rec#: [id number] (Age): 1995(23y) Study Date: 02/11/2019 Room#: Type: Sex: F Reading: JOSE Reading: Hannah Pollard DO, RPVI Referring: ATUL NEVES Superintendent Pipelines: Caryn Winkler Procedure Info: [id number] Study Quality: Lower Venous Reflux: Adequate Diagnosis: [...] Electronically signed at 02/11/2019 16:38:58 by: Hannah Pollard DO, JOSE ANTONIO [facility] POCT URINALYSIS DIPSTICK NON AUTOMATEDon 05-24-2018 Amorphous sediment LM Ql (Urine sed) Invalid Interpretation Code [facility] Work Phone: Appearance Nom (Body fld) clear Invalid Interpretation Code [facility] Work Phone: Bacteria LM Ql (Urine sed) Invalid Interpretation Code [facility] Work Phone: Bilirubin Ql (U) Negative Invalid Interpretation Code [facility] Work Phone: Casts LM.LPF #/area (Urine sed) Invalid Interpretation Code [facility] Work Phone: Color Nom (U) yellow Invalid Interpretation Code [facility] Work Phone: Crystals LM Nom (Urine sed) Invalid Interpretation Code [facility] Work Phone: Epithelial cells.squamous LM.HPF #/area (Urine sed) Invalid Interpretation Code [facility] Work Phone: Flow cytometry specialist review Interp Alfonzo (Unsp spec) Invalid Interpretation Code [facility] Work Phone: Interpretation and review of laboratory results Abnormal Invalid Interpretation Code [facility] Work Phone: Ketones mass conc Negative Invalid Interpretation Code mg/dL [facility] Work Phone: Leukocyte esterase Qn (U) Invalid Interpretation Code [facility] Work Phone: Leukocyte esterase Test strip Ql (U) Negative Invalid Interpretation Code [facility] Work Phone: Nitrite Ql (U) Negative Invalid Interpretation Code [facility] Work Phone: pH (U) 7.5 Abnormal [facility] Work Phone: POCT GLUCOSE, URINE Negative Invalid Interpretation Code mg/dL [facility] Work Phone: Protein Ql (U) Negative Invalid Interpretation Code mg/dL [facility] Work Phone: RBC LM.HPF #/area (Urine sed) Invalid Interpretation Code [facility] Work Phone: RBC Ql (U) Negative Invalid Interpretation Code [facility] Work Phone: Specific gravity Relative Density (U) 1.010 Invalid Interpretation Code [facility] Work Phone: Transitional cells LM Ql (Urine sed) Invalid Interpretation Code [facility] Work Phone: Urobilinogen mass conc (U) Negative Invalid Interpretation Code [facility] Work Phone: WBC LM.HPF #/area (Urine sed) Invalid Interpretation Code [facility] Work Phone: POCT URINALYSIS DIPSTICK NON AUTOMATEDon 05-10-2018 Amorphous sediment LM Ql (Urine sed) Invalid Interpretation Code [facility] Work Phone: Appearance Nom (Body fld) clear Invalid Interpretation Code [facility] Work Phone: Bacteria LM Ql (Urine sed) Invalid Interpretation Code [facility] Work Phone: Bilirubin Ql (U) Negative Invalid Interpretation Code [facility] Work Phone: Casts LM.LPF #/area (Urine sed) Invalid Interpretation Code [facility] Work Phone: Color Nom (U) yellow Invalid Interpretation Code [facility] Work Phone: Crystals LM Nom (Urine sed) Invalid Interpretation Code [facility] Work Phone: Epithelial cells.squamous LM.HPF #/area (Urine sed) Invalid Interpretation Code [facility] Work Phone: Flow cytometry specialist review Interp Alfonzo (Unsp spec) Invalid Interpretation Code [facility] Work Phone: Ketones mass conc Negative Invalid Interpretation Code mg/dL [facility] Work Phone: Leukocyte esterase Qn (U) Invalid Interpretation Code [facility] Work Phone: Leukocyte esterase Test strip Ql (U) Negative Invalid Interpretation Code [facility] Work Phone: Nitrite Ql (U) Negative Invalid Interpretation Code [facility] Work Phone: pH (U) 6.5 Invalid Interpretation Code [facility] Work Phone: POCT GLUCOSE, URINE Negative Invalid Interpretation Code mg/dL [facility] Work Phone: Protein Ql (U) Negative Invalid Interpretation Code mg/dL [facility] Work Phone: RBC LM.HPF #/area (Urine sed) Invalid Interpretation Code [facility] Work Phone: RBC Ql (U) trace Invalid Interpretation Code [facility] Work Phone: Specific gravity Relative Density (U) 1.010 Invalid Interpretation Code [facility] Work Phone: Transitional cells LM Ql (Urine sed) Invalid Interpretation Code [facility] Work Phone: Urobilinogen mass conc (U) 0.2 Invalid Interpretation Code [facility] Work Phone: WBC LM.HPF #/area (Urine sed) Invalid Interpretation Code [facility] Work Phone: Vital Signs Date Time Vital Sign Value Performing Clinician Facility 03-10-2024 09:51-0400 Body height 154.9 cm Ella Pimentel MD Work Phone: [facility] 03-10-2024 09:51-0400 Body mass index (BMI) [Ratio] 26.47 kg/m2 Ella Pimentel MD Work Phone: [facility] 03-10-2024 09:51-0400 Body temperature 98.29 [degF] Ella Pimentel MD Work Phone: [facility] 03-10-2024 09:51-0400 Body weight 63.55 kg Ella Pimentel MD Work Phone: [facility] 03-10-2024 09:51-0400 Diastolic blood pressure 78 mm[Hg] Ella Pimentel MD Work Phone: [facility] 03-10-2024 09:51-0400 Heart rate 80 /min Ella Pimentel MD Work Phone: [facility] 03-10-2024 09:51-0400 SaO2% (BldA) [Mass fraction] 98 % Ella Pimentel MD Work Phone: [facility] 03-10-2024 09:51-0400 Systolic blood pressure 115 mm[Hg] Ella Pimentel MD Work Phone: [facility] 09-07-2023 09:10-0400 Body height 157.5 cm Raudel Jordan MD Work Phone: [facility] 09-07-2023 09:10-0400 Body mass index (BMI) [Ratio] 24.75 kg/m2 Raudel Jordan MD Work Phone: [facility] 09-07-2023 09:10-0400 Body weight 61.37 kg Raudel Jordan MD Work Phone: [facility] 09-07-2023 09:10-0400 Diastolic blood pressure 83 mm[Hg] Raudel Jordan MD Work Phone: [facility] 09-07-2023 09:10-0400 Heart rate 65 /min Raudel Jordan MD Work Phone: [facility] 09-07-2023 09:10-0400 SaO2% (BldA) [Mass fraction] 99 % Raudel Jordan MD Work Phone: [facility] 09-07-2023 09:10-0400 Systolic blood pressure 116 mm[Hg] Raudel Jordan MD Work Phone: [facility] 08-21-2023 08:05-0500 Respiratory rate 16 /min Raudel Jordan MD Work Phone: [facility] 08-21-2023 08:04-0500 Body temperature 97.3 [degF] Raudel Jordan MD Work Phone: [facility] 08-21-2023 08:04-0500 Diastolic blood pressure 67 mm[Hg] Raudel Jordan MD Work Phone: [facility] 08-21-2023 08:04-0500 Heart rate 55 /min Raudel Jordan MD Work Phone: [facility] 08-21-2023 08:04-0500 SaO2% (BldA) [Mass fraction] 100 % Raudel Jordan MD Work Phone: [facility] 08-21-2023 08:04-0500 Systolic blood pressure 92 mm[Hg] Raudel Jordan MD Work Phone: [facility] 08-20-2023 21:25-0500 Body height 157.5 cm Raudel Jordan MD Work Phone: [facility] 08-20-2023 21:25-0500 Body mass index (BMI) [Ratio] 25.61 kg/m2 Raudel Jordan MD Work Phone: [facility] 08-20-2023 21:25-0500 Body weight 63.5 kg Raudel Jordan MD Work Phone: [facility] 03-12-2023 08:48-0400 Body height 157.5 cm 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 CNP Work Phone: [facility] 03-12-2023 08:48-0400 Body mass index (BMI) [Ratio] 25.04 kg/m2 Francisco Bobo Daiana TREND INVESTIGATOR Work Phone: [facility] 03-12-2023 08:48-0400 Body weight 62.1 kg Francisco Bobo Daiana TREND INVESTIGATOR Work Phone: [facility] 03-12-2023 08:48-0400 Diastolic blood pressure 80 mm[Hg] Francisco Bobo Daiana TREND INVESTIGATOR Work Phone: [facility] 03-12-2023 08:48-0400 Systolic blood pressure 115 mm[Hg] Francisco Bobo Daiana TREND INVESTIGATOR Work Phone: [facility] 11-22-2022 15:26-0400 Body height 157.5 cm Gay Narayan MD Work Phone: [facility] 11-22-2022 15:26-0400 Body mass index (BMI) [Ratio] 25.61 kg/m2 Gay Narayan MD Work Phone: [facility] 11-22-2022 15:26-0400 Body temperature 99.7 [degF] Gay Narayan MD Work Phone: [facility] 11-22-2022 15:26-0400 Body weight 63.5 kg Gay Narayan MD Work Phone: [facility] 11-22-2022 15:26-0400 Diastolic blood pressure 70 mm[Hg] Gay Narayan MD Work Phone: [facility] 11-22-2022 15:26-0400 Heart rate 72 /min Gay Narayan MD Work Phone: [facility] 11-22-2022 15:26-0400 SaO2% (BldA) [Mass fraction] 97 % Gya Narayan MD Work Phone: [facility] 11-22-2022 15:26-0400 Systolic blood pressure 111 mm[Hg] Gay Narayan MD Work Phone: [facility] 11-21-2021 08:40-0400 Body height 157.5 cm Gay Narayan MD Work Phone: [facility] 11-21-2021 08:40-0400 Body mass index (BMI) [Ratio] 26.7 kg/m2 Gay Narayan MD Work Phone: [facility] 11-21-2021 08:40-0400 Body temperature 98.2 [degF] Gay Narayan MD Work Phone: [facility] 11-21-2021 08:40-0400 Body weight 66.22 kg Gay Narayan MD Work Phone: [facility] 11-21-2021 08:40-0400 Diastolic blood pressure 72 mm[Hg] Gay Narayan MD Work Phone: [facility] 11-21-2021 08:40-0400 Heart rate 72 /min Gay Narayan MD Work Phone: [facility] 11-21-2021 08:40-0400 Respiratory rate 16 /min Gay Narayan MD Work Phone: [facility] 11-21-2021 08:40-0400 SaO2% (BldA) [Mass fraction] 98 % Gay Narayan MD Work Phone: [facility] 11-21-2021 08:40-0400 Systolic blood pressure 106 mm[Hg] Gay Narayan MD Work Phone: [facility] 07-01-2021 07:50-0500 Body temperature 98.2 [degF] Yohan Reyna MD Work Phone: [facility] 07-01-2021 07:50-0500 Diastolic blood pressure 68 mm[Hg] Yohan Reyna MD Work Phone: [facility] 07-01-2021 07:50-0500 Heart rate 70 /min Yohan Reyna MD Work Phone: [facility] 07-01-2021 07:50-0500 Respiratory rate 14 /min Yohan Reyna MD Work Phone: [facility] 07-01-2021 07:50-0500 SaO2% (BldA) [Mass fraction] 98 % Yohan Reyna MD Work Phone: [facility] 07-01-2021 07:50-0500 Systolic blood pressure 101 mm[Hg] Yohan Reyna MD Work Phone: [facility] 06-29-2021 07:31-0500 Body height 157.5 cm Yohan Reyna MD Work Phone: [facility] 06-29-2021 07:31-0500 Body mass index (BMI) [Ratio] 30.18 kg/m2 Yohan Reyna MD Work Phone: [facility] 06-29-2021 07:31-0500 Body weight 74.84 kg Yohan Reyna MD Work Phone: [facility] 11-22-2020 13:04-0400 Body height 160 cm Desiree Maddox MD Work Phone: [facility] 11-22-2020 13:04-0400 Body mass index (BMI) [Ratio] 25.28 kg/m2 Desiree Maddox MD Work Phone: [facility] 11-22-2020 13:04-0400 Body temperature 98.8 [degF] Desiree Maddox MD Work Phone: [facility] 11-22-2020 13:04-0400 Body weight 64.73 kg Desiree Maddox MD Work Phone: [facility] 11-22-2020 13:04-0400 Diastolic blood pressure 69 mm[Hg] Desiree Maddox MD Work Phone: [facility] 11-22-2020 13:04-0400 Heart rate 93 /min Desiree Maddox MD Work Phone: [facility] 11-22-2020 13:04-0400 Respiratory rate 16 /min Desiree Maddox MD Work Phone: [facility] 11-22-2020 13:04-0400 SaO2% (BldA) [Mass fraction] 99 % Desiree Maddox MD Work Phone: [facility] 11-22-2020 13:04-0400 Systolic blood pressure 106 mm[Hg] Desiree Maddox MD Work Phone: [facility] 01-20-2019 14:39-0400 BP Diastolic 74 mm[Hg] [facility] 01-20-2019 14:39-0400 BP Systolic 109 mm[Hg] [facility] 01-20-2019 14:38-0400 BMI (Body Mass Index) 24.37 kg/m2 [facility] 01-20-2019 14:38-0400 Body weight 58.51 kg [facility] 01-20-2019 14:38-0400 Height 154.9 cm [facility] 01-20-2019 14:38-0400 Pulse (Heart Rate) 67 /min [facility] 05-24-2018 10:27-0500 BMI (Body Mass Index) 24.83 kg/m2 [facility] Work Phone: 05-24-2018 10:27-0500 BP Diastolic 64 mm[Hg] [facility] Work Phone: 05-24-2018 10:27-0500 BP Systolic 110 mm[Hg] [facility] Work Phone: 05-24-2018 10:27-0500 Height 154.9 cm [facility] Work Phone: 05-24-2018 10:27-0500 Pulse (Heart Rate) 62 /min [facility] Work Phone: 05-24-2018 10:27-0500 Pulse Oximetry 99 % [facility] Work Phone: 05-24-2018 10:27-0500 Weight 59.6 kg [facility] Work Phone: 05-10-2018 09:33-0500 BMI (Body Mass Index) 25.51 kg/m2 Lisha [facility] Work Phone: 05-10-2018 09:33-0500 BP Diastolic 82 mm[Hg] [facility] Work Phone: 05-10-2018 09:33-0500 BP Systolic 123 mm[Hg] [facility] Work Phone: 05-10-2018 09:33-0500 Height 154.9 cm [facility] Work Phone: 05-10-2018 09:33-0500 Pulse (Heart Rate) 61 /min [facility] Work Phone: 05-10-2018 09:33-0500 Weight 61.24 kg [facility] Work Phone: Encounters Encounter Date Encounter Type Care Provider Facility Start: 03-11-2024 End: 03-11-2024 [facility] Start: 03-11-2024 End: 03-11-2024 Encounter for general adult medical examination without abnormal findings [facility] Start: 03-10-2024 End: 03-10-2024 ambulatory ELLA PIMENTEL [facility] Start: 03-10-2024 End: 03-10-2024 Office outpatient new 45 minutes Ella Pimentel MD Work Phone: [facility] Comment on above: Thrombosis (Primary Dx) Start: 03-10-2024 End: 03-10-2024 [facility] Start: 02-04-2024 End: 02-04-2024 Transcribe Orders Elly Brady MA [facility] Comment on above: Deep vein thrombosis (DVT) of other vein of lower extremity, unspecified chronicity, unspecified laterality (HCC) (Primary Dx) Start: 02-01-2024 ambulatory FRANCISCO BOBO [facility] Start: 09-07-2023 End: 09-07-2023 Postop follow up visit related to original px Raudel Jordan MD Work Phone: [facility] Comment on above: Postoperative follow -up (Primary Dx) Start: 09-07-2023 End: 09-07-2023 ambulatory FRANCISCO BOBO [facility] Ambulatory Start: 08-20-2023 End: 08-21-2023 Emergency department patient visit Raudel Jordan MD Work Phone: [facility] Start: 08-20-2023 End: 08-21-2023 ambulatory FRANCISCO BOBO [facility] Start: 08-20-2023 End: 08-20-2023 Emergency department patient visit FRANCISCO BOBO [facility] Start: 03-12-2023 End: 03-12-2023 Office outpatient visit 25 minutes 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 [facility] Work Phone: [facility] Comment on above: Encounter to [facility] (Primary Dx); Varicose veins of left lower extremity with pain; Seasonal allergies Start: 03-12-2023 End: 03-12-2023 ambulatory FRANCISCO BOBO [facility] Amb[facility] Start: 11-22-2022 End: 11-22-2022 Initial preventive medicine new pt age 18-39yrs Gay Narayan MD Work Phone: [facility] Comment on above: Annual physical exam (Primary Dx) Start: 11-22-2022 End: 11-22-2022 Patient encounter procedure Gay Narayan MD Work Phone: [facility] Work Phone: Start: 11-21-2021 End: 11-21-2021 Initial preventive medicine new pt age 18-39yrs Gay Narayan MD Work Phone: [facility] Comment on above: Annual physical exam Start: 11-21-2021 End: 11-21-2021 Patient encounter procedure Gay Narayan MD Work Phone: [facility] Start: 06-29-2021 End: 07-01-2021 Evaluation and management of inpatient Yohan Reyna MD Work Phone: [facility] Start: 06-25-2021 End: 06-25-2021 ambulatory DESIREE MADDOX [facility] Start: 05-18-2021 Patient encounter status Edward Carly lubin LPN [facility] Start: 05-18-2021 Transcribe Orders Edward Becerril LPN [facility] Contact [facility] Comment on above: Encounter for prepro cedure screening laboratory testing for COVID-19 (Primary Dx) Start: 12-29-2020 End: 12-29-2020 Subsequent hospital visit by physician Desiree Maddox MD Work Phone: [facility] Comment on above: Arrived Start: 11-22-2020 End: 11-22-2020 Initial preventive medicine new pt age 18-39yrs Desiree Maddox MD Work Phone: [facility] Comment on above: Annual physical exam (Primary Dx); Seasonal allergies; Family history of hypertrophic cardiomyopathy; Heart palpitations Start: 11-22-2020 End: 11-22-2020 Patient encounter procedure Desiree Maddox MD Work Phone: [facility] Start: 11-19-2020 End: 11-19-2020 Chart abstracting Veena Weber MA [facility] Start: 02-11-2019 End: 02-11-2019 Subsequent hospital visit by physician Hannah Pollard Work Phone: [facility] Comment on above: Varicose veins of le ft lower extremity with pain Start: 01-20-2019 End: 01-20-2019 Office outpatient new 30 minutes America Ely Work Phone: [facility] Comment on above: Varicose veins of le ft lower extremity with pain Start: 05-24-2018 End: 05-24-2018 Office outpatient new 30 minutes Marcela Borja Work Phone: [email or web address] Urology Comment on above: Recurrent UTI (Prima ry Dx); Urinary frequency; Suprapubic pain; Interstitial cystitis Start: 05-13-2018 End: 05-13-2018 Patient encounter procedure Lisha Duenas Work Phone: [facility] FARM MANAGEMENT SUPERVISOR Comment on above: Appointment Start: 05-10-2018 End: 05-10-2018 Office outpatient visit 15 minutes Lisha Duenas Work Phone: [facility] FARM MANAGEMENT SUPERVISOR Comment on above: Dysuria (Primary Dx) ; Hematuria, unspecified type; Frequency of micturition Start: 05-03-2018 End: 05-03-2018 Patient encounter America Ely Work Phone: [facility] Comment on above: Results Start: 02-18-2017 End: 02-18-2017 Emergency department patient visit Bao Rosado Facility:[place] Procedures Date Procedure Procedure Detail Performing Clinician Start: 08-21-2023 Basic metabolic pane l calcium total Jim Malone CNP Work Phone: Start: 08-20-2023 End: 08-20-2023 APPENDECTOMY LAPAROSCOPIC Alston Ray Edyta solorio MD Work Phone: Start: [...] System Start: 06-29-2021 Blood group typing Aiden enio Reyna MD Work Phone: Start: 06-29-2021 Blood [...] 02-11-2019 Dup-scan xtr veins unilateral/limited study WTico Pollard Work Phone: Start: 05-24-2018 End: 05-24-2018 Urnls [...] Start: 04-14-2031 Tetanus vaccination Tetanus: Every 10yrs [facility] Start: 04-14-2024 End: 04-14-2024 Patient encounter procedure 04/14/2024 10:45 AM EDT Office Visit [facility] [address] [place], [place] [id number] Ella Pimentel MD [facility] [place] [address] [facility] Start: 03-11-2024 End: 03-11-2024 Patient encounter procedure 03/11/2024 9:40 AM EDT Office Visit [facility] [address] [place] [address] 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, TREND INVESTIGATOR [address] [place] [address] [facility] Start: 02-17-2024 COVID-19 Vaccine () COVID-19 Vaccine () [facility] Start: 02-17-2024 Influenza vaccination Influenza Vaccine (#1) [facility] Start: 01-09-2024 History and physical examination, annual for health maintenance Wellness Visit [facility] Start: 11-26-2023 End: 11-26-2023 Patient encounter procedure 11/26/2023 9:00 AM EDT Office Visit [facility] [address] [place] [address] 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, TREND INVESTIGATOR [address] [place] [address] [facility] Start: 11-23-2023 Depression screening using PHQ-9 (Patient Health Questionnaire 9) score [facility] Start: 11-23-2023 History and physical examination, annual for health maintenance Wellness Visit [facility] Start: 02-16-2023 COVID-19 Vaccine () COVID-19 Vaccine () [facility] Start: 02-16-2023 Influenza vaccination [facility] Start: 2023 Screening for malignant neoplasm of cervix [facility] Start: 11-22-2022 End: 11-22-2022 Patient encounter procedure 11/22/2022 Office Visit Primary Care Gay Davies MD [address] [place] [address] [facility] Start: 11-21-2022 Depression screening using PHQ-9 (Patient Health Questionnaire 9) score Depression Screening (PHQ-2/9) [facility] Start: 11-21-2022 History and physical examination, annual for health maintenance Wellness Visit [facility] Start: 03-19-2022 COVID-19 Vaccine (3 - Booster for Moderna series) COVID-19 Vaccine (3 - Booster for Moderna series) [facility] Start: 02-16-2022 Influenza vaccination Sequential Influenza Vaccine (Season Ended) [facility] Start: 12-12-2021 COVID-19 Vaccine (3 - Booster for Moderna series) COVID-19 Vaccine (3 - Booster for Moderna series) [facility] Start: 12-12-2021 COVID-19 Vaccine (3 - Moderna series) COVID-19 Vaccine (3 - Moderna series) [facility] Start: 11-22-2021 Depression screening using PHQ-9 (Patient Health Questionnaire 9) score [facility] Start: 11-22-2021 History and physical examination, annual for health maintenance Wellness Visit [facility] Start: 02-16-2021 Influenza vaccination [facility] Start: 11-22-2020 End: 11-22-2021 Complete blood count with white cell differential, manual CBC and Differential Lab Routine Heart palpitations Expected: 11/22/2020, Expires: 11/22/2021 [facility] Comment on above: Expected: 11/22/2020, Expires: Start: 11-22-2020 End: 11-22-2021 Thyrotropin [Units/volume] in Serum or Plasma TSH with Reflex Free T4 Lab Routine Heart palpitations Expected: 11/22/2020 (Approximate), Expires: 11/22/2021 [facility] Comment on above: Expected: 11/22/2020 (Approximate), Expi res: 11/22/2021 Start: 11-22-2020 End: 11-22-2020 Patient encounter procedure 11/22/2020 Office Visit Primary Care Desiree Maddox MD [address] [id number] [phone] [facility] Start: 06-21-2020 Screening for malignant neoplasm of cervix Pap Smear [facility] Start: 04-24-2019 End: 04-24-2019 Office Visit 04/24/2019 Office Visit Cardiology Hannah Pollard III, DO [address] [facility] [place] [address] [phone] [facility] Start: 02-16-2019 Influenza vaccination given SEQUENTIAL INFLUENZA VACCINE (#1) [facility] Start: 02-11-2019 End: 02-11-2019 Appointment 02/11/2019 Appointment Cardiology Hannah Pollard III, DO [address] [facility] [place] [address] [phone] [facility] Start: 08-22-2018 End: 08-22-2018 Ambulatory 08/22/2018 Office Visit Urology Marcela Borja, TREND INVESTIGATOR [address] [place] [address] [phone] [facility] [[email or web address] Urology Start: 06-06-2018 End: 06-06-2018 Ambulatory 06/06/2018 Office Visit FARM MANAGEMENT SUPERVISOR Lisha Duenas, DO [address] [place] [address] [phone] [facility] FARM MANAGEMENT SUPERVISOR Start: 06-03-2018 End: 06-03-2018 Ambulatory 06/03/2018 Office Visit Gastroenterology Rain Denney MD [address] [facility] [address] [place] [address] Division of Gastroenterology and Hepatology [place] Start: 05-24-2018 End: 05-24-2019 Diagnostic radiography of abdomen XR ABDOMEN 1 VIEW Routine Suprapubic pain Expected: 05/24/2018, Expires: 05/24/2019 [facility] Work Phone: Comment on above: Expected: 05/24/2018, Expires: 9 Start: 05-24-2018 End: 05-24-2018 Ambulatory [facility] FARM MANAGEMENT SUPERVISOR Comment on above: Arrived Start: 05-13-2018 End: 05-13-2018 Ambulatory 05/13/2018 Office Visit FARM MANAGEMENT SUPERVISOR Lisha Duenas DO [address] [place] [address] [phone] Tae Yang FARM MANAGEMENT SUPERVISOR Start: 02-16-2018 Influenza vaccination INFLUENZA VACCINE (#[facility] Work Phone: Start: 2014 Screening for malignant neoplasm of cervix PAP SMEAR DISCUSSION [facility] Work Phone: Start: 02-15-2012 Third diphtheria, tetanus and acellular pertussis (DTaP) vaccination TDAP (ADULT) [facility] Work Phone: Start: 2011 GONORRHEA SCREEN GONORRHEA SCREEN [facility] Work Phone: Start: 2011 Hepatitis C screening Hepatitis C Screening [facility] Start: 2011 Tetanus vaccination TETANUS [facility] Work Phone: Start: 2009 Screening for Chlamydia trachomatis CHLAMYDIA SCREEN [facility] Work Phone: Start: 02-15-2008 HIV screening [facility] Start: 02-15-2008 Vaccination for human papillomavirus HPV VACCINES (1 - Female 3-dose series) [facility] Start: 2006 HIV screening HIV SCREENING DISCUSSION [facility] Work Phone: Start: 2005 COVID-19 Vaccine (1) COVID-19 Vaccine (1) [facility] Start: 2005 Depression screening using PHQ-9 (Patient Health Questionnaire 9) score Depression Screening (PHQ9) [facility] Start: 02-15-2004 Vaccination for human papillomavirus HPV VACCINE ADOL (1 - Female 3-dose series) [facility] Work Phone: Start: 1998 COVID-19 Vaccine (1) COVID-19 Vaccine (1) [facility] Start: 02-15-1996 History and physical examination, annual for health maintenance Wellness Visit [facility] Start: 1993 Screening for malignant neoplasm of cervix PAP SMEAR [facility] Start: 1993 Tetanus vaccination [facility] End: 03-10-2025 Antithrombin actual/normal in Platelet poor plasma by Chromogenic method Antithrombin III Lab Routine Thrombosis 1 Occurrences starting 03/10/2024 until 03/10/2025 [facility] Work Phone: Comment on above: 1 Occurrences starting 03/10/2024 until 03/10/2025 Antithrombin actual/normal in Platelet poor plasma by Chromogenic method Antithrombin III Lab Routine Thrombosis 03/10/2024 11:35 AM EDT [facility] End: 03-10-2025 Antithrombin III antigen Antithrombin III antigen Lab Routine Thrombosis 1 Occurrences starting 03/10/2024 until 03/10/2025 [facility] Comment on above: 1 Occurrences starting 03/10/2024 until 03/10/2025 Antithrombin III antigen Antithr ombin III antigen Lab Routine Thrombosis 03/10/2024 11:35 AM EDT [facility] End: 03-10-2025 aPTT in Blood by Coagulation assay APTT Lab Routine Thrombosis 1 Occurrences starting 03/10/2024 until 03/10/2025 [facility] Comment on above: 1 Occurrences starting 03/10/2024 until 03/10/2025 aPTT in Blood by Coagulation assay APTT Lab Routine Thrombosis 03/10/2024 11:35 AM EDT [facility] Bacteria identified Cx Nom (U) URINE CULTURE Routine Hematuria, unspecified type 05/10/2018 10:12 AM EST [facility] Work Phone: Complete blood count with white cell differential, manual CBC and Differential Lab Routine Heart palpitations 11/22/2020 2:43 PM EDT [facility] End: 11-23-2023 Complete blood count with white cell differential, manual CBC and Differential Lab Routine Annual physical exam 1 Occurrences starting 11/22/2022 until 11/23/2023 [facility] Work Phone: Comment on above: 1 Occurrences starting 11/22/2022 until 11/23/2023 End: 11-22-2021 Comprehensive metabolic 2000 panel - Serum or Plasma Comprehensive Metabolic Panel Lab Routine Heart palpitations 1 Occurrences starting 11/22/2020 until 11/22/2021 [facility] Comment on above: 1 Occurrences starting 11/22/2020 until 11/22/2021 Comprehensive metabo lic 2000 panel - Serum or Plasma Comprehensive Metabolic Panel Lab Routine Heart palpitations 11/22/2020 2:43 PM EDT [facility] End: 11-23-2023 Comprehensive metabolic 2000 panel - Serum or Plasma Comprehensive Metabolic Panel Lab Routine Annual physical exam 1 Occurrences starting 11/22/2022 until 11/23/2023 [facility] Comment on above: 1 Occurrences starting 11/22/2022 until 11/23/2023 Diagnostic radiograp hy of abdomen XR ABDOMEN 1 VIEW Routine Suprapubic pain 05/24/2018 11:27 AM EST [facility] Work Phone: End: 01-22-2022 Echocardiography Echocardiogram complete Echocardiography Routine Family history of hypertrophic cardiomyopathy Heart palpitations 1 Occurrences starting 11/22/2020 until 01/22/2022 [facility] Comment on above: 1 Occurrences starting 11/22/2020 until 01/22/2022 End: 03-10-2025 Factor II (prothrombin) [id number] mutation detection Prothrombin gene mutation Lab Routine Thrombosis 1 Occurrences starting 03/10/2024 until 03/10/2025 [facility] Comment on above: 1 Occurrences starting 03/10/2024 until 03/10/2025 Factor II (prothromb in) [id number] mutation detection Prothrombin gene mutation Lab Routine Thrombosis 03/10/2024 11:35 AM EDT [facility] End: 03-10-2025 Fibrinogen [Mass/volume] in Platelet poor plasma by Coagulation assay Fibrinogen Lab Routine Thrombosis 1 Occurrences starting 03/10/2024 until 03/10/2025 [facility] Comment on above: 1 Occurrences starting 03/10/2024 until 03/10/2025 Fibrinogen [Mass/vol ume] in Platelet poor plasma by Coagulation assay Fibrinogen Lab Routine Thrombosis 03/10/2024 11:35 AM EDT [facility] End: 11-23-2023 Hemoglobin A1c/Hemoglobin.total in Blood Hemoglobin A1c Lab Routine Annual physical exam 1 Occurrences starting 11/22/2022 until 11/23/2023 [facility] Comment on above: 1 Occurrences starting 11/22/2022 until 11/23/2023 End: 03-10-2025 INR in Platelet poor plasma by Coagulation assay Protime-INR Lab Routine Thrombosis 1 Occurrences starting 03/10/2024 until 03/10/2025 [facility] Comment on above: 1 Occurrences starting 03/10/2024 until 03/10/2025 INR in Platelet poor plasma by Coagulation assay Protime-INR Lab Routine Thrombosis 03/10/2024 11:35 AM EDT [facility] End: 11-23-2023 Lipid 1996 panel - Serum or Plasma Lipid Panel Lab Routine Annual physical exam 1 Occurrences starting 11/22/2022 until 11/23/2023 [facility] Comment on above: 1 Occurrences starting 11/22/2022 until 11/23/2023 Procedure on tissue specimen [facility] Work Phone: Comment on above: Release Upon Ordering for 1 Occurrences starting 08/20/2023, 1 completed End: 03-10-2025 Protein C actual/normal in Platelet poor plasma by Coagulation assay Protein C activity Lab Routine Thrombosis 1 Occurrences starting 03/10/2024 until 03/10/2025 [facility] Comment on above: 1 Occurrences starting 03/10/2024 until 03/10/2025 Protein C actual/nor mal in Platelet poor plasma by Coagulation assay Protein C activity Lab Routine Thrombosis 03/10/2024 11:35 AM EDT [facility] End: 03-10-2025 Protein C Ag actual/normal in Platelet poor plasma by Immunoassay Protein C antigen, total Lab Routine Thrombosis 1 Occurrences starting 03/10/2024 until 03/10/2025 [facility] Comment on above: 1 Occurrences starting 03/10/2024 until 03/10/2025 Protein C Ag actual/normal in Platelet poor plasma by Immunoassay Protein C antigen, total Lab Routine Thrombosis 03/10/2024 11:35 AM EDT [facility] End: 03-10-2025 Protein S actual/normal in Platelet poor plasma by Coagulation assay Protein S activity Lab Routine Thrombosis 1 Occurrences starting 03/10/2024 until 03/10/2025 [facility] Comment on above: 1 Occurrences starting 03/10/2024 until 03/10/2025 Protein S actual/nor mal in Platelet poor plasma by Coagulation assay Protein S activity Lab Routine Thrombosis 03/10/2024 11:35 AM EDT [facility] End: 05-18-2022 SARS-CoV-2 (COVID-19) RdRp gene [Presence] in Respiratory specimen by ADRIANA with probe detection COVID-19, Molecular Microbiology Routine Encounter for preprocedure screening laboratory testing for COVID-19 1 Occurrences starting 05/18/2021 until 05/18/2022 [facility] Work Phone: Comment on above: 1 Occurrences starting 05/18/2021 until 05/18/2022 End: 03-10-2025 Thrombin time Thrombin time Lab Routine Thrombosis 1 Occurrences starting 03/10/2024 until 03/10/2025 [facility] Comment on above: 1 Occurrences starting 03/10/2024 until 03/10/2025 Thrombin time Thrombin time La b Routine Thrombosis 03/10/2024 11:35 AM EDT [facility] Thyrotropin [Units/volume] in Serum or Plasma TSH with Reflex Free T4 Lab Routine Heart palpitations 11/22/2020 2:43 PM EDT [facility] End: 03-22-2020 Ultrasound venous insufficiency left leg Ultrasound venous insufficiency left leg Vascular Ultrasound Routine Varicose veins of left lower extremity with pain 1 Occurrences starting 01/20/2019 until 03/22/2020 [facility] Comment on above: 1 Occurrences starting 01/20/2019 until 03/22/2020 Immunizations Immunization Date Immunization Notes Care Provider Fa [facility] 10-17-2021 Moderna SARS-CoV-2 Vaccination Gay Narayan MD Work Phone: [facility] 08-24-2021 Moderna SARS-CoV-2 Vaccination Gay Narayan MD Work Phone: [facility] 07-27-2021 influenza, injectabl e, quadrivalent, preservative free Gay Narayan MD Work Phone: [facility] 07-27-2021 influenza virus vacc ine, unspecified formulation Elly Brady MA [facility] 06-29-2021 varicella zoster imm une globulin Yohan Reyna MD Work Phone: [facility] 06-29-2021 diphtheria, tetanus toxoids and acellular pertussis vaccine, unspecified formulation Yohan Reyna MD Work Phone: [facility] 06-29-2021 measles, mumps and r ubella virus vaccine Yohan Reyna MD Work Phone: [facility] 04-14-2021 tetanus toxoid, redu anni diphtheria toxoid, and acellular pertussis vaccine, adsorbed Gay Narayan MD Work Phone: [facility] 02-01-2006 tetanus toxoid, redu anni diphtheria toxoid, and acellular pertussis vaccine, adsorbed Gay Narayan MD Work Phone: [facility] 02-01-2006 varicella virus vaccine Josee Narayan MD Work Phone: [facility] 12-17-1997 diphtheria, tetanus toxoids and acellular pertussis vaccine, unspecified formulation Gay Narayan MD Work Phone: [facility] 12-17-1997 measles, mumps and r ubella virus vaccine Gay Narayan MD Work Phone: [facility] 12-17-1997 trivalent poliovirus vaccine, live, oral Gay Narayan MD Work Phone: [facility] 05-09-1994 diphtheria, tetanus toxoids and acellular pertussis vaccine, unspecified formulation Gay Narayan MD Work Phone: [facility] 05-09-1994 haemophilus influenz ae type b vaccine, conjugate unspecified formulation Gay Narayan MD Work Phone: [facility] 05-09-1994 measles, mumps and r ubella virus vaccine Gay Narayan MD Work Phone: [facility] 1993 diphtheria, tetanus toxoids and pertussis vaccine Gay Narayan MD Work Phone: [facility] 1993 haemophilus influenz ae type b vaccine, conjugate unspecified formulation Gay Narayan MD Work Phone: [facility] 1993 hepatitis B vaccine, pediatric or pediatric/adolescent dosage Gay Narayan MD Work Phone: [facility] 1993 trivalent poliovirus vaccine, live, oral Gay Narayan MD Work Phone: [facility] 1993 diphtheria, tetanus toxoids and pertussis vaccine Gay Narayan MD Work Phone: [facility] 1993 haemophilus influenz ae type b vaccine, conjugate unspecified formulation Gay Narayan MD Work Phone: [facility] 1993 trivalent poliovirus vaccine, live, oral Gay Narayan MD Work Phone: [facility] 1993 diphtheria, tetanus toxoids and pertussis vaccine Gay Narayan MD Work Phone: [facility] 1993 haemophilus influenz ae type b vaccine, conjugate unspecified formulation Gay Narayan MD Work Phone: [facility] 1993 hepatitis B vaccine, pediatric or pediatric/adolescent dosage Gay Narayan MD Work Phone: [facility] 1993 trivalent poliovirus vaccine, live, oral Gay Narayan MD Work Phone: [facility] 1993 hepatitis B vaccine, pediatric or pediatric/adolescent dosage Gay Narayan MD Work Phone: [facility] Payers Date Payer Category Payer Unknown [id number] 2022 Private Health Insurance [id number] 2020 Private Health Insurance [id number] 2020 Private Health Insurance AIDEE MAJANO AEJASBIR [id number] 2020-Present [address] [place] [address] [id number] 2020 Unknown [id number] 2020 Unknown [id number] 2020 Unknown [id number] 2017 Unknown [facility] [facility] [facility] xxxxxxxxx 2017-Present xxxxxxxxx [id number] 2017 Unknown [id number] 1993 Unknown [id number] 1993 Unknown [id number] 1993 Unknown [id number] 1993 Unknown [id number] 1993 Unknown [id number] 1993 Unknown [id number] [id number] 1993 Unknown [id number] [id number] 1993 Unknown [id number] [id number] 1993 Unknown [id number] [id number] 1993 Unknown [id number] Private Health Insurance [id number] Social History Date Type Detail Facility Start: 04-26-2018 End: 11-21-2021 Tobacco smoking status NHIS Never smoker [facility] Work Phone: Start: 1995 Sex Assigned At Not on file [facility] Work Phone: Start: 01-20-2019 Alcohol Comment occ [facility] Start: 01-20-2019 End: 11-19-2020 Alcohol intake Current drinker of alcohol (finding) [facility] Start: 11-19-2020 End: 11-21-2021 Tobacco use and exposure Never used [facility] Start: 11-22-2020 End: 03-10-2024 Alcohol intake Ex-drinker (finding) [facility] Start: 11-22-2020 Alcohol Comment [facility] Start: 11-11-2021 End: 11-21-2021 Exposure to SARS-CoV-2 (event) Not sure [facility] Start: 10-11-2020 [facility] Start: 11-21-2021 End: 08-20-2023 Cigarette pack-years [facility] Start: 11-21-2021 History SDOH Social Connections Get Together 3 [facility] Start: 11-21-2021 History SDOH Financial 5 [facility] Start: 11-21-2021 History SDOH Food Worry 1 [facility] Start: 11-21-2021 History SDOH Transport Med 2 [facility] Start: 03-06-2022 End: 08-20-2023 Humiliation, Afraid, Rape, and Kick questionnaire [HARK] [facility] Within the last year , have you been afraid of your partner or ex-partner? No [facility] Are you now , , , , never or living with a partner? [facility] How often to you hav e a drink containing alcohol? 2-4 times a month [facility] How many standard dr inks containing alcohol do you have on a typical day? 3 or 4 [facility] How often do you hav e 6 or more drinks on 1 occasion? Never [facility] How hard is it for y ou to pay for the very basics like food, housing, medical care, and heating Not very hard [facility] Adult Depression Screening Assessment 0 [facility] Do you feel stress - tense, restless, nervous, or anxious, or unable to sleep at night because your mind is troubled all the time - these days [OSQ] Not at all [facility] (I/We) worried wheth er (my/our) food would run out before (I/we) got money to buy more. Never true [facility] Start: 11-19-2020 Gender identity Identifies as female gender (finding) [facility] Start: 11-19-2020 Sexual orientation Heterosexual (finding) [facility] Clinical Notes 11-22-2020 to 03-11-2024 Ella Pimentel MD - 03/10/2024 9:58 AM Raudel Smith MD - 09/07/2023 9:41 AM Edward Tabares - Maribell Muniz RN - 08/21/2023 9:40 AM ESTDischarge Instructions Note Date & Type Note Facility 03-11-2024 Note Subjective Patient ID: Jay Antonio is a 29 y.o. female. HPI patient is here for her annual wellness exam with labs she has recently had some varicose veins worked on with lazer surgery and is doing well. She is also having issues with some anxiety and pms that has been worse since since having her baby two years ago. The following portions of the patient's history were reviewed and updated as appropriate: She has a past medical history of Acne, Anorectal disorder, Anxiety, Arthralgia, Deep vein thrombosis (HCC) (December 2023), Heart murmur, Heart palpitations, Low back pain, Seasonal allergies, Varicose veins of both lower extremities, and Varicose veins of left lower extremity with pain. She does not have any pertinent problems on file. She has a past surgical history that includes Hemorrhoidectomy (10/02/2017); Refractive surgery; [place] tooth extraction; Hemorrhoidectomy; Colonoscopy; Section (N/A, 06/29/2021); section, classic (06/29/21); Breast surgery; Appendectomy Laparoscopic (N/A, 08/20/2023); and Appendectomy (09/08). Her family history includes Allergic rhinitis in [...] Current Outpatient Medications Medication Sig Dispense Refill busPIRone (BUSPAR) 5 MG tablet Take 1 (one) tablet (5 mg total) by mouth 3 (three) times a day . 90 tablet 5 No current facility-administered medications for this visit. [...] Diagnoses and all orders for this visit: Well adult exam This is a pleasant 29 yo female who is a non smoker with a history of anxiety, arthralgia, DVT, varicose veins, heart palpitations, and allergies. Family history is positive for allergie rhinitis, asthma, diabetes, HTN , heart disease, and UC. She is active and monitors her diet healthy diet choices were encouraged at this time. Health maintenance was reviewed and updated and physical exam is as stated above will order screening labs and follow up with results when avaialable - CBC; Future - Comprehensive Metabolic Panel; Future - Hemoglobin A1c; Future - Lipid Panel; Future - TSH; Future Vitamin D deficiency - Vitamin D, Total, 25-OH; Future - Vitamin D, Total, 25-OH Anxiety Patient is having some heightened anxiety due to life stressors and her anxiety seems to be at its peak the week before her cycle. Will treat her with Buspar TID PRN for the anxiety so that patient can take it the week before her cycle to help with the heightened anxiety. She is to follow up if the medication is not working or if she experiences side effects - busPIRone (BUSPAR) 5 MG tablet; Take 1 (one) tablet (5 mg total) by mouth 3 (three) times a day . Follow up as needed AUTHENTICATED BY FRANCISCO AHMADI, ON 03/11/2024 11:55:59 [facility] 03-11-2024 Note 11/22/2020 1:00 PM 11/21/2021 8:00 AM 11/22/2022 3:33 PM 11/22/2022 3:34 PM 03/11/2024 9:37 AM 03/11/2024 9:38 AM Depression Screening Little interest or pleasure in doing things 0 0 0 0 0 0 Feeling down, depressed, or hopeless 0 0 0 0 0 0 PHQ-2 Total Score 0 0 0 0 0 0 Trouble falling or staying asleep, or sleeping too much 0 0 Feeling tired or having little energy 1 1 Poor appetite or overeating 0 1 Feeling bad about yourself - or that you are a failure or have let yourself or your family down 0 0 Trouble concentrating on things, such as reading the newspaper or watching television 0 0 Moving or speaking so slowly that other people could have noticed. Or the opposite - being so fidgety or restless that you have been moving around a lot more than usual 0 0 Thoughts that you would be better off , or of hurting yourself in some way 0 0 PHQ-9 Total Score 1 2 If you checked off any problems, how difficult have these problems made it for you to do your work, take care of things at home, or get along with other people? Not difficult at all Not difficult at all AUTHENTICATED BY FRANCISCO AHMADI, ON 03/11/2024 11:55:59 [facility] 03-10-2024 Note Hematology/Oncology Clinic Note Chief Complaint/Diagnosis: 1. Thrombosis Referring Physician:No referring provider defined for this encounter. PCP: 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, SRAVANTHI History of Present Illness: Jay Antonio is a 29 y.o. female with a past medical history of thrombosis who is being seen by hematology/oncology for evaluation. Varicosities in left leg for 5 years. Pain in right calf and varicosities noted in January 2024. Pain in anterior and medial to tibial. Return for ultrasound 01/30/24 because of consideration of laser of legs. Superficial vein clotting in lower calf x 2 on right and x1 on left. They did laser of greater saphenous vein on 02/28/2024. Marked improvement in right leg noted. Swelling gone, &right varicosities improved in right lower extremity. Heaviness improved and varicosities resolved. Only minor discoloration. Scheduled for left greater saphenous vein laser scheduled 03/13/24 Patient did use control pills from approximately age 13 to age 26. Patient has had no control pills for the last 3 years. She has no history of any deep venous thrombosis. Patient has to sisters no history of any blood clotting and they probably had use of control pills in the past. Her mother and father have no blood clotting problem Her maternal grandmother has history of blood clotting she is 83. Her grandmother had her blood clots at about age 75 and is now on blood thinner. There is no history of any hypercoagulable state noted but testing may not have been done. Her maternal grandmother did have vein stripping in the past Patient does not know if her grandmother had any genetic testing done but does not recall any history of protein C protein S Antithrombin III or factor V Leiden deficiencies Jay has not had any long traveling history such as a train plane or car trip. Past Medical History: Diagnosis Date Acne on back Anorectal disorder Anxiety Arthralgia left hip Deep vein thrombosis (HCC) December 2023 Heart murmur Palpitations occasionally Heart palpitations Low back pain Seasonal allergies Varicose veins of both lower extremities Varicose veins of left lower extremity with pain Past Surgical History: Procedure Laterality Date APPENDECTOMY 09/08 APPENDECTOMY LAPAROSCOPIC N/A 08/20/2023 Procedure: APPENDECTOMY LAPAROSCOPIC; Surgeon: Raudel Jordan MD; Location: Main OR; Service: General Surgery BREAST SURGERY SECTION N/A 06/29/2021 Procedure: SECTION; [...] Heart attack Maternal Grandfather Diabetes Paternal Grandfather Social History Socioeconomic History Marital status: Occupational History 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, 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[employer] Tobacco Use Smoking status: Never Smokeless tobacco: Never Vaping Use Vaping status: Never Used Substance and Sexual Activity Alcohol use: Not Currently Drug use: Never Sexual activity: Yes Partners: Male control/protection: Condom Social Determinants of Health Financial Resource Strain: Low Risk (03/06/2022) Overall Financial Resource Strain (CARDIA) Difficulty of Paying Living Expenses: Not very hard Food Insecurity: No Food Insecurity (08/20/2023) Hunger Vital Sign Worried About Running Out of Food in the Last Year: Never true Ran Out of Food in the Last Year: Never true Transportation Needs: No Transportation Needs (08/20/2023) PRAPARE - Transportation Lack of Transportation (Medical): No Lack of Transportation (Non-Medical): No Physical Activity: Unknown (03/06/2022) Exercise Vital Sign Days of Exercise per Week: 3 days Stress: No Stress Concern Present (03/06/2022) [employer] [place] [employer] - Occupational Stress Questionnaire Feeling of Stress : Not at all Social Connections: Moderately Integrated (03/06/2022) Social Connection and Isolation Panel [NHANES] Frequency of Communication with Friends and Family: Three times a week Frequency of Social Gatherings with Friends and Family: Twice a week Attends Pentecostal Services: 1 to 4 times per year Active Member of Clubs or Organizations: No Attends Club or Organization Meetings: Never Marital Status: Housing Stability: Low Risk (08/20/2023) Housing Stability Vital Sign Unable to Pay for Housing in the Last Year: No Number of Places Lived in the Last (more content not included)... [facility] 03-10-2024 History of Present illness Narrative Hematology/Oncology Clinic Note Chief Complaint/Diagnosis: 1. Thrombosis Referring Physician:No referring provider defined for this encounter. PCP: 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 CNP History of Present Illness: Jay Antonio is a 29 y.o. female with a past medical history of thrombosis who is being seen by hematology/oncology for evaluation. Varicosities in left leg for 5 years. Pain in right calf and varicosities noted in January 2024. Pain in anterior and medial to tibial. Return for ultrasound 01/30/24 because of consideration of laser of legs. Superficial vein clotting in lower calf x 2 on right and x1 on left. They did laser of greater saphenous vein on 02/28/2024. Marked improvement in right leg noted. Swelling gone, &right varicosities improved in right lower extremity. Heaviness improved and varicosities resolved. Only minor discoloration. Scheduled for left greater saphenous vein laser scheduled 03/13/24 Patient did use control pills from approximately age 13 to age 26. Patient has had no control pills for the last 3 years. She has no history of any deep venous thrombosis. Patient has to sisters no history of any blood clotting and they probably had use of control pills in the past. Her mother and father have no blood clotting problem Her maternal grandmother has history of blood clotting she is 83. Her grandmother had her blood clots at about age 75 and is now on blood thinner. There is no history of any hypercoagulable state noted but testing may not have been done. Her maternal grandmother did have vein stripping in the past Patient does not know if her grandmother had any genetic testing done but does not recall any history of protein C protein S Antithrombin III or factor V Leiden deficiencies Jay has not had any long traveling history such as a train plane or car trip. Past Medical History: Diagnosis Date Acne on back Anorectal disorder Anxiety Arthralgia left hip Deep vein thrombosis (HCC) December 2023 Heart murmur Palpitations occasionally Heart palpitations Low back pain Seasonal allergies Varicose veins of both lower extremities Varicose veins of left lower extremity with pain Past Surgical History: Procedure Laterality Date APPENDECTOMY 09/08 APPENDECTOMY LAPAROSCOPIC N/A 08/20/2023 Procedure: APPENDECTOMY LAPAROSCOPIC; Surgeon: Raudel Jordan MD; Location: Main OR; Service: General Surgery BREAST SURGERY SECTION N/A 06/29/2021 Procedure: SECTION; [...] Heart attack Maternal Grandfather Diabetes Paternal Grandfather Social History Socioeconomic History Marital status: Occupational History 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, 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[employer] Tobacco 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 Smoking status: Never Smokeless tobacco: Never Vaping Use Vaping status: Never Used Substance and Sexual Activity Alcohol use: Not Currently Drug use: Never Sexual activity: Yes Partners: Male control/protection: Condom Social Determinants of Health Financial Resource Strain: Low Risk (03/06/2022) Overall Financial Resource Strain (CARDIA) Difficulty of Paying Living Expenses: Not very hard Food Insecurity: No Food Insecurity (08/20/2023) Hunger Vital Sign Worried About Running Out of Food in the Last Year: Never true Ran Out of Food in the Last Year: Never true Transportation Needs: No Transportation Needs (08/20/2023) PRAPARE - Transportation Lack of Transportation (Medical): No Lack of Transportation (Non-Medical): No Physical Activity: Unknown (03/06/2022) Exercise Vital Sign Days of Exercise per Week: 3 days Stress: No Stress Concern Present (03/06/2022) [employer] [place] [employer] - Occupational Stress Questionnaire Feeling of Stress : Not at all Social Connections: Moderately Integrated (03/06/2022) Social Connection and Isolation Panel [NHANES] Frequency of Communication with Friends and Family: Three times a week Frequency of Social Gatherings with Friends and Family: Twice a week Attends Pentecostal Services: 1 to 4 times per year Active Member of Clubs or Organizations: No Attends Club or Organization Meetings: Never Marital Status: Housing Stability: Low Risk (08/20/2023) Housing Stability Vital Sign Unable to Pay for Housing in the Last Year: No Number of Places Lived in the Last Year: 1 Unstable Housing in the Last Year: No Allergies Allergen Reactions Other Other (See Comments) Seasonal allergies No current outpatient medications on file. No current facility-administered medications for this visit. Review of Systems: A Complete review of systems was performed and is negative except for what is listed in the HPI. Physical Exam: PACU Vitals 03/10/24 0951 BP: 115/78 Pulse: 80 Temp: 98.3 F (36.8 C) SpO2: 98% ECOG Gen: NAD, resting comfortably HEENT: NCAT, no temporal wasting, anicteric sclerae, mmm, no op lesions Neck: supple, no thyromegaly or LAD Lymphatics: no cervical, axillary, or inguinal adenopathy Chest: CTAB, no w/r/r, no respiratory distress CV: RRR, no m/r/g, normal S1, S2 Abd: soft, nontender, nondistended, +BS Ext: wwp, no c/c/e Skin: no rashes or lesions Neuro: Alert and oriented x4, no focal deficits, moves all four extremities Psych: Mood normal, affect normal No significant swelling in her lower extremities noted. Measurement of both calves 8 cm below the patella measured 33 cm bilaterally there is no obvious varicosities in either lower extremities. There was no tenderness in the groin thigh or calf or popliteal area. Labs: Lab Results Component Value Date WBC 11.08 (H) 08/21/2023 HGB 12.0 08/21/2023 HCT 36.6 08/21/2023 MCV 91.3 08/21/2023 PLT 208 08/21/2023 RBC 4.01 08/21/2023 Lab Results Component Value Date GLUCOSE 110 (H) 08/21/2023 CALCIUM 8.8 08/21/2023 NA 139 08/21/2023 K 4.3 08/21/2023 CL 110 (H) 08/21/2023 BUN 11 08/21/2023 CREATININE 0.53 08/21/2023 Lab Results Component Value Date ALT 18 11/24/2022 AST 15 11/24/2022 ALKPHOS 59 11/24/2022 BILITOT 0.6 11/24/2022 Radiology: I am dictating records from the [facility] from [facility]. Procedures was VC external venous reflux bilaterally L MTD no comparisons indications for bilateral painful varicose veins. Conclusion moderate to severe right moderate left greater saphenous vein in the sufficiency and dilatation of saphenofemoral junction reflux. #2 moderate venous insufficiency left anterior accessory saphenous vein with dilatation #3 bilateral incompetence varicose veins. Hand written information from the nurse showed chronic superficial vein clotting noted worth consulting oncology their plan was laser of the right great saphenous vein and left anterior accessory saphenous veins due to size and reflux. Right greater saphenous vein has already been completed (scheduled for this week on . Pathology: Assessment & Recommendations: 1. Thrombosis There is no evidence that Jay has deep venous thrombosis. These appear to be superficial venous abnormalities. She does have a family history of a maternal grandmother was deep venous thrombosis. On anticoagulants. Without a hypercoagulable workup that is known We will proceed with a ultrasound of both legs today if possible to determine if there is any deep venous thrombosis. And also do a hypercoagulable workup. Which would include protein C protein S Antithrombin III and factor V Leiden prothrombin 2 gene testing. Patient to call me on Sunday of this week that would be 03/12/2024 for the results that are available. Patient to return in 1 month to discuss these results. And we will discuss them in 2 days if they are available ELLA PIMENTEL MD documented in this encounter [facility] 09-07-2023 History of Present illness Narrative [facility] PATIENT: Jay Antonio DATE / TIME: 09/07/23 [...] Follow-up as needed documented in this encounter [facility] 08-21-2023 Note Formatting of this n ote might be different from the original. Seen by [place] to home. present. Reviewed discharge medications and follow up appointments as well as lifting restrictions. Patient received community resources. Transported to vehicle via wheelchair for discharge to home. [facility] 08-21-2023 Miscellaneous Notes Seen by [place] to home. present. Reviewed discharge medications and [...] with localized peritonitis Surgeon: Raudel Jordan MD Part Time Flexible Clerk: Noemi Voss who was present for the entire case and provided critical assistance with the technical aspects of the operation. Procedure and Anesthesia: Procedure(s) and Anesthesia Type: * APPENDECTOMY LAPAROSCOPIC - General CPT Code: 94093 EBL 2 ml Complications:None Drains: None Dispo: [...] of the MDM. documented in this encounter [facility] 08-21-2023 Hospital course Narrative DISCHARGE SUMMARY Patient: Jay Antonio Date of : 1995 Site: [facility] Provider: 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 CNP Admit Date: 08/20/2023 [...] Physician(s) Family Provider: 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 CNP, Address: [facility] [address] [facility] [address] Follow Up: 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 CNP [address] [facility] [address] Raudel Jordan MD [address] [place] [id number] Follow up in 1 week(s) Additional Information: [...] 08/21/23, 8:12 AM documented in this encounter [facility] 08-21-2023 Hospital Discharge instructions Lauren Duong CNP [...] at least 10 days. Call the Outpatient Trauma/[facility] office [phone] for advice (Sunday-Sunday, 8am to 4pm) or proceed to the nearest Emergency Department if: You feel weak, lightheaded, or dizzy when you sit up or stand. Develop fever, chills, nausea, or vomiting You have increased abdominal or chest pain Your skin is pale, cool and/or clammy You have a rapid increase in your heart rate while resting. documented in this encounter [facility] 08-21-2023 Note Formatting of this n ote [...] of comfort function goal Outcome: Partially Met [facility] 08-20-2023 Note Formatting of this n ote might be different from the original. Problem: Actual or potential alteration in health Goal: Knowledge of Interdisciplinary Plan of Care Outcome: Partially Met Plan of care to be reviewed with pt by RTicoNTico on a daily basis. Problem: Pain Goal: Manage acute pain Outcome: Partially Met Pt has prn pain medication. [facility] 08-20-2023 Note Formatting of this n ote might be different from the original. Pt arrived to the floor accompanied by PACU staff. Pt was oriented to room and call light. Post op vital signs started. [facility] 08-20-2023 Note Formatting of this n ote might be different from the original. Pre-operative Diagnosis: * Acute appendicitis with localized peritonitis Post-operative Diagnosis: * Acute appendicitis with localized peritonitis Surgeon: Raudel Jordan MD Part Time Flexible Clerk: Noemi Voss who was present for the entire case and provided critical assistance with the technical aspects of the operation. Procedure and Anesthesia: Procedure(s) and Anesthesia Type: * APPENDECTOMY LAPAROSCOPIC - General CPT Code: 16942 EBL 2 ml Complications:None Drains: None Dispo: [...] to the recovery room in stable condition. [employer] Phone: 08-20-2023 Note Formatting of this [...] encounter, including all aspects of the MDM. [employer] Phone: 08-20-2023 Physician Emergency department Note [facility] NOTE: NAME: Jay Antonio CSN: [id number] 28 y.o. PCP: 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 CNP History: Chief Complaint: Abdominal Pain HPI: The history was obtained from the patient. Jay is a 28 y.o. female who presents with a chief complaint of Abdominal Pain. Patient comes emergency room referred from [facility] for evaluation of appendicitis. 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 Smoking status: Never Smokeless tobacco: [...] days Stress: No Stress Concern Present (03/06/2022) [employer] [place] [employer] - Occupational Stress Questionnaire Feeling of Stress : Not at all Social Connections: Moderately Integrated (03/06/2022) Social Connection and Isolation Panel [NHANES] Frequency of Communication with Friends and Family: Three times a week Frequency of Social Gatherings with Friends and Family: Twice a week Attends Pentecostal Services: 1 to 4 times per year [...] Comment Attending Provider or Group: RAUDEL JORDAN [[id number]] Phone call required?: Yes Ke Stockton Jr., PA-C, PA-C ED Advanced Practice Provider [facility] Ke Stockton Jr., PA-C 08/20/23 1826 [facility] 08-20-2023 Emergency department Note [facility] NOTE: NAME: Jay Antonio CSN: [id number] 28 y.o. PCP: 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 CNP History: Chief Complaint: Abdominal Pain HPI: The history was obtained from the patient. Jay is a 28 y.o. female who presents with a chief complaint of Abdominal Pain. Patient comes emergency room referred from [facility] ER for evaluation of appendicitis. She was [...] days Stress: No Stress Concern Present (03/06/2022) [place] [employer] - Occupational Stress Questionnaire Feeling of Stress : Not at all Social Connections: Moderately Integrated (03/06/2022) Social Connection and Isolation Panel [NHANES] Frequency of Communication with Friends and Family: Three times a week Frequency of Social Gatherings with Friends and Family: Twice a week Attends Pentecostal Services: 1 to 4 times per year [...] Comment Attending Provider or Group: RAUDEL JORDAN [[id number]] Phone call required?: Yes Ke Stockton Jr., PA-C, PA-C ED Advanced Practice Provider [facility] Ke Stockton Jr., PA-C 08/20/23 1826 Report called. Bed: 46 Expected date: Expected time: Means of arrival: Comments: TR 1 Patient a transfer from [facility] needing to be evaluated for possible appendicitis. documented in this encounter [facility] 08-20-2023 Emergency department Note Report called. [facility] 08-20-2023 Emergency department Note Bed: 46 Expected date: Expected time: Means of arrival: Comments: TR 1 [facility] 08-20-2023 Emergency department Triage note Patient a transfer from [facility] needing to be evaluated for possible appendicitis. [facility] 03-12-2023 History of Present illness Narrative Subjective [...] history that includes Hemorrhoidectomy (10/02/2017); Refractive surgery; [place] tooth extraction; Hemorrhoidectomy; Colonoscopy; Section (N/A, 06/29/2021); [...] seen at a varicose vein clinic in [place] so she can be evaluated for newer treatment. Seasonal allergies Well controlled with OTC medication Follow up in one year or as needed documented in this encounter [facility] 11-22-2022 Evaluation + Plan note Associated Problem(s): Annual physical exam Healthcare Maintenance: Vaccines: -Influenza vaccine: Season ended -ID vaccine: Fully vaccinated 10/2020, pending Moderna bivalent [...] DEXA: Not yet indicated Routine labs ordered [facility] 11-22-2022 Miscellaneous Notes Associated Problem(s): Annual physical exam Healthcare Maintenance: Vaccines: -Influenza vaccine: Season ended -COVID-19 vaccine: Fully vaccinated 10/2020, pending Moderna bivalent booster at local pharmacy, not available in office today -Tdap: Up-to-date 03/2021 -Shingrix: Not yet indicated Hepatitis C: neg 11/2020 HIV: neg 11/2020 Pap smear: Self-reported up-to-date (normal) around 2 year ago, will obtain records from [facility] Mammogram: Not yet indicated Colonoscopy: Not yet indicated Lung cancer screening: Never smoker, not yet indicated DEXA: Not yet indicated Routine labs ordered documented in this encounter [facility] 11-22-2022 History of Present illness Narrative [facility] [address] [facility] [address] [place] [address] HPI: Jay Antonio is a 27 y.o. year old female seen in the office today for her annual physical. Denies any complaints today. [facility] Reyn[facility] at [facility] for her female wellness. Reports last Pap [...] directions given. Results will be available through [employer] as soon as they are reported. Please [...] look into their status. Customer Service/Billing Questions: [phone] [employer] Assistance: [phone] or [phone] Financial Assistance: [phone] or [phone] Follow Up Ordered: Return in about 1 year (around 11/23/2023) for Annual physical. Gay Narayan MD documented in this encounter [facility] 11-21-2021 Evaluation + Plan note Associated Problem(s): [...] not yet indicated DEXA: Not yet indicated [facility] 11-21-2021 Miscellaneous Notes Associated Problem(s): Annual physical [...] Not yet indicated documented in this encounter [facility] 11-21-2021 History of Present illness Narrative [address] [facility] [address] [place] [address] HPI: Jay Antonio is a 26 y.o. [...] year ago, will fax records from [facility] Mammogram: Not yet indicated Colonoscopy: Not yet [...] directions given. Results will be available through [employer] as soon as they are reported. Please [...] look into their status. Customer Service/Billing Questions: [phone] My[employer] Assistance: [phone] or [phone] Financial Assistance: [phone] or [phone] Follow Up Ordered: Return in about 1 year (around 11/21/2022). Gay Narayan MD documented in this encounter [facility] 07-01-2021 Miscellaneous Notes Discharge home ambulatory with [...] stooling. Encourage follow up weight check with ironing pleater in 1-2 days. Appointment was made by [...] stimulate supply. Mother has made appointment with [facility] ironing pleater for infant follow up. Plan is to follow feeding cues and continue on demand breastfeeds. To attempt direct latch first and use shield only as needed. Infant currently content, swaddled in open crib. Mother [...] Hospital Encounter 361 mL Total 361 mL Paco, Baby Boy Jay [[id number]] Delivery Anesthesia Method: Spinal Operative Delivery Forceps attempted?: No Vacuum extractor attempted?: No Presentation Presentation: Vertex Position: Middle _: Transverse [place] Information date/time: 06/29/21 1032 Gender: Male Delivery type: , Low Transverse Delivery location: OB Unit Provider Present: Routine Initial disposition: Routine NB Care Details: Trial of labor?: No categorization: Primary priority: Scheduled Indications for : Other (Add Comments) Skin incision type: Pfannenstiel Delivery Providers Delivering clinician: Yohan Reyna MD Other personnel: Provider Role Covering Attending Resident National Sales Manager Mariely Banerjee RN Delivery Nurse Cristin Vargas RN Registered Nurse Caryn Jean Baptiste RN Delivery Assist Nurse Practitioner Carmen Collins RN Registered Nurse Joe Rivera MD News Copy Editor Cord Vessels: 3 vessels Complications: None Delayed cord clamping?: Yes Cord clamped date/time: 06/29/2021 1033 Cord blood obtained?: Yes Cord segment obtained?: No Gases sent?: No Stem cell collection (by Provider)?: No Placenta Date/time: 06/29/2021 1034 Removal: Manual removal Appearance: Intact Disposition: Refrigerator Apgars No data filed [place] Measurements Weight: 7 lb 6.9 oz (3370 g) Length: 19 Head Circumference: 13.189 Lacerations No data filed Other Procedures Procedures: None Brief Post Operative Note Patient Name: Jay Antonio : 1995 (26 y.o.) Date of Service: 06/29/2021 [facility]: [id number] Procedure(s): SECTION Pre-Operative Diagnoses: * Anorectal disorder [K62.9] Post-Operative Diagnoses: * Anorectal disorder [K62.9] Surgeon(s) and Role: * Yohan Reyna MD - Primary MINING ENGINEERING TECHNOLOGIST: Morgan Gomez CRNA Blueprint Blocker: Mariely Banerjee RN Scrub Person: ST Dillan Scrub Person Preceptor: Bhumika Whittington RN Scrub Person Assist: Ana Maria Collins RN News Copy Editor: Joe Rivera MD Nursery Nurse: Caryn Jean [...] ovaries SURGEON: Yohan Reyna MD OR STAFF: Blueprint Blocker: Mariely Banerjee RN Scrub Person: ST Dillan Scrub Person Preceptor: Bhumika Whittington RN Scrub Person Assist: Ana Maria Collins RN News Copy Editor: Joe Rivera MD Nursery Nurse: Caryn Jean Baptiste RN ANESTHESIA STAFF: MINING ENGINEERING TECHNOLOGIST: Morgan Gomez CRNA SPECIMEN(S): * No specimens [...] correct times three. documented in this encounter [facility] 07-01-2021 History of Present illness Narrative Section [...] Information for the patient's : Jihan Antonio [[id number]] Feeding Type: Breast milk,Formula Objective: Vital signs [...] Information for the patient's : Jihan Antonio [[id number]] Feeding Type: Breast milk Objective: Vital signs [...] Negative Nicola's sign. documented in this encounter [facility] 07-01-2021 Hospital Discharge instructions Angeline Ball RN [...] the office. 10. Please call the office ([phone]) for your six weeks' checkup appointment time. [...] any questions or problems, call the office. [phone] or [phone]. Please Note: Unless there are medical complications, maternity leave will be authorized for 6 weeks. documented in this encounter [facility] 06-30-2021 Hospital course Narrative DISCHARGE SUMMARY Patient: Jay Antonio Date of : 1995 Site: [facility] Family Provider: Desiree Maddox MD Admit [...] Physician(s) Family Provider: Desiree Maddox MD, Address: [address] [place], [place] [id number] Follow Up: Yohan Reyna MD [address] [place] [id number] Schedule an appointment as soon as possible for a visit in 6 week(s) Additional Information: Patient instructions, including activity, were given to the patient/family at discharge. Please see the After Visit Summary in the electronic medical record for details. 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 2. [...] done. Pt has first ob appointment at [facility] with on Sunday. documented in this encounter [facility] Evaluation note Diagnosis Annual physical exam- Primary Routine general medical examination at a health care facility Seasonal allergies Allergic rhinitis, cause unspecified Family history of hypertrophic cardiomyopathy Heart palpitations Palpitations [facility] Family history of hypertrophic cardiomyopathy Heart palpitations Palpitations [facility] Diagnosis Encounter for preprocedure screening laboratory testing for COVID-19- Primary [facility] Diagnosis 39 weeks gestation of - Primary Post-operative pain Other acute postoperative pain [facility] Diagnosis Annual physical exam Routine general medical examination at a health care facility [facility] Diagnosis Annual physical exam- Primary Routine general medical examination at a health care facility [facility] Diagnosis Encounter to establish care- Primary Varicose veins of left lower extremity with pain Seasonal allergies Allergic rhinitis, cause unspecified [facility] Acute appendicitis- Primary Acute appendicitis without mention of peritonitis Acute appendicitis, unspecified acute appendicitis type [facility] Diagnosis Postoperative follow-up- Primary Follow-up examination, following unspecified surgery [facility] Diagnosis Deep vein thrombosis (DVT) of other vein of lower extremity, unspecified chronicity, unspecified laterality (HCC)- Primary [facility] Diagnosis Thrombosis- Primary Embolism and thrombosis of unspecified site Thrombosis Embolism and thrombosis of unspecified site documented in this encounter [facility] Summary Purpose Family History No Family History Records FoundNo Family History Records FoundNo Family History Records FoundNo Family History Records FoundNo Family History Records FoundNo Family History Records FoundNo Family History Records Found Advance Directives No Advanced Directives Records FoundDocuments on File Type Date Recorded Patient Wool Presser Expl anation Advance Directives and Livin g Will 01/20/2019 2:17 PM Documents on File Type Date Recorded Patient Wool Presser Expl anation Advance Directives and Livin g Will 02/11/2019 2:49 PM Documents on File Type Date Recorded Patient Wool Presser Expl anation Advance Directives and Livin g Will 02/11/2019 2:49 PM Documents on File Type Date Recorded Patient Wool Presser Expl anation Advance Directives and Livin g Will Advance Directives and Livin g Will 12/29/2020 9:12 AM Documents on File Type Date Recorded Patient Wool Presser Expl anation Advance Directives and Livin g Will Advance Directives and Livin g Will 04/09/2021 10:13 AM Latest Code Status on File Code Status Date Activated Date Inactivated Comments Full Code 04/09/2021 10:16 AM 04/09/2021 4:01 PM Documents on File Type Date Recorded Patient Wool Presser Expl anation Advance Directives and Livin g [...] Comments 04/09/2021 10:16 AM 04/09/2021 4:01 PM Date [...] Urology Diagnoses Dysuria Lisha Duenas, DO [address] [place] [address] [facility] [address] [place] [address] Status Reason Specialty Diagnoses / Procedures Referred By Contact Referred To Contact Pending Review Cardiology Diagnoses Varicose veins of left lower extremity with pain Procedures Ultrasound venous insufficiency left leg Hannah Pollard III, DO [address] [place] [address] Status Reason Specialty Diagnoses / Procedures Referred By Contact Referred To Contact New Request Cardiology Diagnoses Family history of hypertrophic cardiomyopathy Heart palpitations Procedures Echocardiogram complete Desiree Maddox MD [address] [place] [address] Status Reason Specialty Diagnoses / Procedures Referre d By Contact Referred To Contact Closed Cardiology Diagnoses Family history of hypertrophic cardiomyopathy Heart palpitations Procedures Echocardiogram complete Desiree Maddox MD [address] [place] [address] [facility] [address] [facility] [place] [address] Specialty Diagnoses / Procedures Referred By Abelardo lopez Referred To Contact Cardiology Diagnoses Thrombosis Procedures Ultrasound duplex venous legs Ella Solares MD [address] [place] [address] Referral ID Status Reason Start Date Expiration Date Visits Re quested Visits Authorized [id number] Closed 03/11/2024 03/11/2025 1 1 History of Present Illness * Lisha Duenas, [...] discussed getting an ultrasound to rule out MEDICAL TECHNOLOGIST CLINICAL sources of pain like a cyst although this is not as high on the differential given her symptoms. in this encounter* Marcela Borja CNP - 05/24/2018 10:30 AM EST [...] Tab Take 1 tablet by mouth daily. Vilonia-3 Fatty Acids (FISH OIL) 1000 MG Cap [...] constant pressure and bloating. 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 [...] to contact your Care Team: Provider: Hannah Pollard III, Nurse: Marci Stallworth RN In case of [...] section and content) DATE CREATED AUTHOR 12/12/2017 [facility] [facility] DATE CREATED AUTHOR AUTHOR'S ORGANIZ ATION 12/17/2020 [facility] DATE CREATED AUTHOR AUTHOR'S ORGANIZ ATION 01/30/2021 [facility] DATE CREATED AUTHOR AUTHOR'S ORGANIZ ATION 06/26/2021 [facility] DATE CREATED AUTHOR AUTHOR'S ORGANIZ ATION 08/26/2023 [facility] DATE CREATED AUTHOR AUTHOR'S ORGANIZ ATION 03/11/2024 [facility] DATE CREATED AUTHOR AUTHOR'S ORGANIZ ATION [facility] for Visit (unrecogniz ed section and content) Reason Comments Results Reason Comments Urinary Pain Patient states she h as been having the pain 2 times a month. Reason Comments Appointment Reason Comments New Patient Dysuria Status Reason Specialty Diagnoses / Procedures Referred By Contact Referred To Contact New Request Urology Diagnoses Dysuria Lisha Duenas, DO [address] [place] [address] Zan Otero MD [address] [place] [address] Reason Comments PT Initial Evaluation VV Status Reason Specialty Diagnoses / Procedures Referred By Contact Referred To Contact Pending Review Cardiology Diagnoses Varicose veins of left lower extremity with pain America Ely, TREND INVESTIGATOR [address] [place] [address] Hannah Pollard III, DO [address] [place] [address] Status Reason Specialty Diagnoses / Procedures Referred By Contact Referred To Contact Pending Review Cardiology Diagnoses Varicose veins of left lower extremity with pain Procedures Ultrasound venous insufficiency left leg Hannah Pollard III, DO [address] [place] [address] Reason Comments Establish Care would like order for ECHO and MRI Status Reason Specialty Diagnoses / Procedures Referre d By Contact Referred To Contact Closed Cardiology Diagnoses Family history of hypertrophic cardiomyopathy Heart palpitations Procedures Echocardiogram complete Desiree Maddox MD [address] [place] [address] [facility] [address] [facility] [place] [address] Reason Comments Scheduled Primary C Section Specialty Diagnoses / Procedures Referred By Contbaldemar t Referred To Contact Diagnoses 39 weeks gestation of Referral ID Status Reason Start Date Expiration Date Visits Re quested Visits Authorized [id number] 1 1 Reason Comments Establish Care [id number] Reason Comments Establish Care Reason Comments Abdominal Pain Specialty Diagnoses / Procedures Referred By Contac t Referred To Contact Diagnoses Acute appendicitis Acute appendicitis, unspecified acute appendicitis type Acute appendicitis Referral ID Status Reason Start Date Expiration Date Visits Re quested Visits Authorized [id number] 1 1 Reason Comments Post-op Care Teams (unrecognized sec tion and content) Internet Researcher Relationship Specialty Start Date End Date Desiree Maddox MD [address] [place] [address] PCP - General Family Medicine 11/22/20 Subit, Yohan Lake MD [address] [place] [address] Consulting Physician Obstetrics/Gynecology 05/18/21 Internet Researcher Relationship Specialty Start Date End Date Desiree Maddox MD [address] [place] [address] PCP - General Family Medicine 11/22/20 SubitYohan MD [address] [place] [address] Consulting Physician Obstetrics/Gynecology 05/18/21 Internet Researcher Relationship Specialty Start Date End Date Gay Davies MD [address] [place] [address] PCP - General Internal Medicine 11/21/21 SubitYohan MD [address] [place] [address] Consulting Physician Obstetrics/Gynecology 05/18/21 Internet Researcher Relationship Specialty Start Date End Date Gay Davies MD [address] [place] [address] PCP - General Internal Medicine 11/21/21 Yohan Reyna MD [address] [place] [address] Consulting Physician Obstetrics/Gynecology 05/18/21 Internet Researcher Relationship Specialty Start Date End Date 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 CNP [address] [place] [address] PCP - General Nurse Practitioner 03/12/23 SubitYohan MD [address] [place] [address] Consulting Physician Obstetrics/Gynecology 05/18/21 Internet Researcher Relationship Specialty Start Date End Date 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 CNP [address] [place] [address] PCP - General Nurse Practitioner 03/12/23 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 CNP [address] [place] [address] PCP - STONE Attributed Provider - Ruma Commercial 01/16/23 06/17/50 Yohan Reyna MD [address] [place] [address] Consulting Physician Obstetrics/Gynecology 05/18/21 Internet Researcher Relationship Specialty Start Date End Date 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 CNP [address] [place] [address] PCP - General Nurse Practitioner 03/12/23 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 CNP [address] [place] [address] PCP - STONE Attributed Provider - Ruma Commercial 01/16/23 06/17/50 Yohan Reyna MD [address] [place] [address] Consulting Physician Obstetrics/Gynecology 05/18/21 Internet Researcher Relationship Specialty Start Date End Date 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 CNP [address] [place] [address] PCP - General Nurse Practitioner 03/12/23 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 CNP [address] [place] [address] PCP - STONE Attributed Provider - Ellevation 01/16/23 06/17/50 Yohan Reyna MD [address] [place] [address] Consulting Physician Obstetrics/Gynecology 05/18/21 Internet Researcher Relationship Specialty Start Date End Date 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 CNP [address] [place] [address] PCP - General Nurse Practitioner 03/12/23 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 CNP [address] [place] [address] PCP - STONE Attributed Provider - Ellevation 01/16/23 06/17/50 Yohan Reyna MD [address] [place] [address] Consulting Physician Obstetrics/Gynecology 05/18/21 Scheduled Active and [...] Oral, Daily with breakfast, First dose on Sun06/30/21 at 0800, 0842 (Given - Provider: Marisel Copeland, RN) 0800 (Due) fluconazole (DIFLUCAN) tablet 150 [...] Copeland RN) 0809 (Given - Provider: Angeline Ball, MAN) ibuprofen (ADVIL,MOTRIN) tablet 800 mg 800 mg, [...] Sahara Luna RPh,PharmD)2313 (Given - Provider: Abbey Catherine RN) 0808 [...] Copeland RN)1630 (Due - Provider: Sahara Luna RP,PharmD)2313 (See Alternative - Provider: Abbey Catherine RN) [...] via tube. 2253 (Given - Provider: Steffi Chambers, MAN) 2100 (Due) Continuous Medication Order 06/29/2021 06/30/2021 [...] not tolerated. DO NOT CRUSH OR CHEW. 1843 (Given - Provider: Nieves Best RN) flu vacc [id number] 6mos up(PF) (FLUZONE QUAD/FLULAVAL QUAD/FLUARIX QUAD) syringe 0.5 mL 0.5 mL, Intramuscular, Prior To Discharge, administer vaccine prior to discharge, ., Starting on Concha 06/30/21 at 0800, For 1 dose HYDROcodone-acetaminophen (NORCO) [...] physician. 2314 (Given - Provider: Abbey Catherine, RN) 0809 (Given - Provider: Angeline Ball, MAN) [...] severe pain, Starting on Sun08/20/23 at 1724 1904 ([facility] Hold - Provider: Transfer Provider, Automatic - Reason: Patient not available)2057 ([facility] Unhold - Provider: Transfer Provider, Automatic)2124 (Given - Provider: Zehra Grady RN) 0219 (Given - Provider: Zehra Grady, RN)0619 (Given - Provider: Zehra Grady RN) [...] respiratory rate is 10 or greater. 1904 ([facility] Hold - Provider: Transfer Provider, Automatic - Reason: Patient not available)2057 ([facility] Unhold - Provider: Transfer Provider, Automatic) naloxone (NARCAN) injection 0.4 mg(Linked Group 1) 0.4 mg, Intravenous, As needed, opioid reversal, patient is pulseless, breathless, and unresponsive, Starting on Sun08/20/23 at 1724, Call a code first, then administer naloxone dose undiluted IV Push over 30 seconds. 1904 ([facility] Hold - Provider: Transfer Provider, Automatic - Reason: Patient not available)2057 ([facility] Unhold - Provider: Transfer Provider, Automatic) ondansetron (ZOFRAN) injection 4 mg(Linked Group 2) 4 mg, Intravenous, Every 4 hours PRN, nausea, vomiting, Starting on Sun08/20/23 at 2301, [] Oral or IV - use oral route if tolerated. 2313 (Given - Provider: Zehra Grady RN) 0413 (Given - Provider: Zehra Grady RN)0836 (Given - Provider: Satya Mg RN) ondansetron (ZOFRAN-ODT) disintegrating tablet 4 mg(Linked Group 2) 4 mg, Oral, Every 4 hours PRN, nausea, vomiting, Starting on Sun08/20/23 at 2301, [] Oral or IV - use oral route if tolerated. Formulation requires tablet remain in sealed package until immediately prior to dose being administered. 2313 (See Alternative - Provider: Zehra Grady, RN) 0413 (See Alternative - Provider: Zehra Grady RN)0836 (See Alternative - Provider: Satya Mg RN) Linked Groups Order Group 1: naloxone (NARCAN) [...] BE BASED ON THE PRIMARY CLINICAL RECORDS. [employer] [facility]. provides no warranty or guarantee of the accuracy or completeness of information in this document.
[2024-03-13 07:57] VITALS: BP 104/72; PULSE 72; O2SAT 99
== END 2024-03-13 08:58 | disposition home or self-care (01) ==
LOC: VC 07:48
PROVIDERS: PCP Radiology Diagnostic Radiology; Visit Provider Radiology Diagnostic Radiology
DX: I83.813 Varicose veins of bilateral lower extremities with pain (principal)
CPT/HCPCS: 36478

== ENCOUNTER 2024-03-17 09:09 | Outpatient (OUT) | payer BC, SELFPAY ==
--- NOTE | 2024-03-17 07:33 | V.VEINS.HP ---
Vital Signs 03/17/24 09:31 Height 5 ft 1 in Weight 63 kg BMI 26.2 Varicose Veins Patient in today for follow up ultrasound of left lower extremity following EVLT of left AASV completed on 03/13/24. Hakeem Greenwood MD personally performed the services described in this documentation, as scribed by Marilee Bush RDMS in my presence and it is both accurate and complete. Marilee Greenwood RDMS, am scribing for, and in the presence of, Dr. Kassi Walters and in the presence of the patient. thigh: bilateral (symptoms right > left), knee: bilateral, calf: bilateral, ankle: bilateral and estrada: bilateral aching, cramping, dull and tender 6 5 years Worsened in recent months: Yes standing elevating extremities, compression stockings and exercise Reports muscle spasms of leg, heaviness, limb pain, edema and leg edema History of lower extremity trauma: No Superficial thrombophlebitis: No Family history of varicose veins: yes Has patient had previous lower extremity venous surgery: No Patient has previously received the following treatment(s) for lower extremity varicose veins: Reports none Does patient have a history of : yes Does patient intend to have future pregnancies: yes Has patient had lower extremity venous scan with relux testing: No Support hose used: Yes Problems walking or doing physical activity: No How does it affect you: often has to stop and rest and elevate legs Do you walk much: Yes Do you stand much: Yes Review of Systems ROS Narrative Hakeem Greenwood MD personally performed the services described in this documentation, as scribed by Marilee Bush RDMS in my presence and it is both accurate and complete. Marilee Greenwood RDMS, am scribing for, and in the presence of, Dr. Kassi Walters and in the presence of the patient. Status of ROS 10 or more systems reviewed and unremarkable except as noted in history and below Cardiovascular Reports: edema Integumentary/Breast Reports: itching, skin swelling and changes in skin color [facility] Medical History (Updated 03/17/24 @ 08:01 by Marilee Bush) Phlebitis and thrombophlebitis of superficial vessels of left lower extremity ?I80.02 - Phlebitis and thrombophlebitis of superficial vessels of left lower extremity (ICD-10) Phlebitis and thrombophlebitis of superficial vessels of right lower extremity ?I80.01 - Phlebitis and thrombophlebitis of superficial vessels of right lower extremity (ICD-10) Superficial thrombophlebitis ?I80.9 - Phlebitis and thrombophlebitis of unspecified site (ICD-10) delivery delivered ?O82 - Encounter for delivery without indication (ICD-10) Varicose veins of bilateral lower extremities with pain ?I83.813 - Varicose veins of bilateral lower extremities with pain (ICD-10) Pain due to varicose veins of both lower extremities ?I83.813 - Varicose veins of bilateral lower extremities with pain (ICD-10) Surgical History (Updated 03/13/24 @ 08:53 by Justo Stallworth) Status post laser ablation of incompetent vein ?Z98.890 - Other specified postprocedural states (ICD-10) Status post laser ablation of incompetent vein ?Z98.890 - Other specified postprocedural states (ICD-10) H/O breast augmentation ?Z98.82 - Breast implant status (ICD-10) History of appendectomy ?Z90.49 - Acquired absence of other specified parts of digestive tract (ICD-10) H/O hemorrhoidectomy ?Z98.890 - Other specified postprocedural states (ICD-10) Family History (Updated 01/29/24 @ 11:16 by Justo Stallworth) Other Family history of diabetes mellitus Heart disease Varicose veins of bilateral lower extremities with pain Social History (Updated 01/29/24 @ 11:17 by Justo Stallworth) Within the past year, how often did you have a drink containing alcohol: 2-4 times a month Smoking status: Never smoker Non-prescribed substance use: denies use Meds Home Medications and Allergies Home Medications ?Medication ?Instructions ?Recorded ?Confirmed ?Type drospirenone-ethinyl estradiol .ROUTE 01/29/24 History spironolactone .ROUTE 01/29/24 History magnesium 200 mg tablet 200 mg PO DAILY 01/30/24 01/30/24 History Allergies Allergy/AdvReac Type Severity Reaction Status Date / Time No Known Drug Allergies Allergy Verified 01/29/24 11:14 Exam Narrative Exam Narrative: Mild bruising noted proximal/medial thigh. Hakeem Greenwood MD personally performed the services described in this documentation, as scribed by Marilee Bush RDMS in my presence and it is both accurate and complete. Marilee Greenwood RDMS, am scribing for, and in the presence of, Dr. Kassi Walters and in the presence of the patient. Constitutional Documenting provider has reviewed patient's vital signs: yes Common normals: oriented x3 Cardio Peripheral pulses: dorsalis pedis pulses present Extremity Common normals: normal capillary refill General: edema Right lower extremity: lower leg Right lower leg: inspection and palpation Left lower extremity: lower leg Left lower leg: inspection and palpation Neuro Common normals: oriented x3 Results Imaging Venous US: Radiologist's impression: Heat induced thrombus in left AASV 7.8 mm from SFJ and extends to mid thigh. Hakeem Greenwood MD personally performed the services described in this documentation, as scribed by Marilee Bush RDMS in my presence and it is both accurate and complete. Marilee Greenwood RDMS, am scribing for, and in the presence of, Dr. Kassi Walters and in the presence of the patient. Assessment and Plan Assessment and Plan (1) Phlebitis and thrombophlebitis of superficial vessels of left lower extremity: Plan Plan is for patient to return for Varithena/microfoam of right leg on 03/27/24. Hakeem Greenwood MD personally performed the services described in this documentation, as scribed by Marilee Bush RDMS in my presence and it is both accurate and complete. Marilee Greenwood RDMS, am scribing for, and in the presence of, Dr. Kassi Walters and in the presence of the patient.
--- NOTE | 2024-03-17 09:10 | VEIN_ITS ---
Patient Name: JAY TORRES MR#: [id number] : 1995 Exam Date: 03/17/2024 Ordering Doctor: DR RICHELLE WALTERS M.D. RADIOLOGY REPORT PROCEDURE: VC EXT VENOUS LT LIMITED COMPARISON: None. INDICATIONS: I80.02 - Phlebitis and thrombophlebitis of superficial veins left leg TECHNIQUE: Lower extremity knox scale and Duplex Doppler evaluation of the deep venous system from the inguinal ligament through the calf veins. FINDINGS: REGION: Left lower extremity. THROMBI: Negative for DVT. Heat induced thrombus in left leg AASV 7.8 mm from SFJ and extends to mid thigh. COMPRESSIBILITY: Non-compressible segments corresponding to thrombus FLOW: Areas of no flow corresponding to thrombus OTHER: CONCLUSION: 1. Successful post ablation occlusion of left anterior accessory saphenous vein. Dictated by: Richelle Walters M.D. on 03/17/2024 at 09:41 Approved by: Richelle Walters M.D. on 03/17/2024 at 09:43
--- NOTE | 2024-03-17 09:10 | VEIN_ITS ---
Patient Name: JAY TORRES MR#: [id number] : 1995 Exam Date: 03/17/2024 Ordering Doctor: DR RICHELLE GALVEZ M.D. RADIOLOGY REPORT PROCEDURE: [facility] - OFFICE VISIT FOLLOW UP COMPARISON: [facility], 03/06/2024. PROGRESS NOTES: The patient reports improvement in leg symptoms. There has been interval reduction in varicosities. The patient has followed our recommendations to walk 20-30 minutes once or twice per day since the procedure. Physical exam demonstrates decrease in varicosities of the leg. Persistent varicosities are identified along the legs bilaterally. Review of the ultrasound performed the same day demonstrates occlusive thrombus extending throughout the treated vein(s), see separate report, consistent with a successful ablation. No thrombus extending into or beyond the saphenofemoral junction. The patient expressed a desire to proceed with treatment of remaining incompetent varicosities. The patient was informed that treatment was a process and would require 1-2 procedures/sessions. VEIN/[facility] EST TD IMPRESSION: 1. Successful ablation of the left anterior accessory saphenous vein(s). 2. Persistent branch saphenous varicose veins and lower extremity symptoms. PLAN: 1. Microfoam chemical ablation of bilateral lower extremity incompetent branch saphenous varicosities, starting on right. Nurse notes, history and physical were reviewed and confirmed, see attached forms. The nurse was present throughout the physical exam and consultation Dictated by: Richelle Galvez M.D. on 03/17/2024 at 09:43 Approved by: Richelle Galvez M.D. on 03/17/2024 at 09:44
--- OUTSIDE RECORDS SUMMARY | 2024-03-17 09:23 | XMS_ITS | CCD ---
Author Organization [facility] Care Team Providers Care General Matcher Name Role Phone Bao Rosado Unavailable Unavailable Bao Rosado Unavailable Unavailable America Ely Unavailable America Ely Primary Care Provider [phone] America Ely Primary Care Provider [phone] America Ely CNP Primary Care Provider Tan SHAIKH, Desiree Arredondo Primary Care Provider Tan SHAIKH, Desiree Arredondo Primary Care Provider Yohan Reyna MD Unavailable DESIREE MADDOX Primary Care Unavailab le YOHAN REYNA Referring Unavailable SUBIT, YOHAN LAKE Admitting Unavailable SubYohan maya MD Unavailable Carlos Narayan MD, Gay Arzola Primary Care Pro vider Yohan Reyna MD Unavailable Carlos Narayan MD, Gay Arzola Primary Care Pro vider Daiana NETWORK ANNOUNCER, Francisco Bobo Primary Care Provider Daiana NETWORK ANNOUNCER, Francisco Bobo Primary Care Provider Daiana NETWORK ANNOUNCER, Francisco Bobo Unavailable FRANCISCO AHMADI Primary Care Unavailable ELLA CANTU Attending Unavailable DAIANAFRANCISCO Lubin Primary Care Unavailable RAUDEL JORDAN Attending Unavailable FRANCISCO AHMADI Primary Care Unavailable FRANCISCO AHMADI Attending Unavailable FRANCISCO AHMADI Primary Care Unavailable FRANCISCO AHMADI Attending Unavailable DAIANAFRANCISCO Lubin Primary Care Unavailable ELLA PIMENTEL Attending Unavailabl e DAIANA, FRANICSCO BROWN Primary Care Unavailable DAIANA, FRANCISCO BROWN [...] to adverse reactions 9 Other (See Comments) [facility] Medications Current Medications Medication Drug Class(es) [...] Active docusate sodium 50 mg / sennosides, correction 8.6 mg oral tablet (4 sources) Start: [...] 0 04/26/2018 Active omega-3 acid ethyl esters (correction) 1000 mg oral capsule (4 sources) take 1 capsule by mouth once daily [place]-3 Fatty Acids (FISH OIL) 1000 MG Cap [...] on [place] 06/30/21 at 0800, flu vacc [id number] 6mos up(PF) (FLUZONE QUAD/FLULAVAL QUAD/FLUARIX QUAD) syringe 0.5 mL (1 source) Start: 06-30-2021 End: 07-01-2021 inject 0.5 mL by intramuscular injection every twenty-four hours as needed flu vacc [id number] 6mos up(PF) (FLUZONE QUAD/FLULAVAL QUAD/FLUARIX QUAD) syringe [...] CBCon 03-11-2024 AUTO NRBC 0.0 % Normal [facility] Comment on above: Performed By: #### 4 6880 #### LAB [address] [place], [place] [address] Abhi Blankenship M.D. [id number] AUTO NRBC ABS COUNT 0.00 K/mcL Normal 0.00-0.00 [facility] Comment on above: Performed By: #### 4 6118 #### LAB [address] [place] [address] Abhi Blankenship M.D. [id number] Erythrocyte distribution width (RBC) [Ratio] 13.8 % Normal 11.6-14.8 [facility] Comment on above: Performed By: #### 4 5218 #### LAB [address] [place] [address] Abhi Blankenship M.D. [id number] Hematocrit (Bld) [Volume fraction] 43.2 % Normal 36.0-46.0 [facility] Comment on above: Performed By: #### 4 5218 #### LAB [address] [place] [address] Abhi Blankenship M.D. [id number] Hemoglobin (Bld) [Mass/Vol] 14.0 g/dL Normal 12.0-16.0 [facility] Comment on above: Performed By: #### 4 [id number] #### LAB [address] [place] [address] Abhi Blankenship M.D. [id number] MCH (RBC) [Entitic mass] 29.8 pg Normal 26.0-34.0 [facility] Comment on above: Performed By: #### 4 [id number] #### LAB [address] [place] [address] Abhi Blankenship M.D. [id number] MCV (RBC) [Entitic vol] 91.9 fL Normal 80.0-100.0 [facility] Comment on above: Performed By: #### 4 [id number] #### LAB [address] [place] [address] Abhi Blankenship M.D. [id number] MEAN CORPUSCULAR HEMOGLOBIN CONC 32.4 g/dL Normal 31.0-37.0 [facility] Comment on above: Performed By: #### 4 [id number] #### LAB [address] [place] [address] Abhi Blankenship M.D. [id number] Platelet mean volume (Bld) [Entitic vol] 10.1 fL Normal 9.4-12.4 [facility] Comment on above: Performed By: #### 4 [id number] #### LAB [address] [place] [address] Abhi Blankenship M.D. [id number] Platelets (Bld) [#/Vol] 253 10*3/uL Normal 150-400 [facility] Comment on above: Performed By: #### 4 [id number] #### MH LAB [address] [place] [address] Abhi Blankenship M.D. [id number] RBC (Bld) [#/Vol] 4.70 10*6/uL Normal 4.00-5.20 [facility] Comment on above: Performed By: #### 4 [id number] #### MH LAB [address] [place] [address] Abhi Blankenship M.D. [id number] WBC (Bld) [#/Vol] 7.63 10*3/uL Normal 4.50-11.00 [facility] Comment on above: Performed By: #### 4 [id number] #### LAB [address] [place] [address] Abhi Blankenship M.D. [id number] COMPREHENSIVE METABOLIC PANE [facility] 03-11-2024 Albumin [Mass/Vol] 4.5 g/dL Normal 3.2-5.2 [facility] Comment on above: Order Comment: [facility] has implemented the eGFR calculation approach that does not have a coefficient for race that conforms to the NKF-ASN Task Force Recommendations. Performed By: #### 4 6126 #### LAB [address] [place] [address] Abhi Blankenship M.D. [id number] ALP [Catalytic activity/Vol] 71 U/L Normal 40-140 [facility] Comment on above: Order Comment: [facility] has implemented the eGFR calculation approach that does not have a coefficient for race that conforms to the NKF-ASN Task Force Recommendations. Performed By: #### 4 6126 #### LAB [address] [place] [address] Abhi Blankenship M.D. [id number] ALT [Catalytic activity/Vol] 12 U/L Normal 0-35 U/L [facility] Comment on above: Order Comment: [facility] has implemented the eGFR calculation approach that does not have a coefficient for race that conforms to the NKF-ASN Task Force Recommendations. Performed By: #### 4 6126 #### LAB [address] [place] [address] Abhi Blankenship M.D. [id number] Anion gap [Moles/Vol] 15 mmol/L Normal 10-20 [facility] Comment on above: Order Comment: [facility] has implemented the eGFR calculation approach that does not have a coefficient for race that conforms to the NKF-ASN Task Force Recommendations. Performed By: #### 4 6126 #### LAB [address] [place] [address] Abhi Blankenship M.D. [id number] AST [Catalytic activity/Vol] 21 U/L Normal 0-35 U/L [facility] Comment on above: Order Comment: [facility] has implemented the eGFR calculation approach that does not have a coefficient for race that conforms to the NKF-ASN Task Force Recommendations. Result Comment: Slig htly Hemolyzed Performed By: #### 4 6126 #### LAB [address] [place] [address] Abhi Blankenship M.D. [id number] Bilirubin [Mass/Vol] 0.5 mg/dL Normal 0.0-1.3 [facility] Comment on above: Order Comment: [facility] has implemented the eGFR calculation approach that does not have a coefficient for race that conforms to the NKF-ASN Task Force Recommendations. Performed By: #### 4 6170 #### LAB [address] [place] [address] Abhi Blankenship M.D. [id number] Calcium [Mass/Vol] 9.3 mg/dL Normal 8.4-10.2 [facility] Comment on above: Order Comment: [facility] has implemented the eGFR calculation approach that does not have a coefficient for race that conforms to the NKF-ASN Task Force Recommendations. Performed By: #### 4 6126 #### LAB [address] [place] [id number] Abhi Blankenship M.D. [id number] Chloride [Moles/Vol] 102 mmol/L Normal 98-108 [facility] Comment on above: Order Comment: [facility] has implemented the eGFR calculation approach that does not have a coefficient for race that conforms to the NKF-ASN Task Force Recommendations. Performed By: #### 4 6126 #### LAB [address] [place] [address] Abhi Blankenship M.D. [id number] Creatinine [Mass/Vol] 0.69 mg/dL Normal 0.40-1.10 [facility] Comment on above: Order Comment: [facility] has implemented the eGFR calculation approach that does not have a coefficient for race that conforms to the NKF-ASN Task Force Recommendations. Performed By: #### 4 6126 #### LAB [address] [place] [address] Abhi Blankenship M.D. [id number] EGFR 119 mL/min/1.73 m2 Normal >=60 [facility] Comment on above: Order Comment: [facility] has implemented the eGFR calculation approach that does not have a coefficient for race that conforms to the NKF-ASN Task Force Recommendations. Result Comment: Idania mated GFR was calculated using the 2020 CKD-EPI creatinine equation. Performed By: #### 4 6126 #### LAB [address] [place] [address] Abhi Blankenship M.D. [id number] Glucose [Mass/Vol] 78 mg/dL Normal 65-99 [facility] Comment on above: Order Comment: [facility] has implemented the eGFR calculation approach that does not have a coefficient for race that conforms to the NKF-ASN Task Force Recommendations. Performed By: #### 4 6126 #### LAB [address] [place] [address] Abhi Blankenship M.D. [id number] HCO3 (Bld) [Moles/Vol] 25 mmol/L Normal 21-32 [facility] Comment on above: Order Comment: [facility] has implemented the eGFR calculation approach that does not have a coefficient for race that conforms to the NKF-ASN Task Force Recommendations. Performed By: #### 4 6126 #### [address] [place] [address] Abhi Blankenship M.D. [id number] Potassium [Moles/Vol] 4.2 mmol/L Normal 3.5-5.1 [facility] Comment on above: Order Comment: [facility] has implemented the eGFR calculation approach that does not have a coefficient for race that conforms to the NKF-ASN Task Force Recommendations. Result Comment: Slig htly Hemolyzed Performed By: #### 4 6126 #### LAB [address] [place] [address] Abhi Blankenship M.D. [id number] Protein [Mass/Vol] 7.1 g/dL Normal 6.0-8.0 [facility] Comment on above: Order Comment: [facility] has implemented the eGFR calculation approach that does not have a coefficient for race that conforms to the NKF-ASN Task Force Recommendations. Performed By: #### 4 6126 #### [address] [place] [address] Abhi Blankenship M.D. [id number] Sodium [Moles/Vol] 138 mmol/L Normal 135-145 [facility] Comment on above: Order Comment: [facility] has implemented the eGFR calculation approach that does not have a coefficient for race that conforms to the NKF-ASN Task Force Recommendations. Performed By: #### 4 6126 #### [address] [place] [address] Abhi Blankenship M.D. [id number] Urea nitrogen [Mass/Vol] 15 mg/dL Normal 8-25 [facility] Comment on above: Order Comment: [facility] has implemented the eGFR calculation approach that does not have a coefficient for race that conforms to the NKF-ASN Task Force Recommendations. Performed By: #### 4 6126 #### [address] [place] [address] Abhi Blankenship M.D. [id number] Urea nitrogen/Creatinine [Mass ratio] 21.7 mg/mg High 10.0-20.0 [facility] Comment on above: Order Comment: [facility] has implemented the eGFR calculation approach that does not have a coefficient for race that conforms to the NKF-ASN Task Force Recommendations. Performed By: #### 4 6126 #### [address] [place] [address] Abhi Blankenship M.D. [id number] HEMOGLOBIN A1Con 03-11-2024 Glucose [Mass/Vol] 103 mg/dL Normal 74-114 [facility] Comment on above: Performed By: #### 4 8202 #### LAB [address] [place] [address] Abhi Blankenship M.D. [id number] HbA1c (Bld) [Mass fraction] 5.2 % Normal 4.2-5.6 [facility] Comment on above: Performed By: #### 4 8202 #### [facility] [address] [place] [address] Abhi Blankenship M.D. [id number] LIPID PANELon 03-11-2024 Cholesterol [Mass/Vol] 173 mg/dL Normal 100-199 [facility] Comment on above: Result Comment: Faina onal Cholesterol Education Program Guidelines: Cholesterol Desirable: <200 mg/dL Borderline High: 200-239 mg/dL High: greater than or equal to 240 mg/dL Performed By: #### 4 6087 #### LAB [address] [place] [address] Abhi Blankenship M.D. [id number] Cholesterol in HDL [Mass/Vol] 67 mg/dL Normal 40-59 [facility] Comment on above: Result Comment: [facility] Cholesterol Education Program Guidelines: HDL Cholesterol Low: <40 mg/dL Near Optimal: 40-59 mg/dL High: greater than or equal to 60 mg/dL Performed By: #### 4 6087 #### LAB [address] [place] [address] Abhi Blankenship M.D. [id number] Cholesterol.total/Chol esterol in HDL [Mass ratio] 2.6 {ratio} Normal [facility] Comment on above: Result Comment: Fema le Cholesterol/HDL Ratio: Average risk: 4.4 1/2 average risk: 3.3 2 x average risk: 7.1 Performed By: #### 4 6087 #### LAB [address] [place] [address] Abhi Blankenship M.D. [id number] LDL CHOLESTEROL CALCULATED 93 mg/dL Normal 10-130 [facility] Comment on above: Result Comment: [facility]a on[facility] Cholesterol Education Program Guidelines: LDL Cholesterol Optimal: <100 mg/dL Near Optimal/above Optimal: 100-129 mg/dL Borderline High: 130-159 mg/dL High: 160-189 mg/dL Very High: greater than or equal to 190 mg/dL Performed By: #### 4 6087 #### LAB [address] [place] [address] Abhi Blankenship M.D. [id number] NON HDL CHOL 106 mg/dL Normal [facility] Comment on above: Result Comment: [facility]a on[facility] Cholesterol Education Program Guidelines: NON HDL Cholesterol Desirable: <130 mg/dL Borderline High: 130-159 mg/dL High: 160-189 mg/dL Very High: > or = 190 mg/dL Performed By: #### 4 6087 #### LAB [address] [place] [address] Abhi Blankenship M.D. [id number] Triglyceride [Mass/Vol] 64 mg/dL Normal 30-150 [facility] Comment on above: Result Comment: Faina onal Cholesterol Education Program Guidelines: Triglyceride Normal: <150 mg/dL Borderline High: 150-199 mg/dL High: 200-499 mg/dL Very High: greater than or equal to 500 mg/dL Performed By: #### 4 6087 #### LAB [address] [place] [address] Abhi Blankenship M.D. [id number] TSHon 03-11-2024 TSH Qn 1.66 m[IU]/L Normal 0.27-4.20 [facility] Comment on above: Performed By: #### 4 6613 #### LAB [address] [place], [place] [address] Abhi Blankenship M.D. [id number] VITAMIN D, TOTAL, 25-OHon VITAMIN D 25-HYDROXY 29 ng/mL Normal 20-100 [facility] Comment on above: Order Comment: Vitam in D Expected Values Deficiency: 0-10 Insufficiency: 10-20 Sufficient: 20-100 Toxicity: >100 Performed By: #### 4 6678 #### LAB [address] [place] [address] Abhi Blankenship M.D. [id number] ANTITHROMBIN IIIon ANTITHROMBIN III 98 % Normal 85-130 [facility] Comment on above: Performed By: #### 4 5109 #### [facility] [address] [place] [address] Anderson Cano M.D. [id number] ANTITHROMBIN III ANTIGENon 0 03-10-2024 [facility] ANTITHROMBIN III AG 99 % Normal 80 - 120 [facility] Comment on above: Result Comment: ADDITIONAL INFORMATION This test has been modified from the tnt powder worker's instructions. Its performance characteristics were determined by [facility] in a manner consistent with CLIA requirements. This test has not been cleared or approved by the U.S. Food and Drug Administration. Test Performed by: [facility] - [address] [address] Land Surveyor Assistant: Salinas Thrasher Ph.D.; CLIA# [id number] Performed By: #### 4 7709 #### [address] [address] APTTon 03-10-2024 aPTT Coag (Bld) [Time] 31 s Normal 23-34 [facility] Comment on above: Order Comment: Thera peutic range for APTT's is 68 - 104 seconds Performed By: #### 4 5113 #### [facility] LAB [address] [place] [id number] Abhi Blankenship M.D. [id number] FIBRINOGENon 03-10-2024 FIBRINOGEN LEVEL 291 mg/dL Normal 224-483 [facility] Comment on above: Performed By: #### 4 5616 #### LAB [address] [place] [address] Abhi Blankenship M.D. [id number] PROTEIN C ACTIVITYon 024 PROTEIN C ACTIVITY 106 % Normal 66-140 [facility] Comment on above: Order Comment: Reyna l, full term infants or healthy premature infants may have decreased levels of Protein C Activity (15-50%), which may not reach adult levels until later in childhood or early adolescence. Performed By: #### 4 6369 #### [facility] [address] [place] [address] Anderson Cano M.D. [id number] PROTEIN C ANTIGENon 03-10-20 24 PROTEIN C ANTIGEN 88 % Normal 60-125 [facility] Comment on above: Order Comment: Reyna l, full-term infants or healthy premature infants may have decreased levels of Protein-C Antigen (15-50%), which may not reach adult levels until later in childhood or early adolescence. Performed By: #### 4 6370 #### [facility] [address] [place] [address] Anderson Cano M.D. [id number] PROTEIN S ACTIVITYon 024 PROTEIN S ACTIVITY 81 % Normal 51-131 [facility] Comment on above: Performed By: #### 4 7630 #### [facility] [address] [place] [address] Anderson Cano M.D. [id number] PT/INRon 03-10-2024 INR Coag (PPP) [Relative time] 1.1 {INR} Normal 0.8-1.1 [facility] Comment on above: Order Comment: Max g the induction phase of oral anticoagulation, the INR may not reflect the anticoagulation status of the patient. Therapeutic ranges for INR's are: Most clinical situations: INR 2.0-3.0 Mechanical Prosthetic Valve: INR 2.5-3.5 Critical: INR >5.0 Performed By: #### 4 6391 #### LAB [address] [place], [place] [address] Abhi Blankenship M.D. [id number] PT Coag (PPP) [Time] 13.7 s Normal 11.8-14.3 [facility] Comment on above: Order Comment: Max g the induction phase of oral anticoagulation, the INR may not reflect the anticoagulation status of the patient. Therapeutic ranges for INR's are: Most clinical situations: INR 2.0-3.0 Mechanical Prosthetic Valve: INR 2.5-3.5 Critical: INR >5.0 Performed By: #### 4 6391 #### LAB [address] [place] [address] Abhi Blankenship M.D. [id number] THROMBIN TIMEon 03-10-2024 THROMBIN TIME 17.2 seconds Normal 14.8-18.0 [facility] Comment on above: Performed By: #### 4 6557 ####[facility] [address] [place] [address] Anderson Cano M.D. 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 . 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 Procedure Description 39204 Duplex examination using B-mode, color and spectral [...] SunMar 10, 2024 11:46:55 AM EDT Normal [facility] Ultrasound duplex venous leg s bilaton 03-10-2024 Patient Info Name: JAY ANTONIO Age: 29 years : 1995 Gender: Female Exam Date: 03/10/2024 11:03 AM Patient Status: Outpatient Laser Operator: Fransisca Russell, GLORIA, RVT Referring Physician: ELLA PIMENTEL ; Indications [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 - - 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 Procedure Description 96380 Duplex examination using B-mode, color and spectral [...] - Small Saphenous: - - FUJI SYNAPSE Hannah Hernandez III, DO - 03/10/2024 Patient Info Name: JAY ANTONIO Age: 29 years : 1995 Gender: Female Exam Date: 03/10/2024 11:03 AM Patient Status: Outpatient Laser Operator: Fransisca Russell, GLORIA, RVT Referring Physician: ELLA PIMENTEL ; Indications [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 2 mg/dL [facility] Chloride [Moles/Vol] 110 mmol/L High 98 - 10 8 mmol/L [facility] Creatinine [Mass/Vol] 0.53 mg/dL 0.40 - 1.10 mg/dL [facility] GFR/1.73 sq M.predicted CKD-EPI (S/P/Bld) [Vol rate/Area] 128 - PINF [facility] Comment on above: Estimated GFR was ca lculated using the 2020 CKD-EPI creatinine equation. Glucose [Mass/Vol] 110 mg/dL High 65 - 99 mg/dL [facility] HCO3 [Moles/Vol] 24 mmol/L 21 - 32 mmol/L [facility] Interpretation and review of laboratory results Abnormal [facility] Potassium [Moles/Vol] 4.3 mmol/L 3.5 - 5.1 mmol/L [facility] Sodium [Moles/Vol] 139 mmol/L 135 - 145 mmol/L [facility] Urea nitrogen [Mass/Vol] 11 mg/dL 8 - 25 mg/dL [facility] Urea nitrogen/Creatinine [Mass ratio] 20.8 mg/mg High 10.0 - 20.0 [facility] has implemented the eGFR calculation approach that does not have a coefficient for race that conforms to the NKF-ASN Task Force Recommendations. [facility] CBC panel Auto (Bld)on 08-20 Erythrocyte distribution width (RBC) [Entitic vol] 13.5 % 11.6 - 14.8 % [facility] Hematocrit (Bld) [Volume fraction] 36.6 % 36.0 - 46.0 % [facility] Hemoglobin (Bld) [Mass/Vol] 12.0 g/dL 12.0 - 16.0 g/dL [facility] Interpretation and review of laboratory results Abnormal [facility] MCH (RBC) [Entitic mass] 29.9 pg 26.0 - 34.0 pg [facility] MCHC (RBC) [Mass/Vol] 32.8 g/dL 31.0 - 37.0 g/dL [facility] MCV (RBC) [Entitic vol] 91.3 fL 80.0 - 100.0 fL [facility] Nucleated RBC (Bld) [#/Vol] 0.00 10*3/uL [facility] Nucleated RBC/100 WBC (Bld) [Ratio] 0.0 % [facility] Platelet mean volume (Bld) [Entitic vol] 9.8 fL 9.4 - 12.4 fL [facility] Platelets (Bld) [#/Vol] 208 10*3/uL [facility] RBC (Bld) [#/Vol] 4.01 10*6/uL [facility] WBC (Bld) [#/Vol] 11.08 10*3/uL [facility] CT ABDOMEN PELVIS WITH IV CO NTRAST [...] Ella Cantu on 08/20/2023 at 1416 hours. [employer] Workstation ID: [id number] Dictated by: QUAN XIONG on SunAug 20, 2023 2:17:38 PM EST Transcribed by: HANS CALDERON on SunAug 20, 2023 2:21:16 PM EST Finalized by: QUAN XIONG on SunAug 20, 2023 6:07:32 PM EST Normal [facility] Comment on above: Order Comment: Injur y/Trauma [...] vol] 13.6 % 11.6 - 14.8 % [facility] Hematocrit (Bld) [Volume fraction] 32.9 % Low 36.0 - 46.0 % [facility] Hemoglobin (Bld) [Mass/Vol] 11.0 g/dL Low 12.0 - 16.0 g/dL [facility] Interpretation and review of laboratory results Abnormal [facility] MCH (RBC) [Entitic mass] 30.1 pg 26.0 - 34.0 pg [facility] MCHC (RBC) [Mass/Vol] 33.4 g/dL 31.0 - 37.0 g/dL [facility] MCV (RBC) [Entitic vol] 90.1 fL 80.0 - 100.0 fL [facility] Nucleated RBC (Bld) [#/Vol] 0.00 10*3/uL [facility] Nucleated RBC/100 WBC (Bld) [Ratio] 0.0 % [facility] Platelet mean volume (Bld) [Entitic vol] 11.4 fL 9.4 - 12.4 fL [facility] Platelets (Bld) [#/Vol] 162 10*3/uL [facility] RBC (Bld) [#/Vol] 3.65 10*6/uL Low [facility] ealt WBC (Bld) [#/Vol] 18.84 10*3/uL High [facility] ABORH Verificationon 022 ABO and Rh group Nom (Bld) Blood group O Rh(D) positive [facility] ABO and Rh group Nom (Bld) ABO/Rh Verification [facility] Comment on above: Patient's ABO/Rh is verified. [facility] Blood type and Indirect anti body screen panel (Bld)on 06-29-2021 ABO and Rh group Nom (Bld) Blood group O Rh(D) positive [facility] Blood group antibody screen Ql Negative [facility] Specimen Expires 07/02/2021 23:59 EST [facility] CBC panel Auto (Bld)on 06-29 Erythrocyte distribution width (RBC) [Entitic vol] 13.7 % 11.6 - 14.8 % [facility] Hematocrit (Bld) [Volume fraction] 37.8 % 36.0 - 46.0 % [facility] Hemoglobin (Bld) [Mass/Vol] 12.8 g/dL 12.0 - 16.0 g/dL [facility] Interpretation and review of laboratory results Abnormal [facility] MCH (RBC) [Entitic mass] 30.0 pg 26.0 - 34.0 pg [facility] MCHC (RBC) [Mass/Vol] 33.9 g/dL 31.0 - 37.0 g/dL [facility] MCV (RBC) [Entitic vol] 88.5 fL 80.0 - 100.0 fL [facility] Nucleated RBC (Bld) [#/Vol] 0.00 10*3/uL [facility] Nucleated RBC/100 WBC (Bld) [Ratio] 0.0 % [facility] Platelet mean volume (Bld) [Entitic vol] 11.4 fL 9.4 - 12.4 fL [facility] Platelets (Bld) [#/Vol] 170 10*3/uL [facility] RBC (Bld) [#/Vol] 4.27 10*6/uL [facility] ealth WBC (Bld) [#/Vol] 12.72 10*3/uL [facility] SCAN OTHER ORDERSon 06-29-19 Ordered by an unspecified provider. [facility] COVID-19, MOLECULARon 2021 SARS-CoV-2 (COVID-19) RNA ADRIANA+probe Ql (Unsp spec) Not detected Normal Not Detected [facility] Comment on above: Result Comment: This test [...] at the following links: For Healthcare Providers: https://www.fda.gov/media/328801/download For Patients: https://www.fda.gov/media/917081/download Performed By: #### L [id number] #### [facility] [address] [place] [address] Anderson Cano M.D. [id number] Chlamydia/Gonorrhoeae Amplif ied RNAon 06-14-2021 C. trachomatis rRNA ADRIANA+probe Ql (Unsp spec) Negative Negative [facility] N. gonorrhoeae rRNA ADRIANA+probe Ql (Unsp spec) Negative Negative [facility] No Panel Informationon 06-14 [facility] RPRon 06-14-2021 Reagin Ab RPR Ql (S) Non-Reactive Non-Reactive [facility] S. agalactiae DNA ADRIANA+probe Ql (Unsp spec)on 06-14-2021 S. agalactiae Ag Ql (Unsp spec) Negative Negative [facility] NOVEL CORONAVIRUSon 01-29-20 PERFORMED BY [facility] Normal [facility] Comment on above: Performed By: #### C COVID #### [place] [address] SARS-CoV-2 (COVID-19) RNA ADRIANA+probe Ql (Unsp spec) Detected Abnormal NOT DETECTED [facility] Comment on above: Result Comment: CALL ED TO AND READ BACK BY Sarah AMATO @1244 BY KLE ENHANCED CONTACT, AND DROPLET ISOLATION IS REQUIRED FOR INPATIENTS WITH SARS-CoV-2. Performed By: #### C COVID #### [place] [address] NARRATIVE This test was performed using isothermal ADRIANA and has been approved as Emergency Use Authorization (EUA) for the qualitative detection [id number] nucleic acid. Normal [facility] Comment on above: Performed By: #### C COVID #### [place] [address] Gestational Diabetes Screen (50G)on 01-17-2021 Glucose 1 Hr post 50 g glucose PO [Mass/Vol] 79 mg/dL 65 - 135 mg/dL [facility] Glucose 1 Hr post 50 g gluco se PO [Mass/Vol]on 01-17-2021 [facility] ECHOCARDIOGRAM COMPLETEOrder ed By: Desiree Maddox on 12-29-2020 Aortic valve area 2.86992 cm [facility] AV mean gradient 2.58509 mmHg [facility] AV peak gradient 4.53602 mmHg [facility] EF 65.2664 % [facility] Patient Info Name: JAY ANTONIO Age: 25 years : 1995 Gender: Female Ht: 160 cm Wt: 64 kg BSA: 1.70 m2 HR: 75 bpm BP: 106 / 69 mmHg Heart Rhythm: Sinus Rhythm Technical Quality: Good Exam Date: 12/29/2020 9:19 AM Patient Status: Outpatient Manager Information: Addie Luna, KATHLEEN, RVT Exam Type: ECHOCARDIOGRAM COMPLETE Study Info Indications R00.2 - Palpitations Referring Physician: DESIREE MADDOX ; [id number] BMI: 25.15 kg/m2 Summary 1. Normal transthoracic [...] mmHg MV VTI 27 cm MV [place]el [place] 838 cm/s2 MV PHT 33 ms MV Area (PHT) 6.7 cm2 4.0-5.0 MV Area (Cont Eq VTI) 2.7 cm2 MV Area Index (Cont Eq VTI) 1.57 cm2/m2 MV Diastolic Function - (more content not included)... [facility] Interface, Rad In [facility] - 12/29/2020 10:35 AM EDT Patient Info Name: JAY ANTONIO Age: 25 years : 1995 Gender: Female Ht: 160 cm Wt: 64 kg BSA: 1.70 m2 HR: 75 bpm BP: 106 / 69 mmHg Heart Rhythm: Sinus Rhythm Technical Quality: Good Exam Date: 12/29/2020 9:19 AM Patient Status: Outpatient Manager Information: Addie Luna, KATHLEEN, RVT Exam Type: ECHOCARDIOGRAM COMPLETE Study Info Indications R00.2 - Palpitations Referring Physician: DESIREE MADDOX ; [id number] BMI: 25.15 kg/m2 Summary 1. Normal transthoracic [...] mmHg MV VTI 27 cm MV [place]el [place] 838 cm/s2 MV PHT 33 ms MV [...] Valve Name Va (more content not included)... [facility] ABO/RH(D)on 12-15-2020 ABO/RH(D) ABO/RH(D) O POSITIVE Testing performed at [address] Comment on above: Performed By: #### A BRH #### [place] [address] ANTIBODY SCREENon 12-15-2020 Antibody screen ANTIBODY SCREEN NEGATIVE WORKUP EXPIRES 12/18/2020,2359 Testing performed at [address] Comment on above: Performed By: #### R ESCRN #### [place] [address] Blood type and Indirect anti body screen panel (Bld)Ordered By: Katlin Prieto on 12-15-2020 ABO and Rh group Nom (Bld) O [facility] Rh Type + [facility] FAX REQUESTon 12-15-2020 FAX TO [phone] AND [phone] Normal [facility] Comment on above: Result Comment: Test ing performed at [place] [address] Performed By: #### F X #### Testing performed at [facility] [address] [place] [address] FAX TO [phone] AND [phone] Normal [facility] Comment on above: Result Comment: Test ing performed at [place] [address] Performed By: #### F X #### [place] [address] HIV 1/2 Screen (4th Generati on)on 12-15-2020 HIV 1+2 Ab+HIV1 p24 Ag IA Ql Negative Negative [facility] Hepatitis B Surface Antigeno n 12-15-2020 HBV surface Ag Ql (S) Negative Negative [facility] Hepatitis C Antibodyon 12-15 HCV Ab Ql (S) Negative Negative [facility] No Panel InformationOrdered By: Katlin Prieto on 12-15-2020 [facility] Rubella Antibody, IgGon 11-18 Rubella virus IgG Ql (S) Immune [facility] T. pallidum IgG Ql (S)on T. pallidum Ab Ql (S) Negative Negative [facility] ECG 12-LEADOrdered By: Desiree Maddox on 11-22-2020 Atrial Rate [facility] P [place] [facility] P-R Interval [facility] Q-T Interval [facility] Q-T Interval (corrected) [facility] QRS Duration [facility] QTC Calculation (Bezet) [facility] R [place] [facility] T [place] [facility] Ventricular Rate [facility] SARS-COV-2,NAAon 07-23-2020 SARS-CoV-2 (COVID-19) RNA ADRIANA+probe Ql (Unsp spec) Not detected Normal [facility] Comment on above: Result Comment: Refe rence range: Not Detected (NOTE) This nucleic acid amplification test was developed and its performance characteristics determined by [employer]. Nucleic acid amplification tests include RT-PCR and [...] result in this assay. Ultrasound venous insufficie romeo allen 02-11-2019 Non-Invasive Vascular Patient: PACO Hernandez [facility] Rec#: [id number] (Age): 1995(23y) Study Date: 02/11/2019 Room#: Type: Sex: F Reading: JOSE Reading: Hannah Pollard DO, RPVI Referring: ATUL NEVES Manager Information: Caryn Winkler Procedure Info: [id number] Study Quality: Lower Venous Reflux: Adequate Diagnosis: [...] 02/11/2019 16:38:58 by: Hannah Pollard DO, RPVI [facility] Interface, Rad In Heartlab [facility]per [facility] - 02/11/2019 5:21 PM EDT Non-Invasive Vascular Patient: PACO THOMPSON R [facility] Rec#: [id number] (Age): 1995(23y) Study Date: 02/11/2019 Room#: Type: Sex: F Reading: VESO Reading: Hannah Pollard DO, RPVI Referring: ATUL NEVES Manager Information: Caryn Winkler Procedure Info: [id number] Study Quality: Lower Venous Reflux: Adequate Diagnosis: [...] 02/11/2019 16:38:58 by: Hannah Pollard DO, RPVI [facility] POCT URINALYSIS DIPSTICK NON AUTOMATEDon 05-24-2018 Amorphous sediment LM Ql (Urine sed) Invalid Interpretation Code [facility] Work Phone: Appearance Nom (Body fld) clear Invalid Interpretation Code [facility] Work Phone: Bacteria LM Ql (Urine sed) Invalid Interpretation Code [facility] Work Phone: Bilirubin Ql (U) Negative Invalid Interpretation Code [facility] Work Phone: Casts LM.LPF #/area (Urine sed) Invalid Interpretation Code [facility] Work Phone: Color Nom (U) yellow Invalid Interpretation Code [facility] Work Phone: Crystals LM Nom (Urine sed) Invalid Interpretation Code [facility] Work Phone: Epithelial cells.squamous LM.HPF #/area (Urine sed) Invalid Interpretation Code [facility] Work Phone: Flow cytometry specialist review Interp Alfonzo (Unsp spec) Invalid Interpretation Code [facility] Work Phone: Interpretation and review of laboratory results Abnormal Invalid Interpretation Code [facility] Work Phone: Ketones mass conc Negative Invalid Interpretation Code mg/dL [facility] Work Phone: Leukocyte esterase Qn (U) Invalid Interpretation Code [facility] Work Phone: Leukocyte esterase Test strip Ql (U) Negative Invalid Interpretation Code [facility] Work Phone: Nitrite Ql (U) Negative Invalid Interpretation Code [facility] Work Phone: pH (U) 7.5 Abnormal [facility] Work Phone: POCT GLUCOSE, URINE Negative Invalid Interpretation Code mg/dL [facility] Work Phone: Protein Ql (U) Negative Invalid Interpretation Code mg/dL [facility] Work Phone: RBC LM.HPF #/area (Urine sed) Invalid Interpretation Code [facility] Work Phone: RBC Ql (U) Negative Invalid Interpretation Code [facility] Work Phone: Specific gravity Relative Density (U) 1.010 Invalid Interpretation Code [facility] Work Phone: Transitional cells LM Ql (Urine sed) Invalid Interpretation Code [facility] Work Phone: Urobilinogen mass conc (U) Negative Invalid Interpretation Code [facility] Work Phone: WBC LM.HPF #/area (Urine sed) Invalid Interpretation Code [facility] Work Phone: POCT URINALYSIS DIPSTICK NON AUTOMATEDon 05-10-2018 Amorphous sediment LM Ql (Urine sed) Invalid Interpretation Code [facility] Work Phone: Appearance Nom (Body fld) clear Invalid Interpretation Code [facility] Work Phone: Bacteria LM Ql (Urine sed) Invalid Interpretation Code [facility] Work Phone: Bilirubin Ql (U) Negative Invalid Interpretation Code [facility] Work Phone: Casts LM.LPF #/area (Urine sed) Invalid Interpretation Code [facility] Work Phone: Color Nom (U) yellow Invalid Interpretation Code [facility] Work Phone: Crystals LM Nom (Urine sed) Invalid Interpretation Code [facility] Work Phone: Epithelial cells.squamous LM.HPF #/area (Urine sed) Invalid Interpretation Code [facility] Work Phone: Flow cytometry specialist review Interp Alfonzo (Unsp spec) Invalid Interpretation Code [facility] Work Phone: Ketones mass conc Negative Invalid Interpretation Code mg/dL [facility] Work Phone: Leukocyte esterase Qn (U) Invalid Interpretation Code [facility] Work Phone: Leukocyte esterase Test strip Ql (U) Negative Invalid Interpretation Code [facility] Work Phone: Nitrite Ql (U) Negative Invalid Interpretation Code [facility] Work Phone: pH (U) 6.5 Invalid Interpretation Code [facility] Work Phone: POCT GLUCOSE, URINE Negative Invalid Interpretation Code mg/dL [facility] Work Phone: Protein Ql (U) Negative Invalid Interpretation Code mg/dL [facility] Work Phone: RBC LM.HPF #/area (Urine sed) Invalid Interpretation Code [facility] Work Phone: RBC Ql (U) trace Invalid Interpretation Code [facility] Work Phone: Specific gravity Relative Density (U) 1.010 Invalid Interpretation Code [facility] Work Phone: Transitional cells LM Ql (Urine sed) Invalid Interpretation Code [facility] Work Phone: Urobilinogen mass conc (U) 0.2 Invalid Interpretation Code [facility] Work Phone: WBC LM.HPF #/area (Urine sed) Invalid Interpretation Code [facility] Work Phone: Vital Signs Date Time Vital Sign Value Performing Clinician Facility 03-10-2024 09:51-0400 Body height 154.9 cm Ella Pimentel MD Work Phone: [facility] 03-10-2024 09:51-0400 Body mass index (BMI) [Ratio] 26.47 kg/m2 Ella Pimentel MD Work Phone: [facility] 03-10-2024 09:51-0400 Body temperature 98.29 [degF] Ella Pimentel MD Work Phone: [facility] 03-10-2024 09:51-0400 Body weight 63.55 kg Ella Pimentel MD Work Phone: [facility] 03-10-2024 09:51-0400 Diastolic blood pressure 78 mm[Hg] Ella Pimentel MD Work Phone: [facility] 03-10-2024 09:51-0400 Heart rate 80 /min Ella Pimentel MD Work Phone: [facility] 03-10-2024 09:51-0400 SaO2% (BldA) [Mass fraction] 98 % Ella Pimentel MD Work Phone: [facility] 03-10-2024 09:51-0400 Systolic blood pressure 115 mm[Hg] Ella Pimentel MD Work Phone: [facility] 09-07-2023 09:10-0400 Body height 157.5 cm Raudel Jordan MD Work Phone: [facility] 09-07-2023 09:10-0400 Body mass index (BMI) [Ratio] 24.75 kg/m2 Raudel Jordan MD Work Phone: [facility] 09-07-2023 09:10-0400 Body weight 61.37 kg Raudel Jordan MD Work Phone: [facility] 09-07-2023 09:10-0400 Diastolic blood pressure 83 mm[Hg] Raudel Jordan MD Work Phone: [facility] 09-07-2023 09:10-0400 Heart rate 65 /min Raudel Jordan MD Work Phone: [facility] 09-07-2023 09:10-0400 SaO2% (BldA) [Mass fraction] 99 % Raudel Jordan MD Work Phone: [facility] 09-07-2023 09:10-0400 Systolic blood pressure 116 mm[Hg] Raudel Jordan MD Work Phone: [facility] 08-21-2023 08:05-0500 Respiratory rate 16 /min Raudel Jordan MD Work Phone: [facility] 08-21-2023 08:04-0500 Body temperature 97.3 [degF] Rauedl Jordan MD Work Phone: [facility] 08-21-2023 08:04-0500 Diastolic blood pressure 67 mm[Hg] Raudel Jordan MD Work Phone: [facility] 08-21-2023 08:04-0500 Heart rate 55 /min Raudel Jordan MD Work Phone: [facility] 08-21-2023 08:04-0500 SaO2% (BldA) [Mass fraction] 100 % Raudel Jordan MD Work Phone: [facility] 08-21-2023 08:04-0500 Systolic blood pressure 92 mm[Hg] Raudel Jordan MD Work Phone: [facility] 08-20-2023 21:25-0500 Body height 157.5 cm Raudel Jordan MD Work Phone: [facility] 08-20-2023 21:25-0500 Body mass index (BMI) [Ratio] 25.61 kg/m2 Raudel Jordan MD Work Phone: [facility] 08-20-2023 21:25-0500 Body weight 63.5 kg Raudel Jordan MD Work Phone: [facility] 03-12-2023 08:48-0400 Body height 157.5 cm Michelle Daiana [employer]WORK [employer] Work Phone: [facility] 03-12-2023 08:48-0400 Body mass index (BMI) [Ratio] 25.04 kg/m2 Francisco Bobo Ivy [employer] Work Phone: [facility] 03-12-2023 08:48-0400 Body weight 62.1 kg Francisco Bobo Ivy [employer] Work Phone: [facility] 03-12-2023 08:48-0400 Diastolic blood pressure 80 mm[Hg] Francisco Bobo Ivy [employer] Work Phone: [facility] 03-12-2023 08:48-0400 Systolic blood pressure 115 mm[Hg] Francisco Bobo Ivy [employer]WORK ANN[employer] Work Phone: [facility] 11-22-2022 15:26-0400 Body height 157.5 cm Gay Narayan MD Work Phone: [facility] 11-22-2022 15:26-0400 Body mass index (BMI) [Ratio] 25.61 kg/m2 Gay Narayan MD Work Phone: [facility] 11-22-2022 15:26-0400 Body temperature 99.7 [degF] Gay Narayan MD Work Phone: [facility] 11-22-2022 15:26-0400 Body weight 63.5 kg Gay Narayan MD Work Phone: [facility] 11-22-2022 15:26-0400 Diastolic blood pressure 70 mm[Hg] Gay Narayan MD Work Phone: [facility] 11-22-2022 15:26-0400 Heart rate 72 /min Gay Narayan MD Work Phone: [facility] 11-22-2022 15:26-0400 SaO2% (BldA) [Mass fraction] 97 % Gay Narayan MD Work Phone: [facility] 11-22-2022 15:26-0400 Systolic blood pressure 111 mm[Hg] Gay Narayan MD Work Phone: [facility] 11-21-2021 08:40-0400 Body height 157.5 cm Gay Narayan MD Work Phone: [facility] 11-21-2021 08:40-0400 Body mass index (BMI) [Ratio] 26.7 kg/m2 Gay Narayan MD Work Phone: [facility] 11-21-2021 08:40-0400 Body temperature 98.2 [degF] Gay Narayan MD Work Phone: [facility] 11-21-2021 08:40-0400 Body weight 66.22 kg Gay Narayan MD Work Phone: [facility] 11-21-2021 08:40-0400 Diastolic blood pressure 72 mm[Hg] Gay Narayan MD Work Phone: [facility] 11-21-2021 08:40-0400 Heart rate 72 /min Gay Narayan MD Work Phone: [facility] 11-21-2021 08:40-0400 Respiratory rate 16 /min Gay Narayan MD Work Phone: [facility] 11-21-2021 08:40-0400 SaO2% (BldA) [Mass fraction] 98 % Gay Narayan MD Work Phone: [facility] 11-21-2021 08:40-0400 Systolic blood pressure 106 mm[Hg] Gay Narayan MD Work Phone: [facility] 07-01-2021 07:50-0500 Body temperature 98.2 [degF] Yohan Reyna MD Work Phone: [facility] 07-01-2021 07:50-0500 Diastolic blood pressure 68 mm[Hg] Yohan Reyna MD Work Phone: [facility] 07-01-2021 07:50-0500 Heart rate 70 /min Yohan Reyna MD Work Phone: [facility] 07-01-2021 07:50-0500 Respiratory rate 14 /min Yohan Reyna MD Work Phone: [facility] 07-01-2021 07:50-0500 SaO2% (BldA) [Mass fraction] 98 % Yohan Reyna MD Work Phone: [facility] 07-01-2021 07:50-0500 Systolic blood pressure 101 mm[Hg] Yohan Reyna MD Work Phone: [facility] 06-29-2021 07:31-0500 Body height 157.5 cm Yohan Reyna MD Work Phone: [facility] 06-29-2021 07:31-0500 Body mass index (BMI) [Ratio] 30.18 kg/m2 Yohan Reyna MD Work Phone: [facility] 06-29-2021 07:31-0500 Body weight 74.84 kg Yohan Reyna MD Work Phone: [facility] 11-22-2020 13:04-0400 Body height 160 cm Desiree Maddox MD Work Phone: [facility] 11-22-2020 13:04-0400 Body mass index (BMI) [Ratio] 25.28 kg/m2 Desiree Maddox MD Work Phone: [facility] 11-22-2020 13:04-0400 Body temperature 98.8 [degF] Desiree Maddox MD Work Phone: [facility] 11-22-2020 13:04-0400 Body weight 64.73 kg Desiree Maddox MD Work Phone: [facility] 11-22-2020 13:04-0400 Diastolic blood pressure 69 mm[Hg] Desiree Maddox MD Work Phone: [facility] 11-22-2020 13:04-0400 Heart rate 93 /min Desiree Maddox MD Work Phone: [facility] 11-22-2020 13:04-0400 Respiratory rate 16 /min Desiree Maddox MD Work Phone: [facility] 11-22-2020 13:04-0400 SaO2% (BldA) [Mass fraction] 99 % Desiree Maddox MD Work Phone: [facility] 11-22-2020 13:04-0400 Systolic blood pressure 106 mm[Hg] Desiree Maddox MD Work Phone: [facility] 01-20-2019 14:39-0400 BP Diastolic 74 mm[Hg] [facility] 01-20-2019 14:39-0400 BP Systolic 109 mm[Hg] [facility] 01-20-2019 14:38-0400 BMI (Body Mass Index) 24.37 kg/m2 [facility] 01-20-2019 14:38-0400 Body weight 58.51 kg [facility] 01-20-2019 14:38-0400 Height 154.9 cm [facility] 01-20-2019 14:38-0400 Pulse (Heart Rate) 67 /min [facility] 05-24-2018 10:27-0500 BMI (Body Mass Index) 24.83 kg/m2 [facility] Work Phone: 05-24-2018 10:27-0500 BP Diastolic 64 mm[Hg] [facility] Work Phone: 05-24-2018 10:27-0500 BP Systolic 110 mm[Hg] [facility] Work Phone: 05-24-2018 10:27-0500 Height 154.9 cm [facility] Work Phone: 05-24-2018 10:27-0500 Pulse (Heart Rate) 62 /min [facility] Work Phone: 05-24-2018 10:27-0500 Pulse Oximetry 99 % [facility] Work Phone: 05-24-2018 10:27-0500 Weight 59.6 kg [facility] Work Phone: 05-10-2018 09:33-0500 BMI (Body Mass Index) 25.51 kg/m2 [facility] Work Phone: 05-10-2018 09:33-0500 BP Diastolic 82 mm[Hg] [facility] Work Phone: 05-10-2018 09:33-0500 BP Systolic 123 mm[Hg] [facility] Work Phone: 05-10-2018 09:33-0500 Height 154.9 cm [facility] Work Phone: 05-10-2018 09:33-0500 Pulse (Heart Rate) 61 /min [facility] Work Phone: 05-10-2018 09:33-0500 Weight 61.24 kg [facility] Work Phone: Encounters Encounter Date Encounter Type Care Provider Facility Start: 03-11-2024 End: 03-11-2024 ambulatory MICHELLE [facility] Start: 03-11-2024 End: 03-11-2024 Encounter for general adult medical examination without abnormal findings MICHELLE [facility] Start: 03-10-2024 End: 03-14-2024 ambulatory ELLA PIMENTEL [facility] Start: 03-10-2024 End: 03-10-2024 Office outpatient new 45 minutes Ella Pimentel MD Work Phone: [facility] Comment on above: Thrombosis (Primary Dx) Start: 03-10-2024 End: 03-10-2024 ambulatory MICHELLE [facility] Start: 02-04-2024 End: 02-04-2024 Transcribe Orders Elly Brady MA [facility] Comment on above: Deep vein thrombosis (DVT) of other vein of lower extremity, unspecified chronicity, unspecified laterality (HCC) (Primary Dx) Start: 02-01-2024 ambulatory FRANCISCO BROWN [facility] ealt Ambulatory Start: 09-07-2023 End: 09-07-2023 Postop follow up visit related to original px Raudel Jordan MD Work Phone: [facility] Comment on above: Postoperative follow -up (Primary Dx) Start: 09-07-2023 End: 09-07-2023 [facility] Start: 08-20-2023 End: 08-21-2023 Emergency department patient visit Raudel Jordan MD Work Phone: [facility] Start: 08-20-2023 End: 08-21-2023 ambulatory FRANCISCO BOBO [facility] Start: 08-20-2023 End: 08-20-2023 Emergency department patient visit FRANCISCO BROWN [facility] Start: 03-12-2023 End: 03-12-2023 Office outpatient visit 25 minutes 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 [facility] Work Phone: [facility] Comment on above: Encounter to [facility] (Primary Dx); Varicose veins of left lower extremity with pain; Seasonal allergies Start: 03-12-2023 End: 03-12-2023 [facility] Start: 11-22-2022 End: 11-22-2022 Initial preventive medicine new pt age 18-39yrs Gay Narayan MD Work Phone: [facility] Comment on above: Annual physical exam (Primary Dx) Start: 11-22-2022 End: 11-22-2022 Patient encounter procedure Gay Narayan MD Work Phone: [facility] Work Phone: Start: 11-21-2021 End: 11-21-2021 Initial preventive medicine new pt age 18-39yrs Gay Narayan MD Work Phone: [facility] Comment on above: Annual physical exam Start: 11-21-2021 End: 11-21-2021 Patient encounter procedure Gay Narayan MD Work Phone: [facility] Start: 06-29-2021 End: 07-01-2021 Evaluation and management of inpatient Yohan Reyna MD Work Phone: [facility] Start: 06-25-2021 End: 06-25-2021 ambulatory DESIREE MADDOX [facility] Start: 05-18-2021 Patient encounter status Edward lubin LPN [facility] Start: 05-18-2021 Transcribe Orders Edward Becerril LPN [facility] Comment on above: Encounter for prepro cedure screening laboratory testing for COVID-19 (Primary Dx) Start: 12-29-2020 End: 12-29-2020 Subsequent hospital visit by physician Desiree Maddox MD Work Phone: [facility] Comment on above: Arrived Start: 11-22-2020 End: 11-22-2020 Initial preventive medicine new pt age 18-39yrs Desiree Maddox MD Work Phone: [facility] Comment on above: Annual physical exam (Primary Dx); Seasonal allergies; Family history of hypertrophic cardiomyopathy; Heart palpitations Start: 11-22-2020 End: 11-22-2020 Patient encounter procedure Desiree Maddox MD Work Phone: [facility] Start: 11-19-2020 End: 11-19-2020 Chart abstracting Veena Weber MA [facility] Start: 02-11-2019 End: 02-11-2019 Subsequent hospital visit by physician Hannah Pollard Work Phone: [facility] Comment on above: Varicose veins of le ft lower extremity with pain Start: 01-20-2019 End: 01-20-2019 Office outpatient new 30 minutes America Ely Work Phone: [facility] Comment on above: Varicose veins of le ft lower extremity with pain Start: 05-24-2018 End: 05-24-2018 Office outpatient new 30 minutes Marcela Borja Work Phone: [facility] Comment on above: Recurrent UTI (Prima ry Dx); Urinary frequency; Suprapubic pain; Interstitial cystitis Start: 05-13-2018 End: 05-13-2018 Patient encounter procedure Lisha Duenas Work Phone: [facility] CADD OPERATOR Comment on above: Appointment Start: 05-10-2018 End: 05-10-2018 Office outpatient visit 15 minutes Lisha Duenas Work Phone: [facility] CADD OPERATOR Comment on above: Dysuria (Primary Dx) ; Hematuria, unspecified type; Frequency of micturition Start: 05-03-2018 End: 05-03-2018 Patient encounter America Rowe Ely Work Phone: [facility] Comment on above: Results Start: 02-18-2017 End: 02-18-2017 Emergency department patient visit ana Rosado Facility:[facility] Date Procedure Procedure Detail Performing Clinician Start: 08-21-2023 Basic metabolic pane l calcium total Jim Malone CNP Work Phone: Start: 08-20-2023 End: 08-20-2023 APPENDECTOMY LAPAROSCOPIC Raudel Ray Edyta solorio MD Work Phone: Start: [...] System Start: 06-29-2021 Blood group typing Aiden Reyna MD Work Phone: Start: 06-29-2021 Blood [...] Start: 04-14-2031 Tetanus vaccination Tetanus: Every 10yrs [facility] Start: 04-14-2024 End: 04-14-2024 Patient encounter procedure 04/14/2024 10:45 AM EDT Office Visit [facility] [address] [facility] [address] [place] [address] Ella Pimentel MD [address] [place], [place] [id number] [facility] Start: 03-11-2024 End: 03-11-2024 Patient encounter procedure 03/11/2024 9:40 AM EDT Office Visit [facility] [address] [place] [phone] 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, NETWORK ANNOUNCER [address] [place] [address] [facility] Start: 02-17-2024 COVID-19 Vaccine () COVID-19 Vaccine () [facility] Start: 02-17-2024 Influenza vaccination Influenza Vaccine (#1) [facility] Start: 01-09-2024 History and physical examination, annual for health maintenance Wellness Visit [facility] Start: 11-26-2023 End: 11-26-2023 Patient encounter procedure 11/26/2023 9:00 AM EDT Office Visit [facility] [address] [place] [phone] Farncisco Ahmadi, NETWORK ANNOUNCER [address] [place] [address] [facility] Start: 11-23-2023 Depression screening using PHQ-9 (Patient Health Questionnaire 9) score [facility] Start: 11-23-2023 History and physical examination, annual for health maintenance Wellness Visit [facility] Start: 02-16-2023 COVID-19 Vaccine () COVID-19 Vaccine () [facility] Start: 02-16-2023 Influenza vaccination [facility] Start: 2023 Screening for malignant neoplasm of cervix [facility] Start: 11-22-2022 End: 11-22-2022 Patient encounter procedure 11/22/2022 Office Visit Primary Care Gay Davies MD [address] [place] [id number] [facility] Start: 11-21-2022 Depression screening using PHQ-9 (Patient Health Questionnaire 9) score Depression Screening (PHQ-2/9) [facility] Start: 11-21-2022 History and physical examination, annual for health maintenance Wellness Visit [facility] Start: 03-19-2022 COVID-19 Vaccine (3 - Booster for Moderna series) COVID-19 Vaccine (3 - Booster for Moderna series) [facility] Start: 02-16-2022 Influenza vaccination Sequential Influenza Vaccine (Season Ended) [facility] Start: 12-12-2021 COVID-19 Vaccine (3 - Booster for Moderna series) COVID-19 Vaccine (3 - Booster for Moderna series) [facility] Start: 12-12-2021 COVID-19 Vaccine (3 - Moderna series) COVID-19 Vaccine (3 - Moderna series) [facility] Start: 11-22-2021 Depression screening using PHQ-9 (Patient Health Questionnaire 9) score [facility] Start: 11-22-2021 History and physical examination, annual for health maintenance Wellness Visit [facility] Start: 02-16-2021 Influenza vaccination [facility] Start: 11-22-2020 End: 11-22-2021 Complete blood count with white cell differential, manual CBC and Differential Lab Routine Heart palpitations Expected: 11/22/2020, Expires: 11/22/2021 [facility] Comment on above: Expected: 11/22/2020, Expires: Start: 11-22-2020 End: 11-22-2021 Thyrotropin [Units/volume] in Serum or Plasma TSH with Reflex Free T4 Lab Routine Heart palpitations Expected: 11/22/2020 (Approximate), Expires: 11/22/2021 [facility] Comment on above: Expected: 11/22/2020 (Approximate), Expi res: 11/22/2021 Start: 11-22-2020 End: 11-22-2020 Patient encounter procedure 11/22/2020 Office Visit Primary Care Desiree Maddox MD [address] [place] [address] [phone] [facility] Start: 06-21-2020 Screening for malignant neoplasm of cervix Pap Smear [facility] Start: 04-24-2019 End: 04-24-2019 Office Visit 04/24/2019 Office Visit Cardiology Hannah Pollard III, DO [address] [place] [address] [phone] [facility] Start: 02-16-2019 Influenza vaccination given SEQUENTIAL INFLUENZA VACCINE (#1) [facility] Start: 02-11-2019 End: 02-11-2019 Appointment 02/11/2019 Appointment Cardiology Hannah Pollard III, DO [address] [place] [address] [phone] [facility] Start: 08-22-2018 End: 08-22-2018 Ambulatory 08/22/2018 Office Visit Urology Marcela Borja, NETWORK ANNOUNCER [address] [place] [address] [phone] [facility] Start: 06-06-2018 End: 06-06-2018 Ambulatory 06/06/2018 Office Visit CADD OPERATOR Lisha Duenas DO [address] [place] [address] [phone] [facility] CADD OPERATOR Start: 06-03-2018 End: 06-03-2018 Ambulatory 06/03/2018 Office Visit Gastroenterology Rain Denney MD [address] [facility] 8th [place] [address] Division of Gastroenterology and Hepatology [place] Start: 05-24-2018 End: 05-24-2019 Diagnostic radiography of abdomen XR ABDOMEN 1 VIEW Routine Suprapubic pain Expected: 05/24/2018, Expires: 05/24/2019 [facility] Work Phone: Comment on above: Expected: 05/24/2018, Expires: 9 Start: 05-24-2018 End: 05-24-2018 Ambulatory [facility] CADD OPERATOR Comment on above: Arrived Start: 05-13-2018 End: 05-13-2018 Ambulatory 05/13/2018 Office Visit CADD OPERATOR Lisha Duenas, [address] [place] [address] [phone] [facility] [place] CADD OPERATOR Start: 02-16-2018 Influenza vaccination INFLUENZA VACCINE (#1) [facility] Work Phone: Start: 2014 Screening for malignant neoplasm of cervix PAP SMEAR DISCUSSION [facility] Work Phone: Start: 02-15-2012 Third diphtheria, tetanus and acellular pertussis (DTaP) vaccination TDAP (ADULT) [facility] Work Phone: Start: 2011 GONORRHEA SCREEN GONORRHEA SCREEN [facility] Work Phone: Start: 2011 Hepatitis C screening Hepatitis C Screening [facility] Start: 2011 Tetanus vaccination TETANUS [facility] Work Phone: Start: 2009 Screening for Chlamydia trachomatis CHLAMYDIA SCREEN [facility] Work Phone: Start: 02-15-2008 HIV screening HIV Screening [facility] Start: 02-15-2008 Vaccination for human papillomavirus HPV VACCINES (1 - Female 3-dose series) [facility] Start: 2006 HIV screening HIV SCREENING DISCUSSION [facility] Work Phone: Start: 2005 COVID-19 Vaccine (1) COVID-19 Vaccine (1) [facility] Start: 2005 Depression screening using PHQ-9 (Patient Health Questionnaire 9) score Depression Screening (PHQ9) [facility] Start: 02-15-2004 Vaccination for human papillomavirus HPV VACCINE ADOL (1 - Female 3-dose series) [facility] Work Phone: Start: 1998 COVID-19 Vaccine (1) COVID-19 Vaccine (1) [facility] Start: 02-15-1996 History and physical examination, annual for health maintenance Wellness Visit [facility] Start: 1993 Screening for malignant neoplasm of cervix PAP SMEAR [facility] Start: 1993 Tetanus vaccination [facility] End: 03-10-2025 Antithrombin actual/normal in Platelet poor plasma by Chromogenic method Antithrombin III Lab Routine Thrombosis 1 Occurrences starting 03/10/2024 until 03/10/2025 [facility] Work Phone: Comment on above: 1 Occurrences starting 03/10/2024 until 03/10/2025 Antithrombin actual/normal in Platelet poor plasma by Chromogenic method Antithrombin III Lab Routine Thrombosis 03/10/2024 11:35 AM EDT [facility] End: 03-10-2025 Antithrombin III antigen Antithrombin III antigen Lab Routine Thrombosis 1 Occurrences starting 03/10/2024 until 03/10/2025 [facility] Comment on above: 1 Occurrences starting 03/10/2024 until 03/10/2025 Antithrombin III antigen Antithr ombin III antigen Lab Routine Thrombosis 03/10/2024 11:35 AM EDT [facility] End: 03-10-2025 aPTT in Blood by Coagulation assay APTT Lab Routine Thrombosis 1 Occurrences starting 03/10/2024 until 03/10/2025 [facility] Comment on above: 1 Occurrences starting 03/10/2024 until 03/10/2025 aPTT in Blood by Coagulation assay APTT Lab Routine Thrombosis 03/10/2024 11:35 AM EDT [facility] Bacteria identified Cx Nom (U) URINE CULTURE Routine Hematuria, unspecified type 05/10/2018 10:12 AM EST [facility] Work Phone: Complete blood count with white cell differential, manual CBC and Differential Lab Routine Heart palpitations 11/22/2020 2:43 PM EDT [facility] End: 11-23-2023 Complete blood count with white cell differential, manual CBC and Differential Lab Routine Annual physical exam 1 Occurrences starting 11/22/2022 until 11/23/2023 [facility] Work Phone: Comment on above: 1 Occurrences starting 11/22/2022 until 11/23/2023 End: 11-22-2021 Comprehensive metabolic 2000 panel - Serum or Plasma Comprehensive Metabolic Panel Lab Routine Heart palpitations 1 Occurrences starting 11/22/2020 until 11/22/2021 [facility] Comment on above: 1 Occurrences starting 11/22/2020 until 11/22/2021 Comprehensive metabo lic 2000 panel - Serum or Plasma Comprehensive Metabolic Panel Lab Routine Heart palpitations 11/22/2020 2:43 PM EDT [facility] End: 11-23-2023 Comprehensive metabolic 2000 panel - Serum or Plasma Comprehensive Metabolic Panel Lab Routine Annual physical exam 1 Occurrences starting 11/22/2022 until 11/23/2023 [facility] Comment on above: 1 Occurrences starting 11/22/2022 until 11/23/2023 Diagnostic radiograp hy of abdomen XR ABDOMEN 1 VIEW Routine Suprapubic pain 05/24/2018 11:27 AM EST [facility] Work Phone: End: 01-22-2022 Echocardiography Echocardiogram complete Echocardiography Routine Family history of hypertrophic cardiomyopathy Heart palpitations 1 Occurrences starting 11/22/2020 until 01/22/2022 [facility] Comment on above: 1 Occurrences starting 11/22/2020 until 01/22/2022 End: 03-10-2025 Factor II (prothrombin) [id number] mutation detection Prothrombin gene mutation Lab Routine Thrombosis 1 Occurrences starting 03/10/2024 until 03/10/2025 [facility] Comment on above: 1 Occurrences starting 03/10/2024 until 03/10/2025 Factor II (prothromb in) [id number] mutation detection Prothrombin gene mutation Lab Routine Thrombosis 03/10/2024 11:35 AM EDT [facility] End: 03-10-2025 Fibrinogen [Mass/volume] in Platelet poor plasma by Coagulation assay Fibrinogen Lab Routine Thrombosis 1 Occurrences starting 03/10/2024 until 03/10/2025 [facility] Comment on above: 1 Occurrences starting 03/10/2024 until 03/10/2025 Fibrinogen [Mass/vol ume] in Platelet poor plasma by Coagulation assay Fibrinogen Lab Routine Thrombosis 03/10/2024 11:35 AM EDT [facility] End: 11-23-2023 Hemoglobin A1c/Hemoglobin.total in Blood Hemoglobin A1c Lab Routine Annual physical exam 1 Occurrences starting 11/22/2022 until 11/23/2023 [facility] Comment on above: 1 Occurrences starting 11/22/2022 until 11/23/2023 End: 03-10-2025 INR in Platelet poor plasma by Coagulation assay Protime-INR Lab Routine Thrombosis 1 Occurrences starting 03/10/2024 until 03/10/2025 [facility] Comment on above: 1 Occurrences starting 03/10/2024 until 03/10/2025 INR in Platelet poor plasma by Coagulation assay Protime-INR Lab Routine Thrombosis 03/10/2024 11:35 AM EDT [facility] End: 11-23-2023 Lipid 1996 panel - Serum or Plasma Lipid Panel Lab Routine Annual physical exam 1 Occurrences starting 11/22/2022 until 11/23/2023 [facility] Comment on above: 1 Occurrences starting 11/22/2022 until 11/23/2023 Procedure on tissue specimen [facility] Work Phone: Comment on above: Release Upon Ordering for 1 Occurrences starting 08/20/2023, 1 completed End: 03-10-2025 Protein C actual/normal in Platelet poor plasma by Coagulation assay Protein C activity Lab Routine Thrombosis 1 Occurrences starting 03/10/2024 until 03/10/2025 [facility] Comment on above: 1 Occurrences starting 03/10/2024 until 03/10/2025 Protein C actual/nor mal in Platelet poor plasma by Coagulation assay Protein C activity Lab Routine Thrombosis 03/10/2024 11:35 AM EDT [facility] End: 03-10-2025 Protein C Ag actual/normal in Platelet poor plasma by Immunoassay Protein C antigen, total Lab Routine Thrombosis 1 Occurrences starting 03/10/2024 until 03/10/2025 [facility] Comment on above: 1 Occurrences starting 03/10/2024 until 03/10/2025 Protein C Ag actual/normal in Platelet poor plasma by Immunoassay Protein C antigen, total Lab Routine Thrombosis 03/10/2024 11:35 AM EDT [facility] End: 03-10-2025 Protein S actual/normal in Platelet poor plasma by Coagulation assay Protein S activity Lab Routine Thrombosis 1 Occurrences starting 03/10/2024 until 03/10/2025 [facility] Comment on above: 1 Occurrences starting 03/10/2024 until 03/10/2025 Protein S actual/nor mal in Platelet poor plasma by Coagulation assay Protein S activity Lab Routine Thrombosis 03/10/2024 11:35 AM EDT [facility] End: 05-18-2022 SARS-CoV-2 (COVID-19) RdRp gene [Presence] in Respiratory specimen by ADRIANA with probe detection COVID-19, Molecular Microbiology Routine Encounter for preprocedure screening laboratory testing for COVID-19 1 Occurrences starting 05/18/2021 until 05/18/2022 [facility] Work Phone: Comment on above: 1 Occurrences starting 05/18/2021 until 05/18/2022 End: 03-10-2025 Thrombin time Thrombin time Lab Routine Thrombosis 1 Occurrences starting 03/10/2024 until 03/10/2025 [facility] Comment on above: 1 Occurrences starting 03/10/2024 until 03/10/2025 Thrombin time Thrombin time La b Routine Thrombosis 03/10/2024 11:35 AM EDT [facility] Thyrotropin [Units/volume] in Serum or Plasma TSH with Reflex Free T4 Lab Routine Heart palpitations 11/22/2020 2:43 PM EDT [facility] End: 03-22-2020 Ultrasound venous insufficiency left leg Ultrasound venous insufficiency left leg Vascular Ultrasound Routine Varicose veins of left lower extremity with pain 1 Occurrences starting 01/20/2019 until 03/22/2020 [facility] Comment on above: 1 Occurrences starting 01/20/2019 until 03/22/2020 Immunizations Immunization Date Immunization Notes Care Provider [facility] 10-17-2021 Moderna SARS-CoV-2 Vaccination Gay Narayan MD Work Phone: [facility] 08-24-2021 Moderna SARS-CoV-2 Vaccination Gay Narayan MD Work Phone: [facility] 07-27-2021 influenza, injectabl e, quadrivalent, preservative free Gay Narayan MD Work Phone: [facility] 07-27-2021 influenza virus vacc ine, unspecified formulation Elly Brady MA [facility] 06-29-2021 varicella zoster imm une globulin Yohan Reyna MD Work Phone: [facility] 06-29-2021 diphtheria, tetanus toxoids and acellular pertussis vaccine, unspecified formulation Yohan Reyna MD Work Phone: [facility] 06-29-2021 measles, mumps and r ubella virus vaccine Yohan Reyna MD Work Phone: [facility] 04-14-2021 tetanus toxoid, redu anni diphtheria toxoid, and acellular pertussis vaccine, adsorbed Gay Narayan MD Work Phone: [facility] 02-01-2006 tetanus toxoid, redu anni diphtheria toxoid, and acellular pertussis vaccine, adsorbed Gay Narayan MD Work Phone: [facility] 02-01-2006 varicella virus vaccine Josee Narayan MD Work Phone: [facility] 12-17-1997 diphtheria, tetanus toxoids and acellular pertussis vaccine, unspecified formulation Gay Narayan MD Work Phone: [facility] 12-17-1997 measles, mumps and r ubella virus vaccine Gay Narayan MD Work Phone: [facility] 12-17-1997 trivalent poliovirus vaccine, live, oral Gay Narayan MD Work Phone: [facility] 05-09-1994 diphtheria, tetanus toxoids and acellular pertussis vaccine, unspecified formulation Gay Narayan MD Work Phone: [facility] 05-09-1994 haemophilus influenz ae type b vaccine, conjugate unspecified formulation Gay Narayan MD Work Phone: [facility] 05-09-1994 measles, mumps and r ubella virus vaccine Gay Narayan MD Work Phone: [facility] 1993 diphtheria, tetanus toxoids and pertussis vaccine Gay Narayan MD Work Phone: [facility] 1993 haemophilus influenz ae type b vaccine, conjugate unspecified formulation Gay Narayan MD Work Phone: [facility] 1993 hepatitis B vaccine, pediatric or pediatric/adolescent dosage Gay Narayan MD Work Phone: [facility] 1993 trivalent poliovirus vaccine, live, oral Gay Narayan MD Work Phone: [facility] 1993 diphtheria, tetanus toxoids and pertussis vaccine Gay Narayan MD Work Phone: [facility] 1993 haemophilus influenz ae type b vaccine, conjugate unspecified formulation Gay Narayan MD Work Phone: [facility] 1993 trivalent poliovirus vaccine, live, oral Gay Narayan MD Work Phone: [facility] 1993 diphtheria, tetanus toxoids and pertussis vaccine Gay Narayan MD Work Phone: [facility] 1993 haemophilus influenz ae type b vaccine, conjugate unspecified formulation Gay Narayan MD Work Phone: [facility] 1993 hepatitis B vaccine, pediatric or pediatric/adolescent dosage Gay Narayan MD Work Phone: [facility] 1993 trivalent poliovirus vaccine, live, oral Gay Narayan MD Work Phone: [facility] 1993 hepatitis B vaccine, pediatric or pediatric/adolescent dosage Gay Narayan MD Work Phone: [facility] Payers Date Payer Category Payer Unknown [id number] 2022 Private Health Insurance [id number] 2020 Private Health Insurance [id number] 2020 Private Health Insurance AEJASBIR MAJANO [employer]ET[employer] [id number] 2020-Present [address] [place] [address] [id number] 2020 Unknown [id number] 2020 Unknown [id number] 2020 Unknown [id number] 2017 Unknown [employer] [facility] xxxxxxxxx 2017-Present xxxxxxxxx [id number] 2017 Unknown [id number] 1993 Unknown [id number] 1993 Unknown [id number] [id number] 1993 Unknown [id number] 1993 Unknown [id number] [id number] 1993 Unknown [id number] [id number] 1993 Unknown [id number] [id number] 1993 Unknown [id number] [id number] 1993 Unknown [id number] [id number] 1993 Unknown [id number] [id number] 1993 Unknown [id number] Private Health Insurance [id number] Social History Date Type Detail Facility Start: 04-26-2018 End: 11-21-2021 Tobacco smoking status NHIS Never smoker [facility] Work Phone: Start: 1995 Sex Assigned At Not on file [facility] Work Phone: Start: 01-20-2019 Alcohol Comment occ [facility] Start: 01-20-2019 End: 11-19-2020 Alcohol intake Current drinker of alcohol (finding) [facility] Start: 11-19-2020 End: 11-21-2021 Tobacco use and exposure Never used [facility] Start: 11-22-2020 End: 03-10-2024 Alcohol intake Ex-drinker (finding) [facility] Start: 11-22-2020 Alcohol Comment [facility] Start: 11-11-2021 End: 11-21-2021 Exposure to SARS-CoV-2 (event) Not sure [facility] Start: 10-11-2020 [facility] Start: 11-21-2021 End: 08-20-2023 Cigarette pack-years [facility] Start: 11-21-2021 History SDOH Social Connections Get Together 3 [facility] Start: 11-21-2021 History SDOH Financial 5 [facility] Start: 11-21-2021 History SDOH Food Worry 1 [facility] Start: 11-21-2021 History SDOH Transport Med 2 [facility] Start: 03-06-2022 End: 08-20-2023 Humiliation, Afraid, Rape, and Kick questionnaire [HARK] [facility] Within the last year , have you been afraid of your partner or ex-partner? No [facility] Are you now , , , , never or living with a partner? [facility] How often to you hav e a drink containing alcohol? 2-4 times a month [facility] How many standard dr inks containing alcohol do you have on a typical day? 3 or 4 [facility] How often do you hav e 6 or more drinks on 1 occasion? Never [facility] How hard is it for y ou to pay for the very basics like food, housing, medical care, and heating Not very hard [facility] Adult Depression Screening Assessment 0 [facility] Do you feel stress - tense, restless, nervous, or anxious, or unable to sleep at night because your mind is troubled all the time - these days [OSQ] Not at all [facility] (I/We) worried wheth er (my/our) food would run out before (I/we) got money to buy more. Never true [facility] Start: 11-19-2020 Gender identity Identifies as female gender (finding) [facility] Start: 11-19-2020 Sexual orientation Heterosexual (finding) [facility] Clinical Notes 11-22-2020 to 03-11-2024 Ella Pimentel MD - 03/10/2024 9:58 AM Raudel Smith MD - 09/07/2023 9:41 AM Edward Note - Maribell Muniz RN - 08/21/2023 [...] history that includes Hemorrhoidectomy (10/02/2017); Refractive surgery; Campbell tooth extraction; Hemorrhoidectomy; Colonoscopy; Section (N/A, 06/29/2021); [...] AUTHENTICATED BY FRANCISCO AHMADI, ON 03/11/2024 11:55:59 [facility] 03-11-2024 Note 11/22/2020 1:00 PM 11/21/2021 8:00 [...] AUTHENTICATED BY FRANCISCO AHMADI, ON 03/11/2024 11:55:59 [facility] 03-10-2024 Note Hematology/Oncology Clinic Note Chief Complaint/Diagnosis: 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, 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[employer] Tobacco Use Smoking status: Never Smokeless tobacco: [...] days Stress: No Stress Concern Present (03/06/2022) [place] [facility] [employer] - Occupational Stress Questionnaire Feeling of Stress : Not at all Social Connections: Moderately Integrated (03/06/2022) Social Connection and Isolation Panel [NHANES] Frequency of Communication with Friends and Family: Three times a week Frequency of Social Gatherings with Friends and Family: Twice a week Attends Oriental Orthodox Services: 1 to 4 times per year Active Member of Clubs or Organizations: No Attends Club or Organization Meetings: Never Marital Status: Housing Stability: Low Risk (08/20/2023) Housing Stability Vital Sign Unable to Pay for Housing in the Last Year: No Number of Places Lived in the Last (more content not included)... [facility] 03-10-2024 History of Present illness Narrative Hematology/Oncology Clinic Note Chief Complaint/Diagnosis: 1. Thrombosis Referring Physician:No referring provider defined for this encounter. PCP: 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 CNP History of Present Illness: Jay Paco is a 29 y.o. 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 Smoking status: Never Smokeless tobacco: [...] days Stress: No Stress Concern Present (03/06/2022) [place] [facility] [employer] - Occupational Stress Questionnaire Feeling of Stress : Not at all Social Connections: Moderately Integrated (03/06/2022) Social Connection and Isolation Panel [NHANES] Frequency of Communication with Friends and Family: Three times a week Frequency of Social Gatherings with Friends and Family: Twice a week Attends [employer] Orthodox Services: 1 to 4 times per year [...] Radiology: I am dictating records from the [facility] from [facility]. Procedures was VC external venous reflux bilaterally [...] ELLA PIMENTEL MD documented in this encounter [facility] 09-07-2023 History of Present illness Narrative [facility] PATIENT: Jay Antonio DATE / TIME: 09/07/23 [...] Follow-up as needed documented in this encounter [facility] 08-21-2023 Note Formatting of this n ote might be different from the original. Seen by [place] to home. present. Reviewed discharge medications and follow up appointments as well as lifting restrictions. Patient received community resources. Transported to vehicle via wheelchair for discharge to home. [facility] 08-21-2023 Miscellaneous Notes Seen by [place] to home. present. Reviewed discharge medications and [...] with localized peritonitis Surgeon: Raudel Jordan MD Assistant Professor Of Sociology: Noemi Voss who was present for the entire case and provided critical assistance with the technical aspects of the operation. Procedure and Anesthesia: Procedure(s) and Anesthesia Type: * APPENDECTOMY LAPAROSCOPIC - General CPT Code: 10292 EBL 2 ml Complications:None Drains: None Dispo: [...] of the MDM. documented in this encounter [facility] 08-21-2023 Hospital course Narrative DISCHARGE SUMMARY Patient: Jay Antonio Date of : 1995 Site: [facility] Provider: 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 CNP Admit Date: 08/20/2023 [...] Physician(s) Family Provider: 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 CNP, Address: [facility] [address] / [place] [id number] Follow Up: 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 CNP [facility] [address] [facility] [address] Raudel Jordan MD [address] [id number] Follow up in 1 week(s) Additional Information: [...] 08/21/23, 8:12 AM documented in this encounter [facility] 08-21-2023 Hospital Discharge instructions Laurne Duong CNP - 08/21/2023 8:12 AM EST [...] at least 10 days. Call the Outpatient Trauma/[facility] office [phone] for advice (Sunday-Sunday, 8am to 4pm) or proceed to the nearest Emergency Department if: You feel weak, lightheaded, or dizzy when you sit up or stand. Develop fever, chills, nausea, or vomiting You have increased abdominal or chest pain Your skin is pale, cool and/or clammy You have a rapid increase in your heart rate while resting. documented in this encounter [facility] 08-21-2023 Note Formatting of this n [...] of comfort function goal Outcome: Partially Met [facility] 08-20-2023 Note Formatting of this n ote might be different from the original. Problem: Actual or potential alteration in health Goal: Knowledge of Interdisciplinary Plan of Care Outcome: Partially Met Plan of care to be reviewed with pt by R.N. on a daily basis. Problem: Pain Goal: Manage acute pain Outcome: Partially Met Pt has prn pain medication. [facility] 08-20-2023 Note Formatting of this n ote might be different from the original. Pt arrived to the floor accompanied by PACU staff. Pt was oriented to room and call light. Post op vital signs started. [facility] 08-20-2023 Note Formatting of this n ote might be different from the original. Pre-operative Diagnosis: * Acute appendicitis with localized peritonitis Post-operative Diagnosis: * Acute appendicitis with localized peritonitis Surgeon: Raudel Jordan MD Assistant Professor Of Sociology: Noemi Voss who was present for the entire case and provided critical assistance with the technical aspects of the operation. Procedure and Anesthesia: Procedure(s) and Anesthesia Type: * APPENDECTOMY LAPAROSCOPIC - General CPT Code: 04658 EBL 2 ml Complications:None Drains: None Dispo: [...] to the recovery room in stable condition. [employer] Work Phone: 08-20-2023 Note Formatting of this [...] encounter, including all aspects of the MDM. [employer] Work Phone: 08-20-2023 Physician Emergency department Note [facility] EM[facility] NOTE: NAME: Jay Antonio CSN: [id number] 28 y.o. PCP: 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 CNP History: Chief Complaint: Abdominal Pain HPI: The history was obtained from the patient. Jay is a 28 y.o. female who presents with a chief complaint of Abdominal Pain. Patient comes emergency room referred from [facility] ER for evaluation of appendicitis. 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 Smoking status: Never Smokeless tobacco: [...] days Stress: No Stress Concern Present (03/06/2022) [place] [facility] [employer] - Occupational Stress Questionnaire Feeling of Stress : Not at all Social Connections: Moderately Integrated (03/06/2022) Social Connection and Isolation Panel [NHANES] Frequency of Communication with Friends and Family: Three times a week Frequency of Social Gatherings with Friends and Family: Twice a week Attends Oriental Orthodox Services: 1 to 4 times per year [...] Comment Attending Provider or Group: RAUDEL JORDAN [[id number]] Phone call required?: Yes Ke Stockton Jr., PA-C, PA-C ED Advanced Practice Provider [facility] Ke Stockton Jr., PA-C 08/20/23 1826 [facility] 08-20-2023 Emergency department Note [facility] EM[facility] NOTE: NAME: Jay Antonio CSN: [id number] 28 y.o. PCP: 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 CNP History: Chief Complaint: Abdominal Pain HPI: The history was obtained from the patient. Jay is a 28 y.o. female who presents with a chief complaint of Abdominal Pain. Patient comes emergency room referred from [facility] ER for evaluation of appendicitis. She [...] days Stress: No Stress Concern Present (03/06/2022) [place] [facility] [employer] [facility] - Occupational Stress Questionnaire Feeling of Stress : Not at all Social Connections: Moderately Integrated (03/06/2022) Social Connection and Isolation Panel [NHANES] Frequency of Communication with Friends and Family: Three times a week Frequency of Social Gatherings with Friends and Family: Twice a week Attends Oriental Orthodox Services: 1 to 4 times per year [...] Comment Attending Provider or Group: RAUDEL JORDAN [[id number]] Phone call required?: Yes Ke Stockton Jr., PA-C, PA-C ED Advanced Practice Provider [facility] Ke Stockton Jr., PA-C 08/20/23 1826 Report called. Bed: 46 Expected date: Expected time: Means of arrival: Comments: TR 1 Patient a transfer from [facility] needing to be evaluated for possible appendicitis. documented in this encounter [facility] 08-20-2023 Emergency department Note Report called. [facility] 08-20-2023 Emergency department Note Bed: 46 Expected date: Expected time: Means of arrival: Comments: TR 1 [facility] 08-20-2023 Emergency department Triage note Patient a transfer from [facility] needing to be evaluated for possible appendicitis. [facility] 03-12-2023 History of Present illness Narrative [...] history that includes Hemorrhoidectomy (10/02/2017); Refractive surgery; [place] tooth extraction; Hemorrhoidectomy; Colonoscopy; Section (N/A, 06/29/2021); [...] seen at a varicose vein clinic in [place] so she can be evaluated for newer treatment. Seasonal allergies Well controlled with OTC medication Follow up in one year or as needed documented in this encounter [facility] 11-22-2022 Evaluation + Plan note Associated [...] DEXA: Not yet indicated Routine labs ordered [facility] 11-22-2022 Miscellaneous Notes Associated Problem(s): Annual physical exam Healthcare Maintenance: Vaccines: -Influenza vaccine: Season ended -COVID-19 vaccine: Fully vaccinated 10/2020, pending Moderna bivalent booster at local pharmacy, not available in office today -Tdap: Up-to-date 03/2021 -Shingrix: Not yet indicated Hepatitis C: neg 11/2020 HIV: neg 11/2020 Pap smear: Self-reported up-to-date (normal) around 2 year ago, will obtain records from [facility] Mammogram: Not yet indicated Colonoscopy: Not yet indicated Lung cancer screening: Never smoker, not yet indicated DEXA: Not yet indicated Routine labs ordered documented in this encounter [facility] 11-22-2022 History of Present illness Narrative [facility] [address] [facility] [address] [place] [address] HPI: Jay Antonio is a 27 y.o. year old female seen in the office today for her annual physical. Denies any complaints today. Sees Dr. Reyna at [facility] for her female wellness. Reports last [...] directions given. Results will be available through [employer] as soon as they are reported. Please [...] look into their status. Customer Service/Billing Questions: [phone] [employer] Assistance: [phone] or [phone] Financial Assistance: [phone] or [phone] Follow Up Ordered: Return in about 1 year (around 11/23/2023) for Annual physical. Gay Narayan MD documented in this encounter [facility] 11-21-2021 Evaluation + Plan note Associated [...] not yet indicated DEXA: Not yet indicated [facility] 11-21-2021 Miscellaneous Notes Associated Problem(s): Annual [...] Not yet indicated documented in this encounter [facility] 11-21-2021 History of Present illness Narrative [facility] [address] [facility] [address] [place] [address] HPI: Jay Antonio is a 26 y.o. [...] months ago, will fax records from [facility] -Shingrix: Not yet indicated Hepatitis C: neg 11/2020 HIV: neg 11/2020 Pap smear: Self-reported up-to-date (normal) around 1 year ago, will fax records from [facility] Mammogram: Not yet indicated Colonoscopy: Not yet [...] directions given. Results will be available through [employer] as soon as they are reported. Please [...] look into their status. Customer Service/Billing Questions: [phone] MyChart Assistance: [phone] or [phone] Financial Assistance: [phone] or [phone] Follow Up Ordered: Return in about 1 year (around 11/21/2022). Gay Narayan MD documented in this encounter [facility] 07-01-2021 Miscellaneous Notes Discharge home ambulatory [...] stooling. Encourage follow up weight check with administrative underwriter in 1-2 days. Appointment was made by [...] stimulate supply. Mother has made appointment with [facility] administrative underwriter for follow up. Plan is to follow [...] questions or concerns arise. Mother aware that infant weight check in 1-2 days after discharge [...] 361 mL Total 361 mL Jihan Antonio [[id number]] Delivery Anesthesia Method: Spinal Operative Delivery Forceps [...] Other personnel: Provider Role Covering Attending Resident Sleeping Car Service Attendant Mariely Banerjee RN Delivery Nurse Cristin Vargas RN Registered Nurse Caryn Jean Baptiste RN Delivery Assist Nurse Practitioner Carmen Collins RN Registered Nurse Joe Rivera MD Press Room Supervisor Cord Vessels: 3 vessels Complications: None Delayed cord clamping?: Yes Cord clamped date/time: 06/29/2021 1033 Cord blood obtained?: Yes Cord segment obtained?: No Gases sent?: No Stem cell collection (by Provider)?: No Placenta Date/time: 06/29/2021 1034 Removal: Manual removal Appearance: Intact Disposition: Refr[facility]ator [place] Apgars No data filed Measurements Weight: 7 lb 6.9 oz (3370 g) Length: 19 Head Circumference: 13.189 Lacerations No data filed Other Procedures Procedures: None Brief Post Operative Note Patient Name: Jay Antonio : 1995 (26 y.o.) Date of Service: 06/29/2021 CSN: [id number] Procedure(s): SECTION Pre-Operative Diagnoses: * Anorectal disorder [K62.9] Post-Operative Diagnoses: * Anorectal disorder [K62.9] Surgeon(s) and Role: * Yohan Reyna MD - Primary SLD TEACHER: Morgan Gomez CRNA Plasma Center Technician: Mariely Banerjee RN Scrub Person: ST Dillan Scrub Person Preceptor: Bhumika Whittington RN Scrub Person Assist: Ana Maria Collins RN Press Room Supervisor: Joe Rivera MD Nursery Nurse: Caryn Jean [...] ovaries SURGEON: Yohan Reyna MD OR STAFF: Plasma Center Technician: Mariely Banerjee RN Scrub Person: ST Dillan Scrub Person Preceptor: Bhumika Whittington RN Scrub Person Assist: Ana Maria Collins RN Press Room Supervisor: Joe Rivera MD Nursery Nurse: Caryn Jean Baptiste RN ANESTHESIA STAFF: SLD TEACHER: Morgan Gomez CRNA SPECIMEN(S): * No specimens [...] correct times three. documented in this encounter [facility] 07-01-2021 History of Present illness Narrative [...] the patient's : Paco, Baby Boy Jay [[id number]] Feeding Type: Breast milk,Formula Objective: Vital signs [...] the patient's : Paco, Baby Boy Jay [[id number]] Feeding Type: Breast milk Objective: Vital signs [...] Negative Nicola's sign. documented in this encounter [facility] 07-01-2021 Hospital Discharge instructions Angeline Ball [...] the office. 10. Please call the office ([phone]) for your six weeks' checkup appointment time. [...] any questions or problems, call the office. [phone] or [phone]. Please Note: Unless there are medical complications, maternity leave will be authorized for 6 weeks. documented in this encounter [facility] 06-30-2021 Hospital course Narrative DISCHARGE SUMMARY Patient: Jay Antonio Date of : 1995 Site: [facility] Family Provider: Desiree Maddox MD Admit [...] Physician(s) Family Provider: Desiree Maddox MD, Address: [address] [place] [address] / [place] [id number] Follow Up: Yohan Reyna MD [address] [place] [id number] Schedule an appointment as soon as possible for a visit in 6 week(s) Additional Information: Patient instructions, including activity, were given to the patient/family at discharge. Please see the After Visit Summary in the electronic medical record for details. 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 2. [...] with on Sunday. documented in this encounter [facility] Evaluation note Diagnosis Annual physical exam- Primary Routine general medical examination at a health care facility Seasonal allergies Allergic rhinitis, cause unspecified Family history of hypertrophic cardiomyopathy Heart palpitations Palpitations [facility] Diagnosis Family history of hypertrophic cardiomyopathy Heart palpitations Palpitations [facility] Diagnosis Encounter for preprocedure screening laboratory testing for COVID-19- Primary [facility] Diagnosis 39 weeks gestation of - Primary Post-operative pain Other acute postoperative pain [facility] Diagnosis Annual physical exam Routine general medical examination at a health care facility [facility] Diagnosis Annual physical exam- Primary Routine general medical examination at a health care facility [facility] Diagnosis Encounter to establish care- Primary Varicose veins of left lower extremity with pain Seasonal allergies Allergic rhinitis, cause unspecified [facility] Diagnosis Acute appendicitis- Primary Acute appendicitis without mention of peritonitis Acute appendicitis, unspecified acute appendicitis type [facility] Diagnosis Postoperative follow-up- Primary Follow-up examination, following unspecified surgery [facility] Deep vein thrombosis (DVT) of other vein of lower extremity, unspecified chronicity, unspecified laterality (HCC)- Primary [facility] Diagnosis Thrombosis- Primary Embolism and thrombosis of unspecified site Thrombosis Embolism and thrombosis of unspecified site documented in this encounter [facility] Summary Purpose Family History No Family History Records FoundNo Family History Records FoundNo Family History Records FoundNo Family History Records FoundNo Family History Records FoundNo Family History Records FoundNo Family History Records Found Advance Directives No Advanced Directives Records FoundDocuments on File Type Date Recorded Patient Manager Photo Expl anation Advance Directives and Livin g Will 01/20/2019 2:17 PM Documents on File Type Date Recorded Patient Manager Photo Expl anation Advance Directives and Livin g Will 02/11/2019 2:49 PM Documents on File Type Date Recorded Patient Manager Photo Expl anation Advance Directives and Livin g Will 02/11/2019 2:49 PM Documents on File Type Date Recorded Patient Manager Photo Expl anation Advance Directives and Livin g Will Advance Directives and Livin g Will 12/29/2020 9:12 AM Documents on File Type Date Recorded Patient Manager Photo Expl anation Advance Directives and Livin g Will Advance Directives and Livin g Will 04/09/2021 10:13 AM Latest Code Status on File Code Status Date Activated Date Inactivated Comments Full Code 04/09/2021 10:16 AM 04/09/2021 4:01 PM Documents on File Type Date Recorded Patient Manager Photo Expl anation Advance Directives and Livin g [...] Urology Diagnoses Dysuria Lisha Duenas, DO [address] [id number] [facility] [address] [id number] Status Reason Specialty Diagnoses / Procedures Referred By Contact Referred To Contact Pending Review Cardiology Diagnoses Varicose veins of left lower extremity with pain Procedures Ultrasound venous insufficiency left leg Hannah Pollard III, DO [address] [place] [address] Status Reason Specialty Diagnoses / Procedures Referred By Contact Referred To Contact New Request Cardiology Diagnoses Family history of hypertrophic cardiomyopathy Heart palpitations Procedures Echocardiogram complete Desiree Maddox MD [address] [id number] Status Reason Specialty Diagnoses / Procedures Referre d By Contact Referred To Contact Closed Cardiology Diagnoses Family history of hypertrophic cardiomyopathy Heart palpitations Procedures Echocardiogram complete Desiree Maddox MD [address] [phone] [facility] Tammy Collins [address] [facility] [place] [address] Specialty Diagnoses / Procedures Referred By Abelardo lopez Referred To Contact Cardiology Diagnoses Thrombosis Procedures Ultrasound duplex venous legs Ella Solares MD [address] [place] [address] Referral ID Status Reason Start Date Expiration Date Visits Re quested Visits Authorized [id number] Closed 03/11/2024 03/11/2025 1 1 History of Present Illness * HenriqueLisha Andrés, DO - 05/10/2018 9:30 AM EST Formatting [...] discussed getting an ultrasound to rule out SLATE ROOFER HELPER sources of pain like a cyst although [...] Tab Take 1 tablet by mouth daily. [place]-3 Fatty Acids (FISH OIL) 1000 MG Cap [...] pressure and bloating. 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 [...] your Care Team: Provider: Hannah Pollard III, DO Nurse: Marci Stallworth RN In [...] section and content) DATE CREATED AUTHOR 12/12/2017 [facility] DATE CREATED AUTHOR AUTHOR'S ORGANIZ ATION 12/17/2020 [facility] DATE CREATED AUTHOR AUTHOR'S ORGANIZ ATION 01/30/2021 [facility] DATE CREATED AUTHOR AUTHOR'S ORGANIZ ATION 06/26/2021 [facility] DATE CREATED AUTHOR AUTHOR'S ORGANIZ ATION 08/26/2023 [facility] DATE CREATED AUTHOR AUTHOR'S ORGANIZ ATION 03/11/2024 [facility] DATE CREATED AUTHOR AUTHOR'S ORGANIZ ATION 03/14/2024 [facility] Reason for Visit (unrecogniz ed section and content) Reason Comments Results Reason Comments Urinary Pain Patient states she h as been having the pain 2 times a month. Reason Comments Appointment Reason Comments New Patient Dysuria Status Reason Specialty Diagnoses / Procedures Referred By Contact Referred To Contact New Request Urology Diagnoses Dysuria Lisha Duenas, DO [address] [place] [address] Zan Otero MD [address] [place] [address] Reason Comments PT Initial Evaluation VV Status Reason Specialty Diagnoses / Procedures Referred By Contact Referred To Contact Pending Review Cardiology Diagnoses Varicose veins of left lower extremity with pain America Ely, NETWORK ANNOUNCER [address] [place] [address] Hannah Pollard III, DO [address] [place] [address] Status Reason Specialty Diagnoses / Procedures Referred By Contact Referred To Contact Pending Review Cardiology Diagnoses Varicose veins of left lower extremity with pain Procedures Ultrasound venous insufficiency left leg Hannah Pollard III, DO [address] [place] [address] Reason Comments Establish Care would like order for ECHO and MRI Status Reason Specialty Diagnoses / Procedures Referre d By Contact Referred To Contact Closed Cardiology Diagnoses Family history of hypertrophic cardiomyopathy Heart palpitations Procedures Echocardiogram complete Desiree Maddox MD [address] [place] [address] [facility] [address] [facility] [place] [address] Reason Comments Scheduled Primary C Section Specialty Diagnoses / Procedures Referred By Contac t Referred To Contact Diagnoses 39 weeks gestation of Referral ID Status Reason Start Date Expiration Date Visits Re quested Visits Authorized [id number] 1 1 Reason Comments Establish Care [id number] Reason Comments Establish Care Reason Comments Abdominal Pain Specialty Diagnoses / Procedures Referred By Contac t Referred To Contact Diagnoses Acute appendicitis Acute appendicitis, unspecified acute appendicitis type Acute appendicitis Referral ID Status Reason Start Date Expiration Date Visits Re quested Visits Authorized [id number] 1 1 Reason Comments Post-op Care Teams (unrecognized sec tion and content) General Matcher Relationship Specialty Start Date End Date Desiree Maddox MD [address] [place] [address] PCP - General Family Medicine 11/22/20 Subit, Yohan Lake MD [address] [place] [address] Consulting Physician Obstetrics/Gynecology 05/18/21 General Matcher Relationship Specialty Start Date End Date Desiree Maddox MD [address] [place] [address] PCP - General Family Medicine 11/22/20 Subit, Yohan Lake MD [address] [place] [address] Consulting Physician Obstetrics/Gynecology 05/18/21 General Matcher Relationship Specialty Start Date End Date Gay Davies MD [address] [place] [id number] PCP - General Internal Medicine 11/21/21 Subit, Yohan Lake MD [address] [place] [address] Consulting Physician Obstetrics/Gynecology 05/18/21 General Matcher Relationship Specialty Start Date End Date Gay Davies MD [address] [place] [address] PCP - General Internal Medicine 11/21/21 SubitYohan MD [address] [place] [address] Consulting Physician Obstetrics/Gynecology 05/18/21 General Matcher Relationship Specialty Start Date End Date 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, NETWORK ANNOUNCER [address] [place] [address] PCP - General Nurse Practitioner 03/12/23 Subit, Yohan Lake MD [address] [place] [address] Consulting Physician Obstetrics/Gynecology 05/18/21 General Matcher Relationship Specialty Start Date End Date 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, NETWORK ANNOUNCER [address] [place] [address] (Fax) PCP - General Nurse Practitioner 03/12/23 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, NETWORK ANNOUNCER [address] [place] [address] (Fax) PCP - STONE Attributed Provider - [place] [employer] 01/16/23 06/17/50 Subit, Yohan Lake MD [address] [place] [address] Consulting Physician Obstetrics/Gynecology 05/18/21 General Matcher Relationship Specialty Start Date End Date 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, NETWORK ANNOUNCER [address] [place] [address] (Fax) PCP - General Nurse Practitioner 03/12/23 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, NETWORK ANNOUNCER [address] [place] [address] (Fax) PCP - STONE Attributed Provider - [employer] 01/16/23 06/17/50 Yohan Reyna MD [address] [place] [address] Consulting Physician Obstetrics/Gynecology 05/18/21 General Matcher Relationship Specialty Start Date End Date 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 NETWORK ANNOUNCER [address] [place] [address] PCP - General Nurse Practitioner 03/12/23 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 NETWORK ANNOUNCER [address] [place] [address] PCP - STONE Attributed Provider - [employer] 01/16/23 06/17/50 JonelleitYohan MD [address] [place] [address] Consulting Physician Obstetrics/Gynecology 05/18/21 General Matcher Relationship Specialty Start Date End Date 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, NETWORK ANNOUNCER [address] [place] [address] PCP - General Nurse Practitioner 03/12/23 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 CNP [address] [place] [address] PCP - STONE Attributed Provider - [employer] 01/16/23 06/17/50 Yohan Reyna MD [address] [place] [address] Consulting Physician Obstetrics/Gynecology 05/18/21 Scheduled Active and [...] Copeland RN)1630 (Due - Provider: Sahara Luna [facility],PharmD)2313 (See Alternative - Provider: Abbey Catherine RN) 0808 (See Alternative - Provider: Angeline Ball RN)1030 (Due - Provider: Sahara Luna [facility],PharmD) oxytocin (PITOCIN) bolus from bag 10,000 guillermo-units [...] RN) 0808 (Given - Provider: Angeline Ball, MAN) senna-docusate (SENNA-S) 8.6-50 mg per tablet 2 [...] MAN) 1302 (Given - Provider: Marisel Copeland RN)1842 (Given - Provider: Nieves Best, MAN) 0802 (Due) aluminum-magnesium hydroxide-simethicone (MAALOX PLUS) 200-200-20 [...] Every 6 hours PRN, itching, Starting on 06/29/21 at 1335, , Use oral route first, [...] not tolerated. DO NOT CRUSH OR CHEW. 1842 (Given - Provider: Nieves Best, MAN) flu vacc [id number] 6mos up(PF) (FLUZONE QUAD/FLULAVAL QUAD/FLUARIX QUAD) syringe [...] Catherine, MAN) 0809 (Given - Provider: Angeline Ball RN) lactated ringers bolus 2,000 mL (COMPLETED) 2,000 mL, Intravenous, Administer over 61 Minutes, Once as needed, IF patient is a candidate for Spinal anesthesia, Starting on Sun06/29/21 at 0739, For 1 dose, Labor & Delivery, Infuse prior to initiation of Spinal anesthesia. 0800 (Given - Provider: Shalini Laguna, MAN) measles, mumps and rubella vaccine (MMR) 1,000-12,500 [...] pain, Starting on Sun08/20/23 at 1724 1904 ([facility] Hold - Provider: Transfer Provider, Automatic - Reason: Patient not available)2057 ([facility] Unhold - Provider: Transfer Provider, Automatic)2124 (Given [...] respiratory rate is 10 or greater. 1904 ([facility] Hold - Provider: Transfer Provider, Automatic - Reason: Patient not available)2057 ([facility] Unhold - Provider: Transfer Provider, Automatic) naloxone (NARCAN) injection 0.4 mg(Linked Group 1) 0.4 mg, Intravenous, As needed, opioid reversal, patient is pulseless, breathless, and unresponsive, Starting on Sun08/20/23 at 1724, Call a code first, then administer naloxone dose undiluted IV Push over 30 seconds. 1904 ([facility] Hold - Provider: Transfer Provider, Automatic - Reason: Patient not available)2057 ([facility] Unhold - Provider: Transfer Provider, Automatic) ondansetron [...] RN) 0413 (See Alternative - Provider: Zehra Grady, RN)0836 (See Alternative - Provider: Satya Mg [...] BE BASED ON THE PRIMARY CLINICAL RECORDS. [employer] [facility]. provides no warranty or guarantee of the accuracy or completeness of information in this document.
[2024-03-17 09:31] VITALS: BMI 26.2
--- NOTE | 2024-03-17 11:21 | P.DS_ITS ---
Discharge Plan Discharge Disposition: Home, Self-Care Outpatient Diagnostics: VC INJ Foam Sclerosant [facility] REPRESENTATIVE (Routine) Timeframe: 1 Month Facility: [facility] - Location: [facility] Ordered By: Hakeem Waletrs Follow Up Appointments: 03/27/24 Plan of Treatment: Varithena/microfoam of right leg Print Language: Czech Discharge Date/Time: 03/17/24 11:22
--- NOTE | 2024-03-17 11:21 | W.VEIN ---
Discharge Plan Discharge Disposition: Home, Self-Care Outpatient Diagnostics: VC INJ Foam Sclerosant [facility] DIRECTOR (Routine) Timeframe: 1 Month Facility: [facility] - Location: [facility] Center Ordered By: Hakeem Walters Follow Up Appointments: 03/27/24 Plan of Treatment: Varithena/microfoam of right leg Print Language: Czech Discharge Date/Time: 03/17/24 11:22
== END 2024-03-17 11:22 | disposition home or self-care (01) ==
PROVIDERS: PCP Radiology Diagnostic Radiology; Visit Provider Radiology Diagnostic Radiology
DX: I80.02 Phlebitis and thrombophlebitis of superficial vessels of left lower extremity (principal)
CPT/HCPCS: 93971; G0463

== ENCOUNTER 2024-03-27 09:22 | Outpatient (OUT) | payer BC, SELFPAY ==
--- NOTE | 2024-03-25 11:44 | VEINCLINIC_ITS ---
Vital Signs 03/27/24 10:07 BP 105/75 BP Location Right Brachial BP Position Sitting BP Cuff Size Adult BP Source Automatic Cuff Respiration 16 Pulse 64 Pulse Source Monitor Pulse Oximetry (%) 97 Oxygen Delivery Method Room Air Varicose Veins Patient in today for microfoam chemical ablation right leg Hakeem Greenwood MD personally performed the services described in this documentation, as scribed by Justo Stallworth RN in my presence and it is both accurate and complete. IJusto RN, am scribing for, and in the presence of, Dr. Hakeem Walters and in the presence of the patient. thigh: bilateral (symptoms right > left), knee: bilateral, calf: bilateral, ankle: bilateral and estrada: bilateral aching, cramping, dull and tender 6 5 years Worsened in recent months: Yes standing elevating extremities, compression stockings and exercise Reports muscle spasms of leg, heaviness, limb pain, edema and leg edema History of lower extremity trauma: No Superficial thrombophlebitis: No Family history of varicose veins: yes Has patient had previous lower extremity venous surgery: No Patient has previously received the following treatment(s) for lower extremity varicose veins: Reports none Does patient have a history of : yes Does patient intend to have future pregnancies: yes Has patient had lower extremity venous scan with relux testing: No Support hose used: Yes Problems walking or doing physical activity: No How does it affect you: often has to stop and rest and elevate legs Do you walk much: Yes Do you stand much: Yes Review of Systems ROS Narrative Hakeem Greenwood MD personally performed the services described in this documentation, as scribed by Justo Stallworth RN in my presence and it is both accurate and complete. Justo Greenwood RN, am scribing for, and in the presence of, Dr. Hakeem Walters and in the presence of the patient. Status of ROS 10 or more systems reviewed and unremark able except as noted in history and below Cardiovascular Reports: edema Integumentary/Breast Reports: itching, skin swelling and changes in skin color [facility] Medical History (Updated 03/17/24 @ 08:01 by Marilee Bush) Phlebitis and thrombophlebitis of superficial vessels of left lower extremity ?I80.02 - Phlebitis and thrombophlebitis of superficial vessels of left lower extremity (ICD-10) Phlebitis and thrombophlebitis of superficial vessels of right lower extremity ?I80.01 - Phlebitis and thrombophlebitis of superficial vessels of right lower extremity (ICD-10) Superficial thrombophlebitis ?I80.9 - Phlebitis and thrombophlebitis of unspecified site (ICD-10) delivery delivered ?O82 - Encounter for delivery without indication (ICD-10) Varicose veins of bilateral lower extremities with pain ?I83.813 - Varicose veins of bilateral lower extremities with pain (ICD-10) Pain due to varicose veins of both lower extremities ?I83.813 - Varicose veins of bilateral lower extremities with pain (ICD-10) Surgical History (Updated 03/27/24 @ 10:08 by Justo Stallworth) S/P sclerotherapy of varicose veins ?Z98.890 - Other specified postprocedural states (ICD-10) ?Z86.79 - Personal history of other diseases of the circulatory system (ICD- 10) Status post laser ablation of incompetent vein ?Z98.890 - Other specified postprocedural states (ICD-10) Status post laser ablation of incompetent vein ?Z98.890 - Other specified postprocedural states (ICD-10) H/O breast augmentation ?Z98.82 - Breast implant status (ICD-10) History of appendectomy ?Z90.49 - Acquired absence of other specified parts of digestive tract (ICD- 10) H/O hemorrhoidectomy ?Z98.890 - Other specified postprocedural states (ICD-10) Family History (Updated 01/29/24 @ 11:16 by Justo Stallworth) Other Family history of diabetes mellitus Heart disease Varicose veins of bilateral lower extremities with pain Social History (Updated 01/29/24 @ 11:17 by Justo Stallworth) Within the past year, how often did you have a drink containing alcohol: 2-4 times a month Smoking status: Never smoker Non-prescribed substance use: denies use Meds Home Medications and Allergies Home Medications ?Medication ?Instructions ?Recorded ?Confirmed ?Type drospirenone-ethinyl estradiol .ROUTE 01/29/24 History spironolactone .ROUTE 01/29/24 History magnesium 200 mg tablet 200 mg PO DAILY 01/30/24 01/30/24 History Allergies Allergy/AdvReac Type Severity Reaction Status Date / Time No Known Drug Allergies Allergy Verified 01/29/24 11:14 Exam Narrative Exam Narrative: Mild bruising noted proximal/medial thigh. Hakeem Greenwood MD personally performed the services described in this documentation, as scribed by Justo Stallworth RN in my presence and it is both accurate and complete. Justo Greenwood RN, am scribing for, and in the presence of, Dr. Hakeem Walters and in the presence of the patient. Constitutional Documenting provider has reviewed patient's vital signs: yes Common normals: oriented x3 Cardio Peripheral pulses: dorsalis pedis pulses present Extremity Common normals: normal capillary refill General: edema Right lower extremity: lower leg Right lower leg: inspection and palpation Left lower extremity: lower leg Left lower leg: inspection and palpation Neuro Common normals: oriented x3 Assessment and Plan Assessment and Plan (1) Pain due to varicose veins of both lower extremities: Plan f/u evaluation with physician along with left leg limited u/s Hakeem Greenwood MD personally performed the services described in this documentation, as scribed by Justo Stallworth RN in my presence and it is both accurate and complete. Justo Greenwood RN, am scribing for, and in the presence of, Dr. Hakeem Walters and in the presence of the patient. Procedures Procedure Instructions Procedures Right leg microfoam chemical ablation/Varithena: Risks and benefits of the procedure were discussed at length and informed written consent was obtained.? Time-out procedure was performed and the correct patient and procedure were confirmed.? Staff present during time-out: Justo Stallworth RN and Hakeem Walters MD.? Patient prepped and procedure performed in usual sterile fashion.? Patient was placed in Trendelenburg prior to Polidocanol/Varithena injections. Sclerosing Agent:??5 cc 1% Polidocanol/Varithena Site Injected: Right lecc varithena administered in to a 4mm varicose vein right mid medial lower leg Number of Injections:? 1 The patient tolerated the procedure well without complication.? Hemostasis was obtained and thigh-high compression stocking was applied with foam pads.? Instructed patient to wear stocking for at least 96 hours and sleep with it and only remove for showering.? The patient was instructed to? wear stocking for 2 weeks.? Patient verbalizes understanding and states they will comply.? Patient was given post-procedure instructions. Patient was discharged in good condition.? Scheduled to undergo limited venous ultrasound and? exam on 04/01/2024 Hakeem Greenwood MD personally performed the services described in this documentation, as scribed by Justo Stallworth RN in my presence and it is both accurate and complete. Justo Greenwood RN, am scribing for, and in the presence of, Dr. Hakeem Walters and in the presence of the patient.
--- NOTE | 2024-03-25 12:37 | W.VEIN ---
Discharge Plan Discharge Disposition: Home, Self-Care Outpatient Diagnostics: VC Facility EST LMTD (Routine) Timeframe: 2 Weeks Facility: [facility] - Location: Vein Center Ordered By: Hakeem Walters VC EXT Venous RT LMTD (Routine) Timeframe: 2 Weeks Facility: [facility] - Location: Vein Center Ordered By: Hakeem Walters Follow Up Appointments: 04/01/2024 Plan of Treatment: f/u evaluation with physician along with right leg limited u/s Patient Instructions: Polidocanol (By injection) (Asclera, Varithena) Print Language: Romanian Discharge Date/Time: 03/27/24 10:11
--- NOTE | 2024-03-27 09:23 | VEIN_ITS ---
[address] [address] Patient Name: JAY TORRES MRN: [id number] date: 1995 Sex: F Assigned Patient Location: Current Patient Location: Accession/Order Number: [id number] Exam Date: 03/27/2024 09:23 Report Date: 03/27/2024 10:19 At the request of: RICHELLE GALVEZ Procedure: VC INJ Foam Sclerosant [employer] PROCEDURE: VC INJ Foam Sclerosant [employer] HISTORY: I83.813 - Varicose veins of bilateral lower extremities w... Pre-operative Diagnosis: CEAP class C2 venous insufficiency with pain, tenderness, edema and incompetent branch saphenous vein(s), chronic venous insufficiency right leg secondary to venous incompetence Post-operative Diagnosis: CEAP class C2 venous insufficiency with pain, tenderness, edema and incompetent branch saphenous vein(s), chronic venous insufficiency right leg secondary to venous incompetence Procedure Performed: 1. Ultrasound-guided microfoam chemical ablation with Varithenaregistered 2. Intraoperative ultrasound guidance Physician: Richelle Galvez M.D. Anesthesia: None Indications for Procedure: 29 year old female. Symptoms including lower extremity pain, swelling, heaviness, dilated veins for many years despite conservative medical therapy including medical compression stockings, exercise and analgesics. Prior procedures include endovenous laser ablation. Multiple incompetent varicosities of the right leg. Duplex scan showed reflux and enlarged diameters up to 4 mm. The patient underwent informed consent including management options where the complications of infection, bleeding, pain, and skin injury were discussed. Particular attention was spent discussing thrombus extension and deep vein thrombosis as well as the possibility of pulmonary embolus and treatment with oral or injectable blood thinners. Procedure: The patient walked to the procedure room. All applicable staff donned appropriate apparel. A procedure timeout was performed to confirm correct patient, correct extremity, correct procedure, and correct room set-up including presence of all applicable supplies, devices, and drugs. A duplex ultrasound, performed by myself confirmed the location and incompetence of branch saphenous varicosities and their course was marked on the skin together with the dilated tributaries. The extent of treatment of the vein and the associated varicosities was determined through ultrasound mapping. The skin was prepped and then punctured with a butterfly needle and advanced under ultrasound guidance. The Varithenaregistered canister was activated and the canister was primed and purged as required in the instructions for use. Varithenaregistered was drawn into a sterile syringe. Varithenaregistered was slowly administered at 0.5-1.0 cc/second with close observation by ultrasound of its course in the vessels. Total volume utilized was: 5 mL into a 4 mm varicosity of the mid medial lower right leg.. Following administration of Varithenaregistered the leg was elevated and the patient was asked to repeatedly dorsiflex the ankle to limit flow of Varithenaregistered into perforating veins. Once appropriate spasm had been confirmed in the treated veins, the vascular catheter was removed from the leg and light pressure was applied over the puncture site for hemostasis. The common femoral and deep superficial veins were then evaluated for flow and compressibility prior to dressing placement. The lower extremity was kept elevated at 45 degrees above the horizontal and cording material was applied over the saphenous segments and tributaries to allow for eccentric compression over the target vessels including the targeted saphenous vein(s). A multilayer dressing was applied consisting of foam pads, coban and thigh-high 20-30 mm Hg compression elastic support hose were placed on the patient. The leg was lowered only after compression had been applied and the patient was immediately ambulatory. The patient ambulated 10 minutes under supervision and was without apparent concerns at time of release. Post-care instructions include advising patient to keep post-treatment bandages in place and dry for 48 hours, avoid extended periods of inactivity, avoid heavy exercise for one week, wear compression stockings on the treated leg continuously for two weeks, to walk daily for 10 minutes over the next month. The patient was instructed to take an anti-inflammatory medicine as needed and to follow up for color duplex scan of the Saphenous veins, the treated branch saphenous varicosities, the adjacent deep veins, and additional treatment within 7 days. PERSONNEL: Justo Stallworth RN Electronically authenticated by: RICHELLE GALVEZ Date: 03/27/2024 10:19
--- OUTSIDE RECORDS SUMMARY | 2024-03-27 09:35 | XMS_ITS | CCD ---
Author Organization [facility] Care Team Providers Care Ui Developer Designer Name Role Phone Bao Rosado Unavailable Unavailable Bao Rosado Unavailable Unavailable America Ely Unavailable America Ely Primary Care Provider America Ely Primary Care Provider America Ely CNP Primary Care Provider Tan SHAIKH, Desiree Arredondo Primary Care Provider Tan SHAIKH, Desiree Arredondo Primary Care Provider Yohan Reyna MD Unavailable DESIREE MADDOX Primary Care Unavailab le YOHAN REYNA Referring Unavailable JAVIERIT, YOHAN LAKE Admitting Unavailable Yohan Reyna MD Unavailable Carlos Narayan MD, Gay Arzola Primary Care Pro vider Yohan Reyna MD Unavailable Carlos Narayan MD, Gay Arzola Primary Care Pro vider Daiana SHELLFISH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, Francisco Trinh Primary Care Provider Daiana SHELLFISH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, Francisco Trinh Primary Care Provider Daiana SRAVANTHI, Francisco Trinh Unavailable FRANCISCO AHMADI Primary Care Unavailable ELLA CANTU Attending Unavailable ELLA PIMENTEL Attending Unavailabl e DAIANAFRANCISCO Primary Care Unavailable ELLA PIMENTEL Referring Unavailabl e PIMENTELELLA ARELLANO Referring Unavailabl e ELLA PIMNETEL Admitting Unavailabl e FRANCISCO AHMADI Primary Care Unavailable FRANCISCO AHMADI Primary Care Unavailable ELLA CANTU Referring Unavailable RAUDEL JORDAN Attending Unavailable RAUDEL JORDAN Consulting Unavailable RAUDEL JORDAN Admitting Unavailable DAIANA, FRANCISCO BROWN Primary Care Unavailable RAUDEL JORDAN Attending Unavailable DAIANA, FRANCISCO BROWN Primary Care Unavailable DAIANA, FRANCISCO BROWN Attending Unavailable DAIANA, FRANCISCO BROWN Primary Care Unavailable ELLA PIMENTEL Attending Unavailabl e DAIANA, FRANCISCO BROWN Primary Care Unavailable DAIANA, FRANCISCO BROWN Attending Unavailable DAIANA, FRANCISCO BROWN Primary Care Unavailable DAIANA, FRANCISCO BROWN Attending Unavailable Allergies Allergy Classification Reported Allergen(s) Allergy Type Date of Onset Reaction(s) Facility (19 sources) Other; Translations: [OTHER] Propensity to adverse reactions 9 Other (See Comments) [facility] Medications Current Medications Medication Drug Class(es) Dates [...] Active docusate sodium 50 mg / sennosides, senior care 8.6 mg oral tablet (4 sources) Start: [...] 0 04/26/2018 Active omega-3 acid ethyl esters (senior care) 1000 mg oral capsule (4 sources) take 1 capsule by mouth once daily [place]-3 Fatty Acids (FISH OIL) 1000 MG Cap [...] on [place] 06/30/21 at 0800, flu vacc [id number] 6mos up(PF) (FLUZONE QUAD/FLULAVAL QUAD/FLUARIX QUAD) syringe 0.5 mL (1 source) Start: 06-30-2021 End: 07-01-2021 inject 0.5 mL by intramuscular injection every twenty-four hours as needed flu vacc [id number] 6mos up(PF) (FLUZONE QUAD/FLULAVAL QUAD/FLUARIX QUAD) syringe [...] allergy; Translations: [Other seasonal allergic rhinitis] Chronic Phlebitis; thrombophlebitis and thromboembolism (6 sources) [...] Test Name Value Interpretation Reference Range Facility [facility] 03-11-2024 AUTO NRBC 0.0 % Normal [facility] Comment on above: Performed By: #### 4 [id number] #### [facility] [address] [place], [place] [address] Abhi Blankenship M.D. [id number] AUTO NRBC ABS COUNT 0.00 K/mcL Normal 0.00-0.00 [facility] Comment on above: Performed By: #### 4 5218 #### [facility] [address] [place], [place] [address] Abhi Blankenship M.D. [id number] Erythrocyte distribution width (RBC) [Ratio] 13.8 % Normal 11.6-14.8 [facility] Comment on above: Performed By: #### 4 5218 #### LAB [address] [place] [address] Abhi Blankenship M.D. [id number] Hematocrit (Bld) [Volume fraction] 43.2 % Normal 36.0-46.0 [facility] Comment on above: Performed By: #### 4 5218 #### LAB [address] [place] [address] Abhi Blankenship M.D. [id number] Hemoglobin (Bld) [Mass/Vol] 14.0 g/dL Normal 12.0-16.0 [facility] Comment on above: Performed By: #### 4 5218 #### LAB [address] [place] [address] Abhi Blankenship M.D. [id number] MCH (RBC) [Entitic mass] 29.8 pg Normal 26.0-34.0 [facility] Comment on above: Performed By: #### 4 5218 #### LAB [address] [place] [address] Abhi Blankenship M.D. [id number] MCV (RBC) [Entitic vol] 91.9 fL Normal 80.0-100.0 [facility] Comment on above: Performed By: #### 4 [id number] #### LAB [address] [place] [address] Abhi Blankenship M.D. [id number] MEAN CORPUSCULAR HEMOGLOBIN CONC 32.4 g/dL Normal 31.0-37.0 [facility] Comment on above: Performed By: #### 4 5218 #### LAB [address] [place] [address] Abhi Blankenship M.D. [id number] Platelet mean volume (Bld) [Entitic vol] 10.1 fL Normal 9.4-12.4 [facility] Comment on above: Performed By: #### 4 5218 #### LAB [address] [place] [address] Abhi Blankenship M.D. [id number] Platelets (Bld) [#/Vol] 253 10*3/uL Normal 150-400 [facility] Comment on above: Performed By: #### 4 5218 #### LAB [address] [place] [address] Abhi Blankenship M.D. [id number] RBC (Bld) [#/Vol] 4.70 10*6/uL Normal 4.00-5.20 [facility] Comment on above: Performed By: #### 4 5218 #### LAB [address] [place] [address] Abhi Blankenship M.D. [id number] WBC (Bld) [#/Vol] 7.63 10*3/uL Normal 4.50-11.00 [facility] Comment on above: Performed By: #### 4 5218 #### LAB [address] [place] [address] Abhi Blankenship M.D. [id number] COMPREHENSIVE METABOLIC PANE [facility] 03-11-2024 Albumin [Mass/Vol] 4.5 g/dL Normal 3.2-5.2 [facility] Comment on above: Order Comment: [facility] has implemented the eGFR calculation approach that does not have a coefficient for race that conforms to the NKF-ASN Task Force Recommendations. Performed By: #### 4 6126 #### LAB [address] [place] [address] Abhi Blankenship M.D. [id number] ALP [Catalytic activity/Vol] 71 U/L Normal 40-140 [facility] Comment on above: Order Comment: [facility] has implemented the eGFR calculation approach that does not have a coefficient for race that conforms to the NKF-ASN Task Force Recommendations. Performed By: #### 4 6126 #### LAB [address] [place] [address] Abhi Blankenship M.D. [id number] ALT [Catalytic activity/Vol] 12 U/L Normal 0-35 U/L [facility] Comment on above: Order Comment: [facility] has implemented the eGFR calculation approach that does not have a coefficient for race that conforms to the NKF-ASN Task Force Recommendations. Performed By: #### 4 6126 #### LAB [address] [place] [address] Abhi Blankenship M.D. [id number] Anion gap [Moles/Vol] 15 mmol/L Normal 10-20 [facility] Comment on above: Order Comment: [facility] has implemented the eGFR calculation approach that does not have a coefficient for race that conforms to the NKF-ASN Task Force Recommendations. Performed By: #### 4 6126 #### LAB [address] [place] [address] Abhi Blankenship M.D. [id number] AST [Catalytic activity/Vol] 21 U/L Normal 0-35 U/L [facility] Comment on above: Order Comment: [facility] has implemented the eGFR calculation approach that does not have a coefficient for race that conforms to the NKF-ASN Task Force Recommendations. Result Comment: Slig htly Hemolyzed Performed By: #### 4 6126 #### LAB [address] [place] [address] Abhi Blankenship M.D. [id number] Bilirubin [Mass/Vol] 0.5 mg/dL Normal 0.0-1.3 [facility] Comment on above: Order Comment: [facility] has implemented the eGFR calculation approach that does not have a coefficient for race that conforms to the NKF-ASN Task Force Recommendations. Performed By: #### 4 6126 #### LAB [address] [place] [address] Abhi Blankenship M.D. [id number] Calcium [Mass/Vol] 9.3 mg/dL Normal 8.4-10.2 [facility] Comment on above: Order Comment: [facility] has implemented the eGFR calculation approach that does not have a coefficient for race that conforms to the NKF-ASN Task Force Recommendations. Performed By: #### 4 6126 #### LAB [address] [place] [address] Abhi Blankenship M.D. [id number] Chloride [Moles/Vol] 102 mmol/L Normal 98-108 [facility] Comment on above: Order Comment: [facility] has implemented the eGFR calculation approach that does not have a coefficient for race that conforms to the NKF-ASN Task Force Recommendations. Performed By: #### 4 6126 #### LAB [address] [place] [address] Abhi Blankenship M.D. [id number] Creatinine [Mass/Vol] 0.69 mg/dL Normal 0.40-1.10 [facility] Comment on above: Order Comment: [facility] has implemented the eGFR calculation approach that does not have a coefficient for race that conforms to the NKF-ASN Task Force Recommendations. Performed By: #### 4 6126 #### LAB [address] [place] [address] Abhi Blankenship M.D. [id number] EGFR 119 mL/min/1.73 m2 Normal >=60 [facility] Comment on above: Order Comment: [facility] has implemented the eGFR calculation approach that does not have a coefficient for race that conforms to the NKF-ASN Task Force Recommendations. Result Comment: Idania mated GFR was calculated using the 2020 CKD-EPI creatinine equation. Performed By: #### 4 6126 #### LAB [address] [place] [address] Abhi Blankenship M.D. [id number] Glucose [Mass/Vol] 78 mg/dL Normal 65-99 [facility] Comment on above: Order Comment: [facility] has implemented the eGFR calculation approach that does not have a coefficient for race that conforms to the NKF-ASN Task Force Recommendations. Performed By: #### 4 6126 #### LAB [address] [place] [address] Abhi Blankenship M.D. [id number] HCO3 (Bld) [Moles/Vol] 25 mmol/L Normal 21-32 [facility] Comment on above: Order Comment: [facility] has implemented the eGFR calculation approach that does not have a coefficient for race that conforms to the NKF-ASN Task Force Recommendations. Performed By: #### 4 6126 #### LAB [address] [place] [address] Abhi Blankenship M.D. [id number] Potassium [Moles/Vol] 4.2 mmol/L Normal 3.5-5.1 [facility] Comment on above: Order Comment: [facility] has implemented the eGFR calculation approach that does not have a coefficient for race that conforms to the NKF-ASN Task Force Recommendations. Result Comment: Slig htly Hemolyzed Performed By: #### 4 6126 #### LAB [address] [place] [address] Abhi Blankenship M.D. [id number] Protein [Mass/Vol] 7.1 g/dL Normal 6.0-8.0 [facility] Comment on above: Order Comment: [facility] has implemented the eGFR calculation approach that does not have a coefficient for race that conforms to the NKF-ASN Task Force Recommendations. Performed By: #### 4 6126 #### LAB [address] [place] [address] Abhi Blankenship M.D. [id number] Sodium [Moles/Vol] 138 mmol/L Normal 135-145 [facility] Comment on above: Order Comment: [facility] has implemented the eGFR calculation approach that does not have a coefficient for race that conforms to the NKF-ASN Task Force Recommendations. Performed By: #### 4 6126 #### [facility] [address] [place] [address] Abhi Blankenship M.D. [id number] Urea nitrogen [Mass/Vol] 15 mg/dL Normal 8-25 [facility] Comment on above: Order Comment: [facility] has implemented the eGFR calculation approach that does not have a coefficient for race that conforms to the NKF-ASN Task Force Recommendations. Performed By: #### 4 6126 #### LAB [address] [place] [address] Abhi Blankenship M.D. [id number] Urea nitrogen/Creatinine [Mass ratio] 21.7 mg/mg High 10.0-20.0 [facility] Comment on above: Order Comment: [facility] has implemented the eGFR calculation approach that does not have a coefficient for race that conforms to the NKF-ASN Task Force Recommendations. Performed By: #### 4 6126 #### LAB [address] [place] [address] Abhi Blankenship M.D. [id number] HEMOGLOBIN A1Con 03-11-2024 Glucose [Mass/Vol] 103 mg/dL Normal 74-114 [facility] Comment on above: Performed By: #### 4 8202 #### [facility] [address] [place] [address] Abhi Blankenship M.D. [id number] HbA1c (Bld) [Mass fraction] 5.2 % Normal 4.2-5.6 [facility] Comment on above: Performed By: #### 4 8202 #### [facility] [address] [place] [address] Abhi Blankenship M.D. [id number] LIPID PANELon 03-11-2024 Cholesterol [Mass/Vol] 173 mg/dL Normal 100-199 [facility] Comment on above: Result Comment: Faina onal Cholesterol Education Program Guidelines: Cholesterol Desirable: <200 mg/dL Borderline High: 200-239 mg/dL High: greater than or equal to 240 mg/dL Performed By: #### 4 6087 #### [facility] [address] [place] [address] Abhi Blankenship M.D. [id number] Cholesterol in HDL [Mass/Vol] 67 mg/dL Normal 40-59 [facility] Comment on above: Result Comment: [facility]a onal Cholesterol Education Program Guidelines: HDL Cholesterol Low: <40 mg/dL Near Optimal: 40-59 mg/dL High: greater than or equal to 60 mg/dL Performed By: #### 4 6026 #### [facility] [address] [place] [address] Abhi Blankenship M.D. [id number] Cholesterol.total/Chol esterol in HDL [Mass ratio] 2.6 {ratio} Normal [facility] Comment on above: Result Comment: Tigrea le Cholesterol/HDL Ratio: Average risk: 4.4 1/2 average risk: 3.3 2 x average risk: 7.1 Performed By: #### 4 6087 #### LAB [address] [place] [address] Abhi Blankenship M.D. [id number] LDL CHOLESTEROL CALCULATED 93 mg/dL Normal 10-130 [facility] Comment on above: Result Comment: [place]a onal Cholesterol Education Program Guidelines: LDL Cholesterol Optimal: <100 mg/dL Near Optimal/above Optimal: 100-129 mg/dL Borderline High: 130-159 mg/dL High: 160-189 mg/dL Very High: greater than or equal to 190 mg/dL Performed By: #### 4 6087 #### LAB [address] [place] [address] Abhi Blankenship M.D. [id number] NON HDL CHOL 106 mg/dL Normal [facility] Comment on above: Result Comment: [place]aina onal Cholesterol Education Program Guidelines: NON HDL Cholesterol Desirable: <130 mg/dL Borderline High: 130-159 mg/dL High: 160-189 mg/dL Very High: > or = 190 mg/dL Performed By: #### 4 6087 #### LAB [address] [place] [address] Abhi Blankenship M.D. [id number] Triglyceride [Mass/Vol] 64 mg/dL Normal 30-150 [facility] Comment on above: Result Comment: [place]aina onal Cholesterol Education Program Guidelines: Triglyceride Normal: <150 mg/dL Borderline High: 150-199 mg/dL High: 200-499 mg/dL Very High: greater than or equal to 500 mg/dL Performed By: #### 4 6087 #### LAB [address] [place], [place] [address] Abhi Blankenship M.D. [id number] TSHon 03-11-2024 TSH Qn 1.66 m[IU]/L Normal 0.27-4.20 [facility] Comment on above: Performed By: #### 4 6613 #### LAB [address] [place], [place] [address] Abhi Blankenship M.D. [id number] VITAMIN D, TOTAL, 25-OHon VITAMIN D 25-HYDROXY 29 ng/mL Normal 20-100 [facility] Comment on above: Order Comment: Vitam in D Expected Values Deficiency: 0-10 Insufficiency: 10-20 Sufficient: 20-100 Toxicity: >100 Performed By: #### 4 6678 #### LAB [address] [place], [place] [address] Abhi Blankenship M.D. [id number] ANTITHROMBIN IIIon ANTITHROMBIN III 98 % Normal 85-130 [facility] Comment on above: Performed By: #### 4 5109 ####[facility] [address] [place] [address] Anderson Cano M.D. [id number] ANTITHROMBIN III ANTIGENon 0 03-10-2024 [facility] ANTITHROMBIN III AG 99 % Normal 80 - 120 [facility] Comment on above: Result Comment: ADDITIONAL INFORMATION This test has been modified from the anchorman's instructions. Its performance characteristics were determined by [facility] in a manner consistent with CLIA requirements. This test has not been cleared or approved by the U.S. Food and Drug Administration. Test Performed by: [facility] - [address] [address] Skein Winder: Salinas Thrasher Ph.D.; CLIA# [id number] Performed By: #### 4 7709 #### [id number] [place] [address] APTTon 03-10-2024 aPTT Coag (Bld) [Time] 31 s Normal 23-34 [facility] Comment on above: Order Comment: Thera peutic range for APTT's is 68 - 104 seconds Performed By: #### 4 5113 #### LAB [address] [place], [place] [address] Abhi Blankenship M.D. [id number] FIBRINOGENon 03-10-2024 FIBRINOGEN LEVEL 291 mg/dL Normal 224-483 [facility] Comment on above: Performed By: #### 4 5616 #### LAB [address] [place], [place] [address] Abhi Blankenship M.D. [id number] PROTEIN C ACTIVITYon 024 PROTEIN C ACTIVITY 106 % Normal 66-[address] [facility] Comment on above: Order Comment: Reyna l, full term infants or healthy premature infants may have decreased levels of Protein C Activity (15-50%), which may not reach adult levels until later in childhood or early adolescence. Performed By: #### 4 6369 #### [facility] [address] [place] [address] Anderson Cano M.D. [id number] PROTEIN C ANTIGENon 03-10-20 24 PROTEIN C ANTIGEN 88 % Normal 60-125 [facility] [place] Comment on above: Order Comment: Reyna l, full-term infants or healthy premature infants may have decreased levels of Protein-C Antigen (15-50%), which may not reach adult levels until later in childhood or early adolescence. Performed By: #### 4 6370 #### [facility] [address] [place] [address] Anderson Cano M.D. [id number] PROTEIN S ACTIVITYon 024 PROTEIN S ACTIVITY 81 % Normal 51-[address] [facility] Comment on above: Performed By: #### 4 7630 #### [facility] [address] [place] [address] Anderson Cano M.D. [id number] PROTHROMBIN (F2) MUTATION ([id number])on 03-10-2024 [facility] PROTHROMBIN [id number] MUTATION RESULT Negative Normal Negative [facility] Comment on above: Performed By: #### 4 7167 ####[address] [facility] - [facility] INTERPRETATION See Ref Lab Comment [facility] Comment on above: Result Comment: This individual DOES NOT have the Prothrombin F2 c.*97G>A (legacy numbering [id number]) variant. Although the Prothrombin (F2 c.*97G>A) variant is absent, this individual may have other genetic and environmental risk factors for thrombosis. If indicated, consider genetic consultation and counseling for this individual and potentially affected family members regarding laboratory testing. ADDITIONAL INFORMATION This test uses TaqMan Genotyping chemistry to amplify and detect specific single nucleotide polymorphisms in purified genomic DNA. DISCLAIMER Patients receiving allogenic stem cell transplants prior to having blood drawn for DNA based testing may have false normal or abnormal results depending on the genotype of the stem cell donor. This test was developed and its performance characteristics determined by [facility] in a manner consistent with CLIA requirements. This test has not been cleared or approved by the U.S. Food and Drug Administration. Performed By: #### 4 7167 ####[facility] [employer] [address] [place] [address] - PTNT REVIEWED BY SEE BELOW [facility] Comment on above: Result Comment: RESU LT: Abdirahman Hollingsworth M.D., Ph.D. Test Performed by: [place] [address] Skein Winder: Salinas Thrasher Ph.D.; CLIA# [id number] Performed By: #### 4 7167 ####[facility] [address] [place] [address] PT/INRon 03-10-2024 INR Coag (PPP) [Relative time] 1.1 {INR} Normal 0.8-1.1 [facility] Comment on above: Order Comment: Max galo the induction phase of oral anticoagulation, the INR may not reflect the anticoagulation status of the patient. Therapeutic ranges for INR's are: Most clinical situations: INR 2.0-3.0 Mechanical Prosthetic Valve: INR 2.5-3.5 Critical: INR >5.0 Performed By: #### 4 6391 #### LAB [address] [place] [address] Abhi Blankenship M.D. [id number] PT Coag (PPP) [Time] 13.7 s Normal 11.8-14.3 [facility] Comment on above: Order Comment: Max galo the induction phase of oral anticoagulation, the INR may not reflect the anticoagulation status of the patient. Therapeutic ranges for INR's are: Most clinical situations: INR 2.0-3.0 Mechanical Prosthetic Valve: INR 2.5-3.5 Critical: INR >5.0 Performed By: #### 4 6391 #### LAB [address] [place], [place] [address] Abhi Blankenship M.D. [id number] THROMBIN TIMEon 03-10-2024 THROMBIN TIME 17.2 seconds Normal 14.8-18.0 [facility] Comment on above: Performed By: #### 4 6557 #### [facility] [address] [place] [address] Anderson Cano M.D. 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 Procedure Description 96848 Duplex examination using B-mode, color and spectral [...] Saphenous: - Small Saphenous: - - Normal [facility] DUPLEX VENOUS LEGS BILATERAL Patient Info Name: JAY ANTONIO Age: 29 years : 1995 Gender: Female Exam Date: 03/10/2024 11:03 AM Patient Status: Outpatient Rn Orthopedic: Fransisca Russell RDMS, RVT Referring Physician: ELLA PIMENTEL ; Indications [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 - - 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 Procedure Description 27101 Duplex examination using B-mode, color and spectral [...] SunMar 10, 2024 11:46:55 AM EDT Normal [facility] Ultrasound duplex venous leg s bilaton 03-10-2024 Patient Info Name: JAY ANTONIO Age: 29 years : 1995 Gender: Female Exam Date: 03/10/2024 11:03 AM Patient Status: Outpatient Rn Orthopedic: Fransisca Russell, GLORIA, RVT Referring Physician: ELLA PIMENTEL ; Indications [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 - - 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 Procedure Description 42479 Duplex examination using B-mode, color and spectral [...] Date: 03/10/2024 11:03 AM Patient Status: Outpatient Rn Orthopedic: Fransisca Russell RDMS, RVT Referring Physician: ELLA PIMENTEL ; Indications [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 2 mg/dL [facility] Chloride [Moles/Vol] 110 mmol/L High 98 - 10 8 mmol/L [facility] Creatinine [Mass/Vol] 0.53 mg/dL 0.40 - 1.10 mg/dL [facility] GFR/1.73 sq M.predicted CKD-EPI (S/P/Bld) [Vol rate/Area] 128 - PINF [facility] Comment on above: Estimated GFR was ca lculated using the 2020 CKD-EPI creatinine equation. Glucose [Mass/Vol] 110 mg/dL High 65 - 99 mg/dL [facility] HCO3 [Moles/Vol] 24 mmol/L 21 - 32 mmol/L [facility] Interpretation and review of laboratory results Abnormal [facility] Potassium [Moles/Vol] 4.3 mmol/L 3.5 - 5.1 mmol/L [facility] Sodium [Moles/Vol] 139 mmol/L 135 - 145 mmol/L [facility] Urea nitrogen [Mass/Vol] 11 mg/dL 8 - 25 mg/dL [facility] Urea nitrogen/Creatinine [Mass ratio] 20.8 mg/mg High 10.0 - 20.0 [facility] has implemented the eGFR calculation approach that does not have a coefficient for race that conforms to the NKF-ASN Task Force Recommendations. [facility] CBC panel Auto (Bld)on 08-20 Erythrocyte distribution width (RBC) [Entitic vol] 13.5 % 11.6 - 14.8 % [facility] Hematocrit (Bld) [Volume fraction] 36.6 % 36.0 - 46.0 % [facility] Hemoglobin (Bld) [Mass/Vol] 12.0 g/dL 12.0 - 16.0 g/dL [facility] Interpretation and review of laboratory results Abnormal [facility] MCH (RBC) [Entitic mass] 29.9 pg 26.0 - 34.0 pg [facility] MCHC (RBC) [Mass/Vol] 32.8 g/dL 31.0 - 37.0 g/dL [facility] MCV (RBC) [Entitic vol] 91.3 fL 80.0 - 100.0 fL [facility] Nucleated RBC (Bld) [#/Vol] 0.00 10*3/uL [facility] Nucleated RBC/100 WBC (Bld) [Ratio] 0.0 % [facility] Platelet mean volume (Bld) [Entitic vol] 9.8 fL 9.4 - 12.4 fL [facility] Platelets (Bld) [#/Vol] 208 10*3/uL [facility] RBC (Bld) [#/Vol] 4.01 10*6/uL [facility] ealt WBC (Bld) [#/Vol] 11.08 10*3/uL [facility] ABDOMEN PELVIS WITH IV CO [...] Ella Cantu on 08/20/2023 at 1416 hours. /[employer] Workstation ID: [id number] Dictated by: QUAN XIONG on SunAug 20, 2023 2:17:38 PM EST Transcribed by: HANS CALDERON on SunAug 20, 2023 2:21:16 PM EST Finalized by: QUAN XIONG on SunAug 20, 2023 6:07:32 PM EST Normal [facility] Comment on above: Order Comment: [...] vol] 13.6 % 11.6 - 14.8 % [facility] Hematocrit (Bld) [Volume fraction] 32.9 % Low 36.0 - 46.0 % [facility] Hemoglobin (Bld) [Mass/Vol] 11.0 g/dL Low 12.0 - 16.0 g/dL [facility] Interpretation and review of laboratory results Abnormal [facility] MCH (RBC) [Entitic mass] 30.1 pg 26.0 - 34.0 pg [facility] MCHC (RBC) [Mass/Vol] 33.4 g/dL 31.0 - 37.0 g/dL [facility] MCV (RBC) [Entitic vol] 90.1 fL 80.0 - 100.0 fL [facility] Nucleated RBC (Bld) [#/Vol] 0.00 10*3/uL [facility] Nucleated RBC/100 WBC (Bld) [Ratio] 0.0 % [facility] Platelet mean volume (Bld) [Entitic vol] 11.4 fL 9.4 - 12.4 fL [facility] Platelets (Bld) [#/Vol] 162 10*3/uL [facility] RBC (Bld) [#/Vol] 3.65 10*6/uL Low [facility] ealt WBC (Bld) [#/Vol] 18.84 10*3/uL High [facility] ABORH Verificationon 022 ABO and Rh group Nom (Bld) Blood group O Rh(D) positive [facility] ABO and Rh group Nom (Bld) ABO/Rh Verification [facility] Comment on above: Patient's ABO/Rh is verified. [facility] Blood type and Indirect anti body screen panel (Bld)on 06-29-2021 ABO and Rh group Nom (Bld) Blood group O Rh(D) positive [facility] Blood group antibody screen Ql Negative [facility] Specimen Expires 07/02/2021 23:59 EST [facility] CBC panel Auto (Bld)on 06-29 Erythrocyte distribution width (RBC) [Entitic vol] 13.7 % 11.6 - 14.8 % [facility] Hematocrit (Bld) [Volume fraction] 37.8 % 36.0 - 46.0 % [facility] Hemoglobin (Bld) [Mass/Vol] 12.8 g/dL 12.0 - 16.0 g/dL [facility] Interpretation and review of laboratory results Abnormal [facility] MCH (RBC) [Entitic mass] 30.0 pg 26.0 - 34.0 pg [facility] MCHC (RBC) [Mass/Vol] 33.9 g/dL 31.0 - 37.0 g/dL [facility] MCV (RBC) [Entitic vol] 88.5 fL 80.0 - 100.0 fL [facility] Nucleated RBC (Bld) [#/Vol] 0.00 10*3/uL [facility] Nucleated RBC/100 WBC (Bld) [Ratio] 0.0 % [facility] Platelet mean volume (Bld) [Entitic vol] 11.4 fL 9.4 - 12.4 fL [facility] Platelets (Bld) [#/Vol] 170 10*3/uL [facility] RBC (Bld) [#/Vol] 4.27 10*6/uL [facility] ealth WBC (Bld) [#/Vol] 12.72 10*3/uL High [facility] SCAN OTHER ORDERSon 06-29-19 22 Ordered by an unspecified provider. [facility] COVID-19, MOLECULARon 2021 SARS-CoV-2 (COVID-19) RNA ADRIANA+probe Ql (Unsp spec) Not detected Normal Not Detected [facility] Comment on above: Result Comment: This [...] at the following links: For Healthcare Providers: https://www.fda.gov/media/298078/download For Patients: https://www.fda.gov/media/942245/download Performed By: #### L [id number] #### [facility] [address] [place] [address] Anderson Cano M.D. [id number] Chlamydia/Gonorrhoeae Amplif ied RNAon 06-14-2021 C. trachomatis rRNA ADRIANA+probe Ql (Unsp spec) Negative Negative [facility] N. gonorrhoeae rRNA ADRIANA+probe Ql (Unsp spec) Negative Negative [facility] No Panel Informationon 06-14 [facility] RPRon 06-14-2021 Reagin Ab RPR Ql (S) Non-Reactive Non-Reactive [facility] S. agalactiae DNA ADRIANA+probe Ql (Unsp spec)on 06-14-2021 S. agalactiae Ag Ql (Unsp spec) Negative Negative [facility] NOVEL CORONAVIRUSon 01-29-20 21 PERFORMED BY [facility] Normal [facility] Comment on above: Performed By: #### C COVID #### Testing [place] [address] SARS-CoV-2 (COVID-19) RNA ADRIANA+probe Ql (Unsp spec) Detected Abnormal NOT DETECTED [facility] Comment on above: Result Comment: CALL ED TO AND READ BACK BY Sarah AMATO @1246 BY KLE ENHANCED CONTACT, AND DROPLET ISOLATION IS REQUIRED FOR INPATIENTS WITH SARS-CoV-2. Performed By: #### C COVID #### Testing performed at [place] [id number] NARRATIVE This test was performed using isothermal ADRIANA and has been approved as Emergency Use Authorization (EUA) for the qualitative detection [id number] nucleic acid. Normal [facility] Comment on above: Performed By: #### C COVID #### Testing performed at [place] [id number] Gestational Diabetes Screen (50G)on 01-17-2021 Glucose 1 Hr post 50 g glucose PO [Mass/Vol] 79 mg/dL 65 - 135 mg/dL [facility] Glucose 1 Hr post 50 g gluco se PO [Mass/Vol]on 01-17-2021 [facility] ECHOCARDIOGRAM COMPLETEOrder ed By: Desiree Maddox on 12-29-2020 Aortic valve area 2.95275 cm [facility] AV mean gradient 2.12933 mmHg [facility] AV peak gradient 4.08553 mmHg [facility] EF 65.2664 % [facility] Patient Info Name: JAY ANTONIO Age: 25 years : 1995 Gender: Female Ht: 160 cm Wt: 64 kg BSA: 1.70 m2 HR: 75 bpm BP: 106 / 69 mmHg Heart Rhythm: Sinus Rhythm Technical Quality: Good Exam Date: 12/29/2020 9:19 AM Patient Status: Outpatient Trucker Hand: Addie Luna, KATHLEEN, RVT Exam Type: ECHOCARDIOGRAM COMPLETE Study Info Indications R00.2 - Palpitations Referring Physician: DESIREE MADDOX ; [id number] BMI: 25.15 kg/m2 Summary 1. Normal transthoracic [...] mmHg MV VTI 27 cm MV [facility] [place] 838 cm/s2 MV PHT 33 ms MV Area (PHT) 6.7 cm2 4.0-5.0 MV Area (Cont Eq VTI) 2.7 cm2 MV Area Index (Cont Eq VTI) 1.57 cm2/m2 MV Diastolic Function - (more content not included)... [facility] Interface, Rad In [employer] - 12/29/2020 10:35 AM EDT Patient Info Name: JAY ANTONIO Age: 25 years : 1995 Gender: Female Ht: 160 cm Wt: 64 kg BSA: 1.70 m2 HR: 75 bpm BP: 106 / 69 mmHg Heart Rhythm: Sinus Rhythm Technical Quality: Good Exam Date: 12/29/2020 9:19 AM Patient Status: Outpatient Trucker Hand: Addie Luna RDCS, RVT Exam Type: ECHOCARDIOGRAM COMPLETE Study Info Indications R00.2 - Palpitations Referring Physician: DESIREE MADDOX ; [id number] BMI: 25.15 kg/m2 Summary 1. Normal transthoracic [...] mmHg MV VTI 27 cm MV [employer] [place] 838 cm/s2 MV PHT 33 ms MV [...] Valve Name Va (more content not included)... [facility] ABO/RH(D)on 12-15-2020 ABO/RH(D) ABO/RH(D) O POSITIVE Testing performed at [address] Comment on above: Performed By: #### A BRH #### [place] [address] ANTIBODY SCREENon 12-15-2020 Antibody screen ANTIBODY SCREEN NEGATIVE WORKUP EXPIRES 12/18/2020,2359 Testing performed at [address] Comment on above: Performed By: #### R ESCRN #### [place] [address] Blood type and Indirect anti body screen panel (Bld)Ordered By: Katlin Prieto on 12-15-2020 ABO and Rh group Nom (Bld) O [facility] Rh Type + [facility] FAX REQUESTon 12-15-2020 FAX TO [phone] AND [phone] [facility] Comment on above: Result Comment: Test ing performed at [place] [address] Performed By: #### F X #### [place] [address] FAX TO [phone] AND [phone] [facility] Comment on above: Result Comment: Test ing performed at [place], [place] [address] Performed By: #### F X #### Testing performed at [address] [address] HIV 1/2 Screen (4th Generati on)on 12-15-2020 HIV 1+2 Ab+HIV1 p24 Ag IA Ql Negative Negative [facility] Hepatitis B Surface Antigeno n 12-15-2020 HBV surface Ag Ql (S) Negative Negative [facility]atitis C Antibodyon 12-15 HCV Ab Ql (S) Negative Negative [facility] No Panel InformationOrdered By: Katlin Prieto on 12-15-2020 [facility] Rubella Antibody, IgGon 11-18 Rubella virus IgG Ql (S) [facility] T. pallidum IgG Ql (S)on T. pallidum Ab Ql (S) Negative Negative [facility] ECG 12-LEADOrdered By: Desiree Maddox on 11-22-2020 Atrial Rate [facility] P [place] [facility] P-R Interval [facility] Q-T Interval [facility] Q-T Interval (corrected) [facility] QRS Duration [facility] QTC Calculation (Bezet) [facility] R [place] [facility] T [place] [facility] SARS-COV-2,NAAon 07-23-2020 SARS-CoV-2 (COVID-19) RNA ADRIANA+probe Ql (Unsp spec) Not detected Normal [facility] Comment on above: Result Comment: Refe rence range: Not Detected (NOTE) This nucleic acid amplification test was developed and its performance characteristics determined by [employer]. Nucleic acid amplification tests include RT-PCR and [...] legon 02-11-2019 Non-Invasive Vascular Patient: PACO THOMPSON R [facility] Rec#: [id number] (Age): 1995(23y) Study Date: 02/11/2019 Room#: Type: Sex: F Reading: JOSE Reading: Hannah Pollard DO, RPVI Referring: ATUL NEVES Trucker Hand: Caryn Winkler Procedure Info: [id number] Study Quality: Lower Venous Reflux: Adequate Diagnosis: [...] 02/11/2019 16:38:58 by: Hannah Pollard DO, RPVI [facility] Interface, Rad [facility] - 02/11/2019 5:21 PM EDT Non-Invasive Vascular Patient: PACO Hernandez [facility] Rec#: [id number] (Age): 1995(23y) Study Date: 02/11/2019 Room#: Type: Sex: F Reading: JOSE Reading: Hannah Pollard DO, RPVI Referring: ATUL NEVES Trucker Hand: Caryn Winkler Procedure Info: [id number] Study Quality: Lower Venous Reflux: Adequate Diagnosis: [...] 16:38:58 by: Hannah Pollard DO, JOSE ANTONIO [facility] POCT URINALYSIS DIPSTICK NON AUTOMATEDon 05-24-2018 Amorphous sediment LM Ql (Urine sed) Invalid Interpretation Code [facility] Work Phone: Appearance Nom (Body fld) clear Invalid Interpretation Code [facility] Work Phone: Bacteria LM Ql (Urine sed) Invalid Interpretation Code [facility] Work Phone: Bilirubin Ql (U) Negative Invalid Interpretation Code [facility] Work Phone: Casts LM.LPF #/area (Urine sed) Invalid Interpretation Code [facility] Work Phone: Color Nom (U) yellow Invalid Interpretation Code [facility] Work Phone: Crystals LM Nom (Urine sed) Invalid Interpretation Code [facility] Work Phone: Epithelial cells.squamous LM.HPF #/area (Urine sed) Invalid Interpretation Code [facility] Work Phone: Flow cytometry specialist review Interp Alfonzo (Unsp spec) Invalid Interpretation Code [facility] Work Phone: Interpretation and review of laboratory results Abnormal Invalid Interpretation Code [facility] Work Phone: Ketones mass conc Negative Invalid Interpretation Code mg/dL [facility] Work Phone: Leukocyte esterase Qn (U) Invalid Interpretation Code [facility] Work Phone: Leukocyte esterase Test strip Ql (U) Negative Invalid Interpretation Code [facility] Work Phone: Nitrite Ql (U) Negative Invalid Interpretation Code [facility] Work Phone: pH (U) 7.5 Abnormal [facility] Work Phone: POCT GLUCOSE, URINE Negative Invalid Interpretation Code mg/dL [facility] Work Phone: Protein Ql (U) Negative Invalid Interpretation Code mg/dL [facility] Work Phone: RBC LM.HPF #/area (Urine sed) Invalid Interpretation Code [facility] Work Phone: RBC Ql (U) Negative Invalid Interpretation Code [facility] Work Phone: Specific gravity Relative Density (U) 1.010 Invalid Interpretation Code [facility] Work Phone: Transitional cells LM Ql (Urine sed) Invalid Interpretation Code [facility] Work Phone: Urobilinogen mass conc (U) Negative Invalid Interpretation Code [facility] Work Phone: WBC LM.HPF #/area (Urine sed) Invalid Interpretation Code [facility] Work Phone: POCT URINALYSIS DIPSTICK NON AUTOMATEDon 05-10-2018 Amorphous sediment LM Ql (Urine sed) Invalid Interpretation Code [facility] Work Phone: Appearance Nom (Body fld) clear Invalid Interpretation Code [facility] Work Phone: Bacteria LM Ql (Urine sed) Invalid Interpretation Code [facility] Work Phone: Bilirubin Ql (U) Negative Invalid Interpretation Code [facility] Work Phone: Casts LM.LPF #/area (Urine sed) Invalid Interpretation Code [facility] Work Phone: Color Nom (U) yellow Invalid Interpretation Code [facility] Work Phone: Crystals LM Nom (Urine sed) Invalid Interpretation Code [facility] Work Phone: Epithelial cells.squamous LM.HPF #/area (Urine sed) Invalid Interpretation Code [facility] Work Phone: Flow cytometry specialist review Interp Alfonzo (Unsp spec) Invalid Interpretation Code [facility] Work Phone: Ketones mass conc Negative Invalid Interpretation Code mg/dL [facility] Work Phone: Leukocyte esterase Qn (U) Invalid Interpretation Code [facility] Work Phone: Leukocyte esterase Test strip Ql (U) Negative Invalid Interpretation Code [facility] Work Phone: Nitrite Ql (U) Negative Invalid Interpretation Code [facility] Work Phone: pH (U) 6.5 Invalid Interpretation Code [facility] Work Phone: POCT GLUCOSE, URINE Negative Invalid Interpretation Code mg/dL [facility] Work Phone: Protein Ql (U) Negative Invalid Interpretation Code mg/dL [facility] Work Phone: RBC LM.HPF #/area (Urine sed) Invalid Interpretation Code [facility] Work Phone: RBC Ql (U) trace Invalid Interpretation Code [facility] Work Phone: Specific gravity Relative Density (U) 1.010 Invalid Interpretation Code [facility] Work Phone: Transitional cells LM Ql (Urine sed) Invalid Interpretation Code [facility] Work Phone: Urobilinogen mass conc (U) 0.2 Invalid Interpretation Code [facility] Work Phone: WBC LM.HPF #/area (Urine sed) Invalid Interpretation Code [facility] Work Phone: Vital Signs Date Time Vital Sign Value Performing Clinician Facility 03-10-2024 09:51-0400 Body height 154.9 cm Ella Pimentel MD Work Phone: [facility] 03-10-2024 09:51-0400 Body mass index (BMI) [Ratio] 26.47 kg/m2 Ella Pimentel MD Work Phone: [facility] 03-10-2024 09:51-0400 Body temperature 98.29 [degF] Ella Pimentel MD Work Phone: [facility] 03-10-2024 09:51-0400 Body weight 63.55 kg Ella Pimentel MD Work Phone: [facility] 03-10-2024 09:51-0400 Diastolic blood pressure 78 mm[Hg] Ella Pimentel MD Work Phone: [facility] 03-10-2024 09:51-0400 Heart rate 80 /min Ella Pimentel MD Work Phone: [facility] 03-10-2024 09:51-0400 SaO2% (BldA) [Mass fraction] 98 % Ella Pimentel MD Work Phone: [facility] 03-10-2024 09:51-0400 Systolic blood pressure 115 mm[Hg] Ella Pimentel MD Work Phone: [facility] 09-07-2023 09:10-0400 Body height 157.5 cm Raudel Jordan MD Work Phone: [facility] 09-07-2023 09:10-0400 Body mass index (BMI) [Ratio] 24.75 kg/m2 Raudel Jordan MD Work Phone: [facility] 09-07-2023 09:10-0400 Body weight 61.37 kg Raudel Jordan MD Work Phone: [facility] 09-07-2023 09:10-0400 Diastolic blood pressure 83 mm[Hg] Raudel Jordan MD Work Phone: [facility] 09-07-2023 09:10-0400 Heart rate 65 /min Raudel Jordan MD Work Phone: [facility] 09-07-2023 09:10-0400 SaO2% (BldA) [Mass fraction] 99 % Raudel Jordan MD Work Phone: [facility] 09-07-2023 09:10-0400 Systolic blood pressure 116 mm[Hg] Raudel Jordan MD Work Phone: [facility] 08-21-2023 08:05-0500 Respiratory rate 16 /min Raudel Jordan MD Work Phone: [facility] 08-21-2023 08:04-0500 Body temperature 97.3 [degF] Raudel Jordan MD Work Phone: [facility] 08-21-2023 08:04-0500 Diastolic blood pressure 67 mm[Hg] Raudel Jordan MD Work Phone: [facility] 08-21-2023 08:04-0500 Heart rate 55 /min Raudel Jordan MD Work Phone: [facility] 08-21-2023 08:04-0500 SaO2% (BldA) [Mass fraction] 100 % Raudel Jordan MD Work Phone: [facility] 08-21-2023 08:04-0500 Systolic blood pressure 92 mm[Hg] Raudel Jordan MD Work Phone: [facility] 08-20-2023 21:25-0500 Body height 157.5 cm Raudel Jordan MD Work Phone: [facility] 08-20-2023 21:25-0500 Body mass index (BMI) [Ratio] 25.61 kg/m2 Raudel Jordan MD Work Phone: [facility] 08-20-2023 21:25-0500 Body weight 63.5 kg Raudel Jordan MD Work Phone: [facility] 03-12-2023 08:48-0400 Body height 157.5 cm 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 Work Phone: [facility] 03-12-2023 08:48-0400 Body mass index (BMI) [Ratio] 25.04 kg/m2 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 Work Phone: [facility] 03-12-2023 08:48-0400 Body weight 62.1 kg 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 Work Phone: [facility] 03-12-2023 08:48-0400 Diastolic blood pressure 80 mm[Hg] 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 Work Phone: [facility] 03-12-2023 08:48-0400 Systolic blood pressure 115 mm[Hg] Francisco Trinh Ivy 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 Work Phone: [facility] 11-22-2022 15:26-0400 Body height 157.5 cm Gay Narayan MD Work Phone: [facility] 11-22-2022 15:26-0400 Body mass index (BMI) [Ratio] 25.61 kg/m2 Gay Narayan MD Work Phone: [facility] 11-22-2022 15:26-0400 Body temperature 99.7 [degF] Gay Narayan MD Work Phone: [facility] 11-22-2022 15:26-0400 Body weight 63.5 kg Gay Narayan MD Work Phone: [facility] 11-22-2022 15:26-0400 Diastolic blood pressure 70 mm[Hg] Gay Narayan MD Work Phone: [facility] 11-22-2022 15:26-0400 Heart rate 72 /min Gay Narayan MD Work Phone: [facility] 11-22-2022 15:26-0400 SaO2% (BldA) [Mass fraction] 97 % Gay Narayan MD Work Phone: [facility] 11-22-2022 15:26-0400 Systolic blood pressure 111 mm[Hg] Gay Narayan MD Work Phone: [facility] 11-21-2021 08:40-0400 Body height 157.5 cm Gay Narayan MD Work Phone: [facility] 11-21-2021 08:40-0400 Body mass index (BMI) [Ratio] 26.7 kg/m2 Gay Narayan MD Work Phone: [facility] 11-21-2021 08:40-0400 Body temperature 98.2 [degF] Gay Narayan MD Work Phone: [facility] 11-21-2021 08:40-0400 Body weight 66.22 kg Gay Narayan MD Work Phone: [facility] 11-21-2021 08:40-0400 Diastolic blood pressure 72 mm[Hg] Gay Narayan MD Work Phone: [facility] 11-21-2021 08:40-0400 Heart rate 72 /min Gay Narayan MD Work Phone: [facility] 11-21-2021 08:40-0400 Respiratory rate 16 /min Gay Narayan MD Work Phone: [facility] 11-21-2021 08:40-0400 SaO2% (BldA) [Mass fraction] 98 % Gay Narayan MD Work Phone: [facility] 11-21-2021 08:40-0400 Systolic blood pressure 106 mm[Hg] Gay Narayan MD Work Phone: [facility] 07-01-2021 07:50-0500 Body temperature 98.2 [degF] Yohan Reyna MD Work Phone: [facility] 07-01-2021 07:50-0500 Diastolic blood pressure 68 mm[Hg] Yohan Reyna MD Work Phone: [facility] 07-01-2021 07:50-0500 Heart rate 70 /min Yohan Reyna MD Work Phone: [facility] 07-01-2021 07:50-0500 Respiratory rate 14 /min Yohan Reyna MD Work Phone: [facility] 07-01-2021 07:50-0500 SaO2% (BldA) [Mass fraction] 98 % Yohan Reyna MD Work Phone: [facility] 07-01-2021 07:50-0500 Systolic blood pressure 101 mm[Hg] Yohan Reyna MD Work Phone: [facility] 06-29-2021 07:31-0500 Body height 157.5 cm Yohan Reyna MD Work Phone: [facility] 06-29-2021 07:31-0500 Body mass index (BMI) [Ratio] 30.18 kg/m2 Yohan Reyna MD Work Phone: [facility] 06-29-2021 07:31-0500 Body weight 74.84 kg Yohan Reyna MD Work Phone: [facility] 11-22-2020 13:04-0400 Body height 160 cm Desiree Maddox MD Work Phone: [facility] 11-22-2020 13:04-0400 Body mass index (BMI) [Ratio] 25.28 kg/m2 Desiree Maddox MD Work Phone: [facility] 11-22-2020 13:04-0400 Body temperature 98.8 [degF] Desiree Maddox MD Work Phone: [facility] 11-22-2020 13:04-0400 Body weight 64.73 kg Desiree Maddox MD Work Phone: [facility] 11-22-2020 13:04-0400 Diastolic blood pressure 69 mm[Hg] Desiree Maddox MD Work Phone: [facility] 11-22-2020 13:04-0400 Heart rate 93 /min Desiree Maddox MD Work Phone: [facility] 11-22-2020 13:04-0400 Respiratory rate 16 /min Desiree Maddox MD Work Phone: [facility] 11-22-2020 13:04-0400 SaO2% (BldA) [Mass fraction] 99 % Desiree Maddox MD Work Phone: [facility] 11-22-2020 13:04-0400 Systolic blood pressure 106 mm[Hg] Desiree Maddox MD Work Phone: [facility] 01-20-2019 14:39-0400 BP Diastolic 74 mm[Hg] Hannah Pollard [facility] 01-20-2019 14:39-0400 BP Systolic 109 mm[Hg] Hannah Pollard [facility] 01-20-2019 14:38-0400 BMI (Body Mass Index) 24.37 kg/m2 [facility]2019 14:38-0400 Body weight 58.51 kg Hannah Pollard [facility] 01-20-2019 14:38-0400 Height 154.9 cm Hannah Pollard [facility] 01-20-2019 14:38-0400 Pulse (Heart Rate) 67 /min [facility] 05-24-2018 10:27-0500 BMI (Body Mass Index) 24.83 kg/m2 [facility] Work Phone: 05-24-2018 10:27-0500 BP Diastolic 64 mm[Hg] [facility] Work Phone: 05-24-2018 10:27-0500 BP Systolic 110 mm[Hg] [facility] Work Phone: 05-24-2018 10:27-0500 Height 154.9 cm [facility] Work Phone: 05-24-2018 10:27-0500 Pulse (Heart Rate) 62 /min [facility] Work Phone: 05-24-2018 10:27-0500 Pulse Oximetry 99 % [facility] Work Phone: 05-24-2018 10:27-0500 Weight 59.6 kg [facility] Work Phone: 05-10-2018 09:33-0500 BMI (Body Mass Index) 25.51 kg/m2 [facility] Work Phone: 05-10-2018 09:33-0500 BP Diastolic 82 mm[Hg] [facility] Work Phone: 05-10-2018 09:33-0500 BP Systolic 123 mm[Hg] Lisha Duenas [facility] Work Phone: 05-10-2018 09:33-0500 Height 154.9 cm Lisha Duenas [facility] Work Phone: 05-10-2018 09:33-0500 Pulse (Heart Rate) 61 /min Lisha Duenas [facility] Work Phone: 05-10-2018 09:33-0500 Weight 61.24 kg Lishabecky Duenas [facility] Work Phone: Encounters Encounter Date Encounter Type Care Provider Facility Start: 03-21-2024 ambulatory FRANCISCO BROWN [facility] Ambulatory Start: 03-11-2024 End: 03-11-2024 [facility] Start: 03-11-2024 End: 03-11-2024 Encounter for general adult medical examination without abnormal findings [facility] Start: 03-10-2024 End: 03-14-2024 ambulatory ELLA PIMENTEL [facility] Start: 03-10-2024 End: 03-10-2024 Office outpatient new 45 minutes Ella Pimentel MD Work Phone: [facility] Comment on above: Thrombosis (Primary Dx) Start: 03-10-2024 End: 03-10-2024 [facility] Start: 02-04-2024 End: 02-04-2024 Transcribe Orders Elly Brady MA [facility] Comment on above: Deep vein thrombosis (DVT) of other vein of lower extremity, unspecified chronicity, unspecified laterality (HCC) (Primary Dx) Start: 02-01-2024 ambulatory FRANCISCO BROWN [facility] Ambulatory Start: 09-07-2023 End: 09-07-2023 Postop follow up visit related to original px Raudel Jordan MD Work Phone: [facility] Comment on above: Postoperative follow -up (Primary Dx) Start: 09-07-2023 End: 09-07-2023 ambulatory FRANCISCO BROWN [facility] Ambulatory Start: 08-20-2023 End: 08-21-2023 Emergency department patient visit Raudel Jordan MD Work Phone: [facility] Start: 08-20-2023 End: 08-21-2023 [facility]: 08-20-2023 End: 08-20-2023 Emergency department patient visit FRANCISCO BROWN [facility] Start: 03-12-2023 End: 03-12-2023 Office outpatient visit 25 minutes 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 [facility] Work Phone: [facility] Comment on above: Encounter to [facility] (Primary Dx); Varicose veins of left lower extremity with pain; Seasonal allergies Start: 11-22-2022 End: 11-22-2022 Initial preventive medicine new pt age 18-39yrs Gay Narayan MD Work Phone: [facility] Comment on above: Annual physical exam (Primary Dx) Start: 11-22-2022 End: 11-22-2022 Patient encounter procedure Gay Narayan MD Work Phone: [facility] Work Phone: Start: 11-21-2021 End: 11-21-2021 Initial preventive medicine new pt age 18-39yrs Gay Narayan MD Work Phone: [facility] Comment on above: Annual physical exam Start: 11-21-2021 End: 11-21-2021 Patient encounter procedure Gay Narayan MD Work Phone: [facility] Start: 06-29-2021 End: 07-01-2021 Evaluation and management of inpatient Yohan Reyna MD Work Phone: [facility] Obstetrics Start: 06-25-2021 End: 06-25-2021 ambulatory DESIREE MADDOX [facility] Start: 05-18-2021 Patient encounter status Edward lubin LPN [facility] Start: 05-18-2021 Transcribe Orders Edward Jone SIMS O [facility] Contact [facility] Comment on above: Encounter for prepro cedure screening laboratory testing for COVID-19 (Primary Dx) Start: 12-29-2020 End: 12-29-2020 Subsequent hospital visit by physician Desiree Maddox MD Work Phone: [facility] Comment on above: Arrived Start: 11-22-2020 End: 11-22-2020 Initial preventive medicine new pt age 18-39yrs Desiree Maddox MD Work Phone: [facility] Phys[facility] Comment on above: Annual physical exam (Primary Dx); Seasonal allergies; Family history of hypertrophic cardiomyopathy; Heart palpitations Start: 11-22-2020 End: 11-22-2020 Patient encounter procedure Desiree Maddox MD Work Phone: [facility] Start: 11-19-2020 End: 11-19-2020 Chart abstracting Veena Weber MA [facility] Phys[facility] Start: 02-11-2019 End: 02-11-2019 Subsequent hospital visit by physician Hannah Pollard Work Phone: [facility] Comment on above: Varicose veins of le ft lower extremity with pain Start: 01-20-2019 End: 01-20-2019 Office outpatient new 30 minutes America Ely Work Phone: [facility] Comment on above: Varicose veins of le ft lower extremity with pain Start: 05-24-2018 End: 05-24-2018 Office outpatient new 30 minutes Marcela Borja Work Phone: [facility] Urology Comment on above: Recurrent UTI (Prima ry Dx); Urinary frequency; Suprapubic pain; Interstitial cystitis Start: 05-13-2018 End: 05-13-2018 Patient encounter procedure Lisha Duenas Work Phone: [facility] LIVE AMM[employer]ITION INSPECTOR Comment on above: Appointment Start: 05-10-2018 End: 05-10-2018 Office outpatient visit 15 minutes Lisha Duenas Work Phone: [facility] LIVE AMMUNITION INSPECTOR Comment on above: Dysuria (Primary Dx) ; Hematuria, unspecified type; Frequency of micturition Start: 05-03-2018 End: 05-03-2018 Patient encounter America Ely Work Phone: [facility] Comment on above: Results Start: 02-18-2017 End: 02-18-2017 Emergency department patient visit Bao Rosado Facility:[place] Procedures Date Procedure Procedure Detail Performing Clinician Start: 08-21-2023 Basic metabolic pane l calcium total Jim Yohan Reillyadeline [employer]LLF[employer]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 Work Phone: Start: 08-20-2023 End: 08-20-2023 APPENDECTOMY [...] System Start: 06-29-2021 Blood group typing Aiden aejaime Reyna MD Work Phone: Start: 06-29-2021 Blood [...] Start: 02-11-2019 Dup-scan xtr veins unilateral/limited study W. Mani Pollard Work Phone: Start: 05-24-2018 End: 05-24-2018 [...] Start: 04-14-2031 Tetanus vaccination Tetanus: Every 10yrs [facility] Start: 04-14-2024 End: 04-14-2024 Patient encounter procedure 04/14/2024 10:45 AM EDT Office Visit [facility] [address] [place] [address] Ella Pimentel MD [address] [place] [address] [facility] Start: 03-11-2024 End: 03-11-2024 Patient encounter procedure 03/11/2024 9:40 AM EDT Office Visit [facility] [address] [place] [phone] 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, [employer]LL[employer]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 [address] [place] [address] [facility] Start: 02-17-2024 COVID-19 Vaccine () COVID-19 Vaccine () [facility] Start: 02-17-2024 Influenza vaccination Influenza Vaccine (#1) [facility] Start: 01-09-2024 History and physical examination, annual for health maintenance Wellness Visit [facility] Start: 11-26-2023 End: 11-26-2023 Patient encounter procedure 11/26/2023 9:00 AM EDT Office Visit [facility] [address] [place] [phone] 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, [employer]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 [address] [place] [address] [facility] Start: 11-23-2023 Depression screening using PHQ-9 (Patient Health Questionnaire 9) score [facility] Start: 11-23-2023 History and physical examination, annual for health maintenance Wellness Visit [facility] Start: 02-16-2023 COVID-19 Vaccine () COVID-19 Vaccine () [facility] Start: 02-16-2023 Influenza vaccination [facility] Start: 2023 Screening for malignant neoplasm of cervix [facility] Start: 11-22-2022 End: 11-22-2022 Patient encounter procedure 11/22/2022 Office Visit Primary Care Gay Davies MD [address] [place] [phone] [facility] Start: 11-21-2022 Depression screening using PHQ-9 (Patient Health Questionnaire 9) score Depression Screening (PHQ-2/9) [facility] Start: 11-21-2022 History and physical examination, annual for health maintenance Wellness Visit [facility] Start: 03-19-2022 COVID-19 Vaccine (3 - Booster for Moderna series) COVID-19 Vaccine (3 - Booster for Moderna series) [facility] Start: 02-16-2022 Influenza vaccination Sequential Influenza Vaccine (Season Ended) [facility] Start: 12-12-2021 COVID-19 Vaccine (3 - Booster for Moderna series) COVID-19 Vaccine (3 - Booster for Moderna series) [facility] Start: 12-12-2021 COVID-19 Vaccine (3 - Moderna series) COVID-19 Vaccine (3 - Moderna series) [facility] Start: 11-22-2021 Depression screening using PHQ-9 (Patient Health Questionnaire 9) score [facility] Start: 11-22-2021 History and physical examination, annual for health maintenance Wellness Visit [facility] Start: 02-16-2021 Influenza vaccination [facility] Start: 11-22-2020 End: 11-22-2021 Complete blood count with white cell differential, manual CBC and Differential Lab Routine Heart palpitations Expected: 11/22/2020, Expires: 11/22/2021 [facility] Comment on above: Expected: 11/22/2020, Expires: Start: 11-22-2020 End: 11-22-2021 Thyrotropin [Units/volume] in Serum or Plasma TSH with Reflex Free T4 Lab Routine Heart palpitations Expected: 11/22/2020 (Approximate), Expires: 11/22/2021 [facility] Comment on above: Expected: 11/22/2020 (Approximate), Expi res: 11/22/2021 Start: 11-22-2020 End: 11-22-2020 Patient encounter procedure 11/22/2020 Office Visit Primary Care Desiree Maddox MD [address] [place] [address] [phone] [facility] Start: 06-21-2020 Screening for malignant neoplasm of cervix Pap Smear [facility] Start: 04-24-2019 End: 04-24-2019 Office Visit 04/24/2019 Office Visit Cardiology Hannah Pollard III, DO [address] [place] [address] [phone] [facility] Start: 02-16-2019 Influenza vaccination given SEQUENTIAL INFLUENZA VACCINE (#1) [facility] Start: 02-11-2019 End: 02-11-2019 Appointment 02/11/2019 Appointment Cardiology Hannah Pollard III, DO [address] [place] [address] [phone] [facility] Start: 08-22-2018 End: 08-22-2018 Ambulatory 08/22/2018 Office Visit Urology Marcela Borja, [employer]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 [address] [place] [address] [phone] [facility] Start: 06-06-2018 End: 06-06-2018 Ambulatory 06/06/2018 Office Visit LIVE AMM[employer]ITION INSPECTOR Lisha Duenas DO [address] [place] [address] [phone] [facility] LIVE AMMUNITION INSPECTOR Start: 06-03-2018 End: 06-03-2018 Ambulatory 06/03/2018 Office Visit Gastroenterology Rain Denney MD [address] [facility] [address] [place] [address] Division of Gastroenterology and Hepatology [facility] Start: 05-24-2018 End: 05-24-2019 Diagnostic radiography of abdomen XR ABDOMEN 1 VIEW Routine Suprapubic pain Expected: 05/24/2018, Expires: 05/24/2019 [facility] Work Phone: Comment on above: Expected: 05/24/2018, Expires: 9 Start: 05-24-2018 End: 05-24-2018 Ambulatory [facility] LIVE AMMUNITION INSPECTOR Comment on above: Arrived Start: 05-13-2018 End: 05-13-2018 Ambulatory 05/13/2018 Office Visit LIVE AMMUNITION INSPECTOR Lisha Duenas DO [address] [place] [address] [phone] [facility] LIVE AMMUNITION INSPECTOR Start: 02-16-2018 Influenza vaccination INFLUENZA VACCINE (#1) [facility] Work Phone: Start: 2014 Screening for malignant neoplasm of cervix PAP SMEAR DISCUSSION [facility] Work Phone: Start: 02-15-2012 Third diphtheria, tetanus and acellular pertussis (DTaP) vaccination TDAP (ADULT) [facility] Work Phone: Start: 2011 GONORRHEA SCREEN GONORRHEA SCREEN [facility] Work Phone: Start: 2011 Hepatitis C screening [facility] Start: 2011 Tetanus vaccination TETANUS [facility] Work Phone: Start: 2009 Screening for Chlamydia trachomatis CHLAMYDIA SCREEN [facility] Work Phone: Start: 02-15-2008 HIV screening [facility] Start: 02-15-2008 Vaccination for human papillomavirus HPV VACCINES (1 - Female 3-dose series) [facility] Start: 2006 HIV screening HIV SCREENING DISCUSSION [facility] Work Phone: Start: 2005 COVID-19 Vaccine (1) COVID-19 Vaccine (1) [facility] Start: 2005 Depression screening using PHQ-9 (Patient Health Questionnaire 9) score Depression Screening (PHQ9) [facility] Start: 02-15-2004 Vaccination for human papillomavirus HPV VACCINE ADOL (1 - Female 3-dose series) [facility] Work Phone: Start: 1998 COVID-19 Vaccine (1) COVID-19 Vaccine (1) [facility] Start: 02-15-1996 History and physical examination, annual for health maintenance Wellness Visit [facility] Start: 1993 Screening for malignant neoplasm of cervix PAP SMEAR [facility] Start: 1993 Tetanus vaccination [facility] End: 03-10-2025 Antithrombin actual/normal in Platelet poor plasma by Chromogenic method Antithrombin III Lab Routine Thrombosis 1 Occurrences starting 03/10/2024 until 03/10/2025 [facility] Work Phone: Comment on above: 1 Occurrences starting 03/10/2024 until 03/10/2025 Antithrombin actual/normal in Platelet poor plasma by Chromogenic method Antithrombin III Lab Routine Thrombosis 03/10/2024 11:35 AM EDT [facility] End: 03-10-2025 Antithrombin III antigen Antithrombin III antigen Lab Routine Thrombosis 1 Occurrences starting 03/10/2024 until 03/10/2025 [facility] Comment on above: 1 Occurrences starting 03/10/2024 until 03/10/2025 Antithrombin III antigen Antithr ombin III antigen Lab Routine Thrombosis 03/10/2024 11:35 AM EDT [facility] End: 03-10-2025 aPTT in Blood by Coagulation assay APTT Lab Routine Thrombosis 1 Occurrences starting 03/10/2024 until 03/10/2025 [facility] Comment on above: 1 Occurrences starting 03/10/2024 until 03/10/2025 aPTT in Blood by Coagulation assay APTT Lab Routine Thrombosis 03/10/2024 11:35 AM EDT [facility] Bacteria identified Cx Nom (U) URINE CULTURE Routine Hematuria, unspecified type 05/10/2018 10:12 AM [facility] Work Phone: Complete blood count with white cell differential, manual CBC and Differential Lab Routine Heart palpitations 11/22/2020 2:43 PM EDT [facility] End: 11-23-2023 Complete blood count with white cell differential, manual CBC and Differential Lab Routine Annual physical exam 1 Occurrences starting 11/22/2022 until 11/23/2023 [facility] Work Phone: Comment on above: 1 Occurrences starting 11/22/2022 until 11/23/2023 End: 11-22-2021 Comprehensive metabolic 2000 panel - Serum or Plasma Comprehensive Metabolic Panel Lab Routine Heart palpitations 1 Occurrences starting 11/22/2020 until 11/22/2021 [facility] Comment on above: 1 Occurrences starting 11/22/2020 until 11/22/2021 Comprehensive metabo lic 2000 panel - Serum or Plasma Comprehensive Metabolic Panel Lab Routine Heart palpitations 11/22/2020 2:43 PM EDT [facility] End: 11-23-2023 Comprehensive metabolic 2000 panel - Serum or Plasma Comprehensive Metabolic Panel Lab Routine Annual physical exam 1 Occurrences starting 11/22/2022 until 11/23/2023 [facility] Comment on above: 1 Occurrences starting 11/22/2022 until 11/23/2023 Diagnostic radiograp hy of abdomen XR ABDOMEN 1 VIEW Routine Suprapubic pain 05/24/2018 11:27 AM EST [facility] Work Phone: End: 01-22-2022 Echocardiography Echocardiogram complete Echocardiography Routine Family history of hypertrophic cardiomyopathy Heart palpitations 1 Occurrences starting 11/22/2020 until 01/22/2022 [facility] Comment on above: 1 Occurrences starting 11/22/2020 until 01/22/2022 End: 03-10-2025 Factor II (prothrombin) [id number] mutation detection Prothrombin gene mutation Lab Routine Thrombosis 1 Occurrences starting 03/10/2024 until 03/10/2025 [facility] Comment on above: 1 Occurrences starting 03/10/2024 until 03/10/2025 Factor II (prothromb in) [id number] mutation detection Prothrombin gene mutation Lab Routine Thrombosis 03/10/2024 11:35 AM EDT [facility] End: 03-10-2025 Fibrinogen [Mass/volume] in Platelet poor plasma by Coagulation assay Fibrinogen Lab Routine Thrombosis 1 Occurrences starting 03/10/2024 until 03/10/2025 [facility] Comment on above: 1 Occurrences starting 03/10/2024 until 03/10/2025 Fibrinogen [Mass/vol ume] in Platelet poor plasma by Coagulation assay Fibrinogen Lab Routine Thrombosis 03/10/2024 11:35 AM EDT [facility] End: 11-23-2023 Hemoglobin A1c/Hemoglobin.total in Blood Hemoglobin A1c Lab Routine Annual physical exam 1 Occurrences starting 11/22/2022 until 11/23/2023 [facility] Comment on above: 1 Occurrences starting 11/22/2022 until 11/23/2023 End: 03-10-2025 INR in Platelet poor plasma by Coagulation assay Protime-INR Lab Routine Thrombosis 1 Occurrences starting 03/10/2024 until 03/10/2025 [facility] Comment on above: 1 Occurrences starting 03/10/2024 until 03/10/2025 INR in Platelet poor plasma by Coagulation assay Protime-INR Lab Routine Thrombosis 03/10/2024 11:35 AM EDT [facility] End: 11-23-2023 Lipid 1996 panel - Serum or Plasma Lipid Panel Lab Routine Annual physical exam 1 Occurrences starting 11/22/2022 until 11/23/2023 [facility] Comment on above: 1 Occurrences starting 11/22/2022 until 11/23/2023 Procedure on tissue specimen [facility] Work Phone: Comment on above: Release Upon Ordering for 1 Occurrences starting 08/20/2023, 1 completed End: 03-10-2025 Protein C actual/normal in Platelet poor plasma by Coagulation assay Protein C activity Lab Routine Thrombosis 1 Occurrences starting 03/10/2024 until 03/10/2025 [facility] Comment on above: 1 Occurrences starting 03/10/2024 until 03/10/2025 Protein C actual/nor mal in Platelet poor plasma by Coagulation assay Protein C activity Lab Routine Thrombosis 03/10/2024 11:35 AM EDT [facility] End: 03-10-2025 Protein C Ag actual/normal in Platelet poor plasma by Immunoassay Protein C antigen, total Lab Routine Thrombosis 1 Occurrences starting 03/10/2024 until 03/10/2025 [facility] Comment on above: 1 Occurrences starting 03/10/2024 until 03/10/2025 Protein C Ag actual/normal in Platelet poor plasma by Immunoassay Protein C antigen, total Lab Routine Thrombosis 03/10/2024 11:35 AM EDT [facility] End: 03-10-2025 Protein S actual/normal in Platelet poor plasma by Coagulation assay Protein S activity Lab Routine Thrombosis 1 Occurrences starting 03/10/2024 until 03/10/2025 [facility] Comment on above: 1 Occurrences starting 03/10/2024 until 03/10/2025 Protein S actual/nor mal in Platelet poor plasma by Coagulation assay Protein S activity Lab Routine Thrombosis 03/10/2024 11:35 AM EDT [facility] End: 05-18-2022 SARS-CoV-2 (COVID-19) RdRp gene [Presence] in Respiratory specimen by ADRIANA with probe detection COVID-19, Molecular Microbiology Routine Encounter for preprocedure screening laboratory testing for COVID-19 1 Occurrences starting 05/18/2021 until 05/18/2022 [facility] Work Phone: Comment on above: 1 Occurrences starting 05/18/2021 until 05/18/2022 End: 03-10-2025 Thrombin time Thrombin time Lab Routine Thrombosis 1 Occurrences starting 03/10/2024 until 03/10/2025 [facility] Comment on above: 1 Occurrences starting 03/10/2024 until 03/10/2025 Thrombin time Thrombin time La b Routine Thrombosis 03/10/2024 11:35 AM EDT [facility] Thyrotropin [Units/volume] in Serum or Plasma TSH with Reflex Free T4 Lab Routine Heart palpitations 11/22/2020 2:43 PM EDT [facility] End: 03-22-2020 Ultrasound venous insufficiency left leg Ultrasound venous insufficiency left leg Vascular Ultrasound Routine Varicose veins of left lower extremity with pain 1 Occurrences starting 01/20/2019 until 03/22/2020 [facility] Comment on above: 1 Occurrences starting 01/20/2019 until 03/22/2020 Immunizations Immunization Date Immunization Notes Care Provider Fa cility 10-17-2021 Moderna SARS-CoV-2 Vaccination Gay Narayan MD Work Phone: [facility] 08-24-2021 Moderna SARS-CoV-2 Vaccination Gay Narayan MD Work Phone: [facility] 07-27-2021 influenza, injectabl e, quadrivalent, preservative free Gay Narayan MD Work Phone: [facility] 07-27-2021 influenza virus vacc ine, unspecified formulation Elly Brady MA [facility] 06-29-2021 varicella zoster imm une globulin Yohan Reyna MD Work Phone: [facility] 06-29-2021 diphtheria, tetanus toxoids and acellular pertussis vaccine, unspecified formulation Yohan Reyna MD Work Phone: [facility] 06-29-2021 measles, mumps and r ubella virus vaccine Yohan Reyna MD Work Phone: [facility] 04-14-2021 tetanus toxoid, redu anni diphtheria toxoid, and acellular pertussis vaccine, adsorbed Gay Naaryan MD Work Phone: [facility] 02-01-2006 tetanus toxoid, redu anni diphtheria toxoid, and acellular pertussis vaccine, adsorbed Gay Narayan MD Work Phone: [facility] 02-01-2006 varicella virus vaccine Josee Narayan MD Work Phone: [facility] 12-17-1997 diphtheria, tetanus toxoids and acellular pertussis vaccine, unspecified formulation Gay Narayan MD Work Phone: [facility] 12-17-1997 measles, mumps and r ubella virus vaccine Gay Narayan MD Work Phone: [facility] 12-17-1997 trivalent poliovirus vaccine, live, oral Gay Narayan MD Work Phone: [facility] 05-09-1994 diphtheria, tetanus toxoids and acellular pertussis vaccine, unspecified formulation Gay Narayan MD Work Phone: [facility] 05-09-1994 haemophilus influenz ae type b vaccine, conjugate unspecified formulation Gay Narayan MD Work Phone: [facility] 05-09-1994 measles, mumps and r ubella virus vaccine Gay Narayan MD Work Phone: [facility] 1993 diphtheria, tetanus toxoids and pertussis vaccine Gay Narayan MD Work Phone: [facility] 1993 haemophilus influenz ae type b vaccine, conjugate unspecified formulation Gay Narayan MD Work Phone: [facility] 1993 hepatitis B vaccine, pediatric or pediatric/adolescent dosage Gay Narayan MD Work Phone: [facility] 1993 trivalent poliovirus vaccine, live, oral Gay Narayan MD Work Phone: [facility] 1993 diphtheria, tetanus toxoids and pertussis vaccine Gay Narayan MD Work Phone: [facility] 1993 haemophilus influenz ae type b vaccine, conjugate unspecified formulation Gay Narayan MD Work Phone: [facility] 1993 trivalent poliovirus vaccine, live, oral Gay Narayan MD Work Phone: [facility] 1993 diphtheria, tetanus toxoids and pertussis vaccine Gay Narayan MD Work Phone: [facility] 1993 haemophilus influenz ae type b vaccine, conjugate unspecified formulation Gay Narayan MD Work Phone: [facility] 1993 hepatitis B vaccine, pediatric or pediatric/adolescent dosage Gay Narayan MD Work Phone: [facility] 1993 trivalent poliovirus vaccine, live, oral Gay Narayan MD Work Phone: [facility] 1993 hepatitis B vaccine, pediatric or pediatric/adolescent dosage Gay Narayan MD Work Phone: [facility] Payers Date Payer Category Payer Unknown [id number] 2022 Private Health Insurance [id number] 2020 Private Health Insurance [id number] 2020 Private Health Insurance AETKERA MAJANO AETNA [id number] 2020-Present [address] [place] [address] [id number] 2020 Unknown [id number] 2020 Unknown [id number] 2020 Unknown [id number] 2017 Unknown [facility] [facility] xxxxxxxxx 2017-Present xxxxxxxxx [id number] 2017 Unknown [id number] 1993 Unknown [id number]. [id number] 1993 Unknown [id number]. [id number] 1993 Unknown [id number] [id number]. [id number] 1993 Unknown [id number] [id number] 1993 Unknown [id number] [id number]. [id number] 1993 Unknown [id number]. 2.90 1993 Unknown [id number] [id number]. 2.90 1993 Unknown [id number] 2..[id number]. 2.90 1993 Unknown [id number]. 2.90 1993 Unknown [id number] [id number] Private Health Insurance [id number] Social History Date Type Detail Facility Start: 04-26-2018 End: 11-21-2021 Tobacco smoking status NHIS Never smoker [facility] Work Phone: Start: 1995 Sex Assigned At Not on file [facility] Work Phone: Start: 01-20-2019 Alcohol Comment occ [facility] Start: 01-20-2019 End: 11-19-2020 Alcohol intake Current drinker of alcohol (finding) [facility] Start: 11-19-2020 End: 11-21-2021 Tobacco use and exposure Never used [facility] Start: 11-22-2020 End: 03-10-2024 Alcohol intake Ex-drinker (finding) [facility] Start: 11-22-2020 Alcohol Comment [facility] Start: 11-11-2021 End: 11-21-2021 Exposure to SARS-CoV-2 (event) Not sure [facility] Start: 10-11-2020 [facility] Start: 11-21-2021 End: 08-20-2023 Cigarette pack-years [facility] Start: 11-21-2021 History SDOH Social Connections Get Together 3 [facility] Start: 11-21-2021 History SDOH Financial 5 [facility] Start: 11-21-2021 History SDOH Food Worry 1 [facility] Start: 11-21-2021 History SDOH Transport Med 2 [facility] Start: 03-06-2022 End: 08-20-2023 Humiliation, Afraid, Rape, and Kick questionnaire [HARK] [facility] Within the last year , have you been afraid of your partner or ex-partner? No [facility] Are you now , , , , never or living with a partner? [facility] How often to you hav e a drink containing alcohol? 2-4 times a month [facility] How many standard dr inks containing alcohol do you have on a typical day? 3 or 4 [facility] How often do you hav e 6 or more drinks on 1 occasion? Never [facility] How hard is it for y ou to pay for the very basics like food, housing, medical care, and heating Not very hard [facility] Adult Depression Screening Assessment 0 [facility] Do you feel stress - tense, restless, nervous, or anxious, or unable to sleep at night because your mind is troubled all the time - these days [OSQ] Not at all [facility] (I/We) worried wheth er (my/our) food would run out before (I/we) got money to buy more. Never true [facility] Start: 11-19-2020 Gender identity Identifies as female gender (finding) [facility] Start: 11-19-2020 Sexual orientation Heterosexual (finding) [facility] Clinical Notes 11-22-2020 to 03-11-2024 Ella Pimentel [...] history that includes Hemorrhoidectomy (10/02/2017); Refractive surgery; [place] tooth extraction; Hemorrhoidectomy; Colonoscopy; Section (N/A, 06/29/2021); [...] AUTHENTICATED BY FRANCISCO AHMADI, ON 03/11/2024 11:55:59 [facility] 03-11-2024 Note 11/22/2020 1:00 PM [...] AUTHENTICATED BY FRANCISCO AHMADI, ON 03/11/2024 11:55:59 [facility] 03-10-2024 Note Hematology/Oncology Clinic Note 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, 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[employer] Tobacco Use Smoking status: Never Smokeless tobacco: [...] days Stress: No Stress Concern Present (03/06/2022) [employer] [employer] - Occupational Stress Questionnaire Feeling of Stress : Not at all Social Connections: Moderately Integrated (03/06/2022) Social Connection and Isolation Panel [NHANES] Frequency of Communication with Friends and Family: Three times a week Frequency of Social Gatherings with Friends and Family: Twice a week Attends Bahai Services: 1 to 4 times per year Active Member of Clubs or Organizations: No Attends Club or Organization Meetings: Never Marital Status: Housing Stability: Low Risk (08/20/2023) Housing Stability Vital Sign Unable to Pay for Housing in the Last Year: No Number of Places Lived in the Last (more content not included)... 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 Procedures was VC external venous reflux bilaterally [...] ELLA PIMENTEL MD documented in this encounter [facility] 09-07-2023 History of Present illness Narrative [facility] PATIENT: Jay Antonio DATE / TIME: 09/07/23 [...] Follow-up as needed documented in this encounter [facility] 08-21-2023 Note Formatting of this n ote might be different from the original. Seen by [place] to home. present. Reviewed discharge medications and follow up appointments as well as lifting restrictions. Patient received community resources. Transported to vehicle via wheelchair for discharge to home. [facility] 08-21-2023 Miscellaneous Notes Seen by [place] to home. present. Reviewed discharge medications and [...] with localized peritonitis Surgeon: Raudel Jordan MD Freight Breaker: Noemi Voss who was present for the entire case and provided critical assistance with the technical aspects of the operation. Procedure and Anesthesia: Procedure(s) and Anesthesia Type: * APPENDECTOMY LAPAROSCOPIC - General CPT Code: 26572 EBL 2 ml Complications:None Drains: None Dispo: [...] of the MDM. documented in this encounter [facility] 08-21-2023 Hospital course Narrative DISCHARGE SUMMARY Patient: Jay Antonio Date of : 1995 Site: [facility] Provider: 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 CNP Admit Date: [...] Physician(s) Family Provider: 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 CNP, Address: [address] [facility] [address] Follow Up: 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 CNP [address] [facility] [address] Raudel Jordan MD [address] [place] [id number] Follow up in 1 week(s) Additional Information: [...] 08/21/23, 8:12 AM documented in this encounter [facility] 08-21-2023 Hospital Discharge instructions Lauren Duong CNP [...] at least 10 days. Call the Outpatient Trauma/[facility] office [phone] for advice (Sunday-Sunday, 8am to 4pm) or proceed to the nearest Emergency Department if: You feel weak, lightheaded, or dizzy when you sit up or stand. Develop fever, chills, nausea, or vomiting You have increased abdominal or chest pain Your skin is pale, cool and/or clammy You have a rapid increase in your heart rate while resting. documented in this encounter [facility] 08-21-2023 Note Formatting of this n ote [...] of comfort function goal Outcome: Partially Met [facility] 08-20-2023 Note Formatting of this n ote might be different from the original. Problem: Actual or potential alteration in health Goal: Knowledge of Interdisciplinary Plan of Care Outcome: Partially Met Plan of care to be reviewed with pt by R.NTico on a daily basis. Problem: Pain Goal: Manage acute pain Outcome: Partially Met Pt has prn pain medication. [facility] 08-20-2023 Note Formatting of this n ote might be different from the original. Pt arrived to the floor accompanied by PACU staff. Pt was oriented to room and call light. Post op vital signs started. [facility] 08-20-2023 Note Formatting of this n ote might be different from the original. Pre-operative Diagnosis: * Acute appendicitis with localized peritonitis Post-operative Diagnosis: * Acute appendicitis with localized peritonitis Surgeon: Raudel Jordan MD Freight Breaker: Noemi Voss who was present for the entire case and provided critical assistance with the technical aspects of the operation. Procedure and Anesthesia: Procedure(s) and Anesthesia Type: * APPENDECTOMY LAPAROSCOPIC - General CPT Code: 30620 EBL 2 ml Complications:None Drains: None Dispo: [...] to the recovery room in stable condition. [facility] Work Phone: 08-20-2023 Note Formatting of this [...] encounter, including all aspects of the MDM. [facility] Work Phone: 08-20-2023 Physician Emergency department Note [facility] NOTE: NAME: Jay Antonio CSN: [id number] 28 y.o. PCP: 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 CNP History: Chief Complaint: Abdominal Pain HPI: The history was obtained from the patient. Jay is a 28 y.o. female who presents with a chief complaint of Abdominal Pain. Patient comes emergency room referred from [facility] ER for evaluation of appendicitis. 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 Smoking status: Never Smokeless tobacco: [...] days Stress: No Stress Concern Present (03/06/2022) [employer] [place] [employer] - Occupational Stress Questionnaire Feeling of Stress : Not at all Social Connections: Moderately Integrated (03/06/2022) Social Connection and Isolation Panel [NHANES] Frequency of Communication with Friends and Family: Three times a week Frequency of Social Gatherings with Friends and Family: Twice a week Attends Bahai Services: 1 to 4 times per year [...] Comment Attending Provider or Group: RAUDEL JORDAN [[id number]] Phone call required?: Yes Ke Stockton Jr., PA-C, PA-C ED Advanced Practice Provider [facility] Ke Stockton Jr., PA-C 08/20/23 1826 [facility] 08-20-2023 Emergency department Note [facility] NOTE: NAME: Jay Antonio CSN: [id number] 28 y.o. PCP: 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 CNP History: Chief Complaint: Abdominal Pain HPI: The history was obtained from the patient. Jay is a 28 y.o. female who presents with a chief complaint of Abdominal Pain. Patient comes emergency room referred from [facility] ER for evaluation of appendicitis. 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 Smoking status: Never Smokeless tobacco: [...] days Stress: No Stress Concern Present (03/06/2022) [employer] [place] [employer] - Occupational Stress Questionnaire Feeling of Stress : Not at all Social Connections: Moderately Integrated (03/06/2022) Social Connection and Isolation Panel [NHANES] Frequency of Communication with Friends and Family: Three times a week Frequency of Social Gatherings with Friends and Family: Twice a week Attends Bahai Services: 1 to 4 times per year [...] RADIOLOGY: I did consider radiological studies for Sonis care today: ED COURSE: Patient comes emergency [...] Comment Attending Provider or Group: RAUDEL JORDAN [[id number]] Phone call required?: Yes Ke Stockton Jr., PA-C, PA-C ED Advanced Practice Provider [facility] Ke Stockton Jr., PA-C 08/20/23 1826 Report called. Bed: 46 Expected date: Expected time: Means of arrival: Comments: TR 1 [address] transfer from [facility] needing to be evaluated for possible appendicitis. documented in this encounter [facility] 08-20-2023 Emergency department Note Report called. [facility] 08-20-2023 Emergency department Note Bed: 46 Expected date: Expected time: Means of arrival: Comments: TR 1 [facility] 08-20-2023 Emergency department Triage note Patient a transfer from [facility] needing to be evaluated for possible appendicitis. [facility] 03-12-2023 History of Present illness Narrative Subjective [...] history that includes Hemorrhoidectomy (10/02/2017); Refractive surgery; [place] tooth extraction; Hemorrhoidectomy; Colonoscopy; Section (N/A, 06/29/2021); [...] seen at a varicose vein clinic in [place] so she can be evaluated for newer treatment. Seasonal allergies Well controlled with OTC medication Follow up in one year or as needed documented in this encounter [facility] 11-22-2022 Evaluation + Plan note Associated Problem(s): Annual physical exam Healthcare Maintenance: Vaccines: -Influenza vaccine: Season ended -COVID vaccine: Fully vaccinated 10/2020, pending Moderna bivalent [...] DEXA: Not yet indicated Routine labs ordered [facility] 11-22-2022 Miscellaneous Notes Associated Problem(s): Annual physical exam Healthcare Maintenance: Vaccines: -Influenza vaccine: Season ended -COVID-19 vaccine: Fully vaccinated 10/2020, pending Moderna bivalent booster at local pharmacy, not available in office today -Tdap: Up-to-date 03/2021 -Shingrix: Not yet indicated Hepatitis C: neg 11/2020 HIV: neg 11/2020 Pap smear: Self-reported up-to-date (normal) around 2 year ago, will obtain records from [facility] Mammogram: Not yet indicated Colonoscopy: Not yet indicated Lung cancer screening: Never smoker, not yet indicated DEXA: Not yet indicated Routine labs ordered documented in this encounter [facility] 11-22-2022 History of Present illness Narrative [facility] [address] [facility] [address] [place] [address] HPI: Jay Antonio is a 27 y.o. year old female seen in the office today for her annual physical. Denies any complaints today. Sees Dr. Reyna at [facility] for her female wellness. Reports last Pap [...] directions given. Results will be available through [employer] as soon as they are reported. Please [...] look into their status. Customer Service/Billing Questions: [phone] [employer] Assistance: [phone] or [phone] Financial Assistance: [phone] or [phone] Follow Up Ordered: Return in about 1 year (around 11/23/2023) for Annual physical. Gay Narayan MD documented in this encounter [facility] 11-21-2021 Evaluation + Plan note Associated Problem(s): Annual physical exam Healthcare Maintenance: Vaccines: -Influenza vaccine: Season ended -COVID19 vaccine: Fully vaccinated 10/2020, pending Moderna booster [...] not yet indicated DEXA: Not yet indicated [facility] 11-21-2021 Miscellaneous Notes Associated Problem(s): Annual physical exam Healthcare Maintenance: Vaccines: -Influenza vaccine: Season ended -COVID vaccine: Fully vaccinated 10/2020, pending Moderna booster [...] Not yet indicated documented in this encounter [facility] 11-21-2021 History of Present illness Narrative [facility] [address] [facility] [address] [place] [address] HPI: Jay Antonio is a 26 y.o. [...] directions given. Results will be available through [employer] as soon as they are reported. Please [...] look into their status. Customer Service/Billing Questions: [phone] [facility] Assistance: [phone] or [phone] Financial Assistance: [phone] or [phone] Follow Up Ordered: Return in about 1 year (around 11/21/2022). Gay Narayan MD documented in this encounter [facility] 07-01-2021 Miscellaneous Notes Discharge home ambulatory with [...] stooling. Encourage follow up weight check with toe former in 1-2 days. Appointment was made by [...] stimulate supply. Mother has made appointment with [facility] toe former for infant follow up. Plan is to [...] 361 mL Total 361 mL Jihan Antonio [[id number]] Delivery Anesthesia Method: Spinal Operative Delivery Forceps attempted?: No Vacuum extractor attempted?: No [place] Presentation Presentation: Vertex Position: Middle _: Transverse Information date/time: 06/29/21 1032 Gender: Male Delivery type: , Low Transverse Delivery location: OB Unit Provider Present: Routine Initial disposition: Routine NB Care Details: Trial of labor?: No categorization: Primary priority: Scheduled Indications for : Other (Add Comments) Skin incision type: Pfannenstiel Delivery Providers Delivering clinician: Yohan Reyna MD Other personnel: Provider Role Covering Attending Resident Behavioral Health Director Mariely Banerjee RN Delivery Nurse Cristin Vargas RN Registered Nurse Caryn Jean Baptiste RN Delivery Assist Nurse Practitioner Carmen Collins RN Registered Nurse oJe Rivera MD Waxing Machine Operator Cord Vessels: 3 vessels Complications: None Delayed cord clamping?: Yes Cord clamped date/time: 06/29/2021 1033 Cord blood obtained?: Yes Cord segment obtained?: No Gases sent?: No Stem cell collection (by Provider)?: No Placenta Date/time: 06/29/2021 1034 Removal: Manual removal Appearance: Intact Disposition: Refrigerator [place] Apgars No data filed [place] Measurements Weight: 7 lb 6.9 oz (3370 g) Length: 19 Head Circumference: 13.189 Lacerations No data filed Other Procedures Procedures: None Brief Post Operative Note Patient Name: Jay Antonio : 1995 (26 y.o.) Date of Service: 06/29/2021 CSN: [id number] Procedure(s): SECTION Pre-Operative Diagnoses: * Anorectal disorder [K62.9] Post-Operative Diagnoses: * Anorectal disorder [K62.9] Surgeon(s) and Role: * Yohan Reyna MD - Primary ORGANIC SEARCH LEAD: Morgan Gomez CRNA Painter Interior Finish: Mariely Banerjee RN Scrub Person: ST Dillan Scrub Person Preceptor: Bhumika Whittington RN Scrub Person Assist: Ana Maria [place] RN Waxing Machine Operator: Joe Rivera MD Nursery Nurse: Caryn [...] ovaries SURGEON: Yohan Reyna MD OR STAFF: Painter Interior Finish: Mariely Banerjee RN Scrub Person: ST Dillan Scrub Person Preceptor: Bhumika Whittington RN Scrub Person Assist: Ana Maria [place] RN Waxing Machine Operator: Joe Rivera MD Nursery Nurse: Caryn Jean Baptiste RN ANESTHESIA STAFF: ORGANIC SEARCH LEAD: Morgan Gomez CRNA SPECIMEN(S): * No specimens [...] and extended laterally using finger fraction. The infant was then delivered in cephalic presentation. After one minute of delayed cord clamping the cord was then clamped and cut. The was then handed off to the awaiting [...] correct times three. documented in this encounter [facility] 07-01-2021 History of Present illness Narrative Section [...] Information for the patient's : Paco, Baby Varghese Thompson [[id number]] Feeding Type: Breast milk,Formula Objective: Vital signs [...] Information for the patient's : Jihan Antonio [[id number]] Feeding Type: Breast milk Objective: Vital signs [...] Negative Nicola's sign. documented in this encounter [facility] 07-01-2021 Hospital Discharge instructions Angeline Ball RN [...] the office. 10. Please call the office ([phone]) for your six weeks' checkup appointment time. [...] any questions or problems, call the office. [phone] or [phone]. Please Note: Unless there are medical complications, maternity leave will be authorized for 6 weeks. documented in this encounter [facility] 06-30-2021 Hospital course Narrative DISCHARGE SUMMARY Patient: Jay Antonio Date of : 1995 Site: [facility] Family Provider: Desiree Maddox MD Admit Date: [...] Physician(s) Family Provider: Desiree Maddox MD, Address: [address] [place] [id number] Follow Up: Yohan Reyna MD [address] [place] [id number] Schedule an appointment as soon as possible for a visit in 6 week(s) Additional Information: Patient instructions, including activity, were given to the patient/family at discharge. Please see the After Visit Summary in the electronic medical record for details. 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 2. [...] done. Pt has first ob appointment at [facility] with on Sunday. documented in this encounter [facility] Evaluation note Diagnosis Annual physical exam- Primary Routine general medical examination at a health care facility Seasonal allergies Allergic rhinitis, cause unspecified Family history of hypertrophic cardiomyopathy Heart palpitations Palpitations [facility] Family history of hypertrophic cardiomyopathy Heart palpitations Palpitations [facility] Diagnosis Encounter for preprocedure screening laboratory testing for COVID-19- Primary [facility] Diagnosis 39 weeks gestation of - Primary Post-operative pain Other acute postoperative pain [facility] Diagnosis Annual physical exam Routine general medical examination at a health care facility [facility] Diagnosis Annual physical exam- Primary [...] laterality (HCC)- [facility] Thrombosis- Primary Embolism and thrombosis of unspecified site Thrombosis Embolism and thrombosis of unspecified site documented in this [facility] Family History No Family History Records FoundNo Family History Records FoundNo Family History Records FoundNo Family History Records FoundNo Family History Records FoundNo Family History Records FoundNo Family History Records Found Advance Directives No Advanced Directives Records FoundDocuments on File Type Date Recorded Patient Certified Pedorthotist Expl anation Advance Directives and Livin g Will 01/20/2019 2:17 PM Documents on File Type Date Recorded Patient Certified Pedorthotist Expl anation Advance Directives and Livin g Will 02/11/2019 2:49 PM Documents on File Type Date Recorded Patient Certified Pedorthotist Expl anation Advance Directives and Livin g Will 02/11/2019 2:49 PM Documents on File Type Date Recorded Patient Certified Pedorthotist Expl anation Advance Directives and Livin g Will Advance Directives and Livin g Will 12/29/2020 9:12 AM Documents on File Type Date Recorded Patient Certified Pedorthotist Expl anation Advance Directives and Livin g Will Advance Directives and Livin g Will 04/09/2021 10:13 AM Latest Code Status on File Code Status Date Activated Date Inactivated Comments Full Code 04/09/2021 10:16 AM 04/09/2021 4:01 PM Documents on File Type Date Recorded Patient Certified Pedorthotist Expl anation Advance Directives and Livin g [...] Urology Diagnoses Dysuria Lisha Duenas, DO [address] [id number] [facility] [address] [place] [address] Status Reason Specialty Diagnoses / Procedures Referred By Contact Referred To Contact Pending Review Cardiology Diagnoses Varicose veins of left lower extremity with pain Procedures Ultrasound venous insufficiency left leg Hannah Pollard III, DO [address] [place] [address] Status Reason Specialty Diagnoses / Procedures Referred By Contact Referred To Contact New Request Cardiology Diagnoses Family history of hypertrophic cardiomyopathy Heart palpitations Procedures Echocardiogram complete Desiree Maddox MD [address] [place] [address] Status Reason Specialty Diagnoses / Procedures Referre d By Contact Referred To Contact Closed Cardiology Diagnoses Family history of hypertrophic cardiomyopathy Heart palpitations Procedures Echocardiogram complete Desiree Maddox MD [address] [id number] [facility] [address] [facility] [place] [address] Specialty Diagnoses / Procedures Referred By Contac t Referred To Contact Cardiology Diagnoses Thrombosis Procedures Ultrasound duplex venous legs Ella Solares MD [address] [place] [address] Referral ID Status Reason Start Date Expiration Date Visits Re quested Visits Authorized [id number] Closed 03/11/2024 03/11/2025 1 1 History of [...] discussed getting an ultrasound to rule out 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 [...] section and content) DATE CREATED AUTHOR 12/12/2017 [facility] DATE CREATED AUTHOR AUTHOR'S ORGANIZ ATION 12/17/2020 [place] DATE CREATED AUTHOR AUTHOR'S ORGANIZ ATION 01/30/2021 [facility] DATE CREATED AUTHOR AUTHOR'S ORGANIZ ATION 06/26/2021 [facility] DATE CREATED AUTHOR AUTHOR'S ORGANIZ ATION 08/26/2023 [facility] DATE CREATED AUTHOR AUTHOR'S ORGANIZ ATION 03/17/2024 [facility] DATE CREATED AUTHOR AUTHOR'S ORGANIZ ATION 03/23/2024 [facility] Reason for Visit (unrecogniz ed section and content) Reason Comments Results Reason Comments Urinary Pain Patient states she h as been having the pain 2 times a month. Reason Comments Appointment Reason Comments New Patient Dysuria Status Reason Specialty Diagnoses / Procedures Referred By Contact Referred To Contact New Request Urology Diagnoses Dysuria Lisha Duenas, DO [address] [place] [address] Zan Otero MD [address] [place] [address] Reason Comments PT Initial Evaluation VV Status Reason Specialty Diagnoses / Procedures Referred By Contact Referred To Contact Pending Review Cardiology Diagnoses Varicose veins of left lower extremity with pain America Ely, SHELLFISH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 [address] [phone] Hannah Pollard III, DO [address] [phone] Status Reason Specialty Diagnoses / Procedures Referred By Contact Referred To Contact Pending Review Cardiology Diagnoses Varicose veins of left lower extremity with pain Procedures Ultrasound venous insufficiency left leg Hannah Pollard III, DO [address] [id number] Reason Comments Establish Care would like order for ECHO and MRI Status Reason Specialty Diagnoses / Procedures Referre d By Contact Referred To Contact Closed Cardiology Diagnoses Family history of hypertrophic cardiomyopathy Heart palpitations Procedures Echocardiogram complete Desiree Maddox MD [address] [place] [address] [place] [address] Reason Comments Scheduled Primary C Section Specialty Diagnoses / Procedures Referred By Contac t Referred To Contact Diagnoses 39 weeks gestation of Referral ID Status Reason Start Date Expiration Date Visits Re quested Visits Authorized [id number] 1 1 Reason Comments Establish Care [id number] Reason Comments Establish Care Reason Comments Abdominal Pain Specialty Diagnoses / Procedures Referred By Contac t Referred To Contact Diagnoses Acute appendicitis Acute appendicitis, unspecified acute appendicitis type Acute appendicitis Referral ID Status Reason Start Date Expiration Date Visits Re quested Visits Authorized [id number] 1 1 Reason Comments Post-op Care Teams (unrecognized sec tion and content) Ui Developer Designer Relationship Specialty Start Date End Date Desiree Maddox MD [address] [place] [address] PCP - General Family Medicine 11/22/20 SubYohan maya MD [address] [place] [address] Consulting Physician Obstetrics/Gynecology 05/18/21 Ui Developer Designer Relationship Specialty Start Date End Date Desiree Maddox MD [address] [place] [address] PCP - General Family Medicine 11/22/20 Subit, Yohan Lake MD [address] [place] [address] Consulting Physician Obstetrics/Gynecology 05/18/21 Ui Developer Designer Relationship Specialty Start Date End Date Gay Davies MD [address] [place] [id number] PCP - General Internal Medicine 11/21/21 Subit, Yohan Lake MD [address] [place] [address] Consulting Physician Obstetrics/Gynecology 05/18/21 Ui Developer Designer Relationship Specialty Start Date End Date Gay Davies MD [address] [place] [id number] PCP - General Internal Medicine 11/21/21 Subit, Yohan Lake MD [address] [place] [address] Consulting Physician Obstetrics/Gynecology 05/18/21 Ui Developer Designer Relationship Specialty Start Date End Date 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 CNP [facility] [place] [address] (Fax) PCP - General Nurse Practitioner 03/12/23 JavieritYohan MD [address] [place] [address] Consulting Physician Obstetrics/Gynecology 05/18/21 Ui Developer Designer Relationship Specialty Start Date End Date 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 SHELLFISH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 [address] [place] [address] (Fax) PCP - General Nurse Practitioner 03/12/23 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, SHELLFISH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 [address] [place] [address] (Fax) PCP - STONE Attributed Provider - [employer] 01/16/23 06/17/50 Yohan Reyna MD [address] [place] [phone] Consulting Physician Obstetrics/Gynecology 05/18/21 Ui Developer Designer Relationship Specialty Start Date End Date 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 CNP [address], [facility] (Fax) PCP - General Nurse Practitioner 03/12/23 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 SHELLFISH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 [address] [place] [address] (Fax) PCP - STONE Attributed Provider - [employer] 01/16/23 06/17/50 Yohan Reyna MD [address] [place] [address] Consulting Physician Obstetrics/Gynecology 05/18/21 Ui Developer Designer Relationship Specialty Start Date End Date 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 SHELLFISH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 [address] [place] [address] (Fax) PCP - General Nurse Practitioner 03/12/23 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 CNP [address] [place] [address] PCP - STONE Attributed Provider - [employer] 01/16/23 06/17/50 Yohan Reyna MD [address] [place] [address] Consulting Physician Obstetrics/Gynecology 05/18/21 Ui Developer Designer Relationship Specialty Start Date End Date 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 CNP [address] [place] [address] PCP - General Nurse Practitioner 03/12/23 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 CNP [address] [place] [address] PCP - STONE Attributed Provider - [employer] 01/16/23 06/17/50 Yohan Reyna MD [address] [place] [address] Consulting Physician Obstetrics/Gynecology 05/18/21 Scheduled Active and [...] Marisel Copeland RN)1630 (Due - Provider: Sahara Luna, [facility],PharmD)2313 (See Alternative - Provider: Abbey Catherine RN) 0808 (See Alternative - Provider: Angeline Ball RN)1030 (Due - Provider: Sahara Luna, [facility],PharmD) oxytocin (PITOCIN) bolus from bag 10,000 guillermo-units [...] Marisel Copeland RN)2313 (Given - Provider: Abbey Catherine, MAN) 0808 (Given - Provider: Angeline Ball, MAN) [...] orals. 1505 (New Bag - Provider: Angeline Ball, MAN) oxytocin in lactated ringers (PITOCIN) 20 unit/1,000 [...] Mariely Banerjee RN)1504 (Stopped - Provider: Angeline Ball, MAN) PRN [...] If indicated, administer prior to discharge. Provide [facility] vaccine information sheet(s) (VIS) for patient for vaccines administered. docusate sodium (COLACE) capsule 100 mg 100 mg, Oral, 2 times daily PRN, constipation, Starting on Sun06/29/21 at 1335, , Use oral medication first for constipation. Use rectal suppository, if ordered, for constipation if oral route not tolerated. DO NOT CRUSH OR CHEW. 184 (Given - Provider: Nieves Best RN) flu vacc [id number] 6mos up(PF) (FLUZONE QUAD/FLULAVAL QUAD/FLUARIX QUAD) syringe [...] anesthesia. 0800 (Given - Provider: Shalini Laguna, RN) measles, mumps and rubella vaccine (MMR) 1,000-12,500 TCID50/0.5 mL injection 0.5 mL 0.5 mL, Subcutaneous, Prior To Discharge, administer vaccine prior to discharge, Based on vaccine assessment, Starting on Sun06/29/21 at 1335, For 1 dose, , If indicated and not previously vaccinated. Complete Vaccine Assessments. If indicated, administer prior to discharge. Provide [facility] vaccine information sheet(s) (VIS) for [...] Zehra Grady RN)231 (Restarted - Provider: Zehra Grady RN) 022 (Paused - Provider: Zehra Grady RN)0223 (Restarted - Provider: Zehra Grady, RN)0316 (Rate/Dose Verify - Provider: Zehra Grady RN)0617 (Stopped - Provider: Zehra Grady RN) PRN Medication Order 08/19/2023 08/20/2023 08/21/2023 acetaminophen (TYLENOL) tablet 650 mg 650 mg, Oral, Every 4 hours PRN, mild pain, headaches, Starting on Sun08/20/23 at 1724, Do not exceed max of 4000 mg acetaminophen in 24 hours. 1905 (AUG Hold - Provider: Transfer Provider, [...] RN) 218 (Given - Provider: Zehra Grady RN)0619 (Given [...] BE BASED ON THE PRIMARY CLINICAL RECORDS. [facility]. provides no warranty or guarantee of the accuracy or completeness of information in this document.
[2024-03-27 10:07] VITALS: BP 105/75; PULSE 64; O2SAT 97
== END 2024-03-27 10:11 | disposition home or self-care (01) ==
LOC: VC 09:22
PROVIDERS: PCP Radiology Diagnostic Radiology; Visit Provider Radiology Diagnostic Radiology
DX: I83.813 Varicose veins of bilateral lower extremities with pain (principal)
CPT/HCPCS: 36466

== ENCOUNTER 2024-04-01 08:45 | Outpatient (OUT) | payer BC, SELFPAY ==
--- NOTE | 2024-04-01 07:41 | VEINCLINIC_ITS ---
Vital Signs 04/01/24 07:42 Height 5 ft 1 in Weight 63 kg BMI 26.2 Varicose Veins Patient in today for follow up ultrasound post microfoam chemical ablation right leg Nixon Greenwood MD personally performed the services described in this documentation, as scribed by Judith Mcmullen RVT, RDMS in my presence and it is both accurate and complete. Judith Greenwood RVT, RDMS, am scribing for, and in the presence of, Dr. Nixon Lazo and in the presence of the patient. thigh: bilateral (symptoms right > left), knee: bilateral, calf: bilateral, an kle: bilateral and estrada: bilateral aching, cramping, dull and tender 6 5 years Worsened in recent months: Yes standing elevating extremities, compression stockings and exercise Reports muscle spasms of leg, heaviness, limb pain, edema and leg edema History of lower extremity trauma: No Superficial thrombophlebitis: No Family history of varicose veins: yes Has patient had previous lower extremity venous surgery: No Patient has previously received the following treatment(s) for lower extremity varicose veins: Reports none Does patient have a history of : yes Does patient intend to have future pregnancies: yes Has patient had lower extremity venous scan with relux testing: No Support hose used: Yes Problems walking or doing physical activity: No How does it affect you: often has to stop and rest and elevate legs Do you walk much: Yes Do you stand much: Yes Review of Systems ROS Narrative Nixon Greenwood MD personally performed the services described in this documentation, as scribed by Judith Mcmullen RVT, RDMS in my presence and it is both accurate and complete. I, Judith Mcmullen RVT, RDMS, am scribing for, and in the presence of, Dr. Nixon Lazo and in the presence of the patient. Status of ROS 10 or more systems reviewed and unremark able except as noted in history and below Cardiovascular Reports: edema Integumentary/Breast Reports: itching, skin swelling and changes in skin color [facility] Medical History (Updated 03/17/24 @ 08:01 by Marilee Bush) Phlebitis and thrombophlebitis of superficial vessels of left lower extremity ?I80.02 - Phlebitis and thrombophlebitis of superficial vessels of left lower extremity (ICD-10) Phlebitis and thrombophlebitis of superficial vessels of right lower extremity ?I80.01 - Phlebitis and thrombophlebitis of superficial vessels of right lower extremity (ICD-10) Superficial thrombophlebitis ?I80.9 - Phlebitis and thrombophlebitis of unspecified site (ICD-10) delivery delivered ?O82 - Encounter for delivery without indication (ICD-10) Varicose veins of bilateral lower extremities with pain ?I83.813 - Varicose veins of bilateral lower extremities with pain (ICD-10) Pain due to varicose veins of both lower extremities ?I83.813 - Varicose veins of bilateral lower extremities with pain (ICD-10) Surgical History (Updated 03/27/24 @ 10:08 by Justo Stallworth) S/P sclerotherapy of varicose veins ?Z98.890 - Other specified postprocedural states (ICD-10) ?Z86.79 - Personal history of other diseases of the circulatory system (ICD- 10) Status post laser ablation of incompetent vein ?Z98.890 - Other specified postprocedural states (ICD-10) Status post laser ablation of incompetent vein ?Z98.890 - Other specified postprocedural states (ICD-10) H/O breast augmentation ?Z98.82 - Breast implant status (ICD-10) History of appendectomy ?Z90.49 - Acquired absence of other specified parts of digestive tract (ICD- 10) H/O hemorrhoidectomy ?Z98.890 - Other specified postprocedural states (ICD-10) Family History (Updated 01/29/24 @ 11:16 by Justo Stallworth) Other Family history of diabetes mellitus Heart disease Varicose veins of bilateral lower extremities with pain Social History (Updated 01/29/24 @ 11:17 by Justo Stallworth) Within the past year, how often did you have a drink containing alcohol: 2-4 times a month Smoking status: Never smoker Non-prescribed substance use: denies use Meds Home Medications and Allergies Home Medications ?Medication ?Instructions ?Recorded ?Confirmed ?Type drospirenone-ethinyl estradiol .ROUTE 01/29/24 History spironolactone .ROUTE 01/29/24 History magnesium 200 mg tablet 200 mg PO DAILY 01/30/24 01/30/24 History Allergies Allergy/AdvReac Type Severity Reaction Status Date / Time No Known Drug Allergies Allergy Verified 01/29/24 11:14 Exam Narrative Exam Narrative: Mild bruising noted proximal/medial thigh has improved. INixon MD personally performed the services described in this documentation, as scribed by Judith Mcmullen RVT, RDMS in my presence and it is both accurate and complete. I, Judith Mcmullen RVT, RDMS, am scribing for, and in the presence of, Dr. Nixon Lazo and in the presence of the patient. 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 Assessment and Plan Assessment and Plan (1) Phlebitis and thrombophlebitis of superficial vessels of right lower extremity: Plan Patient in today for follow up ultrasound of lower extremity following treatment of Varithena/microfoam completed on 03/27/24.
[2024-04-01 07:42] VITALS: BMI 26.2
--- NOTE | 2024-04-01 07:53 | P.DS_ITS ---
Discharge Plan Discharge Disposition: Home, Self-Care Plan of Treatment: The patient is currently done with treatment and will call and return if any problems or symptoms occur. Print Language: Uruguayan Discharge Date/Time: 04/01/24 10:17
--- NOTE | 2024-04-01 08:46 | VEIN_ITS ---
Patient Name: JAY TORRES MR#: [id number] : 1995 Exam Date: 04/01/2024 Ordering Doctor: DR RICHELLE GALVEZ M.D. RADIOLOGY REPORT PROCEDURE: VC EXT VENOUS RT LMTD COMPARISON: VC EXT VENOUS RT LMTD, 03/06/2024. INDICATIONS: I80.01 - Phlebitis and thrombophlebitis of superficial ve... TECHNIQUE: Lower extremity knox scale and Duplex Doppler evaluation of the deep venous system from the inguinal ligament through the calf veins. FINDINGS: REGION: Right lower extremity. THROMBI: Negative for DVT. Varithena induced thrombus visualized at mid/med calf. COMPRESSIBILITY: Non-compressible segments corresponding to thrombus FLOW: Areas of no flow corresponding to thrombus OTHER: No patent varicose veins visualized. CONCLUSION: Post ablation occlusion of treated right leg incompetent varicose veins Dictated by: Nixon Lazo MD on 04/01/2024 at 13:02 Approved by: Nixon Lazo MD on 04/01/2024 at 13:02
--- NOTE | 2024-04-01 08:46 | VEIN_ITS ---
Patient Name: JAY TORRES MR#: [id number] : 1995 Exam Date: 04/01/2024 Ordering Doctor: DR RICHELLE GALVEZ M.D. RADIOLOGY REPORT PROCEDURE: FACILITY EST LMTD [facility] - OFFICE VISIT FOLLOW UP COMPARISON: [facility] EST LMTD, 03/17/2024. [facility] EST LMTD, 03/06/2024. PROGRESS NOTES: The patient reports improvement in leg symptoms. The patient had no problems following micro foam chemical ablation of right leg incompetent varicose veins with the patient has worn compression stocking and tried exercise. The patient require analgesics. Physical exam demonstrates scattered thrombosed varicose veins in the right leg. No patent varicose veins are clearly observed. Some hemosiderin staining is noted along the medial proximal right lower leg, I counseled the patient on wearing sun screen or covering this area to prevent permanent hemosiderin staining. Review of the ultrasound performed the same day demonstrates occlusive thrombus extending throughout the treated right leg varicose veins. No residual varicose veins. At this time the patient's treatments are completed. [facility] EST LMTD IMPRESSION: 1. Successful ablation of treated right leg varicose veins 2. No residual varicose veins. PLAN: Treatment plan complete was asked to return for any new symptoms as necessary Nurse notes, history and physical were reviewed and confirmed, see attached forms. The nurse was present throughout the physical exam and consultation Dictated by: Nixon Lazo MD on 04/01/2024 at 13:03 Approved by: Nixon Lazo MD on 04/01/2024 at 13:05
--- OUTSIDE RECORDS SUMMARY | 2024-04-01 09:00 | XMS_ITS | CCD ---
Author Organization [facility] Care Team Providers Care Product Grader Name Role Phone Bao Rosado Unavailable Unavailable Bao Rosado Unavailable Unavailable America Ely Unavailable America Ely Primary Care Provider [phone] America Ely Primary Care Provider America Ely [...] Gay Arzola Primary Care Pro vider Daiana DEALER SUPPORT TECHNICIAN, Francisco Trinh Primary Care Provider [phone] Daiana DEALER SUPPORT TECHNICIAN, Francisco Trinh Primary Care Provider Daiana SRAVANTHI, Francisco Trinh Unavailable FRANCISCO AHMADI Primary Care Unavailable ELLA CANTU Attending Unavailable ELLA PIMENTEL Attending Unavailabl e DAIANAFRANCISCO Primary Care Unavailable ELLA PIMENTEL Referring Unavailabl e PIMENTELELLA ARELLANO Referring Unavailabl e ELLA PIMENTEL Admitting Unavailabl e FRANCISCO AHMADI Primary Care [...] to adverse reactions 9 Other (See Comments) [facility] Medications Current Medications Medication Drug Class(es) [...] take 1 capsule by mouth once daily [place]-3 Fatty Acids (FISH OIL) 1000 MG Cap [...] on [place]cha 06/30/21 at 0800, flu vacc [id number] 6mos up(PF) (FLUZONE QUAD/FLULAVAL QUAD/FLUARIX QUAD) syringe 0.5 mL (1 source) Start: 06-30-2021 End: 07-01-2021 inject 0.5 mL by intramuscular injection every twenty-four hours as needed flu vacc [id number] 6mos up(PF) (FLUZONE QUAD/FLULAVAL QUAD/FLUARIX QUAD) syringe [...] Test Name Value Interpretation Reference Range Facility [facility] 03-11-2024 AUTO NRBC 0.0 % Normal [facility] Comment on above: Performed By: #### 4 [id number] #### [facility] [address] [place], [place] [address] Abhi Blankenship M.D. [id number] AUTO NRBC ABS COUNT 0.00 K/mcL Normal 0.00-0.00 [facility] Comment on above: Performed By: #### 4 5218 #### [facility] [address] [place], [place] [address] Abhi Blankenship M.D. [id number] Erythrocyte distribution width (RBC) [Ratio] 13.8 % Normal 11.6-14.8 [facility] Comment on above: Performed By: #### 4 5218 #### LAB [address] [place] [address] Abhi Blankenship M.D. [id number] Hematocrit (Bld) [Volume fraction] 43.2 % Normal 36.0-46.0 [facility] Comment on above: Performed By: #### 4 5218 #### LAB [address] [place] [address] Abhi Blankenship M.D. [id number] Hemoglobin (Bld) [Mass/Vol] 14.0 g/dL Normal 12.0-16.0 [facility] Comment on above: Performed By: #### 4 5218 #### LAB [address] [place] [address] Abhi Blankenship M.D. [id number] MCH (RBC) [Entitic mass] 29.8 pg Normal 26.0-34.0 [facility] Comment on above: Performed By: #### 4 [id number] #### LAB [address] [place] [address] Abhi Blankenship M.D. [id number] MCV (RBC) [Entitic vol] 91.9 fL Normal 80.0-100.0 [facility] Comment on above: Performed By: #### 4 [id number] #### LAB [address] [place] [address] Abhi Blankenship M.D. [id number] MEAN CORPUSCULAR HEMOGLOBIN CONC 32.4 g/dL Normal 31.0-37.0 [facility] Comment on above: Performed By: #### 4 [id number] #### LAB [address] [place] [address] Abhi Blankenship M.D. [id number] Platelet mean volume (Bld) [Entitic vol] 10.1 fL Normal 9.4-12.4 [facility] Comment on above: Performed By: #### 4 5218 #### LAB [address] [place] [address] Abhi Blankenship M.D. [id number] Platelets (Bld) [#/Vol] 253 10*3/uL Normal 150-400 [facility] Comment on above: Performed By: #### 4 5218 #### LAB [address] [place] [address] Abhi Blankenship M.D. [id number] RBC (Bld) [#/Vol] 4.70 10*6/uL Normal 4.00-5.20 [facility] Comment on above: Performed By: #### 4 5218 #### LAB [address] [place] [address] Abhi Blankenship M.D. [id number] WBC (Bld) [#/Vol] 7.63 10*3/uL Normal 4.50-11.00 [facility] Comment on above: Performed By: #### 4 [id number] #### LAB [address] [place] [address] Abhi Blankenship M.D. [id number] COMPREHENSIVE METABOLIC PANE [facility] 03-11-2024 Albumin [Mass/Vol] 4.5 g/dL Normal 3.2-5.2 [facility] Comment on above: Order Comment: [facility] has implemented the eGFR calculation approach that does not have a coefficient for race that conforms to the NKF-ASN Task Force Recommendations. Performed By: #### 4 6126 #### LAB [address] [place] [address] Abhi Blankenship M.D. [id number] ALP [Catalytic activity/Vol] 71 U/L Normal 40-140 [facility] Comment on above: Order Comment: [facility] has implemented the eGFR calculation approach that does not have a coefficient for race that conforms to the NKF-ASN Task Force Recommendations. Performed By: #### 4 6126 #### LAB [address] [place] [address] Abhi Blankenship M.D. [id number] ALT [Catalytic activity/Vol] 12 U/L Normal 0-35 U/L [facility] Comment on above: Order Comment: [facility] has implemented the eGFR calculation approach that does not have a coefficient for race that conforms to the NKF-ASN Task Force Recommendations. Performed By: #### 4 6126 #### LAB [address] [place] [address] Abhi Blankenship M.D. [id number] Anion gap [Moles/Vol] 15 mmol/L Normal 10-20 [facility] Comment on above: Order Comment: [facility] has implemented the eGFR calculation approach that does not have a coefficient for race that conforms to the NKF-ASN Task Force Recommendations. Performed By: #### 4 6126 #### LAB [address] [place] [address] Abhi Blankenship M.D. [id number] AST [Catalytic activity/Vol] 21 U/L Normal 0-35 U/L [facility] Comment on above: Order Comment: [facility] has implemented the eGFR calculation approach that does not have a coefficient for race that conforms to the NKF-ASN Task Force Recommendations. Result Comment: Slig htly Hemolyzed Performed By: #### 4 6126 #### LAB [address] [place] [address] Abih Blankenship M.D. [id number] Bilirubin [Mass/Vol] 0.5 mg/dL Normal 0.0-1.3 [facility] Comment on above: Order Comment: [facility] has implemented the eGFR calculation approach that does not have a coefficient for race that conforms to the NKF-ASN Task Force Recommendations. Performed By: #### 4 6126 #### LAB [address] [place] [address] Abhi Blankenship M.D. [id number] Calcium [Mass/Vol] 9.3 mg/dL Normal 8.4-10.2 [facility] Comment on above: Order Comment: [facility] has implemented the eGFR calculation approach that does not have a coefficient for race that conforms to the NKF-ASN Task Force Recommendations. Performed By: #### 4 6126 #### LAB [address] [place] [address] Abhi Blankenship M.D. [id number] Chloride [Moles/Vol] 102 mmol/L Normal 98-108 [facility] Comment on above: Order Comment: [facility] has implemented the eGFR calculation approach that does not have a coefficient for race that conforms to the NKF-ASN Task Force Recommendations. Performed By: #### 4 6126 #### LAB [address] [place] [address] Abhi Blankenship M.D. [id number] Creatinine [Mass/Vol] 0.69 mg/dL Normal 0.40-1.10 [facility] Comment on above: Order Comment: [facility] has implemented the eGFR calculation approach that does not have a coefficient for race that conforms to the NKF-ASN Task Force Recommendations. Performed By: #### 4 6126 #### LAB [address] [place] [address] Abhi Blankenship M.D. [id number] EGFR 119 mL/min/1.73 m2 Normal >=60 [facility] Comment on above: Order Comment: [facility] has implemented the eGFR calculation approach that does not have a coefficient for race that conforms to the NKF-ASN Task Force Recommendations. Result Comment: Idania mated GFR was calculated using the 2020 CKD-EPI creatinine equation. Performed By: #### 4 6126 #### LAB [address] [place] [place] [address] Abhi Blankenship M.D. [id number] Glucose [Mass/Vol] 78 mg/dL Normal 65-99 [facility] Comment on above: Order Comment: [facility] has implemented the eGFR calculation approach that does not have a coefficient for race that conforms to the NKF-ASN Task Force Recommendations. Performed By: #### 4 6126 #### LAB [address] [place] [address] Abhi Blankenship M.D. [id number] HCO3 (Bld) [Moles/Vol] 25 mmol/L Normal 21-32 [facility] Comment on above: Order Comment: [facility] has implemented the eGFR calculation approach that does not have a coefficient for race that conforms to the NKF-ASN Task Force Recommendations. Performed By: #### 4 6126 #### LAB [address] [place] [place] [address] Abhi Blankenship M.D. [id number] Potassium [Moles/Vol] 4.2 mmol/L Normal 3.5-5.1 [facility] Comment on above: Order Comment: [facility] has implemented the eGFR calculation approach that does not have a coefficient for race that conforms to the NKF-ASN Task Force Recommendations. Result Comment: Slig htly Hemolyzed Performed By: #### 4 6126 #### LAB [address] [place] [place] [address] Abhi Blankenship M.D. [id number] Protein [Mass/Vol] 7.1 g/dL Normal 6.0-8.0 [facility] Comment on above: Order Comment: [facility] has implemented the eGFR calculation approach that does not have a coefficient for race that conforms to the NKF-ASN Task Force Recommendations. Performed By: #### 4 6126 #### LAB [address] [place] [place] [address] Abhi Blankenship M.D. [id number] Sodium [Moles/Vol] 138 mmol/L Normal 135-145 [facility] Comment on above: Order Comment: [facility] has implemented the eGFR calculation approach that does not have a coefficient for race that conforms to the NKF-ASN Task Force Recommendations. Performed By: #### 4 6126 #### [facility] [address] [place] [place] [address] Abhi Blankenship M.D. [id number] Urea nitrogen [Mass/Vol] 15 mg/dL Normal 8-25 [facility] Comment on above: Order Comment: [facility] has implemented the eGFR calculation approach that does not have a coefficient for race that conforms to the NKF-ASN Task Force Recommendations. Performed By: #### 4 6126 #### LAB [address] [place] [address] Abhi Blankenship M.D. [id number] Urea nitrogen/Creatinine [Mass ratio] 21.7 mg/mg High 10.0-20.0 [facility] Comment on above: Order Comment: [facility] has implemented the eGFR calculation approach that does not have a coefficient for race that conforms to the NKF-ASN Task Force Recommendations. Performed By: #### 4 6126 #### LAB [address] [place] [address] Abhi Blankenship M.D. [id number] HEMOGLOBIN A1Con 03-11-2024 Glucose [Mass/Vol] 103 mg/dL Normal 74-114 [facility] Comment on above: Performed By: #### 4 8202 #### [facility] [address] [place] [address] Abhi Blankenship M.D. [id number] HbA1c (Bld) [Mass fraction] 5.2 % Normal 4.2-5.6 [facility] Comment on above: Performed By: #### 4 8202 #### [facility] [address] [place] [address] Abhi Blankenship M.D. [id number] LIPID PANELon 03-11-2024 Cholesterol [Mass/Vol] 173 mg/dL Normal 100-199 [facility] Comment on above: Result Comment: Faina onal Cholesterol Education Program Guidelines: Cholesterol Desirable: <200 mg/dL Borderline High: 200-239 mg/dL High: greater than or equal to 240 mg/dL Performed By: #### 4 6087 #### [facility] [address] [place] [address] Abhi Blankenship M.D. [id number] Cholesterol in HDL [Mass/Vol] 67 mg/dL Normal 40-59 [facility] Comment on above: Result Comment: [facility]a onal Cholesterol Education Program Guidelines: HDL Cholesterol Low: <40 mg/dL Near Optimal: 40-59 mg/dL High: greater than or equal to 60 mg/dL Performed By: #### 4 6053 #### [facility] [address] [place] [address] Abhi Blankenship M.D. [id number] Cholesterol.total/Chol esterol in HDL [Mass ratio] 2.6 {ratio} Normal [facility] Comment on above: Result Comment: Tigrea le Cholesterol/HDL Ratio: Average risk: 4.4 1/2 average risk: 3.3 2 x average risk: 7.1 Performed By: #### 4 6087 #### LAB [address] [place] [address] Abhi Blankenship M.D. [id number] LDL CHOLESTEROL CALCULATED 93 mg/dL Normal 10-130 [facility] Comment on above: Result Comment: Faina onal Cholesterol Education Program Guidelines: LDL Cholesterol Optimal: <100 mg/dL Near Optimal/above Optimal: 100-129 mg/dL Borderline High: 130-159 mg/dL High: 160-189 mg/dL Very High: greater than or equal to 190 mg/dL Performed By: #### 4 6087 #### LAB [address] [place] [address] Abhi Blankenship M.D. [id number] NON HDL CHOL 106 mg/dL Normal [facility] Comment on above: Result Comment: Faina onal Cholesterol Education Program Guidelines: NON HDL Cholesterol Desirable: <130 mg/dL Borderline High: 130-159 mg/dL High: 160-189 mg/dL Very High: > or = 190 mg/dL Performed By: #### 4 6087 #### LAB [address] [place] [address] Abhi Blankenship M.D. [id number] Triglyceride [Mass/Vol] 64 mg/dL Normal 30-150 [facility] Comment on above: Result Comment: Faina onal Cholesterol Education Program Guidelines: Triglyceride Normal: <150 mg/dL Borderline High: 150-199 mg/dL High: 200-499 mg/dL Very High: greater than or equal to 500 mg/dL Performed By: #### 4 6087 #### LAB [address] [place], [place] [address] Abhi Blankenship M.D. [id number] TSHon 03-11-2024 TSH Qn 1.66 m[IU]/L Normal 0.27-4.20 [facility] Comment on above: Performed By: #### 4 6613 #### LAB [address] [place], [place] [address] Abhi Blankenship M.D. [id number] VITAMIN D, TOTAL, 25-OHon VITAMIN D 25-HYDROXY 29 ng/mL Normal 20-100 [facility] Comment on above: Order Comment: Vitam in D Expected Values Deficiency: 0-10 Insufficiency: 10-20 Sufficient: 20-100 Toxicity: >100 Performed By: #### 4 6678 #### LAB [address] [place], [place] [address] Abhi Blankenship M.D. [id number] ANTITHROMBIN IIIon ANTITHROMBIN III 98 % Normal 85-130 [facility] Comment on above: Performed By: #### 4 5109 ####[facility] [address] [place] [address] Anderson Cano M.D. [id number] ANTITHROMBIN III ANTIGENon 0 03-10-2024 [facility] ANTITHROMBIN III AG 99 % Normal 80 - 120 [facility] Comment on above: Result Comment: ADDITIONAL INFORMATION This test has been modified from the disability case manager's instructions. Its performance characteristics were determined by [facility] in a manner consistent with CLIA requirements. This test has not been cleared or approved by the U.S. Food and Drug Administration. Test Performed by: [facility] - [address] [address] Supervisor Electrolytic Tinning: Salinas Thrasher Ph.D.; CLIA# [id number] Performed By: #### 4 7709 #### [id number] [place] [address] APTTon 03-10-2024 aPTT Coag (Bld) [Time] 31 s Normal 23-34 [facility] Comment on above: Order Comment: Thera peutic range for APTT's is 68 - 104 seconds Performed By: #### 4 5113 #### LAB [address] [place], [place] [address] Abhi Blankenship M.D. [id number] FIBRINOGENon 03-10-2024 FIBRINOGEN LEVEL 291 mg/dL Normal 224-483 [facility] Comment on above: Performed By: #### 4 5616 #### LAB [address] [place], [place] [address] Abhi Blankenship M.D. [id number] PROTEIN C ACTIVITYon 024 PROTEIN C ACTIVITY 106 % Normal 66-140 [facility] Comment on above: Order Comment: Reyna l, full term infants or healthy premature infants may have decreased levels of Protein C Activity (15-50%), which may not reach adult levels until later in childhood or early adolescence. Performed By: #### 4 6369 #### [facility] [address] [place] [address] Anderson Cano M.D. [id number] PROTEIN C ANTIGENon 03-10-20 24 PROTEIN C ANTIGEN 88 % Normal 60-125 [facility] Comment on above: Order Comment: Reyna l, full-term infants or healthy premature infants may have decreased levels of Protein-C Antigen (15-50%), which may not reach adult levels until later in childhood or early adolescence. Performed By: #### 4 6370 #### [facility] [address] [place] [address] Anderson Cano M.D. [id number] PROTEIN S ACTIVITYon 024 PROTEIN S ACTIVITY 81 % Normal 51-131 [facility] Comment on above: Performed By: #### 4 7630 #### [facility] [address] [place] [address] Anderson Cano M.D. [id number] PROTHROMBIN (F2) MUTATION ([id number])on 03-10-2024 [facility] PROTHROMBIN 12844 MUTATION RESULT Negative Normal Negative [facility] Comment on above: Performed By: #### 4 7167 ####[address] [place] - PTNT INTERPRETATION See Ref Lab Comment [facility] Comment on above: Result Comment: This individual DOES NOT have the Prothrombin F2 c.*97G>A (legacy numbering [id number]) variant. Although the Prothrombin (F2 c.*97G>A) variant [...] developed and its performance characteristics determined by [facility] in a manner consistent with CLIA requirements. This test has not been cleared or approved by the U.S. Food and Drug Administration. Performed By: #### 4 7167 ####[facility] [employer] [address] [place] [address] - PTNT REVIEWED BY SEE BELOW [facility] Comment on above: Result Comment: RESU LT: Abdirahman Hollingsworth M.D., Ph.D. Test Performed by: [place] [address] Supervisor Electrolytic Tinning: Salinas Thrasher Ph.D.; CLIA# [id number] Performed By: #### 4 7167 ####[facility] [address] [place] [address] PT/INRon 03-10-2024 INR Coag (PPP) [Relative time] 1.1 {INR} Normal 0.8-1.1 [facility] Comment on above: Order Comment: Max galo the induction phase of oral anticoagulation, the INR may not reflect the anticoagulation status of the patient. Therapeutic ranges for INR's are: Most clinical situations: INR 2.0-3.0 Mechanical Prosthetic Valve: INR 2.5-3.5 Critical: INR >5.0 Performed By: #### 4 6391 #### LAB [address] [place] [address] Abhi Blankenship M.D. [id number] PT Coag (PPP) [Time] 13.7 s Normal 11.8-14.3 [facility] Comment on above: Order Comment: Max galo the induction phase of oral anticoagulation, the INR may not reflect the anticoagulation status of the patient. Therapeutic ranges for INR's are: Most clinical situations: INR 2.0-3.0 Mechanical Prosthetic Valve: INR 2.5-3.5 Critical: INR >5.0 Performed By: #### 4 6391 #### LAB [address] [place], [place] [address] Abhi Blankenship M.D. [id number] THROMBIN TIMEon 03-10-2024 THROMBIN TIME 17.2 seconds Normal 14.8-18.0 [facility] Comment on above: Performed By: #### 4 6557 #### [facility] [address] [place] [address] Anderson Cano M.D. 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 Procedure Description 09114 Duplex examination using B-mode, color and spectral [...] SunMar 10, 2024 11:46:55 AM EDT Normal [facility] Ultrasound duplex venous leg s bilaton 03-10-2024 Patient Info Name: JAY ANTONIO Age: 29 years : 1995 Gender: Female Exam Date: 03/10/2024 11:03 AM Patient Status: Outpatient Salvage Cutter: Fransisca Russell, GLORIA, RVT Referring Physician: ELLA PIMENTEL ; Indications [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 - - 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 Procedure Description 09313 Duplex examination using B-mode, color and spectral [...] Date: 03/10/2024 11:03 AM Patient Status: Outpatient Salvage Cutter: Fransisca Russell RDMS, RVT Referring Physician: ELLA PIMENTEL ; Indications [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 2 mg/dL [facility] Chloride [Moles/Vol] 110 mmol/L High 98 - 10 8 mmol/L [facility] Creatinine [Mass/Vol] 0.53 mg/dL 0.40 - 1.10 mg/dL [facility] GFR/1.73 sq M.predicted CKD-EPI (S/P/Bld) [Vol rate/Area] 128 - PINF [facility] Comment on above: Estimated GFR was ca lculated using the 2020 CKD-EPI creatinine equation. Glucose [Mass/Vol] 110 mg/dL High 65 - 99 mg/dL [facility] HCO3 [Moles/Vol] 24 mmol/L 21 - 32 mmol/L [facility] Interpretation and review of laboratory results Abnormal [facility] Potassium [Moles/Vol] 4.3 mmol/L 3.5 - 5.1 mmol/L [facility] Sodium [Moles/Vol] 139 mmol/L 135 - 145 mmol/L [facility] Urea nitrogen [Mass/Vol] 11 mg/dL 8 - 25 mg/dL [facility] Urea nitrogen/Creatinine [Mass ratio] 20.8 mg/mg High 10.0 - 20.0 [facility] has implemented the eGFR calculation approach that does not have a coefficient for race that conforms to the NKF-ASN Task Force Recommendations. [facility] CBC panel Auto (Bld)on 08-20 Erythrocyte distribution width (RBC) [Entitic vol] 13.5 % 11.6 - 14.8 % [facility] Hematocrit (Bld) [Volume fraction] 36.6 % 36.0 - 46.0 % [facility] Hemoglobin (Bld) [Mass/Vol] 12.0 g/dL 12.0 - 16.0 g/dL [facility] Interpretation and review of laboratory results Abnormal [facility] MCH (RBC) [Entitic mass] 29.9 pg 26.0 - 34.0 pg [facility] MCHC (RBC) [Mass/Vol] 32.8 g/dL 31.0 - 37.0 g/dL [facility] MCV (RBC) [Entitic vol] 91.3 fL 80.0 - 100.0 fL [facility] Nucleated RBC (Bld) [#/Vol] 0.00 10*3/uL [facility] Nucleated RBC/100 WBC (Bld) [Ratio] 0.0 % [facility] Platelet mean volume (Bld) [Entitic vol] 9.8 fL 9.4 - 12.4 fL [facility] Platelets (Bld) [#/Vol] 208 10*3/uL [facility] RBC (Bld) [#/Vol] 4.01 10*6/uL [facility] ealt WBC (Bld) [#/Vol] 11.08 10*3/uL [facility] CT ABDOMEN PELVIS WITH IV CO [...] Ella Cantu on 08/20/2023 at 1416 hours. /[employer] Workstation ID: [id number] Dictated by: QUAN XIONG on SunAug 20, 2023 2:17:38 PM EST Transcribed by: HANS CALDERON on SunAug 20, 2023 2:21:16 PM EST Finalized by: QUAN XIONG on SunAug 20, 2023 6:07:32 PM EST Normal [facility] Comment on above: Order Comment: Injur [...] vol] 13.6 % 11.6 - 14.8 % [facility] Hematocrit (Bld) [Volume fraction] 32.9 % Low 36.0 - 46.0 % [facility] Hemoglobin (Bld) [Mass/Vol] 11.0 g/dL Low 12.0 - 16.0 g/dL [facility] Interpretation and review of laboratory results Abnormal [facility] MCH (RBC) [Entitic mass] 30.1 pg 26.0 - 34.0 pg [facility] MCHC (RBC) [Mass/Vol] 33.4 g/dL 31.0 - 37.0 g/dL [facility] MCV (RBC) [Entitic vol] 90.1 fL 80.0 - 100.0 fL [facility] Nucleated RBC (Bld) [#/Vol] 0.00 10*3/uL [facility] Nucleated RBC/100 WBC (Bld) [Ratio] 0.0 % [facility] Platelet mean volume (Bld) [Entitic vol] 11.4 fL 9.4 - 12.4 fL [facility] Platelets (Bld) [#/Vol] 162 10*3/uL [facility] RBC (Bld) [#/Vol] 3.65 10*6/uL Low [facility] ealt WBC (Bld) [#/Vol] 18.84 10*3/uL High [facility] ABORH Verificationon 022 ABO and Rh group Nom (Bld) Blood group O Rh(D) positive [facility] ABO and Rh group Nom (Bld) ABO/Rh Verification [facility] Comment on above: Patient's ABO/Rh is verified. [facility] Blood type and Indirect anti body screen panel (Bld)on 06-29-2021 ABO and Rh group Nom (Bld) Blood group O Rh(D) positive [facility] Blood group antibody screen Ql Negative [facility] Specimen Expires 07/02/2021 23:59 EST [facility] CBC panel Auto (Bld)on 06-29 Erythrocyte distribution width (RBC) [Entitic vol] 13.7 % 11.6 - 14.8 % [facility] Hematocrit (Bld) [Volume fraction] 37.8 % 36.0 - 46.0 % [facility] Hemoglobin (Bld) [Mass/Vol] 12.8 g/dL 12.0 - 16.0 g/dL [facility] Interpretation and review of laboratory results Abnormal [facility] MCH (RBC) [Entitic mass] 30.0 pg 26.0 - 34.0 pg [facility] MCHC (RBC) [Mass/Vol] 33.9 g/dL 31.0 - 37.0 g/dL [facility] MCV (RBC) [Entitic vol] 88.5 fL 80.0 - 100.0 fL [facility] Nucleated RBC (Bld) [#/Vol] 0.00 10*3/uL [facility] Nucleated RBC/100 WBC (Bld) [Ratio] 0.0 % [facility] Platelet mean volume (Bld) [Entitic vol] 11.4 fL 9.4 - 12.4 fL [facility] Platelets (Bld) [#/Vol] 170 10*3/uL [facility] RBC (Bld) [#/Vol] 4.27 10*6/uL [facility] ealth WBC (Bld) [#/Vol] 12.72 10*3/uL High [facility] SCAN OTHER ORDERSon 06-29-19 22 Ordered by an unspecified provider. [facility] COVID-19, MOLECULARon 2021 SARS-CoV-2 (COVID-19) RNA ADRIANA+probe Ql (Unsp spec) Not detected Normal Not Detected [facility] Comment on above: Result Comment: This test [...] at the following links: For Healthcare Providers: https://www.fda.gov/media/950807/download For Patients: https://www.fda.gov/media/520128/download Performed By: #### L [id number] #### [facility] [address] [place] [address] Anderson Cano M.D. [id number] Chlamydia/Gonorrhoeae Amplif ied RNAon 06-14-2021 C. trachomatis rRNA ADRIANA+probe Ql (Unsp spec) Negative Negative [facility] N. gonorrhoeae rRNA ADRIANA+probe Ql (Unsp spec) Negative Negative [facility] No Panel Informationon 06-14 [facility] RPRon 06-14-2021 Reagin Ab RPR Ql (S) Non-Reactive Non-Reactive [facility] S. agalactiae DNA ADRIANA+probe Ql (Unsp spec)on 06-14-2021 S. agalactiae Ag Ql (Unsp spec) Negative Negative [facility] NOVEL CORONAVIRUSon 01-29-20 21 PERFORMED BY [facility] Normal [facility] Comment on above: Performed By: #### C COVID #### [place] [address] SARS-CoV-2 (COVID-19) RNA ADRIANA+probe Ql (Unsp spec) Detected Abnormal NOT DETECTED [facility] Comment on above: Result Comment: CALL ED TO AND READ BACK BY Sarah AMATO @1242 BY KLE ENHANCED CONTACT, AND DROPLET ISOLATION IS REQUIRED FOR INPATIENTS WITH SARS-CoV-2. Performed By: #### C COVID #### Testing performed at [place] [id number] NARRATIVE This test was performed using isothermal ADRIANA and has been approved as Emergency Use Authorization (EUA) for the qualitative detection [id number] nucleic acid. Normal [facility] Comment on above: Performed By: #### C COVID #### Testing performed at [place] [id number] Gestational Diabetes Screen (50G)on 01-17-2021 Glucose 1 Hr post 50 g glucose PO [Mass/Vol] 79 mg/dL 65 - 135 mg/dL [facility] Glucose 1 Hr post 50 g gluco se PO [Mass/Vol]on 01-17-2021 [facility] ECHOCARDIOGRAM COMPLETEOrder ed By: Desiree Maddox on 12-29-2020 Aortic valve area 2.78058 cm [facility] AV mean gradient 2.76511 mmHg [facility] AV peak gradient 4.21342 mmHg [facility] EF 65.2664 % [facility] Patient Info Name: JAY ANTONIO Age: 25 years : 1995 Gender: Female Ht: 160 cm Wt: 64 kg BSA: 1.70 m2 HR: 75 bpm BP: 106 / 69 mmHg Heart Rhythm: Sinus Rhythm Technical Quality: Good Exam Date: 12/29/2020 9:19 AM Patient Status: Outpatient Truck Farmer: Addie Luna, KATHLEEN, RVT Exam Type: ECHOCARDIOGRAM COMPLETE Study Info Indications R00.2 - Palpitations Referring Physician: DESIREE MADDOX ; [id number] BMI: 25.15 kg/m2 Summary 1. Normal transthoracic [...] mmHg MV VTI 27 cm MV Decel Real 838 cm/s2 MV PHT 33 ms MV Area (PHT) 6.7 cm2 4.0-5.0 MV Area (Cont Eq VTI) 2.7 cm2 MV Area Index (Cont Eq VTI) 1.57 cm2/m2 MV Diastolic Function - (more content not included)... [facility] Interface, Rad In HeartGMEXer Echopacs - 12/29/2020 10:35 AM EDT Patient Info Name: JAY ANTONIO Age: 25 years : 1995 Gender: Female Ht: 160 cm Wt: 64 kg BSA: 1.70 m2 HR: 75 bpm BP: 106 / 69 mmHg Heart Rhythm: Sinus Rhythm Technical Quality: Good Exam Date: 12/29/2020 9:19 AM Patient Status: Outpatient Truck Farmer: Addie Luna RDCS, RVT Exam Type: ECHOCARDIOGRAM COMPLETE Study Info Indications R00.2 - Palpitations Referring Physician: DESIREE MADDOX ; [id number] BMI: 25.15 kg/m2 Summary 1. Normal transthoracic [...] mmHg MV VTI 27 cm MV Decel Real 838 cm/s2 MV PHT 33 ms MV [...] Valve Name Va (more content not included)... [facility] ABO/RH(D)on 12-15-2020 ABO/RH(D) ABO/RH(D) O POSITIVE Testing performed at [address] Comment on above: Performed By: #### A BRH #### [place] [address] ANTIBODY SCREENon 12-15-2020 Antibody screen ANTIBODY SCREEN NEGATIVE WORKUP EXPIRES 12/18/2020,2359 Testing performed at [address] Comment on above: Performed By: #### R ESCRN #### [place] [address] Blood type and Indirect anti body screen panel (Bld)Ordered By: Katlin Prieto on 12-15-2020 ABO and Rh group Nom (Bld) O [facility] Rh Type + [facility] FAX REQUESTon 12-15-2020 FAX TO [phone] AND [phone] [facility] Comment on above: Result Comment: Test ing performed at [place] [address] Performed By: #### F X #### [place] [address] FAX TO [phone] AND [phone] [facility] Comment on above: Result Comment: Test ing performed at [place], [place] [address] Performed By: #### F X #### Testing performed at [address] [address] HIV 1/2 Screen (4th Generati on)on 12-15-2020 HIV 1+2 Ab+HIV1 p24 Ag IA Ql Negative Negative [facility] Hepatitis B Surface Antigeno n 12-15-2020 HBV surface Ag Ql (S) Negative Negative [facility] Hepatitis C Antibodyon 12-15 HCV Ab Ql (S) Negative Negative [facility] No Panel InformationOrdered By: Katlin Prieto on 12-15-2020 [facility] Rubella Antibody, IgGon 11-18 Rubella virus IgG Ql (S) [facility] T. pallidum IgG Ql (S)on T. pallidum Ab Ql (S) Negative Negative [facility] ECG 12-LEADOrdered By: Desiree Maddox on 11-22-2020 Atrial Rate [facility] P Adkins [facility] P-R Interval [facility] Q-T Interval [facility] Q-T Interval (corrected) [facility] QRS Duration [facility] QTC Calculation (Bezet) [facility] R Adkins [facility] T Adkins [facility] SARS-COV-2,NAAon 07-23-2020 SARS-CoV-2 (COVID-19) RNA ADRIANA+probe Ql (Unsp spec) Not detected Normal [facility] Comment on above: Result Comment: Refe rence range: Not Detected (NOTE) This nucleic acid amplification test was developed and its performance characteristics determined by [employer]. Nucleic acid amplification tests include RT-PCR and [...] 02-11-2019 Non-Invasive Vascular Patient: PACO THOMPSON R [facility] Rec#: [id number] (Age): 1995(23y) Study Date: 02/11/2019 Room#: Type: Sex: F Reading: JOSE Reading: Hannah Pollard DO, RPVI Referring: ATUL NEVES Truck Farmer: Caryn Winkler Procedure Info: [id number] Study Quality: Lower Venous Reflux: Adequate Diagnosis: [...] 02/11/2019 16:38:58 by: Hannah Pollard DO, RPVI [facility] Interface, Rad In Heart[facility] - 02/11/2019 5:21 PM EDT Non-Invasive Vascular Patient: PACO Hernandez [facility] Rec#: [id number] (Age): 1995(23y) Study Date: 02/11/2019 Room#: Type: Sex: F Reading: JOSE Reading: Hannah Pollard DO, RPVI Referring: ATUL NEVES Truck Farmer: Caryn Winkler Procedure Info: [id number] Study Quality: Lower Venous Reflux: Adequate Diagnosis: [...] 16:38:58 by: Hannah Pollard DO, JOSE ANTONIO [facility] POCT URINALYSIS DIPSTICK NON AUTOMATEDon 05-24-2018 Amorphous sediment LM Ql (Urine sed) Invalid Interpretation Code [facility] Work Phone: Appearance Nom (Body fld) clear Invalid Interpretation Code [facility] Work Phone: Bacteria LM Ql (Urine sed) Invalid Interpretation Code [facility] Work Phone: Bilirubin Ql (U) Negative Invalid Interpretation Code [facility] Work Phone: Casts LM.LPF #/area (Urine sed) Invalid Interpretation Code [facility] Work Phone: Color Nom (U) yellow Invalid Interpretation Code [facility] Work Phone: Crystals LM Nom (Urine sed) Invalid Interpretation Code [facility] Work Phone: Epithelial cells.squamous LM.HPF #/area (Urine sed) Invalid Interpretation Code [facility] Work Phone: Flow cytometry specialist review Interp Alfonzo (Unsp spec) Invalid Interpretation Code [facility] Work Phone: Interpretation and review of laboratory results Abnormal Invalid Interpretation Code [facility] Work Phone: Ketones mass conc Negative Invalid Interpretation Code mg/dL [facility] Work Phone: Leukocyte esterase Qn (U) Invalid Interpretation Code [facility] Work Phone: Leukocyte esterase Test strip Ql (U) Negative Invalid Interpretation Code [facility] Work Phone: Nitrite Ql (U) Negative Invalid Interpretation Code [facility] Work Phone: pH (U) 7.5 Abnormal [facility] Work Phone: POCT GLUCOSE, URINE Negative Invalid Interpretation Code mg/dL [facility] Work Phone: Protein Ql (U) Negative Invalid Interpretation Code mg/dL [facility] Work Phone: RBC LM.HPF #/area (Urine sed) Invalid Interpretation Code [facility] Work Phone: RBC Ql (U) Negative Invalid Interpretation Code [facility] Work Phone: Specific gravity Relative Density (U) 1.010 Invalid Interpretation Code [facility] Work Phone: Transitional cells LM Ql (Urine sed) Invalid Interpretation Code [facility] Work Phone: Urobilinogen mass conc (U) Negative Invalid Interpretation Code [facility] Work Phone: WBC LM.HPF #/area (Urine sed) Invalid Interpretation Code [facility] Work Phone: POCT URINALYSIS DIPSTICK NON AUTOMATEDon 05-10-2018 Amorphous sediment LM Ql (Urine sed) Invalid Interpretation Code [facility] Work Phone: Appearance Nom (Body fld) clear Invalid Interpretation Code [facility] Work Phone: Bacteria LM Ql (Urine sed) Invalid Interpretation Code [facility] Work Phone: Bilirubin Ql (U) Negative Invalid Interpretation Code [facility] Work Phone: Casts LM.LPF #/area (Urine sed) Invalid Interpretation Code [facility] Work Phone: Color Nom (U) yellow Invalid Interpretation Code [facility] Work Phone: Crystals LM Nom (Urine sed) Invalid Interpretation Code [facility] Work Phone: Epithelial cells.squamous LM.HPF #/area (Urine sed) Invalid Interpretation Code [facility] Work Phone: Flow cytometry specialist review Interp Alfonzo (Unsp spec) Invalid Interpretation Code [facility] Work Phone: Ketones mass conc Negative Invalid Interpretation Code mg/dL [facility] Work Phone: Leukocyte esterase Qn (U) Invalid Interpretation Code [facility] Work Phone: Leukocyte esterase Test strip Ql (U) Negative Invalid Interpretation Code [facility] Work Phone: Nitrite Ql (U) Negative Invalid Interpretation Code [facility] Work Phone: pH (U) 6.5 Invalid Interpretation Code [facility] Work Phone: POCT GLUCOSE, URINE Negative Invalid Interpretation Code mg/dL [facility] Work Phone: Protein Ql (U) Negative Invalid Interpretation Code mg/dL [facility] Work Phone: RBC LM.HPF #/area (Urine sed) Invalid Interpretation Code [facility] Work Phone: RBC Ql (U) trace Invalid Interpretation Code [facility] Work Phone: Specific gravity Relative Density (U) 1.010 Invalid Interpretation Code [facility] Work Phone: Transitional cells LM Ql (Urine sed) Invalid Interpretation Code [facility] Work Phone: Urobilinogen mass conc (U) 0.2 Invalid Interpretation Code [facility] Work Phone: WBC LM.HPF #/area (Urine sed) Invalid Interpretation Code [facility] Work Phone: Vital Signs Date Time Vital Sign Value Performing Clinician Facility 03-10-2024 09:51-0400 Body height 154.9 cm Ella Pimentel MD Work Phone: [facility] 03-10-2024 09:51-0400 Body mass index (BMI) [Ratio] 26.47 kg/m2 Ella Pimentel MD Work Phone: [facility] 03-10-2024 09:51-0400 Body temperature 98.29 [degF] Ella Pimentel MD Work Phone: [facility] 03-10-2024 09:51-0400 Body weight 63.55 kg Ella Pimentel MD Work Phone: [facility] 03-10-2024 09:51-0400 Diastolic blood pressure 78 mm[Hg] Ella Pimentel MD Work Phone: [facility] 03-10-2024 09:51-0400 Heart rate 80 /min Ella Pimentel MD Work Phone: [facility] 03-10-2024 09:51-0400 SaO2% (BldA) [Mass fraction] 98 % Ella Pimentel MD Work Phone: [facility] 03-10-2024 09:51-0400 Systolic blood pressure 115 mm[Hg] Ella Pimentel MD Work Phone: [facility] 09-07-2023 09:10-0400 Body height 157.5 cm Raudel Jordan MD Work Phone: [facility] 09-07-2023 09:10-0400 Body mass index (BMI) [Ratio] 24.75 kg/m2 Raudel Jordan MD Work Phone: [facility] 09-07-2023 09:10-0400 Body weight 61.37 kg Raudel Jordan MD Work Phone: [facility] 09-07-2023 09:10-0400 Diastolic blood pressure 83 mm[Hg] Raudel Jordan MD Work Phone: [facility] 09-07-2023 09:10-0400 Heart rate 65 /min Raudel Jordan MD Work Phone: [facility] 09-07-2023 09:10-0400 SaO2% (BldA) [Mass fraction] 99 % Raudel Jordan MD Work Phone: [facility] 09-07-2023 09:10-0400 Systolic blood pressure 116 mm[Hg] Raudel Jordan MD Work Phone: [facility] 08-21-2023 08:05-0500 Respiratory rate 16 /min Raudel Jordan MD Work Phone: [facility] 08-21-2023 08:04-0500 Body temperature 97.3 [degF] Raudel Jordan MD Work Phone: [facility] 08-21-2023 08:04-0500 Diastolic blood pressure 67 mm[Hg] Raudel Jordan MD Work Phone: [facility] 08-21-2023 08:04-0500 Heart rate 55 /min Raudel Jordan MD Work Phone: [facility] 08-21-2023 08:04-0500 SaO2% (BldA) [Mass fraction] 100 % Raudel Jordan MD Work Phone: [facility] 08-21-2023 08:04-0500 Systolic blood pressure 92 mm[Hg] Raudel Jordan MD Work Phone: [facility] 08-20-2023 21:25-0500 Body height 157.5 cm Raudel Jordan MD Work Phone: [facility] 08-20-2023 21:25-0500 Body mass index (BMI) [Ratio] 25.61 kg/m2 Raudel Jordan MD Work Phone: [facility] 08-20-2023 21:25-0500 Body weight 63.5 kg Raudel Jordan MD Work Phone: [facility] 03-12-2023 08:48-0400 Body height 157.5 cm 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 DEALER SUPPORT TECHNICIAN Work Phone: [facility] 03-12-2023 08:48-0400 Body mass index (BMI) [Ratio] 25.04 kg/m2 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 DEALER SUPPORT TECHNICIAN Work Phone: [facility] 03-12-2023 08:48-0400 Body weight 62.1 kg 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 DEALER SUPPORT TECHNICIAN Work Phone: [facility] 03-12-2023 08:48-0400 Diastolic blood pressure 80 mm[Hg] 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 DEALER SUPPORT TECHNICIAN Work Phone: [facility] 03-12-2023 08:48-0400 Systolic blood pressure 115 mm[Hg] Francisco Trinh Ivy DEALER SUPPORT TECHNICIAN Work Phone: [facility] 11-22-2022 15:26-0400 Body height 157.5 cm Gay Narayan MD Work Phone: [facility] 11-22-2022 15:26-0400 Body mass index (BMI) [Ratio] 25.61 kg/m2 Gay Narayan MD Work Phone: [facility] 11-22-2022 15:26-0400 Body temperature 99.7 [degF] Gay Narayan MD Work Phone: [facility] 11-22-2022 15:26-0400 Body weight 63.5 kg Gay Narayan MD Work Phone: [facility] 11-22-2022 15:26-0400 Diastolic blood pressure 70 mm[Hg] Gay Narayan MD Work Phone: [facility] 11-22-2022 15:26-0400 Heart rate 72 /min Gay Narayan MD Work Phone: [facility] 11-22-2022 15:26-0400 SaO2% (BldA) [Mass fraction] 97 % Gay Narayan MD Work Phone: [facility] 11-22-2022 15:26-0400 Systolic blood pressure 111 mm[Hg] Gay Narayan MD Work Phone: [facility] 11-21-2021 08:40-0400 Body height 157.5 cm Gay Narayan MD Work Phone: [facility] 11-21-2021 08:40-0400 Body mass index (BMI) [Ratio] 26.7 kg/m2 Gay Narayan MD Work Phone: [facility] 11-21-2021 08:40-0400 Body temperature 98.2 [degF] Gay Narayan MD Work Phone: [facility] 11-21-2021 08:40-0400 Body weight 66.22 kg Gay Narayan MD Work Phone: [facility] 11-21-2021 08:40-0400 Diastolic blood pressure 72 mm[Hg] Gay Narayan MD Work Phone: [facility] 11-21-2021 08:40-0400 Heart rate 72 /min Gay Narayan MD Work Phone: [facility] 11-21-2021 08:40-0400 Respiratory rate 16 /min Gay Narayan MD Work Phone: [facility] 11-21-2021 08:40-0400 SaO2% (BldA) [Mass fraction] 98 % Gay Narayan MD Work Phone: [facility] 11-21-2021 08:40-0400 Systolic blood pressure 106 mm[Hg] Gay Narayan MD Work Phone: [facility] 07-01-2021 07:50-0500 Body temperature 98.2 [degF] Yohan Reyna MD Work Phone: [facility] 07-01-2021 07:50-0500 Diastolic blood pressure 68 mm[Hg] Yohan Reyna MD Work Phone: [facility] 07-01-2021 07:50-0500 Heart rate 70 /min Yohan Reyna MD Work Phone: [facility] 07-01-2021 07:50-0500 Respiratory rate 14 /min Yohan Reyna MD Work Phone: [facility] 07-01-2021 07:50-0500 SaO2% (BldA) [Mass fraction] 98 % Yohan Reyna MD Work Phone: [facility] 07-01-2021 07:50-0500 Systolic blood pressure 101 mm[Hg] Yohan Reyna MD Work Phone: [facility] 06-29-2021 07:31-0500 Body height 157.5 cm Yohan Reyna MD Work Phone: [facility] 06-29-2021 07:31-0500 Body mass index (BMI) [Ratio] 30.18 kg/m2 Yohan Reyna MD Work Phone: [facility] 06-29-2021 07:31-0500 Body weight 74.84 kg Yohan Reyna MD Work Phone: [facility] 11-22-2020 13:04-0400 Body height 160 cm Desiree Maddox MD Work Phone: [facility] 11-22-2020 13:04-0400 Body mass index (BMI) [Ratio] 25.28 kg/m2 Desiree Maddox MD Work Phone: [facility] 11-22-2020 13:04-0400 Body temperature 98.8 [degF] Desiree Maddox MD Work Phone: [facility] 11-22-2020 13:04-0400 Body weight 64.73 kg Desiree Maddox MD Work Phone: [facility] 11-22-2020 13:04-0400 Diastolic blood pressure 69 mm[Hg] Desiree Maddox MD Work Phone: [facility] 11-22-2020 13:04-0400 Heart rate 93 /min Desiree Maddox MD Work Phone: [facility] 11-22-2020 13:04-0400 Respiratory rate 16 /min Desiree Maddox MD Work Phone: [facility] 11-22-2020 13:04-0400 SaO2% (BldA) [Mass fraction] 99 % Desiree Maddox MD Work Phone: [facility] 11-22-2020 13:04-0400 Systolic blood pressure 106 mm[Hg] Desiree Maddox MD Work Phone: [facility] 01-20-2019 14:39-0400 BP Diastolic 74 mm[Hg] Hannah Pollard [facility] 01-20-2019 14:39-0400 BP Systolic 109 mm[Hg] Hannah Pollard [facility] 01-20-2019 14:38-0400 BMI (Body Mass Index) 24.37 kg/m2 [facility] 01-20-2019 14:38-0400 Body weight 58.51 kg Hannah Pollard [facility] 01-20-2019 14:38-0400 Height 154.9 cm Hannah Pollard [facility] 01-20-2019 14:38-0400 Pulse (Heart Rate) 67 /min Hannah [facility] 05-24-2018 10:27-0500 BMI (Body Mass Index) 24.83 kg/m2 [facility] Work Phone: 05-24-2018 10:27-0500 BP Diastolic 64 mm[Hg] [facility] Work Phone: 05-24-2018 10:27-0500 BP Systolic 110 mm[Hg] [facility] Work Phone: 05-24-2018 10:27-0500 Height 154.9 cm [facility] Work Phone: 05-24-2018 10:27-0500 Pulse (Heart Rate) 62 /min [facility] Work Phone: 05-24-2018 10:27-0500 Pulse Oximetry 99 % [facility] Work Phone: 05-24-2018 10:27-0500 Weight 59.6 kg [facility] Work Phone: 05-10-2018 09:33-0500 BMI (Body Mass Index) 25.51 kg/m2 [facility] Work Phone: 05-10-2018 09:33-0500 BP Diastolic 82 mm[Hg] [facility] Work Phone: 05-10-2018 09:33-0500 BP Systolic 123 mm[Hg] Lisha Duenas [facility] Work Phone: 05-10-2018 09:33-0500 Height 154.9 cm Lisha Duenas [facility] Work Phone: 05-10-2018 09:33-0500 Pulse (Heart Rate) 61 /min Lisha Duenas [facility] Work Phone: 05-10-2018 09:33-0500 Weight 61.24 kg Lishabecky Duenas [facility] Work Phone: Encounters Encounter Date Encounter Type Care Provider Facility Start: 03-21-2024 ambulatory FRANCISCO BROWN [facility] Start: 03-11-2024 End: [facility]: 03-11-[facility]24 End: 03-11-2024 Encounter for general adult medical examination without abnormal [facility] Start: 03-10-2024 End: 03-14-2024 ambulatory ELLA PIMENTEL [facility] Start: 03-10-2024 End: 03-10-2024 Office outpatient new 43 minutes Ella Pimentel MD Work Phone: [facility] Comment on above: Thrombosis (Primary Dx) Start: 03-10-2024 End: 03-10-2024 [facility] Start: 02-04-2024 End: 02-04-2024 Transcribe Orders Elly Brady MA [facility] Comment on above: Deep vein thrombosis (DVT) of other vein of lower extremity, unspecified chronicity, unspecified laterality (HCC) (Primary Dx) Start: 02-01-2024 ambulatory FRANCISCO BROWN [facility] Ambulatory Start: 09-07-2023 End: 09-07-2023 Postop follow up visit related to original px Raudel Jordan MD Work Phone: [facility] Comment on above: Postoperative follow -up (Primary Dx) Start: 09-07-2023 End: 09-07-2023 ambulatory FRANCISCO BROWN [facility] Ambulatory Start: 08-20-2023 End: 08-21-2023 Emergency department patient visit Raudel Jordan MD Work Phone: [facility] Start: 08-20-2023 End: 08-21-2023 [facility] Start: 08-20-2023 End: 08-20-2023 Emergency department patient visit FRANCISCO BROWN [facility] Start: 03-12-2023 End: 03-12-2023 Office outpatient visit 25 minutes 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 [facility] Work Phone: [facility] Comment on above: Encounter to [facility] (Primary Dx); Varicose veins of left lower extremity with pain; Seasonal allergies Start: 11-22-2022 End: 11-22-2022 Initial preventive medicine new pt age 18-39yrs Gay Narayan MD Work Phone: [facility] Comment on above: Annual physical exam (Primary Dx) Start: 11-22-2022 End: 11-22-2022 Patient encounter procedure Gay Narayan MD Work Phone: [facility] Work Phone: Start: 11-21-2021 End: 11-21-2021 Initial preventive medicine new pt age 18-39yrs Gay Narayan MD Work Phone: [facility] Comment on above: Annual physical exam Start: 11-21-2021 End: 11-21-2021 Patient encounter procedure Gay Narayan MD Work Phone: [facility] Start: 06-29-2021 End: 07-01-2021 Evaluation and management of inpatient Yohan Reyna MD Work Phone: [facility] Obstetric[facility] Start: 06-25-2021 End: 06-25-2021 ambulatory DESIREE MADDOX [facility] Start: 05-18-2021 Patient encounter status Edward lubin LPN [facility] Clinical Contact [facility] Start: 05-18-2021 Transcribe Orders Edward Jone SIMS [facility] Clinical Contact Center Comment on above: Encounter for prepro cedure screening laboratory testing for COVID-19 (Primary Dx) Start: 12-29-2020 End: 12-29-2020 Subsequent hospital visit by physician Desiree Maddox MD Work Phone: [facility] Comment on above: Arrived Start: 11-22-2020 End: 11-22-2020 Initial preventive medicine new pt age 18-39yrs Desiree Maddox MD Work Phone: [facility] Phys[facility] Comment on above: Annual physical exam (Primary Dx); Seasonal allergies; Family history of hypertrophic cardiomyopathy; Heart palpitations Start: 11-22-2020 End: 11-22-2020 Patient encounter procedure Desiree Maddox MD Work Phone: [facility] Start: 11-19-2020 End: 11-19-2020 Chart abstracting Veena Weber MA [facility] Start: 02-11-2019 End: 02-11-2019 Subsequent hospital visit by physician Hannah Pollard Work Phone: [facility] Comment on above: Varicose veins of le ft lower extremity with pain Start: 01-20-2019 End: 01-20-2019 Office outpatient new 30 minutes America Ely Work Phone: [facility] Comment on above: Varicose veins of le ft lower extremity with pain Start: 05-24-2018 End: 05-24-2018 Office outpatient new 30 minutes Marcela Borja Work Phone: [facility] Urology Comment on above: Recurrent UTI (Prima ry Dx); Urinary frequency; Suprapubic pain; Interstitial cystitis Start: 05-13-2018 End: 05-13-2018 Patient encounter procedure Lisha Duenas Work Phone: [facility] [employer] OFFICER Comment on above: Appointment Start: 05-10-2018 End: 05-10-2018 Office outpatient visit 15 minutes Lisha Duenas Work Phone: [facility] [employer] OFFICER Comment on above: Dysuria (Primary Dx) ; Hematuria, unspecified type; Frequency of micturition Start: 05-03-2018 End: 05-03-2018 Patient encounter America Ely Work Phone: [facility] Medicine Comment on above: Results Start: 02-18-2017 End: 02-18-2017 Emergency department patient visit Bao Rosado Facility:[place] Procedures Date Procedure Procedure Detail Performing Clinician Start: 08-21-2023 Basic metabolic pane l calcium total Jim Yohan Reillyadeline DEALER SUPPORT TECHNICIAN Work Phone: Start: 08-20-2023 End: 08-20-2023 APPENDECTOMY [...] Start: 04-14-2031 Tetanus vaccination Tetanus: Every 10yrs [facility] Start: 04-14-2024 End: 04-14-2024 Patient encounter procedure 04/14/2024 10:45 AM EDT Office Visit [facility] [address] [place] [address] Ella Pimentel MD [address] [place] [address] [facility] Start: 03-11-2024 End: 03-11-2024 Patient encounter procedure 03/11/2024 9:40 AM EDT Office Visit [facility] [address] [place] [phone] 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, DEALER SUPPORT TECHNICIAN [address] [place] [address] [facility] Start: 02-17-2024 COVID-19 Vaccine () COVID-19 Vaccine () [facility] Start: 02-17-2024 Influenza vaccination Influenza Vaccine (#1) [facility] Start: 01-09-2024 History and physical examination, annual for health maintenance Wellness Visit [facility] Start: 11-26-2023 End: 11-26-2023 Patient encounter procedure 11/26/2023 9:00 AM EDT Office Visit [facility] [address] [place] [phone] 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, DEALER SUPPORT TECHNICIAN [address] [place] [address] [facility] Start: 11-23-2023 Depression screening using PHQ-9 (Patient Health Questionnaire 9) score [facility] Start: 11-23-2023 History and physical examination, annual for health maintenance Wellness Visit [facility] Start: 02-16-2023 COVID-19 Vaccine () COVID-19 Vaccine () [facility] Start: 02-16-2023 Influenza vaccination [facility] Start: 2023 Screening for malignant neoplasm of cervix [facility] Start: 11-22-2022 End: 11-22-2022 Patient encounter procedure 11/22/2022 Office Visit Primary Care Gay Davies MD [address] [place] [id number] [facility] Start: 11-21-2022 Depression screening using PHQ-9 (Patient Health Questionnaire 9) score Depression Screening (PHQ-2/9) [facility] Start: 11-21-2022 History and physical examination, annual for health maintenance Wellness Visit [facility] Start: 03-19-2022 COVID-19 Vaccine (3 - Booster for Moderna series) COVID-19 Vaccine (3 - Booster for Moderna series) [facility] Start: 02-16-2022 Influenza vaccination Sequential Influenza Vaccine (Season Ended) [facility] Start: 12-12-2021 COVID-19 Vaccine (3 - Booster for Moderna series) COVID-19 Vaccine (3 - Booster for Moderna series) [facility] Start: 12-12-2021 COVID-19 Vaccine (3 - Moderna series) COVID-19 Vaccine (3 - Moderna series) [facility] Start: 11-22-2021 Depression screening using PHQ-9 (Patient Health Questionnaire 9) score [facility] Start: 11-22-2021 History and physical examination, annual for health maintenance Wellness Visit [facility] Start: 02-16-2021 Influenza vaccination [facility] Start: 11-22-2020 End: 11-22-2021 Complete blood count with white cell differential, manual CBC and Differential Lab Routine Heart palpitations Expected: 11/22/2020, Expires: 11/22/2021 [facility] Comment on above: Expected: 11/22/2020, Expires: Start: 11-22-2020 End: 11-22-2021 Thyrotropin [Units/volume] in Serum or Plasma TSH with Reflex Free T4 Lab Routine Heart palpitations Expected: 11/22/2020 (Approximate), Expires: 11/22/2021 [facility] Comment on above: Expected: 11/22/2020 (Approximate), Expi res: 11/22/2021 Start: 11-22-2020 End: 11-22-2020 Patient encounter procedure 11/22/2020 Office Visit Primary Care Desiree Maddox MD [address] [place] [address] [phone] [facility] Start: 06-21-2020 Screening for malignant neoplasm of cervix Pap Smear [facility] Start: 04-24-2019 End: 04-24-2019 Office Visit 04/24/2019 Office Visit Cardiology Hannah Pollard III, DO [address] [place] [address] [phone] [facility] Start: 02-16-2019 Influenza vaccination given SEQUENTIAL INFLUENZA VACCINE (#1) [facility] Start: 02-11-2019 End: 02-11-2019 Appointment 02/11/2019 Appointment Cardiology Hannah Pollard III, DO [address] [place] [address] [phone] [facility] Start: 08-22-2018 End: 08-22-2018 Ambulatory 08/22/2018 Office Visit Urology Marcela Borja, DEALER SUPPORT TECHNICIAN [address] [place] [address] [phone] [facility] Start: 06-06-2018 End: 06-06-2018 Ambulatory 06/06/2018 Office Visit [employer] OFF[employer]ER Lisha Duenas DO [address] [place] [address] [phone] [facility] [employer]LE HEARING OFFICER Start: 06-03-2018 End: 06-03-2018 Ambulatory 06/03/2018 Office Visit Gastroenterology Rain Denney MD [address] [facility] [address] [place] [address] Division of Gastroenterology and Hepatology [place] Start: 05-24-2018 End: 05-24-2019 Diagnostic radiography of abdomen XR ABDOMEN 1 VIEW Routine Suprapubic pain Expected: 05/24/2018, Expires: 05/24/2019 [facility] Work Phone: Comment on above: Expected: 05/24/2018, Expires: 9 Start: 05-24-2018 End: 05-24-2018 Ambulatory [facility] [employer]ARING OFFICER Comment on above: Arrived Start: 05-13-2018 End: 05-13-2018 Ambulatory 05/13/2018 Office Visit [employer] OFFICER Lisha Dueans DO [address] [place] [address] [phone] [facility] [employer]LE HEARING OFFICER Start: 02-16-2018 Influenza vaccination INFLUENZA VACCINE (#1) [facility] Work Phone: Start: 2014 Screening for malignant neoplasm of cervix PAP SMEAR DISCUSSION [facility] Work Phone: Start: 02-15-2012 Third diphtheria, tetanus and acellular pertussis (DTaP) vaccination TDAP (ADULT) [facility] Work Phone: Start: 2011 GONORRHEA SCREEN GONORRHEA SCREEN [facility] Work Phone: Start: 2011 Hepatitis C screening Hepatitis C Screening [facility] Start: 2011 Tetanus vaccination TETANUS [facility] Work Phone: Start: 2009 Screening for Chlamydia trachomatis CHLAMYDIA SCREEN [facility] Work Phone: Start: 02-15-2008 HIV screening HIV Screening [facility] Start: 02-15-2008 Vaccination for human papillomavirus HPV VACCINES (1 - Female 3-dose series) [facility] Start: 2006 HIV screening HIV SCREENING DISCUSSION [facility] Work Phone: Start: 2005 COVID-19 Vaccine (1) COVID-19 Vaccine (1) [facility] Start: 2005 Depression screening using PHQ-9 (Patient Health Questionnaire 9) score Depression Screening (PHQ9) [facility] Start: 02-15-2004 Vaccination for human papillomavirus HPV VACCINE ADOL (1 - Female 3-dose series) [facility] Work Phone: Start: 1998 COVID-19 Vaccine (1) COVID-19 Vaccine (1) [facility] Start: 02-15-1996 History and physical examination, annual for health maintenance Wellness Visit [facility] Start: 1993 Screening for malignant neoplasm of cervix PAP SMEAR [facility] Start: 1993 Tetanus vaccination [facility] End: 03-10-2025 Antithrombin actual/normal in Platelet poor plasma by Chromogenic method Antithrombin III Lab Routine Thrombosis 1 Occurrences starting 03/10/2024 until 03/10/2025 [facility] Work Phone: Comment on above: 1 Occurrences starting 03/10/2024 until 03/10/2025 Antithrombin actual/normal in Platelet poor plasma by Chromogenic method Antithrombin III Lab Routine Thrombosis 03/10/2024 11:35 AM EDT [facility] End: 03-10-2025 Antithrombin III antigen Antithrombin III antigen Lab Routine Thrombosis 1 Occurrences starting 03/10/2024 until 03/10/2025 [facility] Comment on above: 1 Occurrences starting 03/10/2024 until 03/10/2025 Antithrombin III antigen Antithr ombin III antigen Lab Routine Thrombosis 03/10/2024 11:35 AM EDT [facility] End: 03-10-2025 aPTT in Blood by Coagulation assay APTT Lab Routine Thrombosis 1 Occurrences starting 03/10/2024 until 03/10/2025 [facility] Comment on above: 1 Occurrences starting 03/10/2024 until 03/10/2025 aPTT in Blood by Coagulation assay APTT Lab Routine Thrombosis 03/10/2024 11:35 AM EDT [facility] Bacteria identified Cx Nom (U) URINE CULTURE Routine Hematuria, unspecified type 05/10/2018 10:12 AM [facility] Work Phone: Complete blood count with white cell differential, manual CBC and Differential Lab Routine Heart palpitations 11/22/2020 2:43 PM EDT [facility] End: 11-23-2023 Complete blood count with white cell differential, manual CBC and Differential Lab Routine Annual physical exam 1 Occurrences starting 11/22/2022 until 11/23/2023 [facility] Work Phone: Comment on above: 1 Occurrences starting 11/22/2022 until 11/23/2023 End: 11-22-2021 Comprehensive metabolic 2000 panel - Serum or Plasma Comprehensive Metabolic Panel Lab Routine Heart palpitations 1 Occurrences starting 11/22/2020 until 11/22/2021 [facility] Comment on above: 1 Occurrences starting 11/22/2020 until 11/22/2021 Comprehensive metabo lic 2000 panel - Serum or Plasma Comprehensive Metabolic Panel Lab Routine Heart palpitations 11/22/2020 2:43 PM EDT [facility] End: 11-23-2023 Comprehensive metabolic 2000 panel - Serum or Plasma Comprehensive Metabolic Panel Lab Routine Annual physical exam 1 Occurrences starting 11/22/2022 until 11/23/2023 [facility] Comment on above: 1 Occurrences starting 11/22/2022 until 11/23/2023 Diagnostic radiograp hy of abdomen XR ABDOMEN 1 VIEW Routine Suprapubic pain 05/24/2018 11:27 AM EST [facility] Work Phone: End: 01-22-2022 Echocardiography Echocardiogram complete Echocardiography Routine Family history of hypertrophic cardiomyopathy Heart palpitations 1 Occurrences starting 11/22/2020 until 01/22/2022 [facility] Comment on above: 1 Occurrences starting 11/22/2020 until 01/22/2022 End: 03-10-2025 Factor II (prothrombin) [id number] mutation detection Prothrombin gene mutation Lab Routine Thrombosis 1 Occurrences starting 03/10/2024 until 03/10/2025 [facility] Comment on above: 1 Occurrences starting 03/10/2024 until 03/10/2025 Factor II (prothromb in) [id number] mutation detection Prothrombin gene mutation Lab Routine Thrombosis 03/10/2024 11:35 AM EDT [facility] End: 03-10-2025 Fibrinogen [Mass/volume] in Platelet poor plasma by Coagulation assay Fibrinogen Lab Routine Thrombosis 1 Occurrences starting 03/10/2024 until 03/10/2025 [facility] Comment on above: 1 Occurrences starting 03/10/2024 until 03/10/2025 Fibrinogen [Mass/vol ume] in Platelet poor plasma by Coagulation assay Fibrinogen Lab Routine Thrombosis 03/10/2024 11:35 AM EDT [facility] End: 11-23-2023 Hemoglobin A1c/Hemoglobin.total in Blood Hemoglobin A1c Lab Routine Annual physical exam 1 Occurrences starting 11/22/2022 until 11/23/2023 [facility] Comment on above: 1 Occurrences starting 11/22/2022 until 11/23/2023 End: 03-10-2025 INR in Platelet poor plasma by Coagulation assay Protime-INR Lab Routine Thrombosis 1 Occurrences starting 03/10/2024 until 03/10/2025 [facility] Comment on above: 1 Occurrences starting 03/10/2024 until 03/10/2025 INR in Platelet poor plasma by Coagulation assay Protime-INR Lab Routine Thrombosis 03/10/2024 11:35 AM EDT [facility] End: 11-23-2023 Lipid 1996 panel - Serum or Plasma Lipid Panel Lab Routine Annual physical exam 1 Occurrences starting 11/22/2022 until 11/23/2023 [facility] Comment on above: 1 Occurrences starting 11/22/2022 until 11/23/2023 Procedure on tissue specimen [facility] Work Phone: Comment on above: Release Upon Ordering for 1 Occurrences starting 08/20/2023, 1 completed End: 03-10-2025 Protein C actual/normal in Platelet poor plasma by Coagulation assay Protein C activity Lab Routine Thrombosis 1 Occurrences starting 03/10/2024 until 03/10/2025 [facility] Comment on above: 1 Occurrences starting 03/10/2024 until 03/10/2025 Protein C actual/nor mal in Platelet poor plasma by Coagulation assay Protein C activity Lab Routine Thrombosis 03/10/2024 11:35 AM EDT [facility] End: 03-10-2025 Protein C Ag actual/normal in Platelet poor plasma by Immunoassay Protein C antigen, total Lab Routine Thrombosis 1 Occurrences starting 03/10/2024 until 03/10/2025 [facility] Comment on above: 1 Occurrences starting 03/10/2024 until 03/10/2025 Protein C Ag actual/normal in Platelet poor plasma by Immunoassay Protein C antigen, total Lab Routine Thrombosis 03/10/2024 11:35 AM EDT [facility] End: 03-10-2025 Protein S actual/normal in Platelet poor plasma by Coagulation assay Protein S activity Lab Routine Thrombosis 1 Occurrences starting 03/10/2024 until 03/10/2025 [facility] Comment on above: 1 Occurrences starting 03/10/2024 until 03/10/2025 Protein S actual/nor mal in Platelet poor plasma by Coagulation assay Protein S activity Lab Routine Thrombosis 03/10/2024 11:35 AM EDT [facility] End: 05-18-2022 SARS-CoV-2 (COVID-19) RdRp gene [Presence] in Respiratory specimen by ADRIANA with probe detection COVID-19, Molecular Microbiology Routine Encounter for preprocedure screening laboratory testing for COVID-19 1 Occurrences starting 05/18/2021 until 05/18/2022 [facility] Work Phone: Comment on above: 1 Occurrences starting 05/18/2021 until 05/18/2022 End: 03-10-2025 Thrombin time Thrombin time Lab Routine Thrombosis 1 Occurrences starting 03/10/2024 until 03/10/2025 [facility] Comment on above: 1 Occurrences starting 03/10/2024 until 03/10/2025 Thrombin time Thrombin time La b Routine Thrombosis 03/10/2024 11:35 AM EDT [facility] Thyrotropin [Units/volume] in Serum or Plasma TSH with Reflex Free T4 Lab Routine Heart palpitations 11/22/2020 2:43 PM EDT [facility] End: 03-22-2020 Ultrasound venous insufficiency left leg Ultrasound venous insufficiency left leg Vascular Ultrasound Routine Varicose veins of left lower extremity with pain 1 Occurrences starting 01/20/2019 until 03/22/2020 [facility] Comment on above: 1 Occurrences starting 01/20/2019 until 03/22/2020 Immunizations Immunization Date Immunization Notes Care Provider Fa cility 10-17-2021 Moderna SARS-CoV-2 Vaccination Gay Narayan MD Work Phone: [facility] 08-24-2021 Moderna SARS-CoV-2 Vaccination Gay Narayan MD Work Phone: [facility] 07-27-2021 influenza, injectabl e, quadrivalent, preservative free Gay Narayan MD Work Phone: [facility] 07-27-2021 influenza virus vacc ine, unspecified formulation Elly Brady MA [facility] 06-29-2021 varicella zoster imm une globulin Yohan Reyna MD Work Phone: [facility] 06-29-2021 diphtheria, tetanus toxoids and acellular pertussis vaccine, unspecified formulation Yohan Reyna MD Work Phone: [facility] 06-29-2021 measles, mumps and r ubella virus vaccine Yohan Reyna MD Work Phone: [facility] 04-14-2021 tetanus toxoid, redu anni diphtheria toxoid, and acellular pertussis vaccine, adsorbed Gay Narayan MD Work Phone: [facility] 02-01-2006 tetanus toxoid, redu anni diphtheria toxoid, and acellular pertussis vaccine, adsorbed Gay Narayan MD Work Phone: [facility] 02-01-2006 varicella virus vaccine Josee Narayan MD Work Phone: [facility] 12-17-1997 diphtheria, tetanus toxoids and acellular pertussis vaccine, unspecified formulation Gay Narayan MD Work Phone: [facility] 12-17-1997 measles, mumps and r ubella virus vaccine Gay Narayan MD Work Phone: [facility] 12-17-1997 trivalent poliovirus vaccine, live, oral Gay Narayan MD Work Phone: [facility] 05-09-1994 diphtheria, tetanus toxoids and acellular pertussis vaccine, unspecified formulation Gay Narayan MD Work Phone: [facility] 05-09-1994 haemophilus influenz ae type b vaccine, conjugate unspecified formulation Gay Narayan MD Work Phone: [facility] 05-09-1994 measles, mumps and r ubella virus vaccine Gay Narayan MD Work Phone: [facility] 1993 diphtheria, tetanus toxoids and pertussis vaccine Gay Narayan MD Work Phone: [facility] 1993 haemophilus influenz ae type b vaccine, conjugate unspecified formulation Gay Narayan MD Work Phone: [facility] 1993 hepatitis B vaccine, pediatric or pediatric/adolescent dosage Gay Narayan MD Work Phone: [facility] 1993 trivalent poliovirus vaccine, live, oral Gay Narayan MD Work Phone: [facility] 1993 diphtheria, tetanus toxoids and pertussis vaccine Gay Narayan MD Work Phone: [facility] 1993 haemophilus influenz ae type b vaccine, conjugate unspecified formulation Gay Narayan MD Work Phone: [facility] 1993 trivalent poliovirus vaccine, live, oral Gay Narayan MD Work Phone: [facility] 1993 diphtheria, tetanus toxoids and pertussis vaccine Gay Narayan MD Work Phone: [facility] 1993 haemophilus influenz ae type b vaccine, conjugate unspecified formulation Gay Narayan MD Work Phone: [facility] 1993 hepatitis B vaccine, pediatric or pediatric/adolescent dosage Gay Narayan MD Work Phone: [facility] 1993 trivalent poliovirus vaccine, live, oral Gay Narayan MD Work Phone: [facility] 1993 hepatitis B vaccine, pediatric or pediatric/adolescent dosage Gay Narayan MD Work Phone: [facility] Payers Date Payer Category Payer Unknown [id number] 2022 Private Health Insurance [id number] 2020 Private Health Insurance [id number] 2020 Private Health Insurance AETKERA MAJANO AETNA [id number] 2020-Present [address] [place] [address] [id number] 2020 Unknown [id number] [id number]. [id number] 2020 Unknown [id number] 2020 Unknown [id number] 2017 Unknown [facility] xxxxxxxxx 2017-Present xxxxxxxxx [id number] 2017 Unknown [id number] 1993 Unknown [id number] [id number]. 2.900 1993 Unknown [id number] 2.16.840.1.072692.3.579. 2.902 1993 Unknown [id number] 2.16.840.1.214127.3.579. 2.903 1993 Unknown [id number] 2.16.840.1.860895.3.579. 2.903 1993 Unknown [id number] 2.16.840.1.333820.3.579. 2.903 1993 Unknown [id number] 2.16.840.1.928736.3.579. 2.90 1993 Unknown [id number] 2.16.840.1.116066.3.579. 2.90 1993 Unknown [id number] 2..840.1.801187.3.579. 2.90 1993 Unknown [id number] 2.16.840.1.573805.3.579. 2.90 1993 Unknown [id number]. 2.903 Private Health Insurance [id number] Social History Date Type Detail Facility Start: 04-26-2018 End: 11-21-2021 Tobacco smoking status NHIS Never smoker [facility] Work Phone: Start: 1995 Sex Assigned At Not on file [facility] Work Phone: Start: 01-20-2019 Alcohol Comment occ [facility] Start: 01-20-2019 End: 11-19-2020 Alcohol intake Current drinker of alcohol (finding) [facility] Start: 11-19-2020 End: 11-21-2021 Tobacco use and exposure Never used [facility] Start: 11-22-2020 End: 03-10-2024 Alcohol intake Ex-drinker (finding) [facility] Start: 11-22-2020 Alcohol Comment [facility] Start: 11-11-2021 End: 11-21-2021 Exposure to SARS-CoV-2 (event) Not sure [facility] Start: 10-11-2020 [facility] Start: 11-21-2021 End: 08-20-2023 Cigarette pack-years [facility] Start: 11-21-2021 History SDOH Social Connections Get Together 3 [facility] Start: 11-21-2021 History SDOH Financial 5 [facility] Start: 11-21-2021 History SDOH Food Worry 1 [facility] Start: 11-21-2021 History SDOH Transport Med 2 [facility] Start: 03-06-2022 End: 08-20-2023 Humiliation, Afraid, Rape, and Kick questionnaire [HARK] [facility] Within the last year , have you been afraid of your partner or ex-partner? No [facility] Are you now , , , , never or living with a partner? [facility] How often to you hav e a drink containing alcohol? 2-4 times a month [facility] How many standard dr inks containing alcohol do you have on a typical day? 3 or 4 [facility] How often do you hav e 6 or more drinks on 1 occasion? Never [facility] How hard is it for y ou to pay for the very basics like food, housing, medical care, and heating Not very hard [facility] Adult Depression Screening Assessment 0 [facility] Do you feel stress - tense, restless, nervous, or anxious, or unable to sleep at night because your mind is troubled all the time - these days [OSQ] Not at all [facility] (I/We) worried wheth er (my/our) food would run out before (I/we) got money to buy more. Never true [facility] Start: 11-19-2020 Gender identity Identifies as female gender (finding) [facility] Start: 11-19-2020 Sexual orientation Heterosexual (finding) [facility] Clinical Notes 11-22-2020 to 03-11-2024 Ella [...] history that includes Hemorrhoidectomy (10/02/2017); Refractive surgery; [place] tooth extraction; Hemorrhoidectomy; Colonoscopy; Section (N/A, 06/29/2021); [...] AUTHENTICATED BY FRANCISCO AHMADI, ON 03/11/2024 11:55:59 [facility] 03-11-2024 Note 11/22/2020 1:00 PM 11/21/2021 8:00 [...] AUTHENTICATED BY FRANCISCO AHMADI, ON 03/11/2024 11:55:59 [facility] 03-10-2024 Note Hematology/Oncology Clinic Note Chief Complaint/Diagnosis: 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 Smoking status: Never Smokeless tobacco: [...] days Stress: No Stress Concern Present (03/06/2022) [employer] [place] [employer] - Occupational Stress Questionnaire Feeling of Stress : Not at all Social Connections: Moderately Integrated (03/06/2022) Social Connection and Isolation Panel [NHANES] Frequency of Communication with Friends and Family: Three times a week Frequency of Social Gatherings with Friends and Family: Twice a week Attends Mu-Ism Services: 1 to 4 times per year Active Member of Clubs or Organizations: No Attends Club or Organization Meetings: Never Marital Status: Housing Stability: Low Risk (08/20/2023) Housing Stability Vital Sign Unable to Pay for Housing in the Last Year: No Number of Places Lived in the Last (more content not included)... 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 Procedures was VC external venous reflux [...] ELLA PIMENTEL MD documented in this encounter [facility] 09-07-2023 History of Present illness Narrative [facility] PATIENT: Jay Antonio DATE / TIME: 09/07/23 [...] Follow-up as needed documented in this encounter [facility] 08-21-2023 Note Formatting of this n ote might be different from the original. Seen by Amlin to home. present. Reviewed discharge medications and follow up appointments as well as lifting restrictions. Patient received community resources. Transported to vehicle via wheelchair for discharge to home. [facility] 08-21-2023 Miscellaneous Notes Seen by Amlin to home. present. Reviewed discharge medications and [...] with localized peritonitis Surgeon: Raudel Jordan MD Grapple Operator: Noemi Voss who was present for the entire case and provided critical assistance with the technical aspects of the operation. Procedure and Anesthesia: Procedure(s) and Anesthesia Type: * APPENDECTOMY LAPAROSCOPIC - General CPT Code: 22121 EBL 2 ml Complications:None Drains: None Dispo: [...] of the MDM. documented in this encounter [facility] 08-21-2023 Hospital course Narrative DISCHARGE SUMMARY Patient: Jay Antonio Date of : 1995 Site: [facility] Provider: 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 CNP Admit Date: 08/20/2023 [...] Ahmadi CNP, Address: [address] [facility] [address] Follow Up: 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 CNP [address] [facility] [address] Raudel Jordan MD [address] [place] [id number] Follow up in 1 week(s) Additional Information: [...] 08/21/23, 8:12 AM documented in this encounter [facility] 08-21-2023 Hospital Discharge instructions Lauren Duong [...] at least 10 days. Call the Outpatient Trauma/[facility] office [phone] for advice (Sunday-Sunday, 8am to 4pm) or proceed to the nearest Emergency Department if: You feel weak, lightheaded, or dizzy when you sit up or stand. Develop fever, chills, nausea, or vomiting You have increased abdominal or chest pain Your skin is pale, cool and/or clammy You have a rapid increase in your heart rate while resting. documented in this encounter [facility] 08-21-2023 Note Formatting of this n [...] of comfort function goal Outcome: Partially Met [facility] 08-20-2023 Note Formatting of this n ote might be different from the original. Problem: Actual or potential alteration in health Goal: Knowledge of Interdisciplinary Plan of Care Outcome: Partially Met Plan of care to be reviewed with pt by R.NTico on a daily basis. Problem: Pain Goal: Manage acute pain Outcome: Partially Met Pt has prn pain medication. [facility] 08-20-2023 Note Formatting of this n ote might be different from the original. Pt arrived to the floor accompanied by PACU staff. Pt was oriented to room and call light. Post op vital signs started. [facility] 08-20-2023 Note Formatting of this n ote might be different from the original. Pre-operative Diagnosis: * Acute appendicitis with localized peritonitis Post-operative Diagnosis: * Acute appendicitis with localized peritonitis Surgeon: Raudel Jordan MD Grapple Operator: Noemi Voss who was present for the entire case and provided critical assistance with the technical aspects of the operation. Procedure and Anesthesia: Procedure(s) and Anesthesia Type: * APPENDECTOMY LAPAROSCOPIC - General CPT Code: 18311 EBL 2 ml Complications:None Drains: None Dispo: [...] to the recovery room in stable condition. [facility] Work Phone: 08-20-2023 Note Formatting of this [...] encounter, including all aspects of the MDM. [facility] Work Phone: 08-20-2023 Physician Emergency department Note [facility] NOTE: NAME: Jay Antonio CSN: [id number] 28 y.o. PCP: 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 CNP History: Chief Complaint: Abdominal Pain HPI: The history was obtained from the patient. Jay is a 28 y.o. female who presents with a chief complaint of Abdominal Pain. Patient comes emergency room referred from [facility] ER for evaluation of appendicitis. 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 Smoking status: Never Smokeless tobacco: [...] days Stress: No Stress Concern Present (03/06/2022) [employer] [place] [employer] - Occupational Stress Questionnaire Feeling of Stress : Not at all Social Connections: Moderately Integrated (03/06/2022) Social Connection and Isolation Panel [NHANES] Frequency of Communication with Friends and Family: Three times a week Frequency of Social Gatherings with Friends and Family: Twice a week Attends Mu-Ism Services: 1 to 4 times per year [...] Comment Attending Provider or Group: RAUDEL JORDAN [[id number]] Phone call required?: Yes Ke Stockton Jr., PA-C, PA-C ED Advanced Practice Provider [facility] Ke Stockton Jr., PA-C 08/20/23 1826 [facility] 08-20-2023 Emergency department Note [facility] NOTE: NAME: Jay Antonio CSN: [id number] 28 y.o. PCP: 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 CNP History: Chief Complaint: Abdominal Pain HPI: The history was obtained from the patient. Jay is a 28 y.o. female who presents with a chief complaint of Abdominal Pain. Patient comes emergency room referred from [facility] ER for evaluation of appendicitis. 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 Smoking status: Never Smokeless tobacco: [...] days Stress: No Stress Concern Present (03/06/2022) [employer] [place] [employer] - Occupational Stress Questionnaire Feeling of Stress : Not at all Social Connections: Moderately Integrated (03/06/2022) Social Connection and Isolation Panel [NHANES] Frequency of Communication with Friends and Family: Three times a week Frequency of Social Gatherings with Friends and Family: Twice a week Attends Mu-Ism Services: 1 to 4 times per year [...] Comment Attending Provider or Group: RAUDEL JORDAN [[id number]] Phone call required?: Yes Ke Stockton Jr., PA-C, PA-C ED Advanced Practice Provider [facility] Ke Stockton Jr., PA-C 08/20/23 1826 Report called. Bed: 46 Expected date: Expected time: Means of arrival: Comments: TR 1 Patient a transfer from [facility] needing to be evaluated for possible appendicitis. documented in this encounter [facility] 08-20-2023 Emergency department Note Report called. [facility] 08-20-2023 Emergency department Note Bed: 46 Expected date: Expected time: Means of arrival: Comments: TR 1 [facility] 08-20-2023 Emergency department Triage note Patient a transfer from [facility] needing to be evaluated for possible appendicitis. [facility] 03-12-2023 History of Present illness Narrative [...] history that includes Hemorrhoidectomy (10/02/2017); Refractive surgery; [place] tooth extraction; Hemorrhoidectomy; Colonoscopy; Section (N/A, 06/29/2021); [...] seen at a varicose vein clinic in [place] so she can be evaluated for newer treatment. Seasonal allergies Well controlled with OTC medication Follow up in one year or as needed documented in this encounter [facility] 11-22-2022 Evaluation + Plan note Associated [...] DEXA: Not yet indicated Routine labs ordered [facility] 11-22-2022 Miscellaneous Notes Associated Problem(s): Annual physical exam Healthcare Maintenance: Vaccines: -Influenza vaccine: Season ended -COVID-19 vaccine: Fully vaccinated 10/2020, pending Moderna bivalent booster at local pharmacy, not available in office today -Tdap: Up-to-date 03/2021 -Shingrix: Not yet indicated Hepatitis C: neg 11/2020 HIV: neg 11/2020 Pap smear: Self-reported up-to-date (normal) around 2 year ago, will obtain records from [facility] Mammogram: Not yet indicated Colonoscopy: Not yet indicated Lung cancer screening: Never smoker, not yet indicated DEXA: Not yet indicated Routine labs ordered documented in this encounter [facility] 11-22-2022 History of Present illness Narrative [facility] [address] [facility] [address] [place] [address] HPI: Jay Antonio is a 27 y.o. year old female seen in the office today for her annual physical. Denies any complaints today. Sees Dr. Reyna at [facility] for her female wellness. Reports last Pap [...] directions given. Results will be available through [employer] as soon as they are reported. Please [...] look into their status. Customer Service/Billing Questions: [phone] [employer] Assistance: [phone] or [phone] Financial Assistance: [phone] or [phone] Follow Up Ordered: Return in about 1 year (around 11/23/2023) for Annual physical. Gay Narayan MD documented in this encounter [facility] 11-21-2021 Evaluation + Plan note Associated [...] not yet indicated DEXA: Not yet indicated [facility] 11-21-2021 Miscellaneous Notes Associated Problem(s): Annual [...] Not yet indicated documented in this encounter [facility] 11-21-2021 History of Present illness Narrative [facility] [address] [facility] [address] [place] [address] HPI: Jay Antonio is a 26 y.o. [...] directions given. Results will be available through [employer] as soon as they are reported. Please [...] look into their status. Customer Service/Billing Questions: [phone] [facility] Assistance: [phone] or [phone] Financial Assistance: [phone] or [phone] Follow Up Ordered: Return in about 1 year (around 11/21/2022). Gay Narayan MD documented in this encounter [facility] 07-01-2021 Miscellaneous Notes Discharge home ambulatory [...] stooling. Encourage follow up weight check with currency counter in 1-2 days. Appointment was made by [...] stimulate supply. Mother has made appointment with [facility] currency counter for infant follow up. Plan is to [...] 361 mL Total 361 mL Jihan Antonio [[id number]] Delivery Anesthesia Method: Spinal Operative Delivery Forceps attempted?: No Vacuum extractor attempted?: No [place] Presentation Presentation: Vertex Position: Middle _: Transverse Information date/time: 06/29/21 1032 Gender: Male Delivery type: , Low Transverse Delivery location: OB Unit Provider Present: Routine Initial disposition: Routine NB Care Details: Trial of labor?: No categorization: Primary priority: Scheduled Indications for : Other (Add Comments) Skin incision type: Pfannenstiel Delivery Providers Delivering clinician: Yohan Reyna MD Other personnel: Provider Role Covering Attending Resident Cook Fishing Vessel Mariely Banerjee RN Delivery Nurse Cristin Vargas RN Registered Nurse Caryn Jean Baptiste RN Delivery Assist Nurse Practitioner Carmen Collins RN Registered Nurse Joe Rivera MD Lofter Cord Vessels: 3 vessels Complications: None Delayed cord clamping?: Yes Cord clamped date/time: 06/29/2021 1033 Cord blood obtained?: Yes Cord segment obtained?: No Gases sent?: No Stem cell collection (by Provider)?: No Placenta Date/time: 06/29/2021 1034 Removal: Manual removal Appearance: Intact Disposition: Refrigerator [place] Apgars No data filed [place] Measurements Weight: 7 lb 6.9 oz (3370 g) Length: 19 Head Circumference: 13.189 Lacerations No data filed Other Procedures Procedures: None Brief Post Operative Note Patient Name: Jay Antonio : 1995 (26 y.o.) Date of Service: 06/29/2021 CSN: [id number] Procedure(s): SECTION Pre-Operative Diagnoses: * Anorectal disorder [K62.9] Post-Operative Diagnoses: * Anorectal disorder [K62.9] Surgeon(s) and Role: * Yohan Reyna MD - Primary SOLE POLISHER: Morgan Gomez CRNA Agent Telegrapher: Mariely Banerjee RN Scrub Person: ST Dillan Scrub Person Preceptor: Bhumika Whittington RN Scrub Person Assist: Ana Maria Collins RN Lofter: Joe Rivera MD Nursery Nurse: Caryn Jean [...] ovaries SURGEON: Yohan Reyna MD OR STAFF: Agent Telegrapher: Mariely Banerjee RN Scrub Person: ST Dillan Scrub Person Preceptor: Bhumika Whittington RN Scrub Person Assist: Ana Maria Collins RN Lofter: Joe Rivera MD Nursery Nurse: Caryn Jean Baptiste RN ANESTHESIA STAFF: SOLE POLISHER: Morgan Gomez CRNA SPECIMEN(S): * No specimens [...] correct times three. documented in this encounter [facility] 07-01-2021 History of Present illness Narrative [...] the patient's : Paco, Baby Varghese Thompson [[id number]] Feeding Type: Breast milk,Formula Objective: Vital signs [...] Information for the patient's : Jihan Antonio [[id number]] Feeding Type: Breast milk Objective: Vital signs [...] Negative Nicola's sign. documented in this encounter [facility] 07-01-2021 Hospital Discharge instructions Angeline Ball [...] the office. 10. Please call the office ([phone]) for your six weeks' checkup appointment time. [...] any questions or problems, call the office. [phone] or [phone]. Please Note: Unless there are medical complications, maternity leave will be authorized for 6 weeks. documented in this encounter [facility] 06-30-2021 Hospital course Narrative DISCHARGE SUMMARY Patient: Jay Antonio Date of : 1995 Site: [facility] Family Provider: Desiree Maddox MD [...] by mouth daily . Physician(s) Family Provider: Dseiree Maddox MD, Address: [address] [place] [id number] Follow Up: Yohan Reyna MD [address] [place] [id number] Schedule an appointment as soon as possible for a visit in 6 week(s) Additional Information: Patient instructions, including activity, were given to the patient/family at discharge. Please see the After Visit Summary in the electronic medical record for details. 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 2. [...] done. Pt [facility] on Sunday. documented in this encounter [facility] Evaluation note Diagnosis Annual physical exam- Primary Routine general medical examination at a health care facility Seasonal allergies Allergic rhinitis, cause unspecified Family history of hypertrophic cardiomyopathy Heart palpitations Palpitations [facility] Family history of hypertrophic cardiomyopathy Heart palpitations Palpitations [facility] Diagnosis Encounter for preprocedure screening laboratory testing for COVID-19- Primary [facility] Diagnosis 39 weeks gestation of - Primary Post-operative pain Other acute postoperative pain [facility] Diagnosis Annual physical exam Routine general medical examination at a health care facility [facility] Diagnosis Annual physical exam- Primary [...] of unspecified site documented in this encounter [facility] Purpose Family History No Family History Records FoundNo Family History Records FoundNo Family History Records FoundNo Family History Records FoundNo Family History Records FoundNo Family History Records FoundNo Family History Records Found Advance Directives No Advanced Directives Records FoundDocuments on File Type Date Recorded Patient Braid Cutter Expl anation Advance Directives and Livin g Will 01/20/2019 2:17 PM Documents on File Type Date Recorded Patient Braid Cutter Expl anation Advance Directives and Livin g Will 02/11/2019 2:49 PM Documents on File Type Date Recorded Patient Braid Cutter Expl anation Advance Directives and Livin g Will 02/11/2019 2:49 PM Documents on File Type Date Recorded Patient Braid Cutter Expl anation Advance Directives and Livin g Will Advance Directives and Livin g Will 12/29/2020 9:12 AM Documents on File Type Date Recorded Patient Braid Cutter Expl anation Advance Directives and Livin g Will Advance Directives and Livin g Will 04/09/2021 10:13 AM Latest Code Status on File Code Status Date Activated Date Inactivated Comments Full Code 04/09/2021 10:16 AM 04/09/2021 4:01 PM Documents on File Type Date Recorded Patient Braid Cutter Expl anation Advance Directives and Livin g [...] Urology Diagnoses Dysuria Lisha Duenas, DO [address] [id number] [facility] [address] [place] [address] Status Reason Specialty Diagnoses / Procedures Referred By Contact Referred To Contact Pending Review Cardiology Diagnoses Varicose veins of left lower extremity with pain Procedures Ultrasound venous insufficiency left leg Hannah Pollard III, DO [address] [place] [address] Status Reason Specialty Diagnoses / Procedures Referred By Contact Referred To Contact New Request Cardiology Diagnoses Family history of hypertrophic cardiomyopathy Heart palpitations Procedures Echocardiogram complete Desiree Maddox MD [address] [place] [address] Status Reason Specialty Diagnoses / Procedures Referre d By Contact Referred To Contact Closed Cardiology Diagnoses Family history of hypertrophic cardiomyopathy Heart palpitations Procedures Echocardiogram complete Desiree Maddox MD [address] [id number] [facility] [facility] [address] [facility] [place] [address] Specialty Diagnoses / Procedures Referred By Contac t Referred To Contact Cardiology Diagnoses Thrombosis Procedures Ultrasound duplex venous legs Ella Solares MD [address] [place] [address] Referral ID Status Reason Start Date Expiration Date Visits Re quested Visits Authorized [id number] Closed 03/11/2024 03/11/2025 1 1 History of [...] discussed getting an ultrasound to rule out 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 [...] section and content) DATE CREATED AUTHOR 12/12/2017 [facility] DATE CREATED AUTHOR AUTHOR'S ORGANIZ ATION 12/17/2020 [facility] DATE CREATED AUTHOR AUTHOR'S ORGANIZ ATION 01/30/2021 [facility] DATE CREATED AUTHOR AUTHOR'S ORGANIZ ATION 06/26/2021 [facility] DATE CREATED AUTHOR AUTHOR'S ORGANIZ ATION 08/26/2023 [facility] DATE CREATED AUTHOR AUTHOR'S ORGANIZ ATION 03/17/2024 [facility] DATE CREATED AUTHOR AUTHOR'S ORGANIZ ATION 03/23/2024 [facility] Reason for Visit (unrecogniz ed section and content) Reason Comments Results Reason Comments Urinary Pain Patient states she h as been having the pain 2 times a month. Reason Comments Appointment Reason Comments New Patient Dysuria Status Reason Specialty Diagnoses / Procedures Referred By Contact Referred To Contact New Request Urology Diagnoses Dysuria Lisha Duenas, DO [address] [place] [address] Zan Otero MD [address] [place] [address] Reason Comments PT Initial Evaluation VV Status Reason Specialty Diagnoses / Procedures Referred By Contact Referred To Contact Pending Review Cardiology Diagnoses Varicose veins of left lower extremity with pain America Ely, DEALER SUPPORT TECHNICIAN [address] [id number] Hannah Pollard III, DO [address] [id number] Status Reason Specialty Diagnoses / Procedures Referred By Contact Referred To Contact Pending Review Cardiology Diagnoses Varicose veins of left lower extremity with pain Procedures Ultrasound venous insufficiency left leg Hannah Pollard III, DO [address] [id number] Reason Comments Establish Care would like order for ECHO and MRI Status Reason Specialty Diagnoses / Procedures Referre d By Contact Referred To Contact Closed Cardiology Diagnoses Family history of hypertrophic cardiomyopathy Heart palpitations Procedures Echocardiogram complete Desiree Maddox MD [address] [place] [address] [place] [address] Reason Comments Scheduled Primary C Section Specialty Diagnoses / Procedures Referred By Contac t Referred To Contact Diagnoses 39 weeks gestation of Referral ID Status Reason Start Date Expiration Date Visits Re quested Visits Authorized [id number] 1 1 Reason Comments Establish Care [id number] Reason Comments Establish Care Reason Comments Abdominal Pain Specialty Diagnoses / Procedures Referred By Contac t Referred To Contact Diagnoses Acute appendicitis Acute appendicitis, unspecified acute appendicitis type Acute appendicitis Referral ID Status Reason Start Date Expiration Date Visits Re quested Visits Authorized [id number] 1 1 Reason Comments Post-op Care Teams (unrecognized sec tion and content) Product Grader Relationship Specialty Start Date End Date Desiree Maddox MD [address] [place] [address] PCP - General Family Medicine 11/22/20 SubYohan maya MD [address] [place] [address] Consulting Physician Obstetrics/Gynecology 05/18/21 Product Grader Relationship Specialty Start Date End Date Desiree Maddox MD [address] [place] [address] PCP - General Family Medicine 11/22/20 Subit, Yohan Lake MD [address] [place] [address] Consulting Physician Obstetrics/Gynecology 05/18/21 Product Grader Relationship Specialty Start Date End Date Gay Davies MD [address] [place] [id number] PCP - General Internal Medicine 11/21/21 Subit, Yohan Lake MD [address] [place] [address] Consulting Physician Obstetrics/Gynecology 05/18/21 Product Grader Relationship Specialty Start Date End Date Gay Davies MD [address] [place] [id number] PCP - General Internal Medicine 11/21/21 Subit, Yohan Lake MD [address] [place] [address] Consulting Physician Obstetrics/Gynecology 05/18/21 Product Grader Relationship Specialty Start Date End Date 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 CNP [facility] [place] [address] (Fax) PCP - General Nurse Practitioner 03/12/23 JavieritYohan MD [address] [place] [address] Consulting Physician Obstetrics/Gynecology 05/18/21 Product Grader Relationship Specialty Start Date End Date 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 DEALER SUPPORT TECHNICIAN [address] [place] [address] (Fax) PCP - General Nurse Practitioner 03/12/23 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, DEALER SUPPORT TECHNICIAN [address] [place] [address] (Fax) PCP - STONE Attributed Provider - [place] [employer] 01/16/23 06/17/50 Yohan Reyna MD [address] [place] [id number] Consulting Physician Obstetrics/Gynecology 05/18/21 Product Grader Relationship Specialty Start Date End Date 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 CNP [address], [id number] (Fax) PCP - General Nurse Practitioner 03/12/23 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 DEALER SUPPORT TECHNICIAN [address] [place] [address] (Fax) PCP - STONE Attributed Provider - [place] [employer] 01/16/23 06/17/50 Yohan Reyna MD [address] [place] [address] Consulting Physician Obstetrics/Gynecology 05/18/21 Product Grader Relationship Specialty Start Date End Date 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 DEALER SUPPORT TECHNICIAN [address] [place] [address] (Fax) PCP - General Nurse Practitioner 03/12/23 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 CNP [address] [place] [address] PCP - STONE Attributed Provider - [employer] 01/16/23 06/17/50 Yohan Reyna MD [address] [place] [address] Consulting Physician Obstetrics/Gynecology 05/18/21 Product Grader Relationship Specialty Start Date End Date 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 CNP [address] [place] [address] PCP - General Nurse Practitioner 03/12/23 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 CNP [address] [place] [address] PCP - STONE Attributed Provider - [employer] 01/16/23 06/17/50 Yohan Reyna MD [address] [place] [address] Consulting Physician Obstetrics/Gynecology 05/18/21 Scheduled Active and [...] Copeland RN)1630 (Due - Provider: Sahara Luna, [facility],PharmD)2313 (See Alternative - Provider: Abbey Catherine RN) 0808 (See Alternative - Provider: Angeline Ball RN)1030 (Due - Provider: Sahara Luna, [facility],PharmD) oxytocin (PITOCIN) bolus from bag 10,000 guillermo-units [...] If indicated, administer prior to discharge. Provide [facility] vaccine information sheet(s) (VIS) for patient for vaccines administered. docusate sodium (COLACE) capsule 100 mg 100 mg, Oral, 2 times daily PRN, constipation, Starting on Sun06/29/21 at 1335, , Use oral medication first for constipation. Use rectal suppository, if ordered, for constipation if oral route not tolerated. DO NOT CRUSH OR CHEW. 184 (Given - Provider: Nieves Best RN) flu vacc [id number] 6mos up(PF) (FLUZONE QUAD/FLULAVAL QUAD/FLUARIX QUAD) syringe [...] If indicated, administer prior to discharge. Provide [facility] vaccine information sheet(s) (VIS) for patient for [...] BE BASED ON THE PRIMARY CLINICAL RECORDS. [facility] [email or web address] [facility]. provides no warranty or guarantee of the accuracy or completeness of information in this document.
== END 2024-04-01 10:17 | disposition home or self-care (01) ==
LOC: VC 08:45
PROVIDERS: PCP Radiology Diagnostic Radiology; Visit Provider Radiology Diagnostic Radiology
DX: I80.01 Phlebitis and thrombophlebitis of superficial vessels of right lower extremity (principal)
CPT/HCPCS: 93971; G0463